=== PATIENT | female | born 1960 | race Caucasian/White ===

== ENCOUNTER 2017-08-21 09:54 | Day surgery (SDC) | END 2017-08-21 14:47 | disposition home or self-care (01) ==

== ENCOUNTER 2018-12-22 00:39 | Inpatient (IN) | payer OTHER ==
[2018-12-22] VITALS (89 sets, daily range): BP systolic 81–161; BP diastolic 55–94; PULSE 53–100; RESP 16–31; Ht 172.7 cm; Wt 98.3 kg
[~2018-12-22] VITALS: Ht 172.7 cm; Wt 98.3 kg
[~2018-12-22 00:39] MED LIST: BENA5TAB33 PO; LANT3I SC; METF100010 PO
[2018-12-22] MEDS ORDERED: VANCOMYCIN 1 GM (PMX) 250 ML IVPB STA (00:57)
[2018-12-22] MEDS ORDERED: SODIUM CHLORIDE 0.9% 1L BAG IV* STA (00:57)
[2018-12-22] MEDS ORDERED: AMIODARONE 900 MG in DEXTROSE 5% 482 ML IV STA (00:57)
[2018-12-22] MEDS ORDERED: CEFEPIME 2GM/50 ML (PMX) 50 ML IVPB STA (00:57)
[2018-12-22] MEDS ORDERED: PROPOFOL 100 ML IV ONE (01:00)
[2018-12-22] MEDS ORDERED: NORepinephrine 8MG/250 ML (PMX 250 ML IV ONE (01:00)
[2018-12-22] MEDS ORDERED: morphine 4 MG/ML VIAL IV STA (01:12)
[2018-12-22] MEDS ORDERED: IODIXANOL LOCM 100 ML BTL ONE (01:25)
[2018-12-22] MEDS ORDERED: LIDOCAINE 1% (MDV) 20 ML INJ ONE (01:25)
[2018-12-22] MEDS ORDERED: HEPARIN 1000 UNITS/ML 10 ML INJ ONE (01:25)
[2018-12-22] MEDS ORDERED: NITROGLYCERIN (IC) 100 MCG/ML INJ ONE (01:26)
[2018-12-22] MEDS ORDERED: VERAPAMIL 5 MG INJ ONE (01:26)
[2018-12-22] MEDS ORDERED: MIDAZOLAM 1 MG/ML 2 ML INJ ONE (01:26)
[2018-12-22] MEDS ORDERED: FENTAnyl 50 MCG/ML VIAL ONE (01:26)
--- NOTE | 2018-12-22 01:28 | ERD ---
ER Documentation Chief Complaint Chief Complaint CARD HPI This is a 58-year-old female brought in by rescue as a [place]. Apparently she slumped over while talking the family. Paramedics worked on for 10 minutes in the field and was able to establish an intraosseous line along with a Combitube for airway. They were regained pulses. Upon arrival, family is with patient as well. We waited we were able to regain pulses again as the patient and lost pulse on route. Central line and an intubation established. STEMI cyber security notified. [facility] activated at 12:56 AM ROS All systems reviewed and are negative except as per history of present illness. Medications Home Meds Reported Medications Benazepril Hcl* (Benazepril Hcl*) Unknown Strength Tablet, PO DAILY, #60 TAB 08/21/17 Insulin Glargine* (Lantus*) 100 Unit/Ml Soln, 60 UNIT SC QHS, #1 VIAL 08/21/17 Insulin Glargine* (Lantus*) 100 Unit/Ml Soln, 40 UNIT SC QAM, #1 VIAL 08/21/17 Metformin Hcl* (Metformin Hcl*) 1,000 Mg Tablet, 1000 MG PO WITH BREAKFAST DINNE, #30 TAB 08/21/17 Allergies Allergies: Coded Allergies: No Known Allergy (Unverified , 08/21/17) PMhx/Soc History of Surgery: No Anesthesia Reaction: No Hx Neurological Disorder: No Hx Respiratory Disorders: No Hx Cardiac Disorders: Yes (HTN, HLD) Hx Psychiatric Problems: Yes (DEPRESSION) Hx Miscellaneous Medical Probl: No Hx Alcohol Use: No Hx Substance Use: No Hx Tobacco Use: No Physical Exam Vitals Vital Signs Date Temp Pulse Resp B/P (MAP) Pulse Ox O2 O2 Flow FiO2 Time Delivery Rate 12/22/18 80 27 100 100 01:05 12/22/18 73 28 141/98 94 01:05 (112) Physical Exam Const: Obtunded Head: Atraumatic Eyes: Normal Conjunctiva ENT: Normal External Ears, Nose and Mouth. Neck: Full range of motion. No meningismus. Resp: Scattered rales bilaterally Cardio: Regular rate and rhythm, no murmurs Abd: Soft, non tender, non distended. Normal bowel sounds Skin: No petechiae or rashes Back: No midline or flank tenderness Ext: No cyanosis, or edema Neur: Obtunded Psych: Obtunded Result Diagram: 12/22/18 0055 12/22/18 0055 Results 24 hrs Laboratory Tests Test 12/22/18 00:55 12/22/18 01:06 White Blood Count 19.2 10^3/ul Red Blood Count 4.63 10^6/ul Hemoglobin 12.9 g/dl Hematocrit 42.1 % Mean Corpuscular Volume 90.9 fl Mean Corpuscular Hemoglobin 27.9 pg Mean Corpuscular Hemoglobin Concent 30.6 g/dl Red Cell Distribution Width 12.4 % Platelet Count 203 10^3/UL Mean Platelet Volume 10.9 fl Immature Granulocytes % 3.100 % Neutrophils % 46.2 % Lymphocytes % 46.3 % Monocytes % 3.3 % Eosinophils % 0.4 % Basophils % 0.7 % Nucleated Red Blood Cells % 0.2 /100WBC Immature Granulocytes # 0.600 10^3/ul Neutrophils # 8.9 10^3/ul Lymphocytes # 8.9 10^3/ul Monocytes # 0.6 10^3/ul Eosinophils # 0.1 10^3/ul Basophils # 0.1 10^3/ul Nucleated Red Blood Cells # 0.0 10^3/ul Prothrombin Time 14.6 Sec Prothrombin Time Ratio 1.1 INR International Normalized Ratio 1.13 Activated Partial Thromboplast Time 42.7 Sec Sodium Level 133 mmol/L Potassium Level 2.9 mmol/L Chloride Level 99 mmol/L Carbon Dioxide Level 19 mmol/L Anion Gap 15 Blood Urea Nitrogen 14 mg/dl Creatinine 0.65 mg/dl Est Glomerular Filtrat Rate mL/min > 60 mL/min Glucose Level 610 mg/dl Calcium Level 11.2 mg/dl Phosphorus Level 7.6 mg/dl Magnesium Level 2.8 mg/dl Total Bilirubin 0.3 mg/dl Direct Bilirubin 0.00 mg/dl Indirect Bilirubin 0.3 mg/dl Aspartate Amino Transf (AST/SGOT) 67 IU/L Alanine Aminotransferase (ALT/SGPT) 81 IU/L Alkaline Phosphatase 58 IU/L Troponin I Pending Total Protein 5.8 g/dl Albumin 3.3 g/dl Globulin 2.50 g/dl Albumin/Globulin Ratio 1.32 Lipase 811 U/L Ethyl Alcohol Level Pending Bedside Glucose 190 mg/dL Current Medications Medications Dose Sig/Senait Start Time Status Last (Trade) Ordered Route PRN Stop Time Admin Dose Reason Admin Sodium 3,000 ml BOLUS OVER 2 12/22/18 DC Chloride HOURS STAT 00:57 (NS) IV* 12/22/18 01:00 Cefepime HCl 50 ml @ ONCE STAT 12/22/18 100 mls/hr IVPB 00:57 12/22/18 01:26 Vancomycin 250 ml @ ONCE STAT 12/22/18 HCl 125 mls/hr IVPB 00:57 12/22/18 02:56 250 ml @ PER PROTOCOL 12/22/18 Norepinephrin 7.5 mls/hr ONCE IV 01:00 e 12/23/18 10:19 Amiodarone 500 ml @ 0 ONCE STAT 12/22/18 DC HCl 900 mls/hr IV 00:57 mg/Dextrose 12/22/18 01:00 Propofol 100 ml @ 3 per protocol 12/22/18 mls/hr ONCE IV 01:00 12/23/18 10:19 Morphine 4 mg ONCE STAT 12/22/18 DC Sulfate IV 01:12 (morphine) 12/22/18 01:13 Potassium 50 ml @ 25 Q2H IVPB 12/22/18 Chloride mls/hr 01:30 12/22/18 05:29 Procedures/MDM EKG: Rate/Rhythm: [Normal Sinus Rhythm] QRS, ST, T-waves: ST segment elevations in 1 and aVL, deep T wave inversions in V2 V3 V4 Impression: Post Rosc STEMI Chest X-ray 1V Interpreted by me: Soft Tissue: No acute abnormali ties Bones: No acute abnormalities Mediastinum/Cardiac Silhouette/Lungs: ET tube and central line in good position Endotracheal Intubation by me: Pre assessment performed. See preceding note for details. Pre-oxygenation performed with 100% oxygen RSI: Performed w/o complication or hypoxic events. Medications as ordered. Blade: [Mac 4] ET Tube: 7.5 cm Depth: 23 cm at the lip Intubation confirmed by colorimetric CO2, equal breath sounds, quiet over the stomach. Chest X-ray 1V Interpreted by me: 2 cm above the max ET tube. Normal soft tissue, No pneumothorax. Central Line Placement by me: Patient consented, sterilely draped, full prep, gown, glove, mask, time out performed. Anesthesia: 1% lidocaine locally Location: Left subclavian Device: Multiple lumen Technique: Seldinger technique. Secured with suture. Results: Venous return from all ports with easy saline flush. No complications. Guide wire retrieved and disposed of. . [Chest X-ray 1V Interpreted by me: Central line in SVC, Normal soft tissue, No evidence of pneumothorax.] Critical Care: Time: 45 minutes, independent of any separately billable procedural time Treatments/Evaluations: Close monitoring and treatment of unstable vital signs, cardiorespiratory, and neurologic status, while maintaining tight balance of fluid, respiratory, and cardiac interventions. Medical decision making: This is a 58-year-old female status post return of spontaneous circulation with a post Rosc STEMI. Cardiology is notified. Patient be taken to [facility]. Hospitalist notified as well. Family in conference room was notified and agree with care plan Departure Diagnosis: Primary Impression: Cardiac arrest Condition: Critical AMPARO LEONARD Dec 22, 2018 01:28
[2018-12-22] MEDS: POTASSIUM CHLORIDE 50 ML IVPB SCH ×2 (01:30→03:30)
[2018-12-22] MEDS ORDERED: PROPOFOL 100 ML ONE (01:50)
[2018-12-22] MEDS ORDERED: hydrALAzine 20 MG INJ IV PRN (02:00)
[2018-12-22] MEDS ORDERED: LORAZEPAM 2 MG INJ IV PRN (02:00)
[2018-12-22] MEDS ORDERED: MEPERIDINE 25 MG INJ IV PRN ×3 (02:00→07:30)
[2018-12-22] MEDS ORDERED: ALBUTEROL/IPRATROPIUM (NEB) 3 ML AMP HHN PRN (02:00)
[2018-12-22] MEDS ORDERED: ACETAMINOPHEN 650 MG SUPP PR PRN (02:00)
[2018-12-22] MEDS ORDERED: morphine 2 MG INJ IV PRN (02:00)
[2018-12-22] MEDS ORDERED: ACETAMINOPHEN 325 MG TAB PO PRN (02:00)
[2018-12-22] MEDS: ACCU-CHEK XX SCH ×28 (02:00→23:00)
[2018-12-22] MEDS ORDERED: DEXTROSE 50% 50 ML SYRINGE IV PRN ×2 (02:00)
[2018-12-22] MEDS ORDERED: HYDROCODONE/APAP (5/325) TAB PO PRN (02:00)
[2018-12-22] MEDS ORDERED: DOCUSATE SODIUM 100 MG CAP PO PRN (02:00)
[2018-12-22] MEDS ORDERED: NITROGLYCERIN (SL) 0.4 MG TAB SL PRN (02:00)
[2018-12-22] MEDS ORDERED: ONDANSETRON 4 MG INJ IV PRN (02:00)
[2018-12-22] MEDS ORDERED: MAGNESIUM HYDROXIDE 30ML CUP PO PRN (02:00)
[2018-12-22] MEDS ORDERED: NACL 0.9% 3 ML SYG IV SCH (02:00)
[2018-12-22] MEDS ORDERED: POTASSIUM CHLORIDE 50 ML ONE (02:24)
[2018-12-22] MEDS ORDERED: TICAGRELOR 90 MG TABLET ONE (02:43)
[2018-12-22] MEDS ORDERED: ASPIRIN 325 MG TAB ONE (02:50)
[2018-12-22] MEDS ORDERED: ASPIRIN 81 MG TAB ONE (02:51)
--- NOTE | 2018-12-22 03:03 | CONS ---
Assessment/Plan Assessment/Plan Hospital Course (Demo Recall) 58 yo with cardiac arrest due to lateral wall stemi, culprit lesion is OM1, which was stented, and mid LAD also stented. Imp: Card arrest STEMI diabetes hypokalemia Recc: ASA, Brilinta, atorvastatin BB and PAKO/ARB as BP tolerates Watch for neurologic recovery Cooling protocol Echo to be done in AM Guarded prognosis given prolonged down time Can stop amiodarone if still running Consultation Date/Type/Reason Admit Date/Time 12/22/18 Date of Consultation: Dec 22, 2018 Type of Consult Cardiology Reason for Consultation cardiac arrest, STEMI Requesting Provider: AMPARO LEONARD Date/Time of Note DATE: 12/22/18 TIME: 01:41 Hx of Present Illness 58 yo with h/o DM presents as ROSC. Per family, pt was in usual state of health earlier, went to dinner and felt unwell, went home after dinner and was nauseated and vomiting, then witnessed to lose consciousness. Family called 911 immediately, but no CPR done, it took BLS 20 minutes to arrive at the home, on arrival she was pulseless and CPR done. She was shocked x 4, at some point regained pulse in transport, but upon arrival to ED had no pulse. EKG in ED and in field with nsr, ST elevations in inferior and anterolateral leads with reciprocal ST depressions. Time in field was 30 min, unclear how much time was without pulse, and an additional 15 min in ED without pulse. At present pt intubated, bloody frothy secretions in ETT. Patient taken to seed analysis laboratory assistant emergently, culprit vessel was OM1 which had 99% lesion and was stented. Patient also had a long LAD mid lesion which was stented. LVEF about 30% with inferoapical akinesis Subjective hx not possible: pt non-verbal, pt critical status Past Medical History Medical History: diabetes Home Meds Reported Medications Benazepril Hcl* (Benazepril Hcl*) Unknown Strength Tablet, PO DAILY, #60 TAB 08/21/17 Insulin Glargine* (Lantus*) 100 Unit/Ml Soln, 60 UNIT SC QHS, #1 VIAL 08/21/17 Insulin Glargine* (Lantus*) 100 Unit/Ml Soln, 40 UNIT SC QAM, #1 VIAL 08/21/17 Metformin Hcl* (Metformin Hcl*) 1,000 Mg Tablet, 1000 MG PO WITH BREAKFAST DINNE, #30 TAB 08/21/17 Medications Current Medications Vancomycin HCl 250 ml @ 125 mls/hr ONCE STAT IVPB ; Start 12/22/18 at 00:57; Stop 12/22/18 at 02:56 Norepinephrine 250 ml @ 7.5 mls/hr PER PROTOCOL ONCE IV ; Start 12/22/18 at 01:00; Stop 12/23/18 at 10:19 Propofol 100 ml @ 3 mls/hr per protocol ONCE IV ; Start 12/22/18 at 01:00; Stop 12/23/18 at 10:19 Potassium Chloride 50 ml @ 25 mls/hr Q2H IVPB ; Start 12/22/18 at 01:30; Stop 12/22/18 at 05:29 Allergies: Coded Allergies: No Known Allergy (Unverified , 08/21/17) Past Surgical History Past Surgical Hx: other (unknown) Family History Significant Family History: no pertinent family hx Social History Smoking Status: Unknown if ever smoked Exam/Review of Systems Vital Signs Vitals Vital Signs Date Temp Pulse Resp B/P (MAP) Pulse Ox O2 O2 Flow FiO2 Time Delivery Rate 12/22/18 80 27 100 100 01:05 12/22/18 141/98 01:05 (112) Exam Constitutional: non-verbal, other (obese) Head: normocephalic, atraumatic Eyes: nl lids ENMT: nl external ears & nose, intubated Neck: No bruits Respiratory: crackles/rales (heard throughout) Cardiovascular: regular rate and rhythm; No murmurs/extra sounds (hard to hear due to lung sounds) Gastrointestinal: soft, non-tender Musculoskeletal: nl extremities to inspection Extremities: normal pulses (normal femoral and DP pulses); No edema Neurological: unresponsive Skin: nl turgor Labs Result Diagram: 12/22/185 12/22/18 0055 Results 24hrs Laboratory Tests Test 12/22/18 00:55 12/22/18 01:05 12/22/18 01:06 White Blood Count 19.2 #H Red Blood Count 4.63 Hemoglobin 12.9 Hematocrit 42.1 Mean Corpuscular Volume 90.9 Mean Corpuscular Hemoglobin 27.9 L Mean Corpuscular Hemoglobin Concent 30.6 L Red Cell Distribution Width 12.4 Platelet Count 203 # Mean Platelet Volume 10.9 H Immature Granulocytes % 3.100 H Neutrophils % 46.2 Lymphocytes % 46.3 Monocytes % 3.3 Eosinophils % 0.4 Basophils % 0.7 Nucleated Red Blood Cells % 0.2 H Immature Granulocytes # 0.600 H Neutrophils # 8.9 H Lymphocytes # 8.9 H Monocytes # 0.6 Eosinophils # 0.1 Basophils # 0.1 Nucleated Red Blood Cells # 0.0 Prothrombin Time 14.6 Prothrombin Time Ratio 1.1 INR International Normalized Ratio 1.13 Activated Partial Thromboplast Time 42.7 H Sodium Level 133 L Potassium Level 2.9 *L Chloride Level 99 Carbon Dioxide Level 19 L Anion Gap 15 H Blood Urea Nitrogen 14 Creatinine 0.65 Est Glomerular Filtrat Rate mL/min > 60 Glucose Level 610 *H Calcium Level 11.2 H Phosphorus Level 7.6 H Magnesium Level 2.8 H Total Bilirubin 0.3 Direct Bilirubin 0.00 Indirect Bilirubin 0.3 Aspartate Amino Transf (AST/SGOT) 67 H Alanine Aminotransferase (ALT/SGPT) 81 H Alkaline Phosphatase 58 Troponin I 0.255 *H Total Protein 5.8 L Albumin 3.3 Globulin 2.50 Albumin/Globulin Ratio 1.32 Lipase 811 H Ethyl Alcohol Level < 10.0 H Urine Color YELLOW Urine Clarity CLEAR Urine pH 5.0 Urine Specific [place] 1.021 Urine Ketones 1+ H Urine Nitrite NEGATIVE Urine Bilirubin NEGATIVE Urine Urobilinogen NEGATIVE Urine Leukocyte Esterase NEGATIVE Urine Hemoglobin NEGATIVE Urine Glucose 1+ H Urine Total Protein NEGATIVE Bedside Glucose 190 Imaging Imaging EKG with NSR, ST elevations in anterolateral and inferior leads Medications Medications Current Medications Vancomycin HCl 250 ml @ 125 mls/hr ONCE STAT IVPB ; Start 12/22/18 at 00:57; Stop 12/22/18 at 02:56 Norepinephrine 250 ml @ 7.5 mls/hr PER PROTOCOL ONCE IV ; Start 12/22/18 at 01:00; Stop 12/23/18 at 10:19 Propofol 100 ml @ 3 mls/hr per protocol ONCE IV ; Start 12/22/18 at 01:00; Stop 12/23/18 at 10:19 Potassium Chloride 50 ml @ 25 mls/hr Q2H IVPB ; Start 12/22/18 at 01:30; Stop 12/22/18 at 05:29 ROBIN JAMES 10, 2019 03:02
--- NOTE | 2018-12-22 03:16 | OPR ---
Date/Time of Note Date/Time of Note DATE: 12/22/18 TIME: 03:07 Operative Report Procedure Date: Dec 22, 2018 Preoperative Diagnosis STEMI and cardiac arrest Postoperative Diagnosis STEMI - culprit vessel is OM1, with severe LAD disease Operation/Procedure Performed Coronary angiography, left heart cath, left ventriculography, moderate sedation, coronary angioplasty to culprit OM1 and angioplasty to mid LAD Surgeon see signature line Stage Settings Painter Sergio FOX Anesthesia Type: moderate sedation Estimated Blood Loss: 50 - 100 ml's Transfusion none Specimen none Grafts/Implants [place] Resolute 3.0x18 mm stent to OM1, and 3.0x26 mm stent to mid LAD Complications none Pt Condition Post Procedure: guarded Disposition: other (ICU) Indications 58 yo witnessed cardiac arrest with evidence of STEMI Procedure Description Informed consent from family obtained. Patient brought to dental lab technician emergently, with ETT in place, being bagged, and connected to ventilator. Versed and fentanyl given as no other sedation had been administered. Using fluoroscopy and modified seldinger technique, the right TENNIS PLAYER was accessed and a 6F sheath placed. Diagnostic images obtained with JL4 and JR4 catheters. Then it was decided to proceed with PCI. Heparin given and ACT checked. A JL4 guide engaged the LM, the OM1 vessel was wired with a Luge wire. Lesion predilated with a 2.5x12 mm balloon, stented with a 3.0x18 mm [place] Resolute stent. Guideliner was used to help advance the stent into the vessel. The guideliner and wire were repositioned into the LAD, the LAD lesion was predilated with the 2.5x12 balloon, then stented with a 3.0x26 mm Juan Resolute stent. Angiography performed post stenting including wire out shots demonstrating good apposition of the stents and no evidence of dissection. Angiography through the sidearm of the sheath demonstrated that the sheath was placed low, below the bifurcation. It was sewn into place with plans for removal later on. Findings: Left main - moderate sized, no significant lesions LAD - 20% ostial, 90% mid lesion, length 20 mm, mild luminal irregularities throughout LCX - OM1 99% lesion with CHEIKH 2 flow beyond the lesion, lesion length 12 mm RCA dominant, but relatively small vessel with mild diffuse disease LVEF - 30% with inferoapical akinesis and global hypokinesis LVEDP - 27 ROBIN JAMES Dec 22, 2018 03:15
--- NOTE | 2018-12-22 03:22 | HP ---
Date/Time of Note Date/Time of Note DATE: 12/22/18 TIME: 03:09 Assessment/Plan VTE Prophylaxis SCD applied (from Nsg): Yes Pharmacological prophylaxis: other Lines/Catheters IV Catheter Type (from Nrsg): Intraosseous Central line still needed: Yes Assessment/Plan Hospital Course Assessment and plan: 58-year-old female past medical of hypertension, high cholesterol, anxiety, diabetes, who was brought in by EMS after suffering cardiac arrest and had ROSC, with ST elevation [place] lactic acidosis, status post PCI of the OM1 (culprit lesion) is as well as stenting of the mid LAD, intubated and unresponsive, on insulin drip and hypothermia protocol. 1. Status post cardiac arrest with ST elevation [place]: Again status post PCI of the obtuse marginal and LAD blockages. Again patient was down for at least 20 m inutes before EMS arrived at home, and took another 15 minutes for ROSC to be obtained. -Monitor, follow-up post procedure recognitions per cardiology team, continue Lipitor, Coreg, Brilinta, aspirin -We will obtain palliative care consult as well as neurology consult, patient now started on hypothermia protocol and continue insulin drip, trend lactic acid -Follow-up TSH, A1c, lipid panel, and add Keppra IV twice daily 2. Diabetes: Based on history, can follow-up A1c, continue insulin drip and monitor sugars 3. Hypertension: Presently stable -Continue current cardiac medications, monitor 4. High cholesterol: Follow-up lipid panel continue statin Appears to have overall poor prognosis given the length of time patient was down before CPR was started, again we will continue hypothermia protocol for the first 24 hours, insulin drip, as mentioned above palliative care and neurology consults as well. Result Diagram: 12/22/18 0055 12/22/18 0055 Results 24hrs Laboratory Tests Test 12/22/18 00:55 12/22/18 01:05 12/22/18 01:06 12/22/18 01:14 White Blood Count 19.2 #H Red Blood Count 4.63 Hemoglobin 12.9 Hematocrit 42.1 Mean Corpuscular 90.9 Volume Mean Corpuscular 27.9 L Hemoglobin Mean Corpuscular 30.6 L Hemoglobin Concent Red Cell 12.4 Distribution Width Platelet Count 203 # Mean Platelet Volume 10.9 H Immature 3.100 H Granulocytes % Neutrophils % 46.2 Lymphocytes % 46.3 Monocytes % 3.3 Eosinophils % 0.4 Basophils % 0.7 Nucleated Red Blood 0.2 H Cells % Immature 0.600 H Granulocytes # Neutrophils # 8.9 H Lymphocytes # 8.9 H Monocytes # 0.6 Eosinophils # 0.1 Basophils # 0.1 Nucleated Red Blood 0.0 Cells # Prothrombin Time 14.6 Prothrombin Time 1.1 Ratio INR International 1.13 Normalized Ratio Activated 42.7 H Partial Thromboplast Time Sodium Level 133 L Potassium Level 2.9 *L Chloride Level 99 Carbon Dioxide Level 19 L Anion Gap 15 H Blood Urea Nitrogen 14 Creatinine 0.65 Est Glomerular > 60 Filtrat Rate mL/min Glucose Level 610 *H Calcium Level 11.2 H Phosphorus Level 7.6 H Magnesium Level 2.8 H Total Bilirubin 0.3 Direct Bilirubin 0.00 Indirect Bilirubin 0.3 Aspartate Amino 67 H Transf (AST/SGOT) Alanine 81 H Aminotransferase (AL T/SGPT) Alkaline Phosphatase 58 Troponin I 0.255 *H Total Protein 5.8 L Albumin 3.3 Globulin 2.50 Albumin/Globulin 1.32 Ratio Lipase 811 H Ethyl Alcohol Level < 10.0 H Urine Color YELLOW Urine Clarity CLEAR Urine pH 5.0 Urine Specific 1.021 [place] Urine Ketones 1+ H Urine Nitrite NEGATIVE Urine Bilirubin NEGATIVE Urine Urobilinogen NEGATIVE Urine Leukocyte NEGATIVE Esterase Urine Hemoglobin NEGATIVE Urine Glucose 1+ H Urine Total Protein NEGATIVE Bedside Glucose 190 Lactic Acid Level 12.5 *H Urine Opiates Screen Negative Urine Barbiturates Negative Urine Amphetamines Negative Screen Urine Negative Benzodiazepines Screen Urine Cocaine Screen Negative Urine Cannabinoids Negative HPI/ROS Admit Date/Time Admit Date/Time 12/22/18 Hx of Present Illness 58-year-old female past medical of hypertension, high cholesterol, anxiety, diabetes, who was brought in by EMS after suffering cardiac arrest and had ROSC. Per documentation and per family, after dinner last night patient went home and was nauseated and vomiting, then witnessed to lose consciousness. Family called 911 immediately, and apparently it took BLS about 20 minutes to arrive at the home, on arrival she was pulseless and CPR done. She was shocked x 4, at some point regained pulse in transport, but upon arrival to ED had no pulse. Per cardiology notes, the time in field was 30 min, unclear how much time was without pulse, and an additional 15 min in ED without pulse. Patient was intubated. Patient was found with sugars in the 600 range initially. EKG in ED and in field showed signs consistent with ST elevation [place]. And troponin was elevated at 0.255. Lactic acid was also found to be in the 12 range. Patient was taken to the heart culture media laboratory assistant short time ago and had stenting performed of the OM1 (culprit lesion) is as well as stenting of the mid LAD. PMH/Family/Social Past Medical History Medications Current Medications Norepinephrine 250 ml @ 7.5 mls/hr PER PROTOCOL ONCE IV ; Start 12/22/18 at 01:00; Stop 12/23/18 at :19 Propofol 100 ml @ 3 mls/hr per protocol ONCE IV ; Start 12/22/18 at 01:00; Stop 12/23/18 at : Potassium Chloride 50 ml @ 25 mls/hr Q2H IVPB ; Start 12/22/18 at 01:30; Stop 12/22/18 at 05:29 IV Flush (NS 3 ml) 3 ml PER PROTOCOL IV ; Start 12/22/18 at 02:00 Ondansetron HCl (Zofran Inj) 4 mg Q6H PRN IV NAUSEA/VOMITING; Start 12/22/18 at 02:00 Acetaminophen (Tylenol Tab) 650 mg Q6H PRN PO .PAIN 1-3 OR TEMP; Start 12/22/18 at 02:00 Acetaminophen/ Hydrocodone Bitart ([place] (5/325)) 1 tab Q6H PRN PO .MOD PAIN 4- 6; Start 12/22/18 at 02:00 Morphine Sulfate (morphine) 2 mg Q4H PRN IV .SEVERE PAIN 7-10; Start 12/22/18 at 02:00 Docusate Sodium (Colace) 100 mg Q12H PRN PO .CONSTIPATION; Start 12/22/18 at 02:00 Magnesium Hydroxide (Milk Of Mag) 30 ml DAILY PRN PO .CONSTIPATION; Start 12/22/18 at 02:00 Famotidine (Pepcid Iv) 20 mg Q12 IV ; Start 12/22/18 at 09:00 Lorazepam (Ativan) 0.5 mg Q6H PRN IV ANXIETY; Start 12/22/18 at 02:00 Albuterol/ Ipratropium (Duoneb) 3 ml Q4H RESP THERAPY PRN HHN SHORTNESS OF BREATH; Start 12/22/18 at 02:00 Hydralazine HCl (Apresoline) 10 mg Q6H PRN IV ELEVATED BLOOD PRESSURE; Start 12/22/18 at 02:00 Nitroglycerin (Nitroglycerin (Sl Tab) 0.4 Mg) 1 tab Q5M PRN SL ANGINA; Start 12/22/18 at 02:00 Acetaminophen (Tylenol Supp) 650 mg Q4H PRN NV TEMP > 37C; Start 12/22/18 at 02:00 Acetaminophen (Tylenol Liquid) 650 mg Q4H PRN PO TEMP > 37C; Start 12/22/18 at 02:00 Acetaminophen (Tylenol Supp) 500 mg Q6H NV ; Start 12/23/18 at 02:00 Acetaminophen (Tylenol Liquid) 500 mg Q6H PO ; Start 12/23/18 at 02:00 Meperidine HCl (Demerol) 12.5 mg Q4H PRN IV POST OPERATIVE SHIVERING; Start 12/22/18 at 02:00 Meperidine HCl (Demerol) 25 mg Q4H PRN IV POST OPERATIVE SHIVERING; Start 12/22/18 at 02:00 Eye Lubricant (Akwa Oint) 1 applic Q6 BOTH EYES ; Start 12/22/18 at 06:00 Eye Lubricant (Artificial Tears Oph) 2 drop Q6 BOTH EYES ; Start 12/22/18 at 06:00 Diagnostic Test (Pha) (Accu-Chek) 1 ea Q1H XX ; Start 12/22/18 at 02:00 Insulin Human Regular 100 unit/ Sodium Chloride 100 ml @ 0.2 mls/hr PER PROTOCOL IV ; Start 12/22/18 at 02:00 Miscellaneous Information (* Miscellaneous Pharmacy Order) Treatment of Hypoglycemia: 1.BG 51... Per protocol XX ; Start 12/22/18 at 02:00 Dextrose (D50w Syringe) 25 ml Q15M PRN IV .DECREASED GLUCOSE; Start 12/22/18 at 02:00 Dextrose (D50w Syringe) 50 ml Q15M PRN IV .DECREASED GLUCOSE; Start 12/22/18 at 02:00 Miscellaneous Information (* Miscellaneous Pharmacy Order) Hold all Metformin ... ONCE ONCE XX ; Start 12/22/18 at 03:30; Stop 12/22/18 at 03:31; Status UNV Aspirin (Halfprin) 81 mg DAILY PO ; Start 12/22/18 at 09:00; Status UNV Ticagrelor (Brilinta) 180 mg ONCE ONCE PO ; Start 12/22/18 at 03:30; Stop 12/22/18 at 03:31; Status UNV Carvedilol (Coreg) 3.125 mg BID PO ; Start 12/22/18 at 09:00 Atorvastatin Calcium (Lipitor) 80 mg DAILY@21 PO ; Start 12/22/18 at 21:00; Status UNV Benazepril HCl (Lotensin) 10 mg DAILY PO ; Start 12/22/18 at 09:00; Status UNV Atorvastatin Calcium (Lipitor) 80 mg ONCE ONCE PO ; Start 12/22/18 at 03:30; Stop 12/22/18 at 03:31; Status UNV Coded Allergies: No Known Allergy (Unverified , 08/21/17) Past Surgical History Past Surgical Hx: other (unknown) Family History Significant Family History: no pertinent family hx Social History Alcohol Use: none Smoking Status: Unknown if ever smoked Drug Use: none Exam/Review of Systems Vital Signs Vitals Vital Signs Date Temp Pulse Resp B/P (MAP) Pulse Ox O2 O2 Flow FiO2 Time Delivery Rate 12/22/18 80 27 100 100 01:05 12/22/18 141/98 01:05 (112) Exam Exam Gen: Lying in bed, intubated Head: Atraumatic. Eyes: Unable to fully assess at this time ENT: Normal External Ears, Nose and Mouth. Neck: Supple Resp: Distant breath sounds bilaterally Cardio: S1, S2 heard Abd: Soft, nondistended, normal bowel sounds, non tender. Ext: No lower extremity edema bilaterally Neuro: Unable to fully assess at this time as patient is intubated MARIBEL MIRAMONTES Dec 22, 2018 03:21
[2018-12-22] MEDS ORDERED: ATORVASTATIN 80 MG TAB PO ONE (03:30)
[2018-12-22] MEDS ORDERED: TICAGRELOR 90 MG TABLET PO ONE (03:30)
[2018-12-22] MEDS: INSULIN HUMAN REGULAR 100 UNIT in SOD CHLORIDE 0.9% 99 ML IV SCH ×3 (03:36→15:30)
[2018-12-22] MEDS ORDERED: VECURONIUM 100 MG in DEXTROSE 5% 100 ML IV SCH (04:00)
[2018-12-22] MEDS: PIPER-TAZO 3.375 GM IV (PMX) 100 ML IVPB SCH ×3 (04:43→18:05)
[2018-12-22] MEDS: ARTIFICIAL TEARS 15 ML OPH BOTH EYES SCH ×3 (05:16→18:05)
[2018-12-22] MEDS: PHENYLephrine 20MG IN 250 ML 250 ML IV SCH ×2 (05:50→08:30)
[2018-12-22] MEDS: OCULAR LUBRICANT 3.5 GM OPH OINT BOTH EYES SCH ×3 (06:00→18:05)
[2018-12-22] MEDS: LEVETIRACETAM 1000 MG (PMX) 100 ML IVPB SCH ×2 (06:16→20:39)
[2018-12-22] MEDS ORDERED: NORepinephrine 8MG/250 ML (PMX 250 ML IV SCH (08:00)
[2018-12-22] MEDS ORDERED: MEPERIDINE 25 MG INJ IV ONE (08:00)
[2018-12-22] MEDS ORDERED: NA BICARBONATE 8.4% 50 ML SYG IV STA ×2 (08:31→12:33)
[2018-12-22] MEDS: BENAZEPRIL 10 MG TAB PO SCH (08:56)
[2018-12-22] MEDS: VASOPRESSIN 60 UNIT in DEXTROSE 5% 57 ML IV SCH ×2 (09:00→21:00)
[2018-12-22] MEDS ORDERED: ASPIRIN (EC) 81 MG TAB PO SCH (09:00)
--- NOTE | 2018-12-22 09:03 | CONS ---
Assessment/Plan Assessment/Plan Assessment/Plan (Daily) Chest x-ray showing pulmonary edema. Ventilator setting; AC of 16, tidal volume 500, PEEP of 5, 100% FiO2. Assessment and recommendations; 1. patient admitted cardiac arrest due to STEMI status post emergent coronary angiography with stenting of LAD. 2. Underlying cardiomyopathy with poor ejection fraction with profound shock and hypotension. Patient on multiple pressor agents. 3. High diabetes with severe hyperglycemia patient presenting with mixed acidosis. Likely some element of DKA as well. 4. Pulmonary edema from cardiac arrest. Difficult to rule out superimposed aspiration pneumonia. Patient however currently on appropriate empiric antimicrobial coverage. 5. Questionable history of seizures. Continue current supportive care. Administer sodium bicarbonate. Obtain follow-up ABG in 2 hours. Obtain follow-up chest x-ray 24 hours. Continue hypothermia protocol for now, hemodynamics permitting. Prognosis appears extremely guarded at this point. 40 minutes of critical care time was spent evaluating patient. Consultation Date/Type/Reason Admit Date/Time 12/22/18 Date of Consultation: Dec 22, 2018 Type of Consult Pulmonary/critical care Patient is a 58-year-old lady who was brought into the hospital after having cardiac arrest at home. Prolonged CPR was done with revival of vital signs. Up on evaluation here patient was diagnosed with STEMI and was taken to cardiac Tape Editor where LAD lesion was dilated and a stent put in. Patient has remained profoundly hypotensive and is critically ill. Past medical history; 1. History of hypertension, hyperlipidemia. 2. Diabetes. Apparently poorly controlled. Medications; reviewed. Patient is on insulin drip, phenylephrine drip, Levophed, and propofol. All doses and other medications were reviewed in detail. Allergies; none. Social history; non-smoker. Family history; patient is and has supportive family. 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 Review of system; unable to be obtained. General exam; middle-aged female, orally intubated, sedated and paralyzed. Date/Time of Note DATE: 12/22/18 TIME: 08:58 Past Medical History Home Meds Reported Medications Benazepril Hcl* (Benazepril Hcl*) Unknown Strength Tablet, PO DAILY, #60 TAB 08/21/17 Insulin Glargine* (Lantus*) 100 Unit/Ml Soln, 60 UNIT SC QHS, #1 VIAL 08/21/17 Insulin Glargine* (Lantus*) 100 Unit/Ml Soln, 40 UNIT SC QAM, #1 VIAL 08/21/17 Metformin Hcl* (Metformin Hcl*) 1,000 Mg Tablet, 1000 MG PO WITH BREAKFAST DINNE, #30 TAB 08/21/17 Medications Current Medications Propofol 100 ml @ 3 mls/hr per protocol ONCE IV Last administered on 12/22/18at 03:41; Admin Dose 9 MLS/HR; Start 12/22/18 at 01:00; Stop 12/23/18 at 10:19 IV Flush (NS 3 ml) 3 ml PER PROTOCOL IV ; Start 12/22/18 at 02:00 Ondansetron HCl (Zofran Inj) 4 mg Q6H PRN IV NAUSEA/VOMITING; Start 12/22/18 at 02:00 Acetaminophen (Tylenol Tab) 650 mg Q6H PRN PO .PAIN 1-3 OR TEMP; Start 12/22/18 at 02:00 Acetaminophen/ Hydrocodone Bitart ([place] (5/325)) 1 tab Q6H PRN PO .MOD PAIN 4- 6; Start 12/22/18 at 02:00 Morphine Sulfate (morphine) 2 mg Q4H PRN IV .SEVERE PAIN 7-10; Start 12/22/18 at 02:00 Docusate Sodium (Colace) 100 mg Q12H PRN PO .CONSTIPATION; Start 12/22/18 at 02:00 Magnesium Hydroxide (Milk Of Mag) 30 ml DAILY PRN PO .CONSTIPATION; Start 12/22/18 at 02:00 Famotidine (Pepcid Iv) 20 mg Q12 IV ; Start 12/22/18 at 09:00 Albuterol/ Ipratropium (Duoneb) 3 ml Q4H RESP THERAPY PRN HHN SHORTNESS OF BREATH; Start 12/22/18 at 02:00 Hydralazine HCl (Apresoline) 10 mg Q6H PRN IV ELEVATED BLOOD PRESSURE; Start 12/22/18 at 02:00 Nitroglycerin (Nitroglycerin (Sl Tab) 0.4 Mg) 1 tab Q5M PRN SL ANGINA; Start 12/22/18 at 02:00 Acetaminophen (Tylenol Supp) 650 mg Q4H PRN [place] TEMP > 37C; Start 12/22/18 at 02:00 Acetaminophen (Tylenol Liquid) 650 mg Q4H PRN PO TEMP > 37C; Start 12/22/18 at 02:00 Acetaminophen (Tylenol Supp) 500 mg Q6H [place] ; Start 12/23/18 at 02:00 Acetaminophen (Tylenol Liquid) 500 mg Q6H PO ; Start 12/23/18 at 02:00 Meperidine HCl (Demerol) 12.5 mg Q4H PRN IV POST OPERATIVE SHIVERING; Start 12/22/18 at 02:00 Meperidine HCl (Demerol) 25 mg Q4H PRN IV POST OPERATIVE SHIVERING; Start 12/22/18 at 02:00 Eye Lubricant (Akwa Oint) 1 applic Q6 BOTH EYES ; Start 12/22/18 at 06:00 Eye Lubricant (Artificial Tears Oph) 2 drop Q6 BOTH EYES Last administered on 12/22/18at 05:16; Admin Dose 2 DROP; Start 12/22/18 at 06:00 Diagnostic Test (Pha) (Accu-Chek) 1 ea Q1H XX Last administered on 12/22/18at 08:16; Admin Dose 1 EA; Start 12/22/18 at 02:00 Insulin Human Regular 100 unit/ Sodium Chloride 100 ml @ 0.2 mls/hr PER PROTOCOL IV Last administered on 12/22/18at 03:36; Admin Dose 6 MLS/HR; Start 12/22/18 at 02:00 Miscellaneous Information (* Miscellaneous Pharmacy Order) Treatment of Hypoglycemia: 1.BG 51... Per protocol XX ; Start 12/22/18 at 02:00 Dextrose (D50w Syringe) 25 ml Q15M PRN IV .DECREASED GLUCOSE; Start 12/22/18 at 02:00 Dextrose (D50w Syringe) 50 ml Q15M PRN IV .DECREASED GLUCOSE; Start 12/22/18 at 02:00 Aspirin (Halfprin) 81 mg DAILY PO ; Start 12/22/18 at 09:00 Carvedilol (Coreg) 3.125 mg BID PO ; Start 12/22/18 at 09:00 Atorvastatin Calcium (Lipitor) 80 mg DAILY@21 PO ; Start 12/22/18 at 21:00 Benazepril HCl (Lotensin) 10 mg DAILY PO ; Start 12/22/18 at 09:00 Piperacillin Sod/ Tazobactam Sod 100 ml @ 200 mls/hr Q6 IVPB Last administered on 12/22/18at 04:43; Admin Dose 200 MLS/HR; Start 12/22/18 at 04:00 Vecuronium [place] 100 mg/ Dextrose 100 ml @ 4.89 mls/hr TITRATE IV Last administered on 12/22/18at 04:00; Admin Dose 4.89 MLS/HR; Start 12/22/18 at 04:00 Levetiracetam 100 ml @ 400 mls/hr Q12 IVPB Last administered on 12/22/18at 06:16; Admin Dose 400 MLS/HR; Start 12/22/18 at 05:30 Lorazepam (Ativan) 1 mg Q1H PRN IV SEIZURES; Start 12/22/18 at 05:00 Vasopressin 60 unit/Dextrose 60 ml @ 1.2 mls/hr Q12H IV ; Start 12/22/18 at 09:00 Sodium Bicarbonate 100 meq/Sodium Chloride 1,100 ml @ 75 mls/hr [id number] IV ; Start 12/22/18 at 09:30 Phenylephrine HCl 80 mg/Dextrose 250 ml @ 18.75 mls/ hr TITRATE IV ; Start 12/22/18 at 09:30 Norepinephrine 32 mg/Dextrose 250 ml @ 0.47 mls/hr TITRATE IV ; Start 12/22/18 at 09:30 Allergies: Coded Allergies: No Known Allergy (Unverified , 08/21/17) Past Surgical History Past Surgical Hx: other (unknown) Social History Alcohol Use: none Smoking Status: Never smoker Drug Use: none Exam/Review of Systems Exam Vitals Vital Signs Date Temp Pulse Resp B/P (MAP) Pulse Ox O2 O2 Flow FiO2 Time Delivery Rate 12/22/18 96 16 98 100 07:58 12/22/18 89/58 (68) 07:15 12/22/18 95.8 07:00 Intake and Output 12/21/18 12/21/18 12/22/18 1515:00 23:00 07:00 IntakeIntake Total 3918.12 ml OutputOutput Total 165 ml BalanceBalance 3753.12 ml Exam H EENT exam; supple neck, positive JVD. No lymphadenopathy. Midline trachea. No thyromegaly. Orally intubated. Pupils are midsize and reactive sluggishly. Patient has fair dentition. Chest exam; diminished breath sounds bilaterally. S1-S2 audible, no murmurs. Regular rhythm. Abdomen exam; soft, no organomegaly. Bowel sounds are absent. Extremity exam; peripheral edema. 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 Results Result Diagram: 12/22/18 0510 12/22/18 0828 Results 24hrs Laboratory Tests Test 12/22/18 00:55 12/22/18 01:05 12/22/18 01:06 12/22/18 01:14 White Blood Count 19.2 #H Red Blood Count 4.63 Hemoglobin 12.9 Hematocrit 42.1 Mean Corpuscular 90.9 Volume Mean Corpuscular 27.9 L Hemoglobin Mean Corpuscular 30.6 L Hemoglobin Concen t Red Cell 12.4 Distribution Width Platelet Count 203 # Mean Platelet 10.9 H Volume Immature 3.100 H Granulocytes % Neutrophils % 46.2 Lymphocytes % 46.3 Monocytes % 3.3 Eosinophils % 0.4 Basophils % 0.7 Nucleated Red 0.2 H Blood Cells % Immature 0.600 H Granulocytes # Neutrophils # 8.9 H Lymphocytes # 8.9 H Monocytes # 0.6 Eosinophils # 0.1 Basophils # 0.1 Nucleated Red 0.0 Blood Cells # Prothrombin Time 14.6 Prothrombin Time 1.1 Ratio INR International 1.13 Normalized Ratio Activated 42.7 H Partial Thrombopl ast Time Sodium Level 133 L Potassium Level 2.9 *L Chloride Level 99 Carbon Dioxide 19 L Level Anion Gap 15 H Blood Urea 14 Nitrogen Creatinine 0.65 Est Glomerular > 60 Filtrat Rate mL/min Glucose Level 610 *H Calcium Level 11.2 H Phosphorus Level 7.6 H Magnesium Level 2.8 H Total Bilirubin 0.3 Direct Bilirubin 0.00 Indirect 0.3 Bilirubin Aspartate Amino 67 H Transf (AST/SGOT) Alanine 81 H Aminotransferase (ALT/SGPT) Alkaline 58 Phosphatase Troponin I 0.255 *H 0.866 *H Total Protein 5.8 L Albumin 3.3 Globulin 2.50 Albumin/Globulin 1.32 Ratio Lipase 811 H Ethyl Alcohol < 10.0 H Level Urine Color YELLOW Urine Clarity CLEAR Urine pH 5.0 Urine Specific 1.021 [place] Urine Ketones 1+ H Urine Nitrite NEGATIVE Urine Bilirubin NEGATIVE Urine NEGATIVE Urobilinogen Urine Leukocyte NEGATIVE Esterase Urine Hemoglobin NEGATIVE Urine Glucose 1+ H Urine Total NEGATIVE Protein Bedside Glucose 190 Lactic Acid Level 12.5 *H Creatine Kinase 179 Creatine Kinase 5.2 Index Creatinine Kinase 9.28 H MB (Mass) Urine Opiates Negative Screen Urine Negative Barbiturates Urine Negative Amphetamines Screen Urine Negative Benzodiazepines Screen Urine Cocaine Negative Screen Urine Negative Cannabinoids Test 12/22/18 01:52 12/22/18 03:33 12/22/18 03:50 12/22/18 04:15 Blood Gas Blood arterial Specimen Source Arterial Blood 12/22/2018 3:30:3 Date Drawn 7 AM Arterial Blood pH 7.053 *L (Temp corrected) Arterial Blood 56.8 H pCO2 (Temp correct) Arterial Blood 86.9 pO2 (Temp corrected) Arterial Blood 15.5 L HCO3 Arterial Blood -15.3 L Base Excess Arterial Blood 92.6 L Oxygen Saturation Pablo Test N/A Arterial Blood A-Line Gas Puncture Site Arterial 0.1 Blood Carboxyhemo globin Arterial Blood 0.3 Methemoglobin Blood Gas A-a O2 569.3 H Differential Oxyhemoglobin 92.2 L Percent Blood Gas 37.0 Temperature Blood Gas 16.0 Respiration Rate Blood Gas Actual 30 Respiration Rate Blood Gas VENT - AC Modality FiO2 100.0 Blood Gas Tidal 500.0 Volume Blood Gas Low 5.0 PEEP Setting Blood Gas 35.0 Inspiratory Pressure Blood Gas REBECCA AKHTAR Critical Value Read Back Blood Gas MR Notified Whom Blood Gas 12/22/2018 3:41:4 Notified Time 0 AM Bedside Glucose 572 *H 506 *H Prothrombin Time 19.3 #H Prothrombin Time 1.5 Ratio INR International 1.62 Normalized Ratio Activated 163.7 *H Partial Thrombopl ast Time Fibrinogen 189.0 L D-Dimer > 39099.00 H Sodium Level 134 L Potassium Level 5.9 H Chloride Level 106 Carbon Dioxide 17 L Level Anion Gap 11 Blood Urea 19 Nitrogen Creatinine 0.84 Est Glomerular > 60 Filtrat Rate mL/min Glucose Level 595 *H Hemoglobin A1c 7.7 H Lactic Acid Level 8.0 *H Calcium Level 9.3 Magnesium Level 2.1 Troponin I 70.200 *H Triglycerides 122 Level Cholesterol Level 216 H LDL Cholesterol, 160 Calculated HDL Cholesterol 32 L Cholesterol/HDL 6.7 Ratio Amylase Level 191 H Lipase 589 H Free Thyroxine 1.12 Test 12/22/18 05:10 12/22/18 06:03 12/22/18 07:01 12/22/18 07:18 White Blood Count 13.8 #H Red Blood Count 5.29 Hemoglobin 14.9 Hematocrit 47.1 H Mean Corpuscular 89.0 Volume Mean Corpuscular 28.2 L Hemoglobin Mean Corpuscular 31.6 L Hemoglobin Concen t Red Cell 12.5 Distribution Width Platelet Count 468 #H Mean Platelet 10.0 Volume Immature 0.700 H Granulocytes % Neutrophils % 80.3 H Lymphocytes % 15.9 Monocytes % 2.1 Eosinophils % 0.1 Basophils % 0.9 Nucleated Red 0.1 H Blood Cells % Immature 0.090 H Granulocytes # Neutrophils # 11.1 H Lymphocytes # 2.2 Monocytes # 0.3 Eosinophils # 0.0 Basophils # 0.1 Nucleated Red 0.0 Blood Cells # Bedside Glucose 486 *H 430 *H Lactic Acid Level 7.1 *H Test 12/22/18 07:52 12/22/18 08:24 12/22/18 08:28 Blood Gas Blood arterial Specimen Source Arterial Blood 12/22/2018 7:30:0 Date Drawn 4 AM Arterial Blood pH 7.003 *L (Temp corrected) Arterial Blood 55.4 H pCO2 (Temp correct) Arterial Blood 68.0 L pO2 (Temp corrected) Arterial Blood 13.8 L HCO3 Arterial Blood -18.4 L Base Excess Arterial Blood 89.9 L Oxygen Saturation Pablo Test N/A Arterial Blood A-Line Gas Puncture Site Arterial 0 Blood Carboxyhemo globin Arterial Blood 0.2 Methemoglobin Blood Gas A-a O2 593.9 H Differential Oxyhemoglobin 89.7 L Percent Blood Gas 35.3 Temperature Blood Gas 16.0 Respiration Rate Blood Gas Actual 16 Respiration Rate Blood Gas VENT - AC Modality FiO2 100.0 Blood Gas Tidal 500.0 Volume Blood Gas Low 5.0 PEEP Setting Blood Gas HALLIE AKHTAR Critical Value Read Back Blood Gas TM Notified Whom Blood Gas 12/22/2018 7:48:5 Notified Time 9 AM Bedside Glucose 393 H Potassium Level 4.0 Medications Medication Current Medications Propofol 100 ml @ 3 mls/hr per protocol ONCE IV Last administered on 12/22/18at 03:41; Admin Dose 9 MLS/HR; Start 12/22/18 at 01:00; Stop 12/23/18 at 10:19 IV Flush (NS 3 ml) 3 ml PER PROTOCOL IV ; Start 12/22/18 at 02:00 Ondansetron HCl (Zofran Inj) 4 mg Q6H PRN IV NAUSEA/VOMITING; Start 12/22/18 at 02:00 Acetaminophen (Tylenol Tab) 650 mg Q6H PRN PO .PAIN 1-3 OR TEMP; Start 12/22/18 at 02:00 Acetaminophen/ Hydrocodone Bitart ([place] (5/325)) 1 tab Q6H PRN PO .MOD PAIN 4- 6; Start 12/22/18 at 02:00 Morphine Sulfate (morphine) 2 mg Q4H PRN IV .SEVERE PAIN 7-10; Start 12/22/18 at 02:00 Docusate Sodium (Colace) 100 mg Q12H PRN PO .CONSTIPATION; Start 12/22/18 at 02:00 Magnesium Hydroxide (Milk Of Mag) 30 ml DAILY PRN PO .CONSTIPATION; Start 12/22/18 at 02:00 Famotidine (Pepcid Iv) 20 mg Q12 IV ; Start 12/22/18 at 09:00 Albuterol/ Ipratropium (Duoneb) 3 ml Q4H RESP THERAPY PRN HHN SHORTNESS OF BREATH; Start 12/22/18 at 02:00 Hydralazine HCl (Apresoline) 10 mg Q6H PRN IV ELEVATED BLOOD PRESSURE; Start 12/22/18 at 02:00 Nitroglycerin (Nitroglycerin (Sl Tab) 0.4 Mg) 1 tab Q5M PRN SL ANGINA; Start 12/22/18 at 02:00 Acetaminophen (Tylenol Supp) 650 mg Q4H PRN [place] TEMP > 37C; Start 12/22/18 at 02:00 Acetaminophen (Tylenol Liquid) 650 mg Q4H PRN PO TEMP > 37C; Start 12/22/18 at 02:00 Acetaminophen (Tylenol Supp) 500 mg Q6H NH ; Start 12/23/18 at 02:00 Acetaminophen (Tylenol Liquid) 500 mg Q6H PO ; Start 12/23/18 at 02:00 Meperidine HCl (Demerol) 12.5 mg Q4H PRN IV POST OPERATIVE SHIVERING; Start 12/22/18 at 02:00 Meperidine HCl (Demerol) 25 mg Q4H PRN IV POST OPERATIVE SHIVERING; Start 12/22/18 at 02:00 Eye Lubricant (Akwa Oint) 1 applic Q6 BOTH EYES ; Start 12/22/18 at 06:00 Eye Lubricant (Artificial Tears Oph) 2 drop Q6 BOTH EYES Last administered on 12/22/18at 05:16; Admin Dose 2 DROP; Start 12/22/18 at 06:00 Diagnostic Test (Pha) (Accu-Chek) 1 ea Q1H XX Last administered on 12/22/18at 08:16; Admin Dose 1 EA; Start 12/22/18 at 02:00 Insulin Human Regular 100 unit/ Sodium Chloride 100 ml @ 0.2 mls/hr PER PROTOCOL IV Last administered on 12/22/18at 03:36; Admin Dose 6 MLS/HR; Start 12/22/18 at 02:00 Miscellaneous Information (* Miscellaneous Pharmacy Order) Treatment of Hypoglycemia: 1.BG 51... Per protocol XX ; Start 12/22/18 at 02:00 Dextrose (D50w Syringe) 25 ml Q15M PRN IV .DECREASED GLUCOSE; Start 12/22/18 at 02:00 Dextrose (D50w Syringe) 50 ml Q15M PRN IV .DECREASED GLUCOSE; Start 12/22/18 at 02:00 Aspirin (Halfprin) 81 mg DAILY PO ; Start 12/22/18 at 09:00 Carvedilol (Coreg) 3.125 mg BID PO ; Start 12/22/18 at 09:00 Atorvastatin Calcium (Lipitor) 80 mg DAILY@21 PO ; Start 12/22/18 at 21:00 Benazepril HCl (Lotensin) 10 mg DAILY PO ; Start 12/22/18 at 09:00 Piperacillin Sod/ Tazobactam Sod 100 ml @ 200 mls/hr Q6 IVPB Last administered on 12/22/18at 04:43; Admin Dose 200 MLS/HR; Start 12/22/18 at 04:00 Vecuronium [place] 100 mg/ Dextrose 100 ml @ 4.89 mls/hr TITRATE IV Last ad ministered on 12/22/18at 04:00; Admin Dose 4.89 MLS/HR; Start 12/22/18 at 04:00 Levetiracetam 100 ml @ 400 mls/hr Q12 IVPB Last administered on 12/22/18at 06:16; Admin Dose 400 MLS/HR; Start 12/22/18 at 05:30 Lorazepam (Ativan) 1 mg Q1H PRN IV SEIZURES; Start 12/22/18 at 05:00 Vasopressin 60 unit/Dextrose 60 ml @ 1.2 mls/hr Q12H IV ; Start 12/22/18 at 09:00 Sodium Bicarbonate 100 meq/Sodium Chloride 1,100 ml @ 75 mls/hr [id number] IV ; Start 12/22/18 at 09:30 Phenylephrine HCl 80 mg/Dextrose 250 ml @ 18.75 mls/ hr TITRATE IV ; Start 12/22/18 at 09:30 Norepinephrine 32 mg/Dextrose 250 ml @ 0.47 mls/hr TITRATE IV ; Start 12/22/18 at 09:30 MACI SILVEIRA 10, 2019 09:03
[2018-12-22] MEDS: FAMOTIDINE 20 MG INJ IV SCH ×2 (09:19→20:39)
[2018-12-22] MEDS ORDERED: SODIUM BICARBONATE (IV ADD) 100 MEQ in SOD CHLORIDE 0.45% 1,000 ML IV SCH (09:30)
[2018-12-22] MEDS ORDERED: PHENYLephrine 80 MG in DEXTROSE 5% 242 ML IV SCH (09:30)
[2018-12-22] MEDS: ASPIRIN 81 MG TAB NGT SCH (09:38)
[2018-12-22] MEDS: SODIUM BICARBONATE (IV ADD) 100 MEQ in SOD CHLORIDE 0.45% 1,000 ML IV SCH ×2 (09:38→23:34)
[2018-12-22] MEDS: TICAGRELOR 90 MG TABLET PO SCH ×2 (09:39→20:34)
--- NOTE | 2018-12-22 10:09 | PN ---
Date/Time of Note Date/Time of Note DATE: 12/22/18 TIME: 10:02 Assessment/Plan VTE Prophylaxis Risk score (from Nsg)>0 risk: 5 SCD applied (from Nsg): Yes Pharmacological prophylaxis: other (per cardio) Lines/Catheters IV Catheter Type (from Nrsg): Intraosseous Central line still needed: Yes Urinary Cath still in place: Yes Reason Cath still needed: other (indicate) (intubated) Assessment/Plan Assessment/Plan Assessment and plan: 58-year-old woman past medical of hypertension, high cholesterol, anxiety, diabetes, who was brought in by EMS after suffering cardiac arrest and had ROSC, with ST elevation [place] lactic acidosis, status post PCI of the OM1 (culprit lesion) is as well as stenting of the mid LAD, intubated and unresponsive, on insulin drip and hypothermia protocol. 1. Status post cardiac arrest with ST elevation [place]: Again status post PCI of the obtuse marginal and LAD blockages. Again patient was down for at least 20 minutes before EMS arrived at home, and took another 15 minutes for ROSC to be obtained. -Monitor, follow-up post procedure recognitions per cardiology team, continue Lipitor, Coreg, Brilinta, aspirin -We will obtain palliative care consult as well as neurology consult, patient now started on hypothermia protocol and continue insulin drip, trend lactic acid -Follow-up TSH, A1c, lipid panel, and add Keppra IV twice daily 2. Diabetes: Based on history, can follow-up A1c, continue insulin drip and monitor sugars 3. Hypertension: Presently stable -Continue current cardiac medications, monitor 4. High cholesterol: Continue statin Appears to have overall poor prognosis given the length of time patient was down before CPR was started, again we will continue hypothermia protocol for the f irst 24 hours, insulin drip, as mentioned above palliative care and neurology consults as well. Result Diagram: 12/22/18 0510 12/22/18 0828 Subjective 24 Hr Interval Summary Free Text/Dictation No acute overnight events. On two pressors. Still on hypothermia protocol from last night. Updated family at bedside. They understand that there is a high likelihood the patient will be brain or a persistent vegetative state. Poor urine output. Still on high FiO2. Exam/Review of Systems Exam Vitals Vital Signs Date Temp Pulse Resp B/P (MAP) Pulse Ox O2 O2 Flow FiO2 Time Delivery Rate 12/22/18 100 08:00 12/22/18 16 98 100 07:58 12/22/18 89/58 (68) 07:15 12/22/18 95.8 07:00 Intake and Output 12/21/18 12/21/18 12/22/18 1515:00 23:00 07:00 IntakeIntake Total 3918.12 ml OutputOutput Total 165 ml BalanceBalance 3753.12 ml Exam Gen: Obese woman lying in bed, intubated and sedated. HEENT: Atraumatic. Moist mucous membranes. Eyes: Normal pupils, nonreactive. Neck: Supple, no lymphadenopathy. Resp: Mechanical breath sounds bilaterally. Cardio: S1, S2 heard. No obvious murmurs. Abd: Soft, nondistended, normal bowel sounds, non tender. Ext: No lower extremity edema bilaterally : [place] in place with minimal urine output. Results Results 24hrs Laboratory Tests Test 12/22/18 00:55 12/22/18 01:05 12/22/18 01:06 12/22/18 01:14 White Blood Count 19.2 #H Red Blood Count 4.63 Hemoglobin 12.9 Hematocrit 42.1 Mean Corpuscular 90.9 Volume Mean Corpuscular 27.9 L Hemoglobin Mean Corpuscular 30.6 L Hemoglobin Concen t Red Cell 12.4 Distribution Width Platelet Count 203 # Mean Platelet 10.9 H Volume Immature 3.100 H Granulocytes % Neutrophils % 46.2 Lymphocytes % 46.3 Monocytes % 3.3 Eosinophils % 0.4 Basophils % 0.7 Nucleated Red 0.2 H Blood Cells % Immature 0.600 H Granulocytes # Neutrophils # 8.9 H Lymphocytes # 8.9 H Monocytes # 0.6 Eosinophils # 0.1 Basophils # 0.1 Nucleated Red 0.0 Blood Cells # Prothrombin Time 14.6 Prothrombin Time 1.1 Ratio INR International 1.13 Normalized Ratio Activated 42.7 H Partial Thrombopl ast Time Sodium Level 133 L Potassium Level 2.9 *L Chloride Level 99 Carbon Dioxide 19 L Level Anion Gap 15 H Blood Urea 14 Nitrogen Creatinine 0.65 Est Glomerular > 60 Filtrat Rate mL/min Glucose Level 610 *H Calcium Level 11.2 H Phosphorus Level 7.6 H Magnesium Level 2.8 H Total Bilirubin 0.3 Direct Bilirubin 0.00 Indirect 0.3 Bilirubin Aspartate Amino 67 H Transf (AST/SGOT) Alanine 81 H Aminotransferase (ALT/SGPT) Alkaline 58 Phosphatase Troponin I 0.255 *H 0.866 *H Total Protein 5.8 L Albumin 3.3 Globulin 2.50 Albumin/Globulin 1.32 Ratio Lipase 811 H Ethyl Alcohol < 10.0 H Level Urine Color YELLOW Urine Clarity CLEAR Urine pH 5.0 Urine Specific 1.021 [place] Urine Ketones 1+ H Urine Nitrite NEGATIVE Urine Bilirubin NEGATIVE Urine NEGATIVE Urobilinogen Urine Leukocyte NEGATIVE Esterase Urine Hemoglobin NEGATIVE Urine Glucose 1+ H Urine Total NEGATIVE Protein Bedside Glucose 190 Lactic Acid Level 12.5 *H Creatine Kinase 179 Creatine Kinase 5.2 Index Creatinine Kinase 9.28 H MB (Mass) Urine Opiates Negative Screen Urine Negative Barbiturates Urine Negative Amphetamines Screen Urine Negative Benzodiazepines Screen Urine Cocaine Negative Screen Urine Negative Cannabinoids Test 12/22/18 01:52 12/22/18 03:33 12/22/18 03:50 12/22/18 04:15 Blood Gas Blood arterial Specimen Source Arterial Blood 12/22/2018 3:30:3 Date Drawn 7 AM Arterial Blood pH 7.053 *L (Temp corrected) Arterial Blood 56.8 H pCO2 (Temp correct) Arterial Blood 86.9 pO2 (Temp corrected) Arterial Blood 15.5 L HCO3 Arterial Blood -15.3 L Base Excess Arterial Blood 92.6 L Oxygen Saturation Pablo Test N/A Arterial Blood A-Line Gas Puncture Site Arterial 0.1 Blood Carboxyhemo globin Arterial Blood 0.3 Methemoglobin Blood Gas A-a O2 569.3 H Differential Oxyhemoglobin 92.2 L Percent Blood Gas 37.0 Temperature Blood Gas 16.0 Respiration Rate Blood Gas Actual 30 Respiration Rate Blood Gas VENT - AC Modality FiO2 100.0 Blood Gas Tidal 500.0 Volume Blood Gas Low 5.0 PEEP Setting Blood Gas 35.0 Inspiratory Pressure Blood Gas REBECCA AKHTAR Critical Value Read Back Blood Gas MR Notified Whom Blood Gas 12/22/2018 3:41:4 Notified Time 0 AM Bedside Glucose 572 *H 506 *H Prothrombin Time 19.3 #H Prothrombin Time 1.5 Ratio INR International 1.62 Normalized Ratio Activated 163.7 *H Partial Thrombopl ast Time Fibrinogen 189.0 L D-Dimer > 67226.00 H Sodium Level 134 L Potassium Level 5.9 H Chloride Level 106 Carbon Dioxide 17 L Level Anion Gap 11 Blood Urea 19 Nitrogen Creatinine 0.84 Est Glomerular > 60 Filtrat Rate mL/min Glucose Level 595 *H Hemoglobin A1c 7.7 H Lactic Acid Level 8.0 *H Calcium Level 9.3 Magnesium Level 2.1 Troponin I 70.200 *H Triglycerides 122 Level Cholesterol Level 216 H LDL Cholesterol, 160 Calculated HDL Cholesterol 32 L Cholesterol/HDL 6.7 Ratio Amylase Level 191 H Lipase 589 H Free Thyroxine 1.12 Test 12/22/18 05:10 12/22/18 06:03 12/22/18 07:01 12/22/18 07:18 White Blood Count 13.8 #H Red Blood Count 5.29 Hemoglobin 14.9 Hematocrit 47.1 H Mean Corpuscular 89.0 Volume Mean Corpuscular 28.2 L Hemoglobin Mean Corpuscular 31.6 L Hemoglobin Concen t Red Cell 12.5 Distribution Width Platelet Count 468 #H Mean Platelet 10.0 Volume Immature 0.700 H Granulocytes % Neutrophils % 80.3 H Lymphocytes % 15.9 Monocytes % 2.1 Eosinophils % 0.1 Basophils % 0.9 Nucleated Red 0.1 H Blood Cells % Immature 0.090 H Granulocytes # Neutrophils # 11.1 H Lymphocytes # 2.2 Monocytes # 0.3 Eosinophils # 0.0 Basophils # 0.1 Nucleated Red 0.0 Blood Cells # Bedside Glucose 486 *H 430 *H Lactic Acid Level 7.1 *H Test 12/22/18 07:52 12/22/18 08:24 12/22/18 08:28 12/22/18 09:07 Blood Gas Blood arterial Specimen Source Arterial Blood 12/22/2018 7:30:0 Date Drawn 4 AM Arterial Blood pH 7.003 *L (Temp corrected) Arterial Blood 55.4 H pCO2 (Temp correct) Arterial Blood 68.0 L pO2 (Temp corrected) Arterial Blood 13.8 L HCO3 Arterial Blood -18.4 L Base Excess Arterial Blood 89.9 L Oxygen Saturation Pablo Test N/A Arterial Blood A-Line Gas Puncture Site Arterial 0 Blood Carboxyhemo globin Arterial Blood 0.2 Methemoglobin Blood Gas A-a O2 593.9 H Differential Oxyhemoglobin 89.7 L Percent Blood Gas 35.3 Temperature Blood Gas 16.0 Respiration Rate Blood Gas Actual 16 Respiration Rate Blood Gas VENT - AC Modality FiO2 100.0 Blood Gas Tidal 500.0 Volume Blood Gas Low 5.0 PEEP Setting Blood Gas HALLIE AKHTAR Critical Value Read Back Blood Gas TM Notified Whom Blood Gas 12/22/2018 7:48:5 Notified Time 9 AM Bedside Glucose 393 H 330 H Potassium Level 4.0 Medications Medication Current Medications Propofol 100 ml @ 3 mls/hr per protocol ONCE IV Last administered on 12/22/18at 03:41; Admin Dose 9 MLS/HR; Start 12/22/18 at 01:00; Stop 12/23/18 at 10:19 IV Flush (NS 3 ml) 3 ml PER PROTOCOL IV ; Start 12/22/18 at 02:00 Ondansetron HCl (Zofran Inj) 4 mg Q6H PRN IV NAUSEA/VOMITING; Start 12/22/18 at 02:00 Acetaminophen (Tylenol Tab) 650 mg Q6H PRN PO .PAIN 1-3 OR TEMP; Start 12/22/18 at 02:00 Acetaminophen/ Hydrocodone Bitart ([place] (5/325)) 1 tab Q6H PRN PO .MOD PAIN 4- 6; Start 12/22/18 at 02:00 Morphine Sulfate (morphine) 2 mg Q4H PRN IV .SEVERE PAIN 7-10; Start 12/22/18 at 02:00 Docusate Sodium (Colace) 100 mg Q12H PRN PO .CONSTIPATION; Start 12/22/18 at 02:00 Magnesium Hydroxide (Milk Of Mag) 30 ml DAILY PRN PO .CONSTIPATION; Start 12/22/18 at 02:00 Famotidine (Pepcid Iv) 20 mg Q12 IV Last administered on 12/22/18at 09:19; Admin Dose 20 MG; Start 12/22/18 at 09:00 Albuterol/ Ipratropium (Duoneb) 3 ml Q4H RESP THERAPY PRN HHN SHORTNESS OF BREATH; Start 12/22/18 at 02:00 Hydralazine HCl (Apresoline) 10 mg Q6H PRN IV ELEVATED BLOOD PRESSURE; Start 12/22/18 at 02:00 Nitroglycerin (Nitroglycerin (Sl Tab) 0.4 Mg) 1 tab Q5M PRN SL ANGINA; Start 12/22/18 at 02:00 Acetaminophen (Tylenol Supp) 650 mg Q4H PRN [place] TEMP > 37C; Start 12/22/18 at 02:00 Acetaminophen (Tylenol Liquid) 650 mg Q4H PRN PO TEMP > 37C; Start 12/22/18 at 02:00 Acetaminophen (Tylenol Supp) 500 mg Q6H [place] ; Start 12/23/18 at 02:00 Acetaminophen (Tylenol Liquid) 500 mg Q6H PO ; Start 12/23/18 at 02:00 Meperidine HCl (Demerol) 12.5 mg Q4H PRN IV POST OPERATIVE SHIVERING; Start 12/22/18 at 02:00 Meperidine HCl (Demerol) 25 mg Q4H PRN IV POST OPERATIVE SHIVERING; Start 12/22/18 at 02:00 Eye Lubricant ([place] Oint) 1 applic Q6 BOTH EYES ; Start 12/22/18 at 06:00 Eye Lubricant (Artificial Tears Oph) 2 drop Q6 BOTH EYES Last administered on 12/22/18at 05:16; Admin Dose 2 DROP; Start 12/22/18 at 06:00 Diagnostic Test (Pha) (Accu-Chek) 1 ea Q1H XX Last administered on 12/22/18at 09:09; Admin Dose 1 EA; Start 12/22/18 at 02:00 Insulin Human Regular 100 unit/ Sodium Chloride 100 ml @ 0.2 mls/hr PER PROTOCOL IV Last administered on 12/22/18at 09:29; Admin Dose 28 MLS/HR; Start 12/22/18 at 02:00 Miscellaneous Information (* Miscellaneous Pharmacy Order) Treatment of Hypoglycemia: 1.BG 51... Per protocol XX ; Start 12/22/18 at 02:00 Dextrose (D50w Syringe) 25 ml Q15M PRN IV .DECREASED GLUCOSE; Start 12/22/18 at 02:00 Dextrose (D50w Syringe) 50 ml Q15M PRN IV .DECREASED GLUCOSE; Start 12/22/18 at 02:00 Carvedilol (Coreg) 3.125 mg BID PO ; Start 12/22/18 at 09:00 Atorvastatin Calcium (Lipitor) 80 mg DAILY@21 PO ; Start 12/22/18 at 21:00 Benazepril HCl (Lotensin) 10 mg DAILY PO ; Start 12/22/18 at 09:00 Piperacillin Sod/ Tazobactam Sod 100 ml @ 200 mls/hr Q6 IVPB Last administered on 12/22/18at 04:43; Admin Dose 200 MLS/HR; Start 12/22/18 at 04:00 Vecuronium [place] 100 mg/ Dextrose 100 ml @ 4.89 mls/hr TITRATE IV Last administered on 12/22/18at 04:00; Admin Dose 4.89 MLS/HR; Start 12/22/18 at 04:00 Levetiracetam 100 ml @ 400 mls/hr Q12 IVPB Last administered on 12/22/18at 06:16; Admin Dose 400 MLS/HR; Start 12/22/18 at 05:30 Lorazepam (Ativan) 1 mg Q1H PRN IV SEIZURES; Start 12/22/18 at 05:00 Vasopressin 60 unit/Dextrose 60 ml @ 1.2 mls/hr Q12H IV ; Start 12/22/18 at 09:00 Phenylephrine HCl 80 mg/Dextrose 250 ml @ 18.75 mls/ hr TITRATE IV ; Start 12/22/18 at 09:30 Norepinephrine 32 mg/Dextrose 250 ml @ 0.47 mls/hr TITRATE IV ; Start 12/22/18 at 09:30 Sodium Bicarbonate 100 meq/Sodium Chloride 1,100 ml @ 75 mls/hr [id number] IV Last administered on 12/22/18at 09:38; Admin Dose 75 MLS/HR; Start 12/22/18 at 09:30 Aspirin (Aspirin) 81 mg DAILY NGT Last administered on 12/22/18 09:38; Admin Dose 81 MG; Start 12/22/18 at 09:30 Ticagrelor (Brilinta) 90 mg BID PO Last administered on 12/22/18at 09:39; Admin Dose 90 MG; Start 12/22/18 at 10:30 SEBASTIAN DIAZ MD Dec 22, 2018 10:09
--- NOTE | 2018-12-22 11:18 | CONSI ---
Assessment/Plan Assessment/Plan Assessment/Plan (Recall) 58 F c/ multiple comorbidities, who is admitted to the [facility] ICU in coma s/p cardiac arrest. Now s/p cardiac catheterization and stent placement.. Currently undergoing targeted temperature therapy, requiring chemical sedating and paralysis.. P: Head CT when medically able EEG once warm Continued medical management and supportive care per primary Will follow clinically Consultation Date/Type/Reason Admit Date/Time 12/22/18 Type of Consult Neurology Reason for Consultation coma s/p cardiac arrest Requesting Provider: AMPARO LEONARD Date/Time of Note DATE: 12/22/18 TIME: 11:14 Hx of Present Illness Patient is unable to contribute a Hx. It is elsewhere noted: 58-year-old female past medical of hypertension, high cholesterol, anxiety, diabetes, who was brought in by EMS after suffering cardiac arrest and had ROSC. Per documentation and per family, after dinner last night patient went home and was nauseated and vomiting, then witnessed to lose consciousness. Family called 911 immediately, and apparently it took BLS about 20 minutes to arrive at the home, on arrival she was pulseless and CPR done. She was shocked x 4, at some point regained pulse in transport, but upon arrival to ED had no pulse. Per cardiology notes, the time in field was 30 min, unclear how much time was without pulse, and an additional 15 min in ED without pulse. Patient was intubated. Patient was found with sugars in the 600 range initially. EKG in ED and in field showed signs consistent with ST elevation AK. And troponin was elevated at 0.255. Lactic acid was also found to be in the 12 range. 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 Objective Exam Vitals Vital Signs Date Temp Pulse Resp B/P (MAP) Pulse Ox O2 O2 Flow FiO2 Time Delivery Rate 12/22/18 77 22 132/75 95 10:15 (94) 12/22/18 91.9 10:00 12/22/18 100 09:50 Intake and Output 12/21/18 12/21/18 12/22/18 1515:00 23:00 07:00 IntakeIntake Total 3918.12 ml OutputOutput Total 165 ml BalanceBalance 3753.12 ml Exam PE: Gen Appearance: No Apparent Distress HEENT: Intubated Cardiovascular: Regular rate Abdomen: Soft Extremities: Dry NE: The patient was obtunded and nonverbal. Cranial nerve examination was limited by mental status. Pupils were equal and nonreactive to light. There was no afferent pupillary defect. Funduscopic examination was limited. Face was grossly symmetric, w/ absent corneal and cough reflexes. Tone was normal. Muscle bulk was normal. I did not see fasciculations. The patient was chemically paralyzed. Coordination and gait testing was limited by mental status. Arm and leg reflexes were absent. Monaco's sign was absent. Plantar responses were mute. Results Result Diagram: 12/22/18 0510 12/22/18 0828 Results 24hrs Laboratory Tests Test 12/22/18 00:55 12/22/18 01:05 12/22/18 01:06 12/22/18 01:14 White Blood Count 19.2 #H Red Blood Count 4.63 Hemoglobin 12.9 Hematocrit 42.1 Mean Corpuscular 90.9 Volume Mean Corpuscular 27.9 L Hemoglobin Mean Corpuscular 30.6 L Hemoglobin Concen t Red Cell 12.4 Distribution Width Platelet Count 203 # Mean Platelet 10.9 H Volume Immature 3.100 H Granulocytes % Neutrophils % 46.2 Lymphocytes % 46.3 Monocytes % 3.3 Eosinophils % 0.4 Basophils % 0.7 Nucleated Red 0.2 H Blood Cells % Immature 0.600 H Granulocytes # Neutrophils # 8.9 H Lymphocytes # 8.9 H Monocytes # 0.6 Eosinophils # 0.1 Basophils # 0.1 Nucleated Red 0.0 Blood Cells # Prothrombin Time 14.6 Prothrombin Time 1.1 Ratio INR International 1.13 Normalized Ratio Activated 42.7 H Partial Thrombopl ast Time Sodium Level 133 L Potassium Level 2.9 *L Chloride Level 99 Carbon Dioxide 19 L Level Anion Gap 15 H Blood Urea 14 Nitrogen Creatinine 0.65 Est Glomerular > 60 Filtrat Rate mL/min Glucose Level 610 *H Calcium Level 11.2 H Phosphorus Level 7.6 H Magnesium Level 2.8 H Total Bilirubin 0.3 Direct Bilirubin 0.00 Indirect 0.3 Bilirubin Aspartate Amino 67 H Transf (AST/SGOT) Alanine 81 H Aminotransferase (ALT/SGPT) Alkaline 58 Phosphatase Troponin I 0.255 *H 0.866 *H Total Protein 5.8 L Albumin 3.3 Globulin 2.50 Albumin/Globulin 1.32 Ratio Lipase 811 H Ethyl Alcohol < 10.0 H Level Urine Color YELLOW Urine Clarity CLEAR Urine pH 5.0 Urine Specific 1.021 Ralph Urine Ketones 1+ H Urine Nitrite NEGATIVE Urine Bilirubin NEGATIVE Urine NEGATIVE Urobilinogen Urine Leukocyte NEGATIVE Esterase Urine Hemoglobin NEGATIVE Urine Glucose 1+ H Urine Total NEGATIVE Protein Bedside Glucose 190 Lactic Acid Level 12.5 *H Creatine Kinase 179 Creatine Kinase 5.2 Index Creatinine Kinase 9.28 H MB (Mass) Urine Opiates Negative Screen Urine Negative Barbiturates Urine Negative Amphetamines Screen Urine Negative Benzodiazepines Screen Urine Cocaine Negative Screen Urine Negative Cannabinoids Test 12/22/18 01:52 12/22/18 03:33 12/22/18 03:50 12/22/18 04:15 Blood Gas Blood arterial Specimen Source Arterial Blood 12/22/2018 3:30:3 Date Drawn 7 AM Arterial Blood pH 7.053 *L (Temp corrected) Arterial Blood 56.8 H pCO2 (Temp correct) Arterial Blood 86.9 pO2 (Temp corrected) Arterial Blood 15.5 L HCO3 Arterial Blood -15.3 L Base Excess Arterial Blood 92.6 L Oxygen Saturation Pablo Test N/A Arterial Blood A-Line Gas Puncture Site Arterial 0.1 Blood Carboxyhemo globin Arterial Blood 0.3 Methemoglobin Blood Gas A-a O2 569.3 H Differential Oxyhemoglobin 92.2 L Percent Blood Gas 37.0 Temperature Blood Gas 16.0 Respiration Rate Blood Gas Actual 30 Respiration Rate Blood Gas VENT - AC Modality FiO2 100.0 Blood Gas Tidal 500.0 Volume Blood Gas Low 5.0 PEEP Setting Blood Gas 35.0 Inspiratory Pressure Blood Gas REBECCA AKHTAR Critical Value Read Back Blood Gas MR Notified Whom Blood Gas 12/22/2018 3:41:4 Notified Time 0 AM Bedside Glucose 572 *H 506 *H Prothrombin Time 19.3 #H Prothrombin Time 1.5 Ratio INR International 1.62 Normalized Ratio Activated 163.7 *H Partial Thrombopl ast Time Fibrinogen 189.0 L D-Dimer > 67772.00 H Sodium Level 134 L Potassium Level 5.9 H Chloride Level 106 Carbon Dioxide 17 L Level Anion Gap 11 Blood Urea 19 Nitrogen Creatinine 0.84 Est Glomerular > 60 Filtrat Rate mL/min Glucose Level 595 *H Hemoglobin A1c 7.7 H Lactic Acid Level 8.0 *H Calcium Level 9.3 Magnesium Level 2.1 Troponin I 70.200 *H Triglycerides 122 Level Cholesterol Level 216 H LDL Cholesterol, 160 Calculated HDL Cholesterol 32 L Cholesterol/HDL 6.7 Ratio Amylase Level 191 H Lipase 589 H Free Thyroxine 1.12 Test 12/22/18 05:10 12/22/18 06:03 12/22/18 07:01 12/22/18 07:18 White Blood Count 13.8 #H Red Blood Count 5.29 Hemoglobin 14.9 Hematocrit 47.1 H Mean Corpuscular 89.0 Volume Mean Corpuscular 28.2 L Hemoglobin Mean Corpuscular 31.6 L Hemoglobin Concen t Red Cell 12.5 Distribution Width Platelet Count 468 #H Mean Platelet 10.0 Volume Immature 0.700 H Granulocytes % Neutrophils % 80.3 H Lymphocytes % 15.9 Monocytes % 2.1 Eosinophils % 0.1 Basophils % 0.9 Nucleated Red 0.1 H Blood Cells % Immature 0.090 H Granulocytes # Neutrophils # 11.1 H Lymphocytes # 2.2 Monocytes # 0.3 Eosinophils # 0.0 Basophils # 0.1 Nucleated Red 0.0 Blood Cells # Bedside Glucose 486 *H 430 *H Lactic Acid Level 7.1 *H Test 12/22/18 07:52 12/22/18 08:24 12/22/18 08:28 12/22/18 09:07 Blood Gas Blood arterial Specimen Source Arterial Blood 12/22/2018 7:30:0 Date Drawn 4 AM Arterial Blood pH 7.003 *L (Temp corrected) Arterial Blood 55.4 H pCO2 (Temp correct) Arterial Blood 68.0 L pO2 (Temp corrected) Arterial Blood 13.8 L HCO3 Arterial Blood -18.4 L Base Excess Arterial Blood 89.9 L Oxygen Saturation Pablo Test N/A Arterial Blood A-Line Gas Puncture Site Arterial 0 Blood Carboxyhemo globin Arterial Blood 0.2 Methemoglobin Blood Gas A-a O2 593.9 H Differential Oxyhemoglobin 89.7 L Percent Blood Gas 35.3 Temperature Blood Gas 16.0 Respiration Rate Blood Gas Actual 16 Respiration Rate Blood Gas VENT - AC Modality FiO2 100.0 Blood Gas Tidal 500.0 Volume Blood Gas Low 5.0 PEEP Setting Blood Gas HALLIE AKHTAR Critical Value Read Back Blood Gas TM Notified Whom Blood Gas 12/22/2018 7:48:5 Notified Time 9 AM Bedside Glucose 393 H 330 H Potassium Level 4.0 Test 12/22/18 10:03 12/22/18 11:10 Bedside Glucose 277 H 216 Past Medical History reviewed Home Meds Reported Medications Benazepril Hcl* (Benazepril Hcl*) Unknown Strength Tablet, PO DAILY, #60 TAB 08/21/17 Insulin Glargine* (Lantus*) 100 Unit/Ml Soln, 60 UNIT SC QHS, #1 VIAL 08/21/17 Insulin Glargine* (Lantus*) 100 Unit/Ml Soln, 40 UNIT SC QAM, #1 VIAL 08/21/17 Metformin Hcl* (Metformin Hcl*) 1,000 Mg Tablet, 1000 MG PO WITH BREAKFAST DINNE, #30 TAB 08/21/17 Medications Current Medications Propofol 100 ml @ 3 mls/hr per protocol ONCE IV Last administered on 12/22/18at 03:41; Admin Dose 9 MLS/HR; Start 12/22/18 at 01:00; Stop 12/23/18 at 10:19 IV Flush (NS 3 ml) 3 ml PER PROTOCOL IV ; Start 12/22/18 at 02:00 Ondansetron HCl (Zofran Inj) 4 mg Q6H PRN IV NAUSEA/VOMITING; Start 12/22/18 at 02:00 Acetaminophen (Tylenol Tab) 650 mg Q6H PRN PO .PAIN 1-3 OR TEMP; Start 12/22/18 at 02:00 Acetaminophen/ Hydrocodone Bitart ([place] (5/325)) 1 tab Q6H PRN PO .MOD PAIN 4- 6; Start 12/22/18 at 02:00 Morphine Sulfate (morphine) 2 mg Q4H PRN IV .SEVERE PAIN 7-10; Start 12/22/18 at 02:00 Docusate Sodium (Colace) 100 mg Q12H PRN PO .CONSTIPATION; Start 12/22/18 at 02:00 Magnesium Hydroxide (Milk Of Mag) 30 ml DAILY PRN PO .CONSTIPATION; Start 12/22/18 at 02:00 Famotidine (Pepcid Iv) 20 mg Q12 IV Last administered on 12/22/18at 09:19; Admin Dose 20 MG; Start 12/22/18 at 09:00 Albuterol/ Ipratropium (Duoneb) 3 ml Q4H RESP THERAPY PRN HHN SHORTNESS OF BREATH; Start 12/22/18 at 02:00 Hydralazine HCl (Apresoline) 10 mg Q6H PRN IV ELEVATED BLOOD PRESSURE; Start 12/22/18 at 02:00 Nitroglycerin (Nitroglycerin (Sl Tab) 0.4 Mg) 1 tab Q5M PRN SL ANGINA; Start 12/22/18 at 02:00 Acetaminophen (Tylenol Supp) 650 mg Q4H PRN [place] TEMP > 37C; Start 12/22/18 at 02:00 Acetaminophen (Tylenol Liquid) 650 mg Q4H PRN PO TEMP > 37C; Start 12/22/18 at 02:00 Acetaminophen (Tylenol Supp) 500 mg Q6H [place] ; Start 12/23/18 at 02:00 Acetaminophen (Tylenol Liquid) 500 mg Q6H PO ; Start 12/23/18 at 02:00 Meperidine HCl (Demerol) 12.5 mg Q4H PRN IV POST OPERATIVE SHIVERING; Start 12/22/18 at 02:00 Meperidine HCl (Demerol) 25 mg Q4H PRN IV POST OPERATIVE SHIVERING; Start 12/22/18 at 02:00 Eye Lubricant (Akwa Oint) 1 applic Q6 BOTH EYES ; Start 12/22/18 at 06:00 Eye Lubricant (Artificial Tears Oph) 2 drop Q6 BOTH EYES Last administered on 12/22/18at 05:16; Admin Dose 2 DROP; Start 12/22/18 at 06:00 Diagnostic Test (Pha) (Accu-Chek) 1 ea Q1H XX Last administered on 12/22/18at 10:04; Admin Dose 1 EA; Start 12/22/18 at 02:00 Insulin Human Regular 100 unit/ Sodium Chloride 100 ml @ 0.2 mls/hr PER PROTOCOL IV Last administered on 12/22/18at 09:29; Admin Dose 28 MLS/HR; Start 12/22/18 at 02:00 Miscellaneous Information (* Miscellaneous Pharmacy Order) Treatment of Hypoglycemia: 1.BG 51... Per protocol XX ; Start 12/22/18 at 02:00 Dextrose (D50w Syringe) 25 ml Q15M PRN IV .DECREASED GLUCOSE; Start 12/22/18 at 02:00 Dextrose (D50w Syringe) 50 ml Q15M PRN IV .DECREASED GLUCOSE; Start 12/22/18 at 02:00 Carvedilol (Coreg) 3.125 mg BID PO ; Start 12/22/18 at 09:00 Atorvastatin Calcium (Lipitor) 80 mg DAILY@21 PO ; Start 12/22/18 at 21:00 Benazepril HCl (Lotensin) 10 mg DAILY PO ; Start 12/22/18 at 09:00 Piperacillin Sod/ Tazobactam Sod 100 ml @ 200 mls/hr Q6 IVPB Last administered on 12/22/18at 04:43; Admin Dose 200 MLS/HR; Start 12/22/18 at 04:00 Vecuronium [place] 100 mg/ Dextrose 100 ml @ 4.89 mls/hr TITRATE IV Last administered on 12/22/18at 04:00; Admin Dose 4.89 MLS/HR; Start 12/22/18 at 04:00 Levetiracetam 100 ml @ 400 mls/hr Q12 IVPB Last administered on 12/22/18at 06:16; Admin Dose 400 MLS/HR; Start 12/22/18 at 05:30 Lorazepam (Ativan) 1 mg Q1H PRN IV SEIZURES; Start 12/22/18 at 05:00 Vasopressin 60 unit/Dextrose 60 ml @ 1.2 mls/hr Q12H IV ; Start 12/22/18 at 09:00 Phenylephrine HCl 80 mg/Dextrose 250 ml @ 18.75 mls/ hr TITRATE IV Last administered on 12/22/18at 10:11; Admin Dose 28.13 MLS/HR; Start 12/22/18 at 09:30 Norepinephrine 32 mg/Dextrose 250 ml @ 0.47 mls/hr TITRATE IV ; Start 12/22/18 at 09:30 Sodium Bicarbonate 100 meq/Sodium Chloride 1,100 ml @ 75 mls/hr [id number] IV Last administered on 12/22/18at 09:38; Admin Dose 75 MLS/HR; Start 12/22/18 at 09:30 Aspirin (Aspirin) 81 mg DAILY NGT Last administered on 12/22/18at 09:38; Admin Dose 81 MG; Start 12/22/18 at 09:30 Ticagrelor (Brilinta) 90 mg BID PO Last administered on 12/22/18at 09:39; Admin Dose 90 MG; Start 12/22/18 at 10:30 Allergies: Coded Allergies: No Known Allergy (Unverified , 08/21/17) Past Surgical History Past Surgical Hx: other (unknown) Social History Alcohol Use: none Smoking Status: Never smoker Drug Use: none KARL REYES Dec 22, 2018 11:18
[2018-12-22] MEDS: NORepinephrine 32 MG in DEXTROSE 5% 218 ML IV SCH (11:37)
[2018-12-22] MEDS ORDERED: MAGNESIUM SULFATE 2 GM/50 ML 50 ML IVPB PRN (13:00)
[2018-12-22] MEDS ORDERED: POTASSIUM CHLORIDE 100 ML ONE (13:41)
--- NOTE | 2018-12-22 13:41 | RADRPT ---
Echocardiogram Report Patient Name: Jorge Luis MASSEYtient ID: [id number] : 1960 (59y )Study Date: 12/22/2018 8:32:42 AM Gender: FAccession #: [id number] Tech: Caitlin Good [facility] Location: 103 Ref.Physician: VESTA HAM Height(Cm): BSA: Weight(Kg): Quality: Technically Difficult StudyOrder Physician: VESTA HAM Account #: Procedures: Echocardiographic Report: Transthoracic echocardiogram with complete 2D, M-Mode, and doppler examination. Indications: Myocardial Infarction. Measurements: 2D/M Mode Doppler Measurement Value Normal Range Measurement Value Normal Range LVIDd 2D 3.5 [ 3.8 - 5.2 ] cm AV Peak César 0.8 [ 100.0 - 170.0 ] cm/sec LVIDs 2D 2.7 [ 2.2 - 3.5 ] cm AV Peak PG 2.0 [ 2.0 - 9.0 ] mmHg LVPWd 2D 1.1 [ 0.6 - 0.9 ] cm LVOT Peak César 0.6 [ 70.0 - 110.0 ] cm/sec IVSd 2D 1.1 [ 0.6 - 0.9 ] cm LVOT Peak PG 1.0 [ 2.0 - 6.0 ] mmHg AoR Diam 2D 2.5 [ 2.3 - 3.1 ] cm EDV 2D 50.2 [ 46.0 - 106.0 ] ml ESV 2D 27.5 [ 14.0 - 42.0 ] ml EF 2D 45.2 [ 54.0 - 74.0 ] percent LA Dimen 2D 2.8 [ 2.7 - 3.8 ] cm Findings: Left Ventricle: Normal left ventricular cavity size. Mild concentric left ventricular hypertrophy. Severe global left ventricular systolic dysfunction. Ejection fraction is visually estimated at 20 %. Tissue Doppler/Mitral Doppler indices are consistent with impaired relaxation (Stage I diastolic dysfunction). Right Ventricle: Normal right ventricular size. Normal right ventricular systolic function. Left Atrium: The left atrium is normal in size. Right Atrium: The right atrium is normal in size. Mitral Valve: Normal appearance of the mitral valve. Aortic Valve: No significant aortic stenosis or insufficiency. Aortic valve not well visualized. Tricuspid Valve: Normal appearance of the tricuspid valve. Unable to obtain RVSP due to minimal presence of tricuspid regurgitation. Pulmonic Valve: Pulmonic valve not well visualized. Pericardium: Normal pericardium with no significant pericardial effusion. Aorta: Normal aortic root. IVC: Inferior vena cava without respiratory collapse, however, patient on ventilator. Conclusions: Technically difficult study due to body habitus and ventilator. Severely reduced left ventricular systolic function with global hypokinesis. Grade 1 diastolic dysfunction. No significant valvular abnormalities identified. Electronically Signed By: Vesta Ham 2018-12-22 13:41:31 PDT
[2018-12-22] MEDS ORDERED: POTASSIUM CHLORIDE 100 ML IVPB PRN ×2 (14:00)
[2018-12-22] MEDS: POTASSIUM CHLORIDE 50 ML IVPB PRN ×2 (14:09→15:05)
[2018-12-22] MEDS: ATORVASTATIN 80 MG TAB PO SCH (20:40)
[2018-12-22] MEDS ORDERED: POTASSIUM CHLORIDE 100 ML IVPB ONE (23:00)
[2018-12-22] MEDS ORDERED: DOPamine 800 MG in DEXTROSE 5% 230 ML IV SCH (23:30)
[2018-12-23] VITALS (108 sets, daily range): BP systolic 75–141; BP diastolic 44–78; PULSE 57–118; RESP 16–24
[2018-12-23] MEDS: ARTIFICIAL TEARS 15 ML OPH BOTH EYES SCH ×5 (00:03→23:49)
[2018-12-23] MEDS: OCULAR LUBRICANT 3.5 GM OPH OINT BOTH EYES SCH ×5 (00:04→23:49)
[2018-12-23] MEDS: VASOPRESSIN 60 UNIT in DEXTROSE 5% 57 ML IV SCH ×2 (00:08→20:23)
[2018-12-23] MEDS: PIPER-TAZO 3.375 GM IV (PMX) 100 ML IVPB SCH ×5 (00:14→23:49)
[2018-12-23] MEDS: ACCU-CHEK XX SCH ×25 (01:00→23:57)
[2018-12-23] MEDS: ACETAMINOPHEN 650MG/20.3ML CUP PO SCH ×4 (02:00→20:36)
[2018-12-23] MEDS: ACETAMINOPHEN 650 MG SUPP PR SCH ×4 (02:00→20:00)
[2018-12-23] MEDS: FAMOTIDINE 20 MG INJ IV SCH ×2 (08:41→20:35)
[2018-12-23] MEDS: BENAZEPRIL 10 MG TAB PO SCH (08:41)
[2018-12-23] MEDS: TICAGRELOR 90 MG TABLET PO SCH ×2 (08:43→20:35)
[2018-12-23] MEDS: LEVETIRACETAM 1000 MG (PMX) 100 ML IVPB SCH ×2 (08:44→20:34)
[2018-12-23] MEDS: ASPIRIN 81 MG TAB NGT SCH (08:44)
--- NOTE | 2018-12-23 09:03 | CONS ---
Assessment/Plan Assessment/Plan Assessment/Plan (Daily) Chest x-ray showing bilateral pulmonary edema with cardiomegaly. Ventilator setting; AC of 22, tidal volume 500, PEEP of 8, 100% FiO2. Patient is currently on vasopressin 0.04 units/min, insulin drip 3 units/h, vecuronium 0.01 mg/kg/h. Dopamine 6 mics per kilogram per minute. Propofol 6 mics per kilogram per minute, Levophed 6 mics per minute. Assessment and recommendations; 1. Patient admitted with cardiac arrest with prolonged and multiple CPR's. Status post coronary angiography with stenting of LAD lesion. 2. Chest x-ray showing pulmonary edema, possibly superimposed pneumonia as we ll. 3. Interval correction of severe metabolic acidosis, patient currently is mildly alkalotic. 4. Diabetes with severe hyperglycemia on admission with some element of DKA. Resolved in the interim. 5. Persistent severe hypotension. 6. Renal function is improving with patient now having increased urine output. Continue current supportive care. Decrease assist control rate to 18. Prognosis appears very guarded at this point. Mental status will be evaluated once patient is off hypothermia protocol. I did have a detailed discussion with the patient's at bedside and answered all his questions. 35 minutes of critical care time was spent evaluating patient. Consultation Date/Type/Reason Admit Date/Time Dec 22, 2018 at 01:25 Initial Consult Date 12/22/18 Type of Consult Pulmonary/critical care Patient is a 58-year-old lady who was brought into the hospital after having cardiac arrest at home. Prolonged CPR was done with revival of vital signs. Upon evaluation here patient was diagnosed with STEMI and was taken to cardiac Rn Admission where LAD lesion was dilated and a stent put in. Patient has remained profoundly hypotensive and is critically ill. Past medical history; 1. History of hypertension, hyperlipidemia. 2. Diabetes. Apparently poorly controlled. Medications; reviewed. Patient is on insulin drip, phenylephrine drip, Levophed, and propofol. All doses and other medications were reviewed in detail. Allergies; none. Social history; non-smoker. Family history; patient is and has supportive family. 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 Review of system; unable to be obtained. General exam; middle-aged female, orally intubated, sedated and paralyzed. Reason for Consultation Patient's condition remains very critical. On multiple pressor agents. Currently on hypothermia protocol. General exam; middle-aged woman, orally intubated, sedated and paralyzed. Requesting Provider: AMPARO LEONARD Date/Time of Note DATE: 12/23/18 TIME: 08:58 Exam/Review of Systems Exam Vitals Vital Signs Date Temp Pulse Resp B/P (MAP) Pulse Ox O2 O2 Flow FiO2 Time Delivery Rate 12/23/18 79 08:00 12/23/18 22 110/64 100 06:45 (79) 12/23/18 93.9 06:00 12/23/18 100 05:10 Intake and Output 12/22/18 12/22/18 12/23/18 1414:59 22:59 06:59 IntakeIntake Total 1599.34 ml 1008.91 ml 1012.26 ml OutputOutput Total 70 ml 15 ml 501 ml BalanceBalance 1529.34 ml 993.91 ml 511.26 ml Exam H EENT exam; supple neck, no JVD. No lymphadenopathy. Midline trachea. No thyromegaly. Pupils are small bilaterally. Orally intubated. Patient has fair dentition. Chest exam; diminished breath sounds bilaterally. S1-S2 audible, no murmurs. Regular rhythm. Abdomen exam; soft, no organomegaly. Bowel sounds are absent. Abdomen is nondistended. Extremity exam; Trace edema. C[employer] GROWER exam; patient is sedated and paralyzed. Results Result Diagram: 12/22/18 1828 12/23/18 0445 Results 24hrs Laboratory Tests Test 12/22/18 09:07 12/22/18 10:03 12/22/18 11:10 12/22/18 11:48 Bedside Glucose 330 H 277 H 216 White Blood 15.0 H Count Red Blood Count 5.40 Hemoglobin 15.3 Hematocrit 47.6 H Mean 88.1 Corpuscular Volume Mean 28.3 L Corpuscular Hemoglobin Mean 32.1 Corpuscular Hemoglobin Conc ent Red Cell 12.5 Distribution Width Platelet Count 375 Mean Platelet 9.8 Volume Immature 0.700 H Granulocytes % Neutrophils % Segmented 33 L Neutrophils % (Manual) Band 44 H Neutrophils % (Manual) Lymphocytes % Lymphocytes % 17 (Manual) Monocytes % Monocytes % 5 (Manual) Eosinophils % Basophils % Metamyelocytes 1 H % (manual) Nucleated Red 1 H Blood Cells % Immature 0.110 H Granulocytes # Neutrophils # Neutrophils # 5.9 (Manual) Band 6.6 H Neutrophils # Lymphocytes 2.5 (Manual) Lymphocytes # Monocytes # Monocytes # 0.7 (Manual) Eosinophils # Basophils # Metamyelocytes 0.1 H # Nucleated Red Blood Cells # Platelet NORMAL Estimate Giant Platelets 1 H Polychromasia 3+ Poikilocytosis 1+ Anisocytosis 2+ Microcytosis 2+ Sodium Level 146 H Potassium Level 2.5 *L Chloride Level 112 H Carbon Dioxide 23 Level Anion Gap 11 Blood Urea 26 H Nitrogen Creatinine 0.97 Est Glomerular 59 L Filtrat Rate mL/min Glucose Level 209 # Lactic Acid 7.5 *H Level Calcium Level 9.3 Magnesium Level 1.8 Creatine Kinase 7128 #H Creatine Kinase 7.8 Index Creatinine 553.00 H Kinase MB (Mass) Troponin I 282.000 *H Test 12/22/18 12:00 12/22/18 12:10 12/22/18 12:53 12/22/18 13:04 Blood Gas Blood arterial Specimen Source Arterial Blood 12/22/2018 12:07 Date Drawn :24 PM Arterial Blood 7.241 *L pH (Temp corrected ) Arterial Blood 42.1 pCO2 (Temp correct) Arterial Blood 58.2 L pO2 (Temp corrected ) Arterial Blood 18.7 L HCO3 Arterial Blood -9.9 L Base Excess Arterial Blood 94.2 L Oxygen Saturati on Pablo Test N/A Arterial Blood A-Line Gas Puncture Site Arterial 0 Blood Carboxyhe moglobin Arterial Blood 0.1 Methemoglobin Blood Gas A-a 623.2 H O2 Differential Oxyhemoglobin 94.1 Percent Blood Gas 32.5 Temperature Blood Gas 22.0 Respiration Rate Blood Gas 22 Actual Respiration Rat e Blood Gas VENT - AC Modality FiO2 100.0 Blood Gas Tidal 500.0 Volume Blood Gas Low 5.0 PEEP Setting Blood Gas TDICKENS RN Critical Value Read Back Blood Gas TM Notified Whom Blood Gas 12/22/2018 12:16 Notified Time :16 PM Bedside Glucose 211 195 Potassium Level 2.6 *L Test 12/22/18 14:01 12/22/18 15:04 12/22/18 16:15 12/22/18 16:56 Bedside Glucose 161 145 113 110 Test 12/22/18 17:59 12/22/18 18:28 12/22/18 19:01 12/22/18 19:52 Bedside Glucose 94 95 White Blood 13.9 H Count Red Blood Count 5.19 Hemoglobin 14.5 Hematocrit 44.2 Mean 85.2 Corpuscular Volume Mean 27.9 L Corpuscular Hemoglobin Mean 32.8 Corpuscular Hemoglobin Conc ent Red Cell 12.5 Distribution Width Platelet Count 330 Mean Platelet 10.1 Volume Immature 0.900 H Granulocytes % Neutrophils % Segmented 52 Neutrophils % (Manual) Band 31 H Neutrophils % (Manual) Lymphocytes % Lymphocytes % 9 L (Manual) Monocytes % Monocytes % 7 (Manual) Eosinophils % Basophils % Metamyelocytes 1 H % (manual) Nucleated Red 0.0 Blood Cells % Immature 0.120 H Granulocytes # Neutrophils # Neutrophils # 7.8 H (Manual) Band 4.3 H Neutrophils # Lymphocytes 1.2 (Manual) Lymphocytes # Monocytes # Monocytes # 0.9 (Manual) Eosinophils # Basophils # Metamyelocytes 0.1 H # Nucleated Red Blood Cells # Platelet NORMAL Estimate Giant Platelets 3 H Poikilocytosis 1+ Prothrombin 16.1 H Time Prothrombin 1.3 Time Ratio INR 1.28 International Normalized Rati o Activated 28.4 Partial Thrombo plast Time Fibrinogen 288.0 # Sodium Level 146 H Potassium Level 3.1 L Chloride Level 112 H Carbon Dioxide 28 Level Anion Gap 6 Blood Urea 32 H Nitrogen Creatinine 0.93 Est Glomerular > 60 Filtrat Rate mL/min Glucose Level 111 # Lactic Acid 5.6 *H Level Calcium Level 9.0 Magnesium Level 2.4 Amylase Level 200 H Lipase 212 Blood Gas Blood Specimen arterial Source Arterial Blood 12/22/2018 6:10 Date Drawn :47 PM Arterial Blood 7.366 pH (Temp corrected ) Arterial Blood 40.2 pCO2 (Temp correct) Arterial Blood 68.8 L pO2 (Temp corrected ) Arterial Blood 23.1 HCO3 Arterial Blood -2.9 Base Excess Arterial Blood 95.8 Oxygen Saturati on Pablo Test N/A Arterial Blood A-Line Gas Puncture Site Arterial 0.3 Blood Carboxyhe moglobin Arterial Blood 0.1 Methemoglobin Blood Gas A-a 609.4 H O2 Differential Oxyhemoglobin 95.4 Percent Blood Gas 34.8 Temperature Blood Gas 22.0 Respiration Rate Blood Gas 22 Actual Respiration Rat e Blood Gas VENT - AC Modality FiO2 100.0 Blood Gas Tidal 500.0 Volume Blood Gas Low 5.0 PEEP Setting Blood Gas Carole Soria RRT Notified Whom Blood Gas 12/22/2018 6:35 Notified Time :23 PM Test 12/22/18 20:11 12/22/18 22:10 12/23/18 00:11 12/23/18 01:52 Bedside Glucose 129 138 144 Blood Gas Blood Specimen arterial Source Arterial Blood 12/23/2018 1:50 Date Drawn :45 AM Arterial Blood 7.457 H pH (Temp corrected ) Arterial Blood 33.2 L pCO2 (Temp correct) Arterial Blood 39.9 *L pO2 (Temp corrected ) Arterial Blood 23.9 HCO3 Arterial Blood -0.8 Base Excess Arterial Blood 88.4 L Oxygen Saturati on Pablo Test N/A Arterial Blood A-Line Gas Puncture Site Arterial 0.4 Blood Carboxyhe moglobin Arterial Blood 0.2 Methemoglobin Blood Gas A-a 649.2 H O2 Differential Oxyhemoglobin 87.9 L Percent Blood Gas 33.0 Temperature Blood Gas 22.0 Respiration Rate Blood Gas 22 Actual Respiration Rat e Blood Gas VENT - AC Modality FiO2 100.0 Blood Gas Tidal 500.0 Volume Blood Gas Low 5.0 PEEP Setting Blood Gas 27.0 Inspiratory Pressure Blood Gas REBECCA R Critical Value N Read Back Blood Gas AA Notified Whom Blood Gas 12/23/2018 2:00 Notified Time :04 AM Test 12/23/18 02:05 12/23/18 03:59 12/23/18 04:00 12/23/18 04:45 Bedside Glucose 143 133 Lactic Acid 4.9 *H Level White Blood Pending Count Red Blood Count Pending Hemoglobin Pending Hematocrit Pending Mean Pending Corpuscular Volume Mean Pending Corpuscular Hemoglobin Mean Pending Corpuscular Hemoglobin Conc ent Red Cell Pending Distribution Width Platelet Count Pending Mean Platelet Pending Volume Prothrombin 15.7 H Time Prothrombin 1.2 Time Ratio INR 1.24 International Normalized Rati o Activated 29.3 Partial Thrombo plast Time Fibrinogen 351.0 # Sodium Level 145 H Potassium Level 3.4 L Chloride Level 110 Carbon Dioxide 27 Level Anion Gap 8 Blood Urea 37 H Nitrogen Creatinine 0.92 Est Glomerular > 60 Filtrat Rate mL/min Glucose Level 144 Hemoglobin A1c 7.6 H Calcium Level 8.8 Phosphorus 3.8 # Level Magnesium Level 2.2 Triglycerides 136 Level Cholesterol 148 # Level LDL 79 # Cholesterol, Calculated HDL Cholesterol 42 # Cholesterol/HDL 3.5 Ratio Amylase Level 115 Lipase 98 Thyroid 1.390 Stimulating Hormone (TSH) Test 12/23/18 06:06 12/23/18 07:52 12/23/18 08:22 Bedside Glucose 115 124 Blood Gas Blood arterial Specimen Source Arterial Blood 12/23/2018 7:29: Date Drawn 48 AM Arterial Blood 7.505 H pH (Temp corrected ) Arterial Blood 30.5 L pCO2 (Temp correct) Arterial Blood 75.1 L pO2 (Temp corrected ) Arterial Blood 24.1 HCO3 Arterial Blood 0.8 Base Excess Arterial Blood 96.9 Oxygen Saturati on Pablo Test N/A Arterial Blood A-Line Gas Puncture Site Arterial 0.3 Blood Carboxyhe moglobin Arterial Blood 0.2 Methemoglobin Blood Gas A-a 614.0 H O2 Differential Oxyhemoglobin 96.4 Percent Blood Gas 34.3 Temperature Blood Gas 22.0 Respiration Rate Blood Gas 22 Actual Respiration Rat e Blood Gas VENT - AC Modality FiO2 100.0 Blood Gas Tidal 500.0 Volume Blood Gas Low 8.0 PEEP Setting Blood Gas TM Notified Whom Blood Gas 12/23/2018 7:49: Notified Time 02 AM Medications Medication Current Medications Propofol 100 ml @ 3 mls/hr per protocol ONCE IV Last administered on 12/22/18at 03:41; Admin Dose 9 MLS/HR; Start 12/22/18 at 01:00; Stop 12/23/18 at 10:19 IV Flush (NS 3 ml) 3 ml PER PROTOCOL IV ; Start 12/22/18 at 02:00 Ondansetron HCl (Zofran Inj) 4 mg Q6H PRN IV NAUSEA/VOMITING; Start 12/22/18 at 02:00 Acetaminophen (Tylenol Tab) 650 mg Q6H PRN PO .PAIN 1-3 OR TEMP; Start 12/22/18 at 02:00 Acetaminophen/ Hydrocodone Bitart ([place] (5/325)) 1 tab Q6H PRN PO .MOD PAIN 4- 6; Start 12/22/18 at 02:00 Morphine Sulfate (morphine) 2 mg Q4H PRN IV .SEVERE PAIN 7-10; Start 12/22/18 at 02:00 Docusate Sodium (Colace) 100 mg Q12H PRN PO .CONSTIPATION; Start 12/22/18 at 02:00 Magnesium Hydroxide (Milk Of Mag) 30 ml DAILY PRN PO .CONSTIPATION; Start 12/22/18 at 02:00 Famotidine (Pepcid Iv) 20 mg Q12 IV Last administered on 12/23/18at 08:41; Admin Dose 20 MG; Start 12/22/18 at 09:00 Albuterol/ Ipratropium (Duoneb) 3 ml Q4H RESP THERAPY PRN HHN SHORTNESS OF BREATH; Start 12/22/18 at 02:00 Hydralazine HCl (Apresoline) 10 mg Q6H PRN IV ELEVATED BLOOD PRESSURE; Start 12/22/18 at 02:00 Nitroglycerin (Nitroglycerin (Sl Tab) 0.4 Mg) 1 tab Q5M PRN SL ANGINA; Start 12/22/18 at 02:00 Acetaminophen (Tylenol Supp) 650 mg Q4H PRN OK TEMP > 37C; Start 12/22/18 at 02:00 Acetaminophen (Tylenol Liquid) 650 mg Q4H PRN PO TEMP > 37C; Start 12/22/18 at 02:00 Acetaminophen (Tylenol Supp) 500 mg Q6H OK ; Start 12/23/18 at 02:00 Acetaminophen (Tylenol Liquid) 500 mg Q6H PO ; Start 12/23/18 at 02:00 Meperidine HCl (Demerol) 12.5 mg Q4H PRN IV POST OPERATIVE SHIVERING; Start 12/22/18 at 02:00 Meperidine HCl (Demerol) 25 mg Q4H PRN IV POST OPERATIVE SHIVERING; Start 12/22/18 at 02:00 Eye Lubricant ([place]wa Oint) 1 applic Q6 BOTH EYES Last administered on 12/23/18at 06:02; Admin Dose 1 APPLIC; Start 12/22/18 at 06:00 Eye Lubricant (Artificial Tears Oph) 2 drop Q6 BOTH EYES Last administered on 12/23/18at 06:02; Admin Dose 2 DROP; Start 12/22/18 at 06:00 Diagnostic Test (Pha) (Accu-Chek) 1 ea Q1H XX Last administered on 12/22/18at 02:00; Admin Dose 1 EA; Start 12/22/18 at 02:00 Insulin Human Regular 100 unit/ Sodium Chloride 100 ml @ 0.2 mls/hr PER PROTOCOL IV Last administered on 12/22/18at 15:30; Admin Dose 5 MLS/HR; Start 12/22/18 at 02:00 Miscellaneous Information (* Miscellaneous Pharmacy Order) Treatment of Hypoglycemia: 1.BG 51... Per protocol XX ; Start 12/22/18 at 02:00 Dextrose (D50w Syringe) 25 ml Q15M PRN IV .DECREASED GLUCOSE; Start 12/22/18 at 02:00 Dextrose (D50w Syringe) 50 ml Q15M PRN IV .DECREASED GLUCOSE; Start 12/22/18 at 02:00 Carvedilol (Coreg) 3.125 mg BID PO ; Start 12/22/18 at 09:00 Atorvastatin Calcium (Lipitor) 80 mg DAILY@21 PO Last administered on 12/22/18at 20:40; Admin Dose 80 MG; Start 12/22/18 at 21:00 Benazepril HCl (Lotensin) 10 mg DAILY PO ; Start 12/22/18 at 09:00 Piperacillin Sod/ Tazobactam Sod 100 ml @ 200 mls/hr Q6 IVPB Last administered on 12/23/18at 06:02; Admin Dose 200 MLS/HR; Start 12/22/18 at 04:00 Vecuronium [place] 100 mg/ Dextrose 100 ml @ 4.89 mls/hr TITRATE IV Last administered on 12/22/18at 04:00; Admin Dose 4.89 MLS/HR; Start 12/22/18 at 04:00 Levetiracetam 100 ml @ 400 mls/hr Q12 IVPB Last administered on 12/23/18at 08:44; Admin Dose 400 MLS/HR; Start 12/22/18 at 05:30 Lorazepam (Ativan) 1 mg Q1H PRN IV SEIZURES; Start 12/22/18 at 05:00 Vasopressin 60 unit/Dextrose 60 ml @ 1.2 mls/hr Q12H IV Last administered on 12/23/18at 00:08; Admin Dose 1.2 MLS/HR; Start 12/22/18 at 09:00 Phenylephrine HCl 80 mg/Dextrose 250 ml @ 18.75 mls/ hr TITRATE IV Last administered on 12/22/18at 10:11; Admin Dose 28.13 MLS/HR; Start 12/22/18 at 09:30 Norepinephrine 32 mg/Dextrose 250 ml @ 0.47 mls/hr TITRATE IV Last administered on 12/22/18 11:37; Admin Dose 14.06 MLS/HR; Start 12/22/18 at 09:30 Sodium Bicarbonate 100 meq/Sodium Chloride 1,100 ml @ 75 mls/hr [id number] IV Last administered on 12/22/18 23:34; Admin Dose 75 MLS/HR; Start 12/22/18 at 09:30 Aspirin (Aspirin) 81 mg DAILY NGT Last administered on 12/23/18 08:44; Admin Dose 81 MG; Start 12/22/18 at 09:30 Ticagrelor (Brilinta) 90 mg BID PO Last administered on 12/23/18 08:43; Admin Dose 90 MG; Start 12/22/18 at 10:30 Dopamine HCl 800 mg/Dextrose 250 ml @ 3.69 mls/hr TITRATE IV Last administered on 12/22/18 23:34; Admin Dose 1.84 MLS/HR; Start 12/22/18 at 23:30 MACI SILVEIRA Dec 23, 2018 09:03
--- NOTE | 2018-12-23 09:10 | PN ---
Date/Time of Note Date/Time of Note DATE: 12/23/18 TIME: 09:06 Assessment/Plan VTE Prophylaxis Risk score (from Ns)>0 risk: 10 SCD applied (from Ns): Yes Pharmacological prophylaxis: NA/contraindicated Pharm contraindication: anticoag not tolerated Lines/Catheters IV C[facility]ter Type (from [facility]): A Line Urinary Cath still in place: Yes Reason Cath still needed: other (indicate) (intubated) Assessment/Plan Assessment/Plan Assessment and plan: 58-year-old woman past medical of hypertension, high cholesterol, anxiety, diabetes, who was brought in by EMS after suffering cardiac arrest and had ROSC, with ST elevation OK lactic acidosis, status post PCI of the OM1 (culprit lesion) is as well as stenting of the mid LAD, intubated and unresponsive, on insulin drip and hypothermia protocol. 1. Status post cardiac arrest with ST elevation OK: Again status post PCI of the obtuse marginal and LAD blockages. Again patient was down for at least 20 minutes before EMS arrived at home, and took another 15 minutes for ROSC to be obtained. -Monitor, follow-up post procedure recognitions per cardiology team, continue Lipitor, Coreg, Brilinta, aspirin -We will obtain palliative care consult as well as neurology consult, patient now started on hypothermia protocol and continue insulin drip, trend lactic acid -Continue prophylactic keppra. - Plan to start rewarming today. - After she reaches normothermia, will proceed with EEG and neuro exam. 2. Diabetes: continue insulin drip and monitor sugars 3. Hypertension: Currently hypotensive on pressors. 4. High cholesterol: Continue statin Appears to have overall poor prognosis given the length of time patient was down before CPR was started, again we will continue hypothermia protocol for the first 24 hours, insulin drip, as mentioned above palliative care and neurology consults as well. Result Diagram: 12/22/18 1828 12/23/18 0445 Subjective 24 Hr Interval Summary Free Text/Dictation At goal temperature. Plan to start rewarming at 10:30 am this morning. On three pressors. Urine output has resumed, put out 400 cc. Exam/Review of Systems Exam Vitals Vital Signs Date Temp Pulse Resp B/P (MAP) Pulse Ox O2 O2 Flow FiO2 Time Delivery Rate 12/23/18 79 08:00 12/23/18 22 110/64 100 06:45 (79) 12/23/18 93.9 06:00 12/23/18 100 05:10 Intake and Output 12/22/18 12/22/18 12/23/18 1515:00 23:00 07:00 IntakeIntake Total 1495.67 ml 955.59 ml 923.26 ml OutputOutput Total 20 ml 50 ml 466 ml BalanceBalance 1475.67 ml 905.59 ml 457.26 ml Exam Gen: Obese woman lying in bed, intubated and sedated. HEENT: Atraumatic. Moist mucous membranes. Eyes: Normal pupils, nonreactive. Neck: Supple, no lymphadenopathy. Resp: Mechanical breath sounds bilaterally. Cardio: S1, S2 heard. No obvious murmurs. Abd: Soft, nondistended, normal bowel sounds, non tender. Ext: No lower extremity edema bilaterally : [place] in place with copious clear yellow urine. Results Results 24hrs Laboratory Tests Test 12/22/18 09:07 12/22/18 10:03 12/22/18 11:10 12/22/18 11:48 Bedside Glucose 330 H 277 H 216 White Blood 15.0 H Count Red Blood Count 5.40 Hemoglobin 15.3 Hematocrit 47.6 H Mean 88.1 Corpuscular Volume Mean 28.3 L Corpuscular Hemoglobin Mean 32.1 Corpuscular Hemoglobin Conc ent Red Cell 12.5 Distribution Width Platelet Count 375 Mean Platelet 9.8 Volume Immature 0.700 H Granulocytes % Neutrophils % Segmented 33 L Neutrophils % (Manual) Band 44 H Neutrophils % (Manual) Lymphocytes % Lymphocytes % 17 (Manual) Monocytes % Monocytes % 5 (Manual) Eosinophils % Basophils % Metamyelocytes 1 H % (manual) Nucleated Red 1 H Blood Cells % Immature 0.110 H Granulocytes # Neutrophils # Neutrophils # 5.9 (Manual) Band 6.6 H Neutrophils # Lymphocytes 2.5 (Manual) Lymphocytes # Monocytes # Monocytes # 0.7 (Manual) Eosinophils # Basophils # Metamyelocytes 0.1 H # Nucleated Red Blood Cells # Platelet NORMAL Estimate Giant Platelets 1 H Polychromasia 3+ Poikilocytosis 1+ Anisocytosis 2+ Microcytosis 2+ Sodium Level 146 H Potassium Level 2.5 *L Chloride Level 112 H Carbon Dioxide 23 Level Anion Gap 11 Blood Urea 26 H Nitrogen Creatinine 0.97 Est Glomerular 59 L Filtrat Rate mL/min Glucose Level 209 # Lactic Acid 7.5 *H Level Calcium Level 9.3 Magnesium Level 1.8 Creatine Kinase 7128 #H Creatine Kinase 7.8 Index Creatinine 553.00 H Kinase MB (Mass) Troponin I 282.000 *H Test 12/22/18 12:00 12/22/18 12:10 12/22/18 12:53 12/22/18 13:04 Blood Gas Blood arterial Specimen Source Arterial Blood 12/22/2018 12:07 Date Drawn :24 PM Arterial Blood 7.241 *L pH (Temp corrected ) Arterial Blood 42.1 pCO2 (Temp correct) Arterial Blood 58.2 L pO2 (Temp corrected ) Arterial Blood 18.7 L HCO3 Arterial Blood -9.9 L Base Excess Arterial Blood 94.2 L Oxygen Saturati on Pablo Test N/A Arterial Blood A-Line Gas Puncture Site Arterial 0 Blood Carboxyhe moglobin Arterial Blood 0.1 Methemoglobin Blood Gas A-a 623.2 H O2 Differential Oxyhemoglobin 94.1 Percent Blood Gas 32.5 Temperature Blood Gas 22.0 Respiration Rate Blood Gas 22 Actual Respiration Rat e Blood Gas VENT - AC Modality FiO2 100.0 Blood Gas Tidal 500.0 Volume Blood Gas Low 5.0 PEEP Setting Blood Gas TDICKENS RN Critical Value Read Back Blood Gas TM Notified Whom Blood Gas 12/22/2018 12:16 Notified Time :16 PM Bedside Glucose 211 195 Potassium Level 2.6 *L Test 12/22/18 14:01 12/22/18 15:04 12/22/18 16:15 12/22/18 16:56 Bedside Glucose 161 145 113 110 Test 12/22/18 17:59 12/22/18 18:28 12/22/18 19:01 12/22/18 19:52 Bedside Glucose 94 95 White Blood 13.9 H Count Red Blood Count 5.19 Hemoglobin 14.5 Hematocrit 44.2 Mean 85.2 Corpuscular Volume Mean 27.9 L Corpuscular Hemoglobin Mean 32.8 Corpuscular Hemoglobin Conc ent Red Cell 12.5 Distribution Width Platelet Count 330 Mean Platelet 10.1 Volume Immature 0.900 H Granulocytes % Neutrophils % Segmented 52 Neutrophils % (Manual) Band 31 H Neutrophils % (Manual) Lymphocytes % Lymphocytes % 9 L (Manual) Monocytes % Monocytes % 7 (Manual) Eosinophils % Basophils % Metamyelocytes 1 H % (manual) Nucleated Red 0.0 Blood Cells % Immature 0.120 H Granulocytes # Neutrophils # Neutrophils # 7.8 H (Manual) Band 4.3 H Neutrophils # Lymphocytes 1.2 (Manual) Lymphocytes # Monocytes # Monocytes # 0.9 (Manual) Eosinophils # Basophils # Metamyelocytes 0.1 H # Nucleated Red Blood Cells # Platelet NORMAL Estimate Giant Platelets 3 H Poikilocytosis 1+ Prothrombin 16.1 H Time Prothrombin 1.3 Time Ratio INR 1.28 International Normalized Rati o Activated 28.4 Partial Thrombo plast Time Fibrinogen 288.0 # Sodium Level 146 H Potassium Level 3.1 L Chloride Level 112 H Carbon Dioxide 28 Level Anion Gap 6 Blood Urea 32 H Nitrogen Creatinine 0.93 Est Glomerular > 60 Filtrat Rate mL/min Glucose Level 111 # Lactic Acid 5.6 *H Level Calcium Level 9.0 Magnesium Level 2.4 Amylase Level 200 H Lipase 212 Blood Gas Blood Specimen arterial Source Arterial Blood 12/22/2018 6:10 Date Drawn :47 PM Arterial Blood 7.366 pH (Temp corrected ) Arterial Blood 40.2 pCO2 (Temp correct) Arterial Blood 68.8 L pO2 (Temp corrected ) Arterial Blood 23.1 HCO3 Arterial Blood -2.9 Base Excess Arterial Blood 95.8 Oxygen Saturati on Pablo Test N/A Arterial Blood A-Line Gas Puncture Site Arterial 0.3 Blood Carboxyhe moglobin Arterial Blood 0.1 Methemoglobin Blood Gas A-a 609.4 H O2 Differential Oxyhemoglobin 95.4 Percent Blood Gas 34.8 Temperature Blood Gas 22.0 Respiration Rate Blood Gas 22 Actual Respiration Rat e Blood Gas VENT - AC Modality FiO2 100.0 Blood Gas Tidal 500.0 Volume Blood Gas Low 5.0 PEEP Setting Blood Gas Carole Soria TRANSFORMATION ANALYST Notified Whom Blood Gas 12/22/2018 6:35 Notified Time :23 PM Test 12/22/18 20:11 12/22/18 22:10 12/23/18 00:11 12/23/18 01:52 Bedside Glucose 129 138 144 Blood Gas Blood Specimen arterial Source Arterial Blood 12/23/2018 1:50 Date Drawn :45 AM Arterial Blood 7.457 H pH (Temp corrected ) Arterial Blood 33.2 L pCO2 (Temp correct) Arterial Blood 39.9 *L pO2 (Temp corrected ) Arterial Blood 23.9 HCO3 Arterial Blood -0.8 Base Excess Arterial Blood 88.4 L Oxygen Saturati on Pablo Test N/A Arterial Blood A-Line Gas Puncture Site Arterial 0.4 Blood Carboxyhe moglobin Arterial Blood 0.2 Methemoglobin Blood Gas A-a 649.2 H O2 Differential Oxyhemoglobin 87.9 L Percent Blood Gas 33.0 Temperature Blood Gas 22.0 Respiration Rate Blood Gas 22 Actual Respiration Rat e Blood Gas VENT - AC Modality FiO2 100.0 Blood Gas Tidal 500.0 Volume Blood Gas Low 5.0 PEEP Setting Blood Gas 27.0 Inspiratory Pressure Blood Gas ElyssaKENJIARMANDO R Critical Value N Read Back Blood Gas AA Notified Whom Blood Gas 12/23/2018 2:00 Notified Time :04 AM Test 12/23/18 02:05 12/23/18 03:59 12/23/18 04:00 12/23/18 04:45 Bedside Glucose 143 133 Lactic Acid 4.9 *H Level White Blood Pending Count Red Blood Count Pending Hemoglobin Pending Hematocrit Pending Mean Pending Corpuscular Volume Mean Pending Corpuscular Hemoglobin Mean Pending Corpuscular Hemoglobin Conc ent Red Cell Pending Distribution Width Platelet Count Pending Mean Platelet Pending Volume Prothrombin 15.7 H Time Prothrombin 1.2 Time Ratio INR 1.24 International Normalized Rati o Activated 29.3 Partial Thrombo plast Time Fibrinogen 351.0 # Sodium Level 145 H Potassium Level 3.4 L Chloride Level 110 Carbon Dioxide 27 Level Anion Gap 8 Blood Urea 37 H Nitrogen Creatinine 0.92 Est Glomerular > 60 Filtrat Rate mL/min Glucose Level 144 Hemoglobin A1c 7.6 H Calcium Level 8.8 Phosphorus 3.8 # Level Magnesium Level 2.2 Triglycerides 136 Level Cholesterol 148 # Level LDL 79 # Cholesterol, Calculated HDL Cholesterol 42 # Cholesterol/HDL 3.5 Ratio Amylase Level 115 Lipase 98 Thyroid 1.390 Stimulating Hormone (TSH) Test 12/23/18 06:06 12/23/18 07:52 12/23/18 08:22 Bedside Glucose 115 124 Blood Gas Blood arterial Specimen Source Arterial Blood 12/23/2018 7:29: Date Drawn 48 AM Arterial Blood 7.505 H pH (Temp corrected ) Arterial Blood 30.5 L pCO2 (Temp correct) Arterial Blood 75.1 L pO2 (Temp corrected ) Arterial Blood 24.1 HCO3 Arterial Blood 0.8 Base Excess Arterial Blood 96.9 Oxygen Saturati on Pablo Test N/A Arterial Blood A-Line Gas Puncture Site Arterial 0.3 Blood Carboxyhe moglobin Arterial Blood 0.2 Methemoglobin Blood Gas A-a 614.0 H O2 Differential Oxyhemoglobin 96.4 Percent Blood Gas 34.3 Temperature Blood Gas 22.0 Respiration Rate Blood Gas 22 Actual Respiration Rat e Blood Gas VENT - AC Modality FiO2 100.0 Blood Gas Tidal 500.0 Volume Blood Gas Low 8.0 PEEP Setting Blood Gas TM Notified Whom Blood Gas 12/23/2018 7:49: Notified Time 02 AM Medications Medication Current Medications Propofol 100 ml @ 3 mls/hr per protocol ONCE IV Last administered on 12/22/18at 03:41; Admin Dose 9 MLS/HR; Start 12/22/18 at 01:00; Stop 12/23/18 at 10:19 IV Flush (NS 3 ml) 3 ml PER PROTOCOL IV ; Start 12/22/18 at 02:00 Ondansetron HCl (Zofran Inj) 4 mg Q6H PRN IV NAUSEA/VOMITING; Start 12/22/18 at 02:00 Acetaminophen (Tylenol Tab) 650 mg Q6H PRN PO .PAIN 1-3 OR TEMP; Start 12/22/18 at 02:00 Acetaminophen/ Hydrocodone Bitart ([place] (5/325)) 1 tab Q6H PRN PO .MOD PAIN 4- 6; Start 12/22/18 at 02:00 Morphine Sulfate (morphine) 2 mg Q4H PRN IV .SEVERE PAIN 7-10; Start 12/22/18 at 02:00 Docusate Sodium (Colace) 100 mg Q12H PRN PO .CONSTIPATION; Start 12/22/18 at 02:00 Magnesium Hydroxide (Milk Of Mag) 30 ml DAILY PRN PO .CONSTIPATION; Start 12/22/18 at 02:00 Famotidine (Pepcid Iv) 20 mg Q12 IV Last administered on 12/23/18at 08:41; Admin Dose 20 MG; Start 12/22/18 at 09:00 Albuterol/ Ipratropium (Duoneb) 3 ml Q4H RESP THERAPY PRN HHN SHORTNESS OF BREATH; Start 12/22/18 at 02:00 Hydralazine HCl (Apresoline) 10 mg Q6H PRN IV ELEVATED BLOOD PRESSURE; Start 12/22/18 at 02:00 Nitroglycerin (Nitroglycerin (Sl Tab) 0.4 Mg) 1 tab Q5M PRN SL ANGINA; Start 12/22/18 at 02:00 Acetaminophen (Tylenol Supp) 650 mg Q4H PRN [place] TEMP > 37C; Start 12/22/18 at 02:00 Acetaminophen (Tylenol Liquid) 650 mg Q4H PRN PO TEMP > 37C; Start 12/22/18 at 02:00 Acetaminophen (Tylenol Supp) 500 mg Q6H [place] ; Start 12/23/18 at 02:00 Acetaminophen (Tylenol Liquid) 500 mg Q6H PO ; Start 12/23/18 at 02:00 Meperidine HCl (Demerol) 12.5 mg Q4H PRN IV POST OPERATIVE SHIVERING; Start 12/22/18 at 02:00 Meperidine HCl (Demerol) 25 mg Q4H PRN IV POST OPERATIVE SHIVERING; Start 12/22/18 at 02:00 Eye Lubricant (Akwa Oint) 1 applic Q6 BOTH EYES Last administered on 12/23/18at 06:02; Admin Dose 1 APPLIC; Start 12/22/18 at 06:00 Eye Lubricant (Artificial Tears Oph) 2 drop Q6 BOTH EYES Last administered on 12/23/18at 06:02; Admin Dose 2 DROP; Start 12/22/18 at 06:00 Diagnostic Test (Pha) (Accu-Chek) 1 ea Q1H XX Last administered on 12/22/18at 02:00; Admin Dose 1 EA; Start 12/22/18 at 02:00 Insulin Human Regular 100 unit/ Sodium Chloride 100 ml @ 0.2 mls/hr PER PROTOCOL IV Last administered on 12/22/18at 15:30; Admin Dose 5 MLS/HR; Start 12/22/18 at 02:00 Miscellaneous Information (* Miscellaneous Pharmacy Order) Treatment of Hypoglycemia: 1.BG 51... Per protocol XX ; Start 12/22/18 at 02:00 Dextrose (D50w Syringe) 25 ml Q15M PRN IV .DECREASED GLUCOSE; Start 12/22/18 at 02:00 Dextrose (D50w Syringe) 50 ml Q15M PRN IV .DECREASED GLUCOSE; Start 12/22/18 at 02:00 Carvedilol (Coreg) 3.125 mg BID PO ; Start 12/22/18 at 09:00 Atorvastatin Calcium (Lipitor) 80 mg DAILY@21 PO Last administered on 12/22/18at 20:40; Admin Dose 80 MG; Start 12/22/18 at 21:00 Benazepril HCl (Lotensin) 10 mg DAILY PO ; Start 12/22/18 at 09:00 Piperacillin Sod/ Tazobactam Sod 100 ml @ 200 mls/hr Q6 IVPB Last administered on 12/23/18at 06:02; Admin Dose 200 MLS/HR; Start 12/22/18 at 04:00 Vecuronium [place] 100 mg/ Dextrose 100 ml @ 4.89 mls/hr TITRATE IV Last administered on 12/22/18at 04:00; Admin Dose 4.89 MLS/HR; Start 12/22/18 at 04:00 Levetiracetam 100 ml @ 400 mls/hr Q12 IVPB Last administered on 12/23/18 08:44; Admin Dose 400 MLS/HR; Start 12/22/18 at 05:30 Lorazepam (Ativan) 1 mg Q1H PRN IV SEIZURES; Start 12/22/18 at 05:00 Vasopressin 60 unit/Dextrose 60 ml @ 1.2 mls/hr Q12H IV Last administered on 12/23/18at 00:08; Admin Dose 1.2 MLS/HR; Start 12/22/18 at 09:00 Phenylephrine HCl 80 mg/Dextrose 250 ml @ 18.75 mls/ hr TITRATE IV Last administered on 12/22/18 10:11; Admin Dose 28.13 MLS/HR; Start 12/22/18 at 09:30 Norepinephrine 32 mg/Dextrose 250 ml @ 0.47 mls/hr TITRATE IV Last admini stered on 12/22/18 11:37; Admin Dose 14.06 MLS/HR; Start 12/22/18 at 09:30 Sodium Bicarbonate 100 meq/Sodium Chloride 1,100 ml @ 75 mls/hr [id number] IV Last administered on 12/22/18at 23:34; Admin Dose 75 MLS/HR; Start 12/22/18 at 09:30 Aspirin (Aspirin) 81 mg DAILY NGT Last administered on 12/23/18 08:44; Admin Dose 81 MG; Start 12/22/18 at 09:30 Ticagrelor (Brilinta) 90 mg BID PO Last administered on 12/23/18at 08:43; Admin Dose 90 MG; Start 12/22/18 at 10:30 Dopamine HCl 800 mg/Dextrose 250 ml @ 3.69 mls/hr TITRATE IV Last administered on 12/22/18at 23:34; Admin Dose 1.84 MLS/HR; Start 12/22/18 at 23:30 SEBASTIAN DIAZ MD Dec 23, 2018 09:10
--- NOTE | 2018-12-23 11:47 | CONS ---
Assessment/Plan Assessment/Plan Assessment/Plan (Recall) 58 F c/ multiple comorbidities, who is admitted to the [facility] ICU in coma s/p cardiac arrest. Now s/p cardiac catheterization and stent placement.. Currently undergoing targeted temperature therapy, requiring chemical sedating and paralysis.. P: Head CT when medically able EEG once warm Continued medical management and supportive care per primary Will follow clinically Consultation Date/Type/Reason Admit Date/Time Dec 22, 2018 at 01:25 Type of Consult Neurology Reason for Consultation coma s/p cardiac arrest Requesting Provider: AMPARO LEONARD Date/Time of Note DATE: 12/23/18 TIME: 11:41 24 HR Interval Summary Free Text/Dictation Continues targeted temperature therapy Exam/Review of Systems Exam Vitals Vital Signs Date Temp Pulse Resp B/P (MAP) Pulse Ox O2 O2 Flow FiO2 Time Delivery Rate 12/23/18 82 18 114/68 100 Mechanical 10:30 (83) Ventilator 12/23/18 93.7 08:00 12/23/18 100 08:00 Intake and Output 12/22/18 12/22/18 12/23/18 1515:00 23:00 07:00 IntakeIntake Total 1495.67 ml 955.59 ml 923.26 ml OutputOutput Total 20 ml 50 ml 466 ml BalanceBalance 1475.67 ml 905.59 ml 457.26 ml Exam PE: Gen Appearance: No Apparent Distress HEENT: Intubated Cardiovascular: Regular rate Abdomen: Soft Extremities: Dry NE: The patient was comatose, chemically paralyzed.. Results Result Diagram: 12/23/18 0445 12/23/18 0445 Results 24hrs Laboratory Tests Test 12/22/18 11:48 12/22/18 12:00 12/22/18 12:10 12/22/18 12:53 White Blood 15.0 H Count Red Blood Count 5.40 Hemoglobin 15.3 Hematocrit 47.6 H Mean 88.1 Corpuscular Volume Mean 28.3 L Corpuscular Hemoglobin Mean 32.1 Corpuscular Hemoglobin Conc ent Red Cell 12.5 Distribution Width Platelet Count 375 Mean Platelet 9.8 Volume Immature 0.700 H Granulocytes % Neutrophils % Segmented 33 L Neutrophils % (Manual) Band 44 H Neutrophils % (Manual) Lymphocytes % Lymphocytes % 17 (Manual) Monocytes % Monocytes % 5 (Manual) Eosinophils % Basophils % Metamyelocytes 1 H % (manual) Nucleated Red 1 H Blood Cells % Immature 0.110 H Granulocytes # Neutrophils # Neutrophils # 5.9 (Manual) Band 6.6 H Neutrophils # Lymphocytes 2.5 (Manual) Lymphocytes # Monocytes # Monocytes # 0.7 (Manual) Eosinophils # Basophils # Metamyelocytes 0.1 H # Nucleated Red Blood Cells # Platelet NORMAL Estimate Giant Platelets 1 H Polychromasia 3+ Poikilocytosis 1+ Anisocytosis 2+ Microcytosis 2+ Sodium Level 146 H Potassium Level 2.5 *L 2.6 *L Chloride Level 112 H Carbon Dioxide 23 Level Anion Gap 11 Blood Urea 26 H Nitrogen Creatinine 0.97 Est Glomerular 59 L Filtrat Rate mL/min Glucose Level 209 # Lactic Acid 7.5 *H Level Calcium Level 9.3 Magnesium Level 1.8 Creatine Kinase 7128 #H Creatine Kinase 7.8 Index Creatinine 553.00 H Kinase MB (Mass) Troponin I 282.000 *H Blood Gas Blood arterial Specimen Source Arterial Blood 12/22/2018 12:07 Date Drawn :24 PM Arterial Blood 7.241 *L pH (Temp corrected ) Arterial Blood 42.1 pCO2 (Temp correct) Arterial Blood 58.2 L pO2 (Temp corrected ) Arterial Blood 18.7 L HCO3 Arterial Blood -9.9 L Base Excess Arterial Blood 94.2 L Oxygen Saturati on Pablo Test N/A Arterial Blood A-Line Gas Puncture Site Arterial 0 Blood Carboxyhe moglobin Arterial Blood 0.1 Methemoglobin Blood Gas A-a 623.2 H O2 Differential Oxyhemoglobin 94.1 Percent Blood Gas 32.5 Temperature Blood Gas 22.0 Respiration Rate Blood Gas 22 Actual Respiration Rat e Blood Gas VENT - AC Modality FiO2 100.0 Blood Gas Tidal 500.0 Volume Blood Gas Low 5.0 PEEP Setting Blood Gas TDICKENS RN Critical Value Read Back Blood Gas TM Notified Whom Blood Gas 12/22/2018 12:16 Notified Time :16 PM Bedside Glucose 211 Test 12/22/18 13:04 12/22/18 14:01 12/22/18 15:04 12/22/18 16:15 Bedside Glucose 195 161 145 113 Test 12/22/18 16:56 12/22/18 17:59 12/22/18 18:28 12/22/18 19:01 Bedside Glucose 110 94 95 White Blood 13.9 H Count Red Blood Count 5.19 Hemoglobin 14.5 Hematocrit 44.2 Mean 85.2 Corpuscular Volume Mean 27.9 L Corpuscular Hemoglobin Mean 32.8 Corpuscular Hemoglobin Conc ent Red Cell 12.5 Distribution Width Platelet Count 330 Mean Platelet 10.1 Volume Immature 0.900 H Granulocytes % Neutrophils % Segmented 52 Neutrophils % (Manual) Band 31 H Neutrophils % (Manual) Lymphocytes % Lymphocytes % 9 L (Manual) Monocytes % Monocytes % 7 (Manual) Eosinophils % Basophils % Metamyelocytes 1 H % (manual) Nucleated Red 0.0 Blood Cells % Immature 0.120 H Granulocytes # Neutrophils # Neutrophils # 7.8 H (Manual) Band 4.3 H Neutrophils # Lymphocytes 1.2 (Manual) Lymphocytes # Monocytes # Monocytes # 0.9 (Manual) Eosinophils # Basophils # Metamyelocytes 0.1 H # Nucleated Red Blood Cells # Platelet NORMAL Estimate Giant Platelets 3 H Poikilocytosis 1+ Prothrombin 16.1 H Time Prothrombin 1.3 Time Ratio INR 1.28 International Normalized Rati o Activated 28.4 Partial Thrombo plast Time Fibrinogen 288.0 # Sodium Level 146 H Potassium Level 3.1 L Chloride Level 112 H Carbon Dioxide 28 Level Anion Gap 6 Blood Urea 32 H Nitrogen Creatinine 0.93 Est Glomerular > 60 Filtrat Rate mL/min Glucose Level 111 # Lactic Acid 5.6 *H Level Calcium Level 9.0 Magnesium Level 2.4 Amylase Level 200 H Lipase 212 Test 12/22/18 19:52 12/22/18 20:11 12/22/18 22:10 12/23/18 00:11 Blood Gas Blood arterial Specimen Source Arterial Blood 12/22/2018 6:10: Date Drawn 47 PM Arterial Blood 7.366 pH (Temp corrected ) Arterial Blood 40.2 pCO2 (Temp correct) Arterial Blood 68.8 L pO2 (Temp corrected ) Arterial Blood 23.1 HCO3 Arterial Blood -2.9 Base Excess Arterial Blood 95.8 Oxygen Saturati on Pablo Test N/A Arterial Blood A-Line Gas Puncture Site Arterial 0.3 Blood Carboxyhe moglobin Arterial Blood 0.1 Methemoglobin Blood Gas A-a 609.4 H O2 Differential Oxyhemoglobin 95.4 Percent Blood Gas 34.8 Temperature Blood Gas 22.0 Respiration Rate Blood Gas 22 Actual Respiration Rat e Blood Gas VENT - AC Modality FiO2 100.0 Blood Gas Tidal 500.0 Volume Blood Gas Low 5.0 PEEP Setting Blood Gas P Estella, [employer] Notified Whom Blood Gas 12/22/2018 6:35: Notified Time 23 PM Bedside Glucose 129 138 144 Test 12/23/18 01:52 12/23/18 02:05 12/23/18 03:59 12/23/18 04:00 Blood Gas Blood arterial Specimen Source Arterial Blood 12/23/2018 1:50: Date Drawn 45 AM Arterial Blood 7.457 H pH (Temp corrected ) Arterial Blood 33.2 L pCO2 (Temp correct) Arterial Blood 39.9 *L pO2 (Temp corrected ) Arterial Blood 23.9 HCO3 Arterial Blood -0.8 Base Excess Arterial Blood 88.4 L Oxygen Saturati on Pablo Test N/A Arterial Blood A-Line Gas Puncture Site Arterial 0.4 Blood Carboxyhe moglobin Arterial Blood 0.2 Methemoglobin Blood Gas A-a 649.2 H O2 Differential Oxyhemoglobin 87.9 L Percent Blood Gas 33.0 Temperature Blood Gas 22.0 Respiration Rate Blood Gas 22 Actual Respiration Rat e Blood Gas VENT - AC Modality FiO2 100.0 Blood Gas Tidal 500.0 Volume Blood Gas Low 5.0 PEEP Setting Blood Gas 27.0 Inspiratory Pressure Blood Gas REBECCA AKHTAR Critical Value Read Back Blood Gas AA Notified Whom Blood Gas 12/23/2018 2:00: Notified Time 04 AM Bedside Glucose 143 133 Lactic Acid 4.9 *H Level Test 12/23/18 04:45 12/23/18 06:06 12/23/18 07:52 12/23/18 08:22 White Blood 16.7 #H Count Red Blood Count 4.81 Hemoglobin 13.5 Hematocrit 39.9 Mean 83.0 Corpuscular Volume Mean 28.1 L Corpuscular Hemoglobin Mean 33.8 Corpuscular Hemoglobin Conc ent Red Cell 12.8 Distribution Width Platelet Count 235 # Mean Platelet 10.8 H Volume Immature 0.600 H Granulocytes % Neutrophils % Segmented 40 Neutrophils % (Manual) Band 36 H Neutrophils % (Manual) Lymphocytes % Lymphocytes % 18 (Manual) Monocytes % Monocytes % 6 (Manual) Eosinophils % Basophils % Nucleated Red 0.0 Blood Cells % Immature 0.100 H Granulocytes # Neutrophils # Neutrophils # 7.7 H (Manual) Band 6.0 H Neutrophils # Lymphocytes 3.0 H (Manual) Lymphocytes # Monocytes # Monocytes # 1.0 H (Manual) Eosinophils # Basophils # Nucleated Red Blood Cells # Platelet NORMAL Estimate Giant Platelets 1 H Polychromasia 1+ Poikilocytosis 3+ Anisocytosis 3+ Microcytosis 2+ Macrocytosis 1+ Prothrombin 15.7 H Time Prothrombin 1.2 Time Ratio INR 1.24 International Normalized Rati o Activated 29.3 Partial Thrombo plast Time Fibrinogen 351.0 # Sodium Level 145 H Potassium Level 3.4 L Chloride Level 110 Carbon Dioxide 27 Level Anion Gap 8 Blood Urea 37 H Nitrogen Creatinine 0.92 Est Glomerular > 60 Filtrat Rate mL/min Glucose Level 144 Hemoglobin A1c 7.6 H Calcium Level 8.8 Phosphorus 3.8 # Level Magnesium Level 2.2 Triglycerides 136 Level Cholesterol 148 # Level LDL 79 # Cholesterol, Calculated HDL Cholesterol 42 # Cholesterol/HDL 3.5 Ratio Amylase Level 115 Lipase 98 Thyroid 1.390 Stimulating Hormone (TSH) Bedside Glucose 115 124 Blood Gas Blood Specimen arterial Source Arterial Blood 12/23/2018 7:29 Date Drawn :48 AM Arterial Blood 7.505 H pH (Temp corrected ) Arterial Blood 30.5 L pCO2 (Temp correct) Arterial Blood 75.1 L pO2 (Temp corrected ) Arterial Blood 24.1 HCO3 Arterial Blood 0.8 Base Excess Arterial Blood 96.9 Oxygen Saturati on Pablo Test N/A Arterial Blood A-Line Gas Puncture Site Arterial 0.3 Blood Carboxyhe moglobin Arterial Blood 0.2 Methemoglobin Blood Gas A-a 614.0 H O2 Differential Oxyhemoglobin 96.4 Percent Blood Gas 34.3 Temperature Blood Gas 22.0 Respiration Rate Blood Gas 22 Actual Respiration Rat e Blood Gas VENT - AC Modality FiO2 100.0 Blood Gas Tidal 500.0 Volume Blood Gas Low 8.0 PEEP Setting Blood Gas TM Notified Whom Blood Gas 12/23/2018 7:49 Notified Time :02 AM Test 12/23/18 09:54 12/23/18 09:59 Urine Color YELLOW Urine Clarity SLIGHTLY CLOUDY A Urine pH 5.0 Urine Specific 1.033 H [place] Urine Ketones TRACE A Urine Nitrite NEGATIVE Urine Bilirubin NEGATIVE Urine NEGATIVE Urobilinogen Urine Leukocyte NEGATIVE Esterase Urine 14 H Microscopic RBC Urine 7 H Microscopic WBC Urine 1+ H Hemoglobin Urine Glucose 1+ H Urine Total NEGATIVE Protein Bedside Glucose 129 Medications Medication Current Medications IV Flush (NS 3 ml) 3 ml PER PROTOCOL IV ; Start 12/22/18 at 02:00 Ondansetron HCl (Zofran Inj) 4 mg Q6H PRN IV NAUSEA/VOMITING; Start 12/22/18 at 02:00 Acetaminophen (Tylenol Tab) 650 mg Q6H PRN PO .PAIN 1-3 OR TEMP; Start 12/22/18 at 02:00 Acetaminophen/ Hydrocodone Bitart ([place] (5/325)) 1 tab Q6H PRN PO .MOD PAIN 4- 6; Start 12/22/18 at 02:00 Morphine Sulfate (morphine) 2 mg Q4H PRN IV .SEVERE PAIN 7-10; Start 12/22/18 at 02:00 Docusate Sodium (Colace) 100 mg Q12H PRN PO .CONSTIPATION; Start 12/22/18 at 02:00 Magnesium Hydroxide (Milk Of Mag) 30 ml DAILY PRN PO .CONSTIPATION; Start 12/22/18 at 02:00 Famotidine (Pepcid Iv) 20 mg Q12 IV Last administered on 12/23/18at 08:41; Admin Dose 20 MG; Start 12/22/18 at 09:00 Albuterol/ Ipratropium (Duoneb) 3 ml Q4H RESP THERAPY PRN HHN SHORTNESS OF BREATH; Start 12/22/18 at 02:00 Hydralazine HCl (Apresoline) 10 mg Q6H PRN IV ELEVATED BLOOD PRESSURE; Start 12/22/18 at 02:00 Nitroglycerin (Nitroglycerin (Sl Tab) 0.4 Mg) 1 tab Q5M PRN SL ANGINA; Start 12/22/18 at 02:00 Acetaminophen (Tylenol Supp) 650 mg Q4H PRN MI TEMP > 37C; Start 12/22/18 at 02:00 Acetaminophen (Tylenol Liquid) 650 mg Q4H PRN PO TEMP > 37C; Start 12/22/18 at 02:00 Acetaminophen (Tylenol Supp) 500 mg Q6H MI ; Start 12/23/18 at 02:00 Acetaminophen (Tylenol Liquid) 500 mg Q6H PO ; Start 12/23/18 at 02:00 Meperidine HCl (Demerol) 12.5 mg Q4H PRN IV POST OPERATIVE SHIVERING; Start 12/22/18 at 02:00 Meperidine HCl (Demerol) 25 mg Q4H PRN IV POST OPERATIVE SHIVERING; Start 12/22/18 at 02:00 Eye Lubricant ([place]wa Oint) 1 applic Q6 BOTH EYES Last administered on 12/23/18at 06:02; Admin Dose 1 APPLIC; Start 12/22/18 at 06:00 Eye Lubricant (Artificial Tears Oph) 2 drop Q6 BOTH EYES Last administered on 12/23/18 06:02; Admin Dose 2 DROP; Start 12/22/18 at 06:00 Diagnostic Test (Pha) (Accu-Chek) 1 ea Q1H XX Last administered on 12/22/18at 02:00; Admin Dose 1 EA; Start 12/22/18 at 02:00 Insulin Human Regular 100 unit/ Sodium Chloride 100 ml @ 0.2 mls/hr PER PROTOCOL IV Last administered on 12/22/18at 15:30; Admin Dose 5 MLS/HR; Start 12/22/18 at 02:00 Miscellaneous Information (* Miscellaneous Pharmacy Order) Treatment of Hypoglycemia: 1.BG 51... Per protocol XX ; Start 12/22/18 at 02:00 Dextrose (D50w Syringe) 25 ml Q15M PRN IV .DECREASED GLUCOSE; Start 12/22/18 at 02:00 Dextrose (D50w Syringe) 50 ml Q15M PRN IV .DECREASED GLUCOSE; Start 12/22/18 at 02:00 Carvedilol (Coreg) 3.125 mg BID PO ; Start 12/22/18 at 09:00 Atorvastatin Calcium (Lipitor) 80 mg DAILY@21 PO Last administered on 12/22/18at 20:40; Admin Dose 80 MG; Start 12/22/18 at 21:00 Benazepril HCl (Lotensin) 10 mg DAILY PO ; Start 12/22/18 at 09:00 Piperacillin Sod/ Tazobactam Sod 100 ml @ 200 mls/hr Q6 IVPB Last administered on 12/23/18at 06:02; Admin Dose 200 MLS/HR; Start 12/22/18 at 04:00 Vecuronium [place] 100 mg/ Dextrose 100 ml @ 4.89 mls/hr TITRATE IV Last ad ministered on 12/22/18at 04:00; Admin Dose 4.89 MLS/HR; Start 12/22/18 at 04:00 Levetiracetam 100 ml @ 400 mls/hr Q12 IVPB Last administered on 12/23/18 08:44; Admin Dose 400 MLS/HR; Start 12/22/18 at 05:30 Lorazepam (Ativan) 1 mg Q1H PRN IV SEIZURES; Start 12/22/18 at 05:00 Vasopressin 60 unit/Dextrose 60 ml @ 1.2 mls/hr Q12H IV Last administered on 12/23/18 00:08; Admin Dose 1.2 MLS/HR; Start 12/22/18 at 09:00 Phenylephrine HCl 80 mg/Dextrose 250 ml @ 18.75 mls/ hr TITRATE IV Last admi nistered on 12/22/18 10:11; Admin Dose 28.13 MLS/HR; Start 12/22/18 at 09:30 Norepinephrine 32 mg/Dextrose 250 ml @ 0.47 mls/hr TITRATE IV Last administered on 12/22/18 11:37; Admin Dose 14.06 MLS/HR; Start 12/22/18 at 09:30 Sodium Bicarbonate 100 meq/Sodium Chloride 1,100 ml @ 75 mls/hr [id number] IV Last administered on 12/22/18 23:34; Admin Dose 75 MLS/HR; Start 12/22/18 at 09:30 Aspirin (Aspirin) 81 mg DAILY NGT Last administered on 12/23/18 08:44; Admin Dose 81 MG; Start 12/22/18 at 09:30 Ticagrelor (Brilinta) 90 mg BID PO Last administered on 12/23/18 08:43; Admin Dose 90 MG; Start 12/22/18 at 10:30 Dopamine HCl 800 mg/Dextrose 250 ml @ 3.69 mls/hr TITRATE IV Last administered on 12/22/18 23:34; Admin Dose 1.84 MLS/HR; Start 12/22/18 at 23:30 KARL REYES 11, 2019 11:47
[2018-12-23] MEDS: NORepinephrine 32 MG in DEXTROSE 5% 218 ML IV SCH (12:59)
[2018-12-23] MEDS ORDERED: PHENYLephrine 20MG IN 250 ML 250 ML ONE (13:09)
[2018-12-23] MEDS ORDERED: POTASSIUM CHLORIDE 20 MEQ POWDER FOR ORAL SOLN GTB ONE (14:00)
[2018-12-23] MEDS: SODIUM BICARBONATE (IV ADD) 100 MEQ in SOD CHLORIDE 0.45% 1,000 ML IV SCH (14:07)
[2018-12-23] MEDS: PROPOFOL 100 ML IV SCH (14:09)
[2018-12-23] MEDS ORDERED: FUROSEMIDE 20 MG INJ IV ONE (16:30)
--- NOTE | 2018-12-23 16:42 | CONS ---
Assessment/Plan Assessment/Plan Hospital Course (Demo Recall) 58 yo with cardiac arrest due to lateral wall stemi, culprit lesion is OM1, which was stented, and mid LAD also stented. Imp: Card arrest - undergoing rewarming STEMI Ischemic cardiomyopathy, with acute systolic heart failure diabetes Acute respiratory failure, on ventilator with high FIO2 requirement Recc: ASA, Brilinta, atorvastatin Will give a dose of furosemide now Hold PAKO/ARB and BB secondary to hypotension Watch for neurologic recovery Cooling protocol with rewarming Guarded prognosis given prolonged down time Consultation Date/Type/Reason Admit Date/Time Dec 22, 2018 at 01:25 Initial Consult Date 12/22/18 Type of Consult Cardiology Requesting Provider: AMPARO LEONARD Date/Time of Note DATE: 12/23/18 TIME: 16:35 24 HR Interval Summary Free Text/Dictation Patient is rewarming, daughter and at bedside. She is on levophed and other pressors have been weaned off. She was twitching so sedation was turned up. Subjective hx not possible: pt non-verbal, pt critical status Exam/Review of Systems Vital Signs Vitals Vital Signs Date Temp Pulse Resp B/P (MAP) Pulse Ox O2 O2 Flow FiO2 Time Delivery Rate 12/23/18 86 18 88/50 (63) 100 Mechanical 16:15 Ventilator 12/23/18 93.7 16:00 12/23/18 100 15:10 Intake and Output 12/22/18 12/22/18 12/23/18 1515:00 23:00 07:00 IntakeIntake Total 1495.67 ml 955.59 ml 1010.23 ml OutputOutput Total 20 ml 50 ml 466 ml BalanceBalance 1475.67 ml 905.59 ml 544.23 ml Exam Constitutional: non-verbal ENMT: intubated Neck: No jvd, No bruits Respiratory: clear to auscultation, normal air movement Cardiovascular: regular rate and rhythm; No murmurs/extra sounds Gastrointestinal: soft, non-tender Musculoskeletal: nl extremities to inspection (Right femoral sheath is in kymberly ce, no hematoma, no bruit) Extremities: No edema Neurological: unresponsive Skin: nl turgor Labs Result Diagram: 12/23/18 1217 12/23/18 1217 Results 24hrs Laboratory Tests Test 12/22/18 16:56 12/22/18 17:59 12/22/18 18:28 12/22/18 19:01 Bedside Glucose 110 94 95 White Blood 13.9 H Count Red Blood Count 5.19 Hemoglobin 14.5 Hematocrit 44.2 Mean Corpuscular 85.2 Volume Mean Corpuscular 27.9 L Hemoglobin Mean Corpuscular 32.8 Hemoglobin Angie nt Red Cell 12.5 Distribution Width Platelet Count 330 Mean Platelet 10.1 Volume Immature 0.900 H Granulocytes % Neutrophils % Segmented 52 Neutrophils % (Manual) Band Neutrophils 31 H % (Manual) Lymphocytes % Lymphocytes % 9 L (Manual) Monocytes % Monocytes % 7 (Manual) Eosinophils % Basophils % Metamyelocytes % 1 H (manual) Nucleated Red 0.0 Blood Cells % Immature 0.120 H Granulocytes # Neutrophils # Neutrophils # 7.8 H (Manual) Band Neutrophils 4.3 H # Lymphocytes 1.2 (Manual) Lymphocytes # Monocytes # Monocytes # 0.9 (Manual) Eosinophils # Basophils # Metamyelocytes # 0.1 H Nucleated Red Blood Cells # Platelet NORMAL Estimate Giant Platelets 3 H Poikilocytosis 1+ Prothrombin Time 16.1 H Prothrombin Time 1.3 Ratio INR 1.28 International Normalized Ratio Activated 28.4 Partial Thrombop last Time Fibrinogen 288.0 # Sodium Level 146 H Potassium Level 3.1 L Chloride Level 112 H Carbon Dioxide 28 Level Anion Gap 6 Blood Urea 32 H Nitrogen Creatinine 0.93 Est Glomerular > 60 Filtrat Rate mL/min Glucose Level 111 # Lactic Acid 5.6 *H Level Calcium Level 9.0 Magnesium Level 2.4 Amylase Level 200 H Lipase 212 Test 12/22/18 19:52 12/22/18 20:11 12/22/18 22:10 12/23/18 00:11 Blood Gas Blood arterial Specimen Source Arterial Blood 12/22/2018 6:10: Date Drawn 47 PM Arterial Blood 7.366 pH (Temp corrected) Arterial Blood 40.2 pCO2 (Temp correct) Arterial Blood 68.8 L pO2 (Temp corrected) Arterial Blood 23.1 HCO3 Arterial Blood -2.9 Base Excess Arterial Blood 95.8 Oxygen Saturatio n Pablo Test N/A Arterial Blood A-Line Gas Puncture Site Arterial 0.3 Blood Carboxyhem oglobin Arterial Blood 0.1 Methemoglobin Blood Gas A-a O2 609.4 H Differential Oxyhemoglobin 95.4 Percent Blood Gas 34.8 Temperature Blood Gas 22.0 Respiration Rate Blood Gas Actual 22 Respiration Rate Blood Gas VENT - AC Modality FiO2 100.0 Blood Gas Tidal 500.0 Volume Blood Gas Low 5.0 PEEP Setting Blood Gas P DOMINIQUE Soria Notified Whom Blood Gas 12/22/2018 6:35: Notified Time 23 PM Bedside Glucose 129 138 144 Test 12/23/18 01:52 12/23/18 02:05 12/23/18 03:59 12/23/18 04:00 Blood Gas Blood arterial Specimen Source Arterial Blood 12/23/2018 1:50: Date Drawn 45 AM Arterial Blood 7.457 H pH (Temp corrected) Arterial Blood 33.2 L pCO2 (Temp correct) Arterial Blood 39.9 *L pO2 (Temp corrected) Arterial Blood 23.9 HCO3 Arterial Blood -0.8 Base Excess Arterial Blood 88.4 L Oxygen Saturatio n Pablo Test N/A Arterial Blood A-Line Gas Puncture Site Arterial 0.4 Blood Carboxyhem oglobin Arterial Blood 0.2 Methemoglobin Blood Gas A-a O2 649.2 H Differential Oxyhemoglobin 87.9 L Percent Blood Gas 33.0 Temperature Blood Gas 22.0 Respiration Rate Blood Gas Actual 22 Respiration Rate Blood Gas VENT - AC Modality FiO2 100.0 Blood Gas Tidal 500.0 Volume Blood Gas Low 5.0 PEEP Setting Blood Gas 27.0 Inspiratory Pressure Blood Gas REBECCA AKHTAR Critical Value Read Back Blood Gas AA Notified Whom Blood Gas 12/23/2018 2:00: Notified Time 04 AM Bedside Glucose 143 133 Lactic Acid 4.9 *H Level Test 12/23/18 04:45 12/23/18 06:06 12/23/18 07:52 12/23/18 08:22 White Blood 16.7 #H Count Red Blood Count 4.81 Hemoglobin 13.5 Hematocrit 39.9 Mean Corpuscular 83.0 Volume Mean Corpuscular 28.1 L Hemoglobin Mean Corpuscular 33.8 Hemoglobin Angie nt Red Cell 12.8 Distribution Width Platelet Count 235 # Mean Platelet 10.8 H Volume Immature 0.600 H Granulocytes % Neutrophils % Segmented 40 Neutrophils % (Manual) Band Neutrophils 36 H % (Manual) Lymphocytes % Lymphocytes % 18 (Manual) Monocytes % Monocytes % 6 (Manual) Eosinophils % Basophils % Nucleated Red 0.0 Blood Cells % Immature 0.100 H Granulocytes # Neutrophils # Neutrophils # 7.7 H (Manual) Band Neutrophils 6.0 H # Lymphocytes 3.0 H (Manual) Lymphocytes # Monocytes # Monocytes # 1.0 H (Manual) Eosinophils # Basophils # Nucleated Red Blood Cells # Platelet NORMAL Estimate Giant Platelets 1 H Polychromasia 1+ Poikilocytosis 3+ Anisocytosis 3+ Microcytosis 2+ Macrocytosis 1+ Prothrombin Time 15.7 H Prothrombin Time 1.2 Ratio INR 1.24 International Normalized Ratio Activated 29.3 Partial Thrombop last Time Fibrinogen 351.0 # Sodium Level 145 H Potassium Level 3.4 L Chloride Level 110 Carbon Dioxide 27 Level Anion Gap 8 Blood Urea 37 H Nitrogen Creatinine 0.92 Est Glomerular > 60 Filtrat Rate mL/min Glucose Level 144 Hemoglobin A1c 7.6 H Calcium Level 8.8 Phosphorus Level 3.8 # Magnesium Level 2.2 Triglycerides 136 Level Cholesterol 148 # Level LDL Cholesterol, 79 # Calculated HDL Cholesterol 42 # Cholesterol/HDL 3.5 Ratio Amylase Level 115 Lipase 98 Thyroid 1.390 Stimulating Hormone (TSH) Bedside Glucose 115 124 Blood Gas Blood arterial Specimen Source Arterial Blood 12/23/2018 7:29: Date Drawn 48 AM Arterial Blood 7.505 H pH (Temp corrected) Arterial Blood 30.5 L pCO2 (Temp correct) Arterial Blood 75.1 L pO2 (Temp corrected) Arterial Blood 24.1 HCO3 Arterial Blood 0.8 Base Excess Arterial Blood 96.9 Oxygen Saturatio n Pablo Test N/A Arterial Blood A-Line Gas Puncture Site Arterial 0.3 Blood Carboxyhem oglobin Arterial Blood 0.2 Methemoglobin Blood Gas A-a O2 614.0 H Differential Oxyhemoglobin 96.4 Percent Blood Gas 34.3 Temperature Blood Gas 22.0 Respiration Rate Blood Gas Actual 22 Respiration Rate Blood Gas VENT - AC Modality FiO2 100.0 Blood Gas Tidal 500.0 Volume Blood Gas Low 8.0 PEEP Setting Blood Gas TM Notified Whom Blood Gas 12/23/2018 7:49: Notified Time 02 AM Test 12/23/18 09:54 12/23/18 09:59 12/23/18 12:16 12/23/18 12:17 Urine Color YELLOW Urine Clarity SLIGHTLY CLOUDY A Urine pH 5.0 Urine Specific 1.033 H Wilson Urine Ketones TRACE A Urine Nitrite NEGATIVE Urine Bilirubin NEGATIVE Urine NEGATIVE Urobilinogen Urine Leukocyte NEGATIVE Esterase Urine 14 H Microscopic RBC Urine 7 H Microscopic WBC Urine Hemoglobin 1+ H Urine Glucose 1+ H Urine Total NEGATIVE Protein Bedside Glucose 129 141 White Blood 11.6 #H Count Red Blood Count 4.52 Hemoglobin 12.6 Hematocrit 36.8 L Mean Corpuscular 81.4 L Volume Mean Corpuscular 27.9 L Hemoglobin Mean Corpuscular 34.2 Hemoglobin Angie nt Red Cell 12.6 Distribution Width Platelet Count 149 # Mean Platelet 10.2 Volume Immature 0.500 H Granulocytes % Neutrophils % 79.5 H Lymphocytes % 14.3 L Monocytes % 5.3 Eosinophils % 0.0 Basophils % 0.4 Nucleated Red 0.0 Blood Cells % Immature 0.060 H Granulocytes # Neutrophils # 9.2 H Lymphocytes # 1.7 Monocytes # 0.6 Eosinophils # 0.0 Basophils # 0.1 Nucleated Red 0.0 Blood Cells # Sodium Level 144 Potassium Level 3.1 L Chloride Level 109 Carbon Dioxide 28 Level Anion Gap 7 Blood Urea 36 H Nitrogen Creatinine 0.78 Est Glomerular > 60 Filtrat Rate mL/min Glucose Level 155 Lactic Acid 3.6 *H Level Calcium Level 8.6 Phosphorus Level 4.3 Magnesium Level 2.1 Troponin I 76.900 *H Test 12/23/18 14:29 12/23/18 16:19 Bedside Glucose 151 151 Imaging Imaging CXR reviewed, consistent with pulmonary edema Medications Medications Current Medications IV Flush (NS 3 ml) 3 ml PER PROTOCOL IV ; Start 12/22/18 at 02:00 Ondansetron HCl (Zofran Inj) 4 mg Q6H PRN IV NAUSEA/VOMITING; Start 12/22/18 at 02:00 Acetaminophen (Tylenol Tab) 650 mg Q6H PRN PO .PAIN 1-3 OR TEMP; Start 12/22/18 at 02:00 Acetaminophen/ Hydrocodone Bitart (Jansen (5/325)) 1 tab Q6H PRN PO .MOD PAIN 4- 6; Start 12/22/18 at 02:00 Morphine Sulfate (morphine) 2 mg Q4H PRN IV .SEVERE PAIN 7-10; Start 12/22/18 at 02:00 Docusate Sodium (Colace) 100 mg Q12H PRN PO .CONSTIPATION; Start 12/22/18 at 02:00 Magnesium Hydroxide (Milk Of Mag) 30 ml DAILY PRN PO .CONSTIPATION; Start 12/22/18 at 02:00 Famotidine (Pepcid Iv) 20 mg Q12 IV Last administered on 12/23/18at 08:41; Admin Dose 20 MG; Start 12/22/18 at 09:00 Albuterol/ Ipratropium (Duoneb) 3 ml Q4H RESP THERAPY PRN HHN SHORTNESS OF BREATH; Start 12/22/18 at 02:00 Hydralazine HCl (Apresoline) 10 mg Q6H PRN IV ELEVATED BLOOD PRESSURE; Start 12/22/18 at 02:00 Nitroglycerin (Nitroglycerin (Sl Tab) 0.4 Mg) 1 tab Q5M PRN SL ANGINA; Start 12/22/18 at 02:00 Acetaminophen (Tylenol Supp) 650 mg Q4H PRN NC TEMP > 37C; Start 12/22/18 at 02:00 Acetaminophen (Tylenol Liquid) 650 mg Q4H PRN PO TEMP > 37C; Start 12/22/18 at 02:00 Acetaminophen (Tylenol Supp) 500 mg Q6H NC ; Start 12/23/18 at 02:00 Acetaminophen (Tylenol Liquid) 500 mg Q6H PO Last administered on 12/23/18at 14:15; Admin Dose 500 MG; Start 12/23/18 at 02:00 Meperidine HCl (Demerol) 12.5 mg Q4H PRN IV POST OPERATIVE SHIVERING; Start 12/22/18 at 02:00 Meperidine HCl (Demerol) 25 mg Q4H PRN IV POST OPERATIVE SHIVERING; Start 12/22/18 at 02:00 Eye Lubricant (Akwa Oint) 1 applic Q6 BOTH EYES Last administered on 12/23/18at 12:49; Admin Dose 1 APPLIC; Start 12/22/18 at 06:00 Eye Lubricant (Artificial Tears Oph) 2 drop Q6 BOTH EYES Last administered on 12/23/18 12:49; Admin Dose 2 DROP; Start 12/22/18 at 06:00 Diagnostic Test (Pha) (Accu-Chek) 1 ea Q1H XX Last administered on 12/23/18at 12:18; Admin Dose 1 EA; Start 12/22/18 at 02:00 Insulin Human Regular 100 unit/ Sodium Chloride 100 ml @ 0.2 mls/hr PER PROTOCOL IV Last administered on 12/22/18at 15:30; Admin Dose 5 MLS/HR; Start 12/22/18 at 02:00 Miscellaneous Information (* Miscellaneous Pharmacy Order) Treatment of Hypoglycemia: 1.BG 51... Per protocol XX ; Start 12/22/18 at 02:00 Dextrose (D50w Syringe) 25 ml Q15M PRN IV .DECREASED GLUCOSE; Start 12/22/18 at 02:00 Dextrose (D50w Syringe) 50 ml Q15M PRN IV .DECREASED GLUCOSE; Start 12/22/18 at 02:00 Carvedilol (Coreg) 3.125 mg BID PO ; Start 12/22/18 at 09:00 Atorvastatin Calcium (Lipitor) 80 mg DAILY@21 PO Last administered on 12/22/18at 20:40; Admin Dose 80 MG; Start 12/22/18 at 21:00 Benazepril HCl (Lotensin) 10 mg DAILY PO ; Start 12/22/18 at 09:00 Piperacillin Sod/ Tazobactam Sod 100 ml @ 200 mls/hr Q6 IVPB Last administered on 12/23/18at 12:46; Admin Dose 200 MLS/HR; Start 12/22/18 at 04:00 Levetiracetam 100 ml @ 400 mls/hr Q12 IVPB Last administered on 12/23/18at 08:44; Admin Dose 400 MLS/HR; Start 12/22/18 at 05:30 Lorazepam (Ativan) 1 mg Q1H PRN IV SEIZURES; Start 12/22/18 at 05:00 Vasopressin 60 unit/Dextrose 60 ml @ 1.2 mls/hr Q12H IV Last administered on 12/23/18at 00:08; Admin Dose 1.2 MLS/HR; Start 12/22/18 at 09:00 Phenylephrine HCl 80 mg/Dextrose 250 ml @ 18.75 mls/ hr TITRATE IV Last administered on 12/22/18at 10:11; Admin Dose 28.13 MLS/HR; Start 12/22/18 at 09:30 Norepinephrine 32 mg/Dextrose 250 ml @ 0.47 mls/hr TITRATE IV Last administered on 12/23/18at 12:59; Admin Dose 0.94 MLS/HR; Start 12/22/18 at 09:30 Sodium Bicarbonate 100 meq/Sodium Chloride 1,100 ml @ 75 mls/hr [id number] IV Last administered on 12/23/18 14:07; Admin Dose 75 MLS/HR; Start 12/22/18 at 09:30 Aspirin (Aspirin) 81 mg DAILY NGT Last administered on 12/23/18 08:44; Admin Dose 81 MG; Start 12/22/18 at 09:30 Ticagrelor (Brilinta) 90 mg BID PO Last administered on 12/23/18 08:43; Admin Dose 90 MG; Start 12/22/18 at 10:30 Dopamine HCl 800 mg/Dextrose 250 ml @ 3.69 mls/hr TITRATE IV Last administered on 12/22/18 23:34; Admin Dose 1.84 MLS/HR; Start 12/22/18 at 23:30 Propofol 100 ml @ 2.949 mls/ hr Q12H IV Last administered on 12/23/18 14:09; Admin Dose 2.949 MLS/HR; Start 12/23/18 at 14:30 RBOIN JAMES Dec 23, 2018 16:42
--- NOTE | 2018-12-23 16:51 | RADRPT ---
Vent Rate: 78 bpm RR Interval: 768 msec [place] Interval: 134 msec QRS Duration: 93 msec QT Interval: 477 msec QTC Interval: 544 msec P-R-T [place]: 75 - 11 - 69 degrees Sinus rhythm...normal P axis, V-rate 50- 99 Atrial premature complex...SV complex w/ short R-R interval Low voltage, precordial leads...precordial leads <1.0mV Prolonged QT interval...QTc >510mS Electronically Signed By: Julian Rausch
--- NOTE | 2018-12-23 16:53 | RADRPT ---
Vent Rate: 74 bpm RR Interval: 808 msec [place] Interval: 142 msec QRS Duration: 98 msec QT Interval: 522 msec QTC Interval: 581 msec P-R-T [place]: 50 - 19 - 61 degrees Sinus rhythm...normal P axis, V-rate 50- 99 Atrial premature complex...SV complex w/ short R-R interval Low voltage, precordial leads...precordial leads <1.0mV Nonspecific ST depression, anterior leads...ST <-0.10mV, V2-V4 Prolonged QT interval...QTc >510mS Electronically Signed By: Julian Rausch
--- NOTE | 2018-12-23 16:53 | RADRPT ---
Vent Rate: 91 bpm RR Interval: 660 msec [place] Interval: 135 msec QRS Duration: 81 msec QT Interval: 422 msec QTC Interval: 519 msec P-R-T [place]: 44 - 16 - 52 degrees Sinus rhythm...normal P axis, V-rate 50- 99 Low voltage, extremity and precordial leads...extremity<0.5mV, precordial<1.0mV Prolonged QT interval...QTc >510mS Electronically Signed By: Julian Rausch
--- NOTE | 2018-12-23 16:55 | RADRPT ---
Vent Rate: 84 bpm RR Interval: 720 msec [place] Interval: 137 msec QRS Duration: 94 msec QT Interval: 376 msec QTC Interval: 443 msec P-R-T [place]: 50 - 10 - 32 degrees Sinus rhythm...normal P axis, V-rate 50- 99 Multiple premature complexes, vent & supraven...V and SV complexes w/ short R-R Low voltage, precordial leads...precordial leads <1.0mV Borderline ST elevation, lateral leads...ST >0.06mV, I aVL V5 V6 Electronically Signed By: Julian Rausch
[2018-12-23] MEDS: ATORVASTATIN 80 MG TAB PO SCH (20:34)
[2018-12-23] MEDS: FENTAnyl (DRIP) 1000 mcg/100mL 100 ML IV SCH (20:35)
[2018-12-24] VITALS (108 sets, daily range): BP systolic 91–189; BP diastolic 46–108; PULSE 83–124; RESP 15–36
[2018-12-24] MEDS: PROPOFOL 100 ML IV SCH ×2 (00:13→06:01)
[2018-12-24] MEDS: INSULIN HUMAN REGULAR 100 UNIT in SOD CHLORIDE 0.9% 99 ML IV SCH (00:42)
[2018-12-24] MEDS: ACCU-CHEK XX SCH ×22 (00:56→22:58)
[2018-12-24] MEDS: ACETAMINOPHEN 650 MG SUPP PR SCH ×2 (01:49→07:50)
[2018-12-24] MEDS: ACETAMINOPHEN 650MG/20.3ML CUP PO SCH ×2 (01:58→07:50)
[2018-12-24] MEDS ORDERED: SOD CHLORIDE 0.9% 500 ML IV ONE (02:00)
[2018-12-24] MEDS: ALBUMIN HUMAN 25% 100 ML IV SCH ×2 (02:28→03:36)
[2018-12-24] MEDS: NORepinephrine 32 MG in DEXTROSE 5% 218 ML IV SCH (03:53)
[2018-12-24] MEDS ORDERED: FUROSEMIDE 20 MG INJ IV ONE ×2 (05:00→18:00)
[2018-12-24] MEDS: SODIUM BICARBONATE (IV ADD) 100 MEQ in SOD CHLORIDE 0.45% 1,000 ML IV SCH (05:13)
[2018-12-24] MEDS: OCULAR LUBRICANT 3.5 GM OPH OINT BOTH EYES SCH ×4 (05:13→23:41)
[2018-12-24] MEDS: ARTIFICIAL TEARS 15 ML OPH BOTH EYES SCH ×4 (05:13→23:41)
[2018-12-24] MEDS: PIPER-TAZO 3.375 GM IV (PMX) 100 ML IVPB SCH ×4 (05:22→23:40)
[2018-12-24] MEDS: BENAZEPRIL 10 MG TAB NGT SCH (08:59)
[2018-12-24] MEDS: VASOPRESSIN 60 UNIT in DEXTROSE 5% 57 ML IV SCH ×2 (09:00→20:21)
[2018-12-24] MEDS: FAMOTIDINE 20 MG INJ IV SCH ×2 (09:05→20:32)
[2018-12-24] MEDS: LEVETIRACETAM 1000 MG (PMX) 100 ML IVPB SCH ×2 (09:05→20:32)
[2018-12-24] MEDS: ASPIRIN 81 MG TAB NGT SCH (09:05)
[2018-12-24] MEDS: TICAGRELOR 90 MG TABLET PO SCH ×2 (09:06→20:33)
--- NOTE | 2018-12-24 09:11 | CONS ---
Assessment/Plan Assessment/Plan Assessment/Plan (Daily) Chest x-ray showing diffuse pulmonary edema. Cardiomegaly is present as well. Ventilator setting; AC of 18, tidal volume 500, PEEP of 8, 90% FiO2. Patient is currently on insulin drip 4 units/h, Levophed 30 mics per minute, phenylephrine 90 mics per minute, propofol 35 mics per kilogram per minute, fentanyl 75 mics per hour. Assessment and recommendations; 1. Patient admitted with cardiac arrest due to acute [place] status post acute coronary intervention with stenting of LAD. Patient has had multiple CPR performed with likely anoxic encephalopathy. 2. Profound hypotension due to cardiomyopathy. On multiple pressor agents. 3. Slight increase in serum creatinine, patient however maintaining adequate urine output. 4. Persistent pulmonary edema. Difficult to rule out some element of aspi ration pneumonia. Patient currently on appropriate empirical antimicrobial regimen. 5. Diabetes with hyperglycemia on presentation possibly some element of DKA as well. With interval correction of metabolic acidosis. 6. Mild anemia. Continue current supportive care. Ventilator settings have been adjusted. Tidal volume decreased to 450 mL. Obtain follow-up chest x-ray 24 hours. If the patient remains stable, she will be given a sedation vacation 24 hours to assess mental status. I did have a very detailed discussion with the patient's as well as patient's daughter at bedside and answered all their questions. 35 minutes of critical care time was spent evaluating patient. Consultation Date/Type/Reason Admit Date/Time Dec 22, 2018 at 01:25 Initial Consult Date 12/22/18 Type of Consult Pulmonary/critical care Patient is a 58-year-old lady who was brought into the hospital after having cardiac arrest at home. Prolonged CPR was done with revival of vital signs. Upon evaluation here patient was diagnosed with STEMI and was taken to [facility] where LAD lesion was dilated and a stent put in. Patient has remained profoundly hypotensive and is critically ill. Past medical history; 1. History of hypertension, hyperlipidemia. 2. Diabetes. Apparently poorly controlled. Medications; reviewed. Patient is on insulin drip, phenylephrine drip, Levophed, and propofol. All doses and other medications were reviewed in detail. Allergies; none. Social history; non-smoker. Family history; patient is and has supportive family. 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 Review of system; unable to be obtained. General exam; middle-aged female, orally intubated, sedated and paralyzed. Requesting Provider: AMPARO LEONARD Date/Time of Note DATE: 12/24/18 TIME: 09:07 24 HR Interval Summary Free Text/Dictation Patient's condition is extremely critical. On multiple pressor agents. Patient has been taken off hypothermia protocol. Remains hypotensive. General exam; middle-aged lady, orally intubated, sedated, currently in no distress. Exam/Review of Systems Exam Vitals Vital Signs Date Temp Pulse Resp B/P (MAP) Pulse Ox O2 O2 Flow FiO2 Time Delivery Rate 12/24/18 90 18 95/48 (64) 100 Mechanical 07:00 Ventilator 12/24/18 90 05:10 12/24/18 98.5 04:00 Intake and Output 12/23/18 12/23/18 12/24/18 1515:00 23:00 07:00 IntakeIntake Total 1050.859 ml 949.583 ml 1209.379 ml OutputOutput Total 565 ml 377 ml 307 ml BalanceBalance 485.859 ml 572.583 ml 902.379 ml Exam H EENT exam; supple neck, positive JVD. No lymphadenopathy. Midline trachea. No thyromegaly. Pupils are pinpoint. Patient has fair dentition. Orally intubated. Chest exam; diminished breath sounds bilaterally. S1-S2 audible, no murmurs. Regular rhythm. Abdomen exam; soft, nondistended. No organomegaly. Bowel sounds are audible. Extremity exam; no peripheral edema. CONTACT CLERK exam; patient is sedated. Results Result Diagram: 12/24/18 0427 12/24/18 0430 Results 24hrs Laboratory Tests Test 12/23/18 09:54 12/23/18 09:59 12/23/18 12:16 12/23/18 12:17 Urine Color YELLOW Urine Clarity SLIGHTLY CLOUDY A Urine pH 5.0 Urine Specific 1.033 H [place] Urine Ketones TRACE A Urine Nitrite NEGATIVE Urine Bilirubin NEGATIVE Urine NEGATIVE Urobilinogen Urine Leukocyte NEGATIVE Esterase Urine 14 H Microscopic RBC Urine 7 H Microscopic WBC Urine Hemoglobin 1+ H Urine Glucose 1+ H Urine Total NEGATIVE Protein Bedside Glucose 129 141 White Blood 11.6 #H Count Red Blood Count 4.52 Hemoglobin 12.6 Hematocrit 36.8 L Mean Corpuscular 81.4 L Volume Mean Corpuscular 27.9 L Hemoglobin Mean Corpuscular 34.2 Hemoglobin Angie nt Red Cell 12.6 Distribution Width Platelet Count 149 # Mean Platelet 10.2 Volume Immature 0.500 H Granulocytes % Neutrophils % 79.5 H Lymphocytes % 14.3 L Monocytes % 5.3 Eosinophils % 0.0 Basophils % 0.4 Nucleated Red 0.0 Blood Cells % Immature 0.060 H Granulocytes # Neutrophils # 9.2 H Lymphocytes # 1.7 Monocytes # 0.6 Eosinophils # 0.0 Basophils # 0.1 Nucleated Red 0.0 Blood Cells # Sodium Level 144 Potassium Level 3.1 L Chloride Level 109 Carbon Dioxide 28 Level Anion Gap 7 Blood Urea 36 H Nitrogen Creatinine 0.78 Est Glomerular > 60 Filtrat Rate mL/min Glucose Level 155 Lactic Acid 3.6 *H Level Calcium Level 8.6 Phosphorus Level 4.3 Magnesium Level 2.1 Troponin I 76.900 *H Test 12/23/18 14:29 12/23/18 16:19 12/23/18 17:52 12/23/18 18:00 Bedside Glucose 151 151 123 Blood Gas Blood arterial Specimen Source Arterial Blood 12/23/2018 6:18: Date Drawn 02 PM Arterial Blood 7.483 H pH (Temp corrected) Arterial Blood 33.7 L pCO2 (Temp correct) Arterial Blood 157.8 H pO2 (Temp corrected) Arterial Blood 24.7 HCO3 Arterial Blood 1.7 Base Excess Arterial Blood 98.4 H Oxygen Saturatio n Pablo Test N/A Arterial Blood A-Line Gas Puncture Site Arterial 0.3 Blood Carboxyhem oglobin Arterial Blood 0.3 Methemoglobin Blood Gas A-a O2 521.5 H Differential Oxyhemoglobin 97.8 Percent Blood Gas 37.0 Temperature Blood Gas 18.0 Respiration Rate Blood Gas VENT - AC Modality FiO2 100.0 Blood Gas Tidal 500.0 Volume Blood Gas Low 8.0 PEEP Setting Blood Gas [place] Notified Whom Blood Gas 12/23/2018 6:37: Notified Time 03 PM Test 12/23/18 18:21 12/23/18 20:01 12/23/18 22:05 12/23/18 23:57 White Blood 15.0 #H Count Red Blood Count 4.33 Hemoglobin 12.0 Hematocrit 34.9 L Mean Corpuscular 80.6 L Volume Mean Corpuscular 27.7 L Hemoglobin Mean Corpuscular 34.4 Hemoglobin Angie nt Red Cell 13.1 Distribution Width Platelet Count 209 # Mean Platelet 11.0 H Volume Immature 0.500 H Granulocytes % Neutrophils % Segmented 50 Neutrophils % (Manual) Band Neutrophils 33 H % (Manual) Lymphocytes % Lymphocytes % 9 L (Manual) Reactive 1 H Lymphocytes % (Manual) Monocytes % Monocytes % 7 (Manual) Eosinophils % Basophils % Nucleated Red 0.0 Blood Cells % Immature 0.070 H Granulocytes # Neutrophils # Neutrophils # 8.2 H (Manual) Band Neutrophils 4.9 H # Lymphocytes 1.3 (Manual) Lymphocytes # Reactive 0.1 H Lymphocytes # Monocytes # Monocytes # 1.0 H (Manual) Eosinophils # Basophils # Nucleated Red Blood Cells # Platelet NORMAL Estimate Giant Platelets 2 H Poikilocytosis 3+ Anisocytosis 1+ Microcytosis 1+ Prothrombin Time 16.8 H Prothrombin Time 1.3 Ratio INR 1.35 International Normalized Ratio Activated 26.3 Partial Thrombop last Time Fibrinogen 506.0 #H Sodium Level 145 H Potassium Level 3.7 Chloride Level 110 Carbon Dioxide 28 Level Anion Gap 7 Blood Urea 37 H Nitrogen Creatinine 0.98 Est Glomerular 59 L Filtrat Rate mL/min Glucose Level 155 Lactic Acid 4.3 *H Level Calcium Level 8.1 L Phosphorus Level 5.6 H Magnesium Level 2.1 Amylase Level 93 Lipase 37 Bedside Glucose 132 146 174 Test 12/24/18 00:00 12/24/18 00:01 12/24/18 02:09 12/24/18 03:54 White Blood 19.4 #H Count Red Blood Count 3.99 L Hemoglobin 11.3 L Hematocrit 32.7 L Mean Corpuscular 82.0 Volume Mean Corpuscular 28.3 L Hemoglobin Mean Corpuscular 34.6 Hemoglobin Angie nt Red Cell 13.2 Distribution Width Platelet Count 236 Mean Platelet 11.2 H Volume Immature 1.400 H Granulocytes % Neutrophils % Segmented 61 Neutrophils % (Manual) Band Neutrophils 22 H % (Manual) Lymphocytes % Lymphocytes % 16 (Manual) Monocytes % Monocytes % 1 (Manual) Eosinophils % Basophils % Nucleated Red 0.1 H Blood Cells % Immature 0.280 H Granulocytes # Neutrophils # Neutrophils # 12.6 H (Manual) Band Neutrophils 4.2 H # Lymphocytes 3.1 H (Manual) Lymphocytes # Monocytes # Monocytes # 0.1 L (Manual) Eosinophils # Basophils # Nucleated Red Blood Cells # Platelet NORMAL Estimate Giant Platelets 2 H Poikilocytosis 1+ Anisocytosis 1+ Microcytosis 1+ Ovalocytes 1+ Blood Gas Blood arterial Specimen Source Arterial Blood 12/24/2018 12:00 Date Drawn :58 AM Arterial Blood 7.501 H pH (Temp corrected) Arterial Blood 34.0 L pCO2 (Temp correct) Arterial Blood 62.9 L pO2 (Temp corrected) Arterial Blood 26.1 H HCO3 Arterial Blood 3.0 Base Excess Arterial Blood 93.0 L Oxygen Saturatio n Pablo Test N/A Arterial Blood A-Line Gas Puncture Site Arterial 0.3 Blood Carboxyhem oglobin Arterial Blood 0.2 Methemoglobin Blood Gas A-a O2 400.9 H Differential Oxyhemoglobin 92.5 L Percent Blood Gas 36.3 Temperature Blood Gas 18.0 Respiration Rate Blood Gas Actual 24 Respiration Rate Blood Gas VENT - AC Modality FiO2 70.0 Blood Gas Tidal 500.0 Volume Blood Gas Low 8.0 PEEP Setting Blood Gas D [facility] Notified Whom Blood Gas 12/24/2018 12:09 Notified Time :34 AM Sodium Level 144 Potassium Level 3.7 Chloride Level 107 Carbon Dioxide 29 Level Anion Gap 8 Blood Urea 39 H Nitrogen Creatinine 1.06 H Est Glomerular 54 L Filtrat Rate mL/min Glucose Level 177 Calcium Level 8.1 L Phosphorus Level 6.1 H Magnesium Level 2.0 Lactic Acid 4.7 *H Level Bedside Glucose 123 150 Test 12/24/18 04:27 12/24/18 04:30 12/24/18 06:00 12/24/18 08:00 White Blood 16.2 H Count Red Blood Count 3.34 L Hemoglobin 9.5 L Hematocrit 27.8 L Mean Corpuscular 83.2 Volume Mean Corpuscular 28.4 L Hemoglobin Mean Corpuscular 34.2 Hemoglobin Angie nt Red Cell 13.1 Distribution Width Platelet Count 204 Mean Platelet 11.4 H Volume Immature 1.100 H Granulocytes % Neutrophils % Lymphocytes % Monocytes % Eosinophils % Basophils % Nucleated Red 0.0 Blood Cells % Immature 0.180 H Granulocytes # Neutrophils # Lymphocytes # Monocytes # Eosinophils # Basophils # Nucleated Red Blood Cells # Lactic Acid 4.4 *H Level Sodium Level 151 H Potassium Level 3.6 Chloride Level 106 Carbon Dioxide 34 H Level Anion Gap 11 Blood Urea 40 H Nitrogen Creatinine 1.17 H Est Glomerular 48 L Filtrat Rate mL/min Glucose Level 151 Calcium Level 8.0 L Phosphorus Level 6.1 H Magnesium Level 2.0 Bedside Glucose 131 156 Medications Medication Current Medications IV Flush (NS 3 ml) 3 ml PER PROTOCOL IV ; Start 12/22/18 at 02:00 Ondansetron HCl (Zofran Inj) 4 mg Q6H PRN IV NAUSEA/VOMITING; Start 12/22/18 at 02:00 Acetaminophen (Tylenol Tab) 650 mg Q6H PRN PO .PAIN 1-3 OR TEMP; Start 12/22/18 at 02:00 Acetaminophen/ Hydrocodone Bitart ([place] (5/325)) 1 tab Q6H PRN PO .MOD PAIN 4- 6; Start 12/22/18 at 02:00 Morphine Sulfate (morphine) 2 mg Q4H PRN IV .SEVERE PAIN 7-10; Start 12/22/18 at 02:00 Docusate Sodium (Colace) 100 mg Q12H PRN PO .CONSTIPATION; Start 12/22/18 at 0 2:00 Magnesium Hydroxide (Milk Of Mag) 30 ml DAILY PRN PO .CONSTIPATION; Start 12/22/18 at 02:00 Famotidine (Pepcid Iv) 20 mg Q12 IV Last administered on 12/23/18at 20:35; Admin Dose 20 MG; Start 12/22/18 at 09:00 Albuterol/ Ipratropium (Duoneb) 3 ml Q4H RESP THERAPY PRN HHN SHORTNESS OF BREATH; Start 12/22/18 at 02:00 Hydralazine HCl (Apresoline) 10 mg Q6H PRN IV ELEVATED BLOOD PRESSURE; Start 12/22/18 at 02:00 Nitroglycerin (Nitroglycerin (Sl Tab) 0.4 Mg) 1 tab Q5M PRN SL ANGINA; Start 12/22/18 at 02:00 Acetaminophen (Tylenol Supp) 650 mg Q4H PRN [place] TEMP > 37C; Start 12/22/18 at 02:00 Acetaminophen (Tylenol Liquid) 650 mg Q4H PRN PO TEMP > 37C; Start 12/22/18 at 02:00 Meperidine HCl (Demerol) 12.5 mg Q4H PRN IV POST OPERATIVE SHIVERING; Start 12/22/18 at 02:00 Meperidine HCl (Demerol) 25 mg Q4H PRN IV POST OPERATIVE SHIVERING; Start 12/22/18 at 02:00 Eye Lubricant ([place] Oint) 1 applic Q6 BOTH EYES Last administered on 12/24/18 05:13; Admin Dose 1 APPLIC; Start 12/22/18 at 06:00 Eye Lubricant (Artificial Tears Oph) 2 drop Q6 BOTH EYES Last administered on 12/24/18 05:13; Admin Dose 2 DROP; Start 12/22/18 at 06:00 Diagnostic Test (Pha) (Accu-Chek) 1 ea Q1H XX Last administered on 12/24/18 08:06; Admin Dose 1 EA; Start 12/22/18 at 02:00 Insulin Human Regular 100 unit/ Sodium Chloride 100 ml @ 0.2 mls/hr PER PROTOCOL IV Last administered on 12/24/18at 00:42; Admin Dose 4 MLS/HR; Start 12/22/18 at 02:00 Miscellaneous Information (* Miscellaneous Pharmacy Order) Treatment of Hypoglycemia: 1.BG 51... Per protocol XX ; Start 12/22/18 at 02:00 Dextrose (D50w Syringe) 25 ml Q15M PRN IV .DECREASED GLUCOSE; Start 12/22/18 at 02:00 Dextrose (D50w Syringe) 50 ml Q15M PRN IV .DECREASED GLUCOSE; Start 12/22/18 at 02:00 Piperacillin Sod/ Tazobactam Sod 100 ml @ 200 mls/hr Q6 IVPB Last administered on 12/24/18at 05:22; Admin Dose 200 MLS/HR; Start 12/22/18 at 04:00 Levetiracetam 100 ml @ 400 mls/hr Q12 IVPB Last administered on 12/23/18at 20:34; Admin Dose 400 MLS/HR; Start 12/22/18 at 05:30 Lorazepam (Ativan) 1 mg Q1H PRN IV SEIZURES; Start 12/22/18 at 05:00 Vasopressin 60 unit/Dextrose 60 ml @ 1.2 mls/hr Q12H IV Last administered on 12/23/18at 00:08; Admin Dose 1.2 MLS/HR; Start 12/22/18 at 09:00 Phenylephrine HCl 80 mg/Dextrose 250 ml @ 18.75 mls/ hr TITRATE IV Last administered on 12/22/18 10:11; Admin Dose 28.13 MLS/HR; Start 12/22/18 at 09:30 Norepinephrine 32 mg/Dextrose 250 ml @ 0.47 mls/hr TITRATE IV Last administered on 12/24/18 03:53; Admin Dose 8.44 MLS/HR; Start 12/22/18 at 09:30 Sodium Bicarbonate 100 meq/Sodium Chloride 1,100 ml @ 75 mls/hr [id number] IV Last administered on 12/24/18 05:13; Admin Dose 75 MLS/HR; Start 12/22/18 at 09:30 Aspirin (Aspirin) 81 mg DAILY NGT Last administered on 12/23/18 08:44; Admin Dose 81 MG; Start 12/22/18 at 09:30 Ticagrelor (Brilinta) 90 mg BID PO Last administered on 12/23/18 20:35; Admin Dose 90 MG; Start 12/22/18 at 10:30 Dopamine HCl 800 mg/Dextrose 250 ml @ 3.69 mls/hr TITRATE IV Last administered on 12/22/18 23:34; Admin Dose 1.84 MLS/HR; Start 12/22/18 at 23:30 Propofol 100 ml @ 2.949 mls/ hr Q12H IV Last administered on 12/24/18 06:01; Admin Dose 23.592 MLS/HR; Start 12/23/18 at 14:30 Fentanyl 100 ml @ 2.5 mls/hr TITRATE IV Last administered on 12/23/18at 20:35; Admin Dose 2.5 MLS/HR; Start 12/23/18 at 20:30 Atorvastatin Calcium (Lipitor) 80 mg DAILY@21 NGT ; Start 12/24/18 at 21:00 Benazepril HCl (Lotensin) 10 mg DAILY NGT ; Start 12/24/18 at 09:00 Carvedilol (Coreg) 3.125 mg BID NGT ; Start 12/24/18 at 09:00 MACI SILVEIRA 12, 2019 09:11
--- NOTE | 2018-12-24 09:24 | CONS ---
Assessment/Plan Assessment/Plan Hospital Course (Demo Recall) 58 yo with cardiac arrest due to lateral wall stemi, culprit lesion is OM1, which was stented, and mid LAD also stented. Today patient is requiring two pressors for support, and not responding appropriately with sedation vacation. Imp: Card arrest - rewarmed STEMI, culprit OM1 stented, non-culprit severe LAD lesion also stented Ischemic cardiomyopathy Shock, likely with septic component, possible aspiration pneumonia diabetes Acute respiratory failure, on ventilator Hypernatremia Recc: ASA, Brilinta, atorvastatin Pressor support Hold PAKO/ARB and BB secondary to hypotension Watch for neurologic recovery Appreciate pulmonary and neurology input Guarded prognosis given prolonged down time Consultation Date/Type/Reason Admit Date/Time Dec 22, 2018 at 01:25 Initial Consult Date 12/22/18 Type of Consult Cardiology Requesting Provider: AMPARO LEONARD Date/Time of Note DATE: 12/24/18 TIME: 09:20 24 HR Interval Summary Free Text/Dictation Overnight events reviewed, patient is now on two pressors. With sedation vacation she had twitching and bit down on the NGT. Yesterday with turning she became bradycardic. Multiple family members at bedside. Rhythm remains NSR. Subjective hx not possible: pt non-verbal, pt critical status Exam/Review of Systems Vital Signs Vitals Vital Signs Date Temp Pulse Resp B/P (MAP) Pulse Ox O2 O2 Flow FiO2 Time Delivery Rate 12/24/18 95 08:00 12/24/18 18 95/48 (64) 100 Mechanical 07:00 Ventilator 12/24/18 90 05:10 12/24/18 98.5 04:00 Intake and Output 12/23/18 12/23/18 12/24/18 1515:00 23:00 07:00 IntakeIntake Total 1050.859 ml 949.583 ml 1209.379 ml OutputOutput Total 565 ml 377 ml 307 ml BalanceBalance 485.859 ml 572.583 ml 902.379 ml Exam Constitutional: non-verbal Head: normocephalic, atraumatic Eyes: nl lids ENMT: nl external ears & nose, intubated Neck: No bruits Respiratory: clear to auscultation, normal air movement Cardiovascular: regular rate and rhythm, other (right groin femoral sheath in place, no hematoma, no bruit); No murmurs/extra sounds Gastrointestinal: soft, non-tender Musculoskeletal: nl extremities to inspection Extremities: No edema Neurological: unresponsive Skin: nl turgor Labs Result Diagram: 12/24/18 0427 12/24/18 0430 Results 24hrs Laboratory Tests Test 12/23/18 09:54 12/23/18 09:59 12/23/18 12:16 12/23/18 12:17 Urine Color YELLOW Urine Clarity SLIGHTLY CLOUDY A Urine pH 5.0 Urine Specific 1.033 H [place] Urine Ketones TRACE A Urine Nitrite NEGATIVE Urine Bilirubin NEGATIVE Urine NEGATIVE Urobilinogen Urine Leukocyte NEGATIVE Esterase Urine 14 H Microscopic RBC Urine 7 H Microscopic WBC Urine Hemoglobin 1+ H Urine Glucose 1+ H Urine Total NEGATIVE Protein Bedside Glucose 129 141 White Blood 11.6 #H Count Red Blood Count 4.52 Hemoglobin 12.6 Hematocrit 36.8 L Mean Corpuscular 81.4 L Volume Mean Corpuscular 27.9 L Hemoglobin Mean Corpuscular 34.2 Hemoglobin Angie nt Red Cell 12.6 Distribution Width Platelet Count 149 # Mean Platelet 10.2 Volume Immature 0.500 H Granulocytes % Neutrophils % 79.5 H Lymphocytes % 14.3 L Monocytes % 5.3 Eosinophils % 0.0 Basophils % 0.4 Nucleated Red 0.0 Blood Cells % Immature 0.060 H Granulocytes # Neutrophils # 9.2 H Lymphocytes # 1.7 Monocytes # 0.6 Eosinophils # 0.0 Basophils # 0.1 Nucleated Red 0.0 Blood Cells # Sodium Level 144 Potassium Level 3.1 L Chloride Level 109 Carbon Dioxide 28 Level Anion Gap 7 Blood Urea 36 H Nitrogen Creatinine 0.78 Est Glomerular > 60 Filtrat Rate mL/min Glucose Level 155 Lactic Acid 3.6 *H Level Calcium Level 8.6 Phosphorus Level 4.3 Magnesium Level 2.1 Troponin I 76.900 *H Test 12/23/18 14:29 12/23/18 16:19 12/23/18 17:52 12/23/18 18:00 Bedside Glucose 151 151 123 Blood Gas Blood arterial Specimen Source Arterial Blood 12/23/2018 6:18: Date Drawn 02 PM Arterial Blood 7.483 H pH (Temp corrected) Arterial Blood 33.7 L pCO2 (Temp correct) Arterial Blood 157.8 H pO2 (Temp corrected) Arterial Blood 24.7 HCO3 Arterial Blood 1.7 Base Excess Arterial Blood 98.4 H Oxygen Saturatio n Pablo Test N/A Arterial Blood A-Line Gas Puncture Site Arterial 0.3 Blood Carboxyhem oglobin Arterial Blood 0.3 Methemoglobin Blood Gas A-a O2 521.5 H Differential Oxyhemoglobin 97.8 Percent Blood Gas 37.0 Temperature Blood Gas 18.0 Respiration Rate Blood Gas VENT - AC Modality FiO2 100.0 Blood Gas Tidal 500.0 Volume Blood Gas Low 8.0 PEEP Setting Blood Gas [place] Notified Whom Blood Gas 12/23/2018 6:37: Notified Time 03 PM Test 12/23/18 18:21 12/23/18 20:01 12/23/18 22:05 12/23/18 23:57 White Blood 15.0 #H Count Red Blood Count 4.33 Hemoglobin 12.0 Hematocrit 34.9 L Mean Corpuscular 80.6 L Volume Mean Corpuscular 27.7 L Hemoglobin Mean Corpuscular 34.4 Hemoglobin Angie nt Red Cell 13.1 Distribution Width Platelet Count 209 # Mean Platelet 11.0 H Volume Immature 0.500 H Granulocytes % Neutrophils % Segmented 50 Neutrophils % (Manual) Band Neutrophils 33 H % (Manual) Lymphocytes % Lymphocytes % 9 L (Manual) Reactive 1 H Lymphocytes % (Manual) Monocytes % Monocytes % 7 (Manual) Eosinophils % Basophils % Nucleated Red 0.0 Blood Cells % Immature 0.070 H Granulocytes # Neutrophils # Neutrophils # 8.2 H (Manual) Band Neutrophils 4.9 H # Lymphocytes 1.3 (Manual) Lymphocytes # Reactive 0.1 H Lymphocytes # Monocytes # Monocytes # 1.0 H (Manual) Eosinophils # Basophils # Nucleated Red Blood Cells # Platelet NORMAL Estimate Giant Platelets 2 H Poikilocytosis 3+ Anisocytosis 1+ Microcytosis 1+ Prothrombin Time 16.8 H Prothrombin Time 1.3 Ratio INR 1.35 International Normalized Ratio Activated 26.3 Partial Thrombop last Time Fibrinogen 506.0 #H Sodium Level 145 H Potassium Level 3.7 Chloride Level 110 Carbon Dioxide 28 Level Anion Gap 7 Blood Urea 37 H Nitrogen Creatinine 0.98 Est Glomerular 59 L Filtrat Rate mL/min Glucose Level 155 Lactic Acid 4.3 *H Level Calcium Level 8.1 L Phosphorus Level 5.6 H Magnesium Level 2.1 Amylase Level 93 Lipase 37 Bedside Glucose 132 146 174 Test 12/24/18 00:00 12/24/18 00:01 12/24/18 02:09 12/24/18 03:54 White Blood 19.4 #H Count Red Blood Count 3.99 L Hemoglobin 11.3 L Hematocrit 32.7 L Mean Corpuscular 82.0 Volume Mean Corpuscular 28.3 L Hemoglobin Mean Corpuscular 34.6 Hemoglobin Angie nt Red Cell 13.2 Distribution Width Platelet Count 236 Mean Platelet 11.2 H Volume Immature 1.400 H Granulocytes % Neutrophils % Segmented 61 Neutrophils % (Manual) Band Neutrophils 22 H % (Manual) Lymphocytes % Lymphocytes % 16 (Manual) Monocytes % Monocytes % 1 (Manual) Eosinophils % Basophils % Nucleated Red 0.1 H Blood Cells % Immature 0.280 H Granulocytes # Neutrophils # Neutrophils # 12.6 H (Manual) Band Neutrophils 4.2 H # Lymphocytes 3.1 H (Manual) Lymphocytes # Monocytes # Monocytes # 0.1 L (Manual) Eosinophils # Basophils # Nucleated Red Blood Cells # Platelet NORMAL Estimate Giant Platelets 2 H Poikilocytosis 1+ Anisocytosis 1+ Microcytosis 1+ Ovalocytes 1+ Blood Gas Blood arterial Specimen Source Arterial Blood 12/24/2018 12:00 Date Drawn :58 AM Arterial Blood 7.501 H pH (Temp corrected) Arterial Blood 34.0 L pCO2 (Temp correct) Arterial Blood 62.9 L pO2 (Temp corrected) Arterial Blood 26.1 H HCO3 Arterial Blood 3.0 Base Excess Arterial Blood 93.0 L Oxygen Saturatio n Pablo Test N/A Arterial Blood A-Line Gas Puncture Site Arterial 0.3 Blood Carboxyhem oglobin Arterial Blood 0.2 Methemoglobin Blood Gas A-a O2 400.9 H Differential Oxyhemoglobin 92.5 L Percent Blood Gas 36.3 Temperature Blood Gas 18.0 Respiration Rate Blood Gas Actual 24 Respiration Rate Blood Gas VENT - AC Modality FiO2 70.0 Blood Gas Tidal 500.0 Volume Blood Gas Low 8.0 PEEP Setting Blood Gas D [employer]IA[employer] Notified Whom Blood Gas 12/24/2018 12:09 Notified Time :34 AM Sodium Level 144 Potassium Level 3.7 Chloride Level 107 Carbon Dioxide 29 Level Anion Gap 8 Blood Urea 39 H Nitrogen Creatinine 1.06 H Est Glomerular 54 L Filtrat Rate mL/min Glucose Level 177 Calcium Level 8.1 L Phosphorus Level 6.1 H Magnesium Level 2.0 Lactic Acid 4.7 *H Level Bedside Glucose 123 150 Test 12/24/18 04:27 12/24/18 04:30 12/24/18 06:00 12/24/18 08:00 White Blood 16.2 H Count Red Blood Count 3.34 L Hemoglobin 9.5 L Hematocrit 27.8 L Mean Corpuscular 83.2 Volume Mean Corpuscular 28.4 L Hemoglobin Mean Corpuscular 34.2 Hemoglobin Angie nt Red Cell 13.1 Distribution Width Platelet Count 204 Mean Platelet 11.4 H Volume Immature 1.100 H Granulocytes % Neutrophils % Lymphocytes % Monocytes % Eosinophils % Basophils % Nucleated Red 0.0 Blood Cells % Immature 0.180 H Granulocytes # Neutrophils # Lymphocytes # Monocytes # Eosinophils # Basophils # Nucleated Red Blood Cells # Lactic Acid 4.4 *H Level Sodium Level 151 H Potassium Level 3.6 Chloride Level 106 Carbon Dioxide 34 H Level Anion Gap 11 Blood Urea 40 H Nitrogen Creatinine 1.17 H Est Glomerular 48 L Filtrat Rate mL/min Glucose Level 151 Calcium Level 8.0 L Phosphorus Level 6.1 H Magnesium Level 2.0 Bedside Glucose 131 156 Medications Medications Current Medications IV Flush (NS 3 ml) 3 ml PER PROTOCOL IV ; Start 12/22/18 at 02:00 Ondansetron HCl (Zofran Inj) 4 mg Q6H PRN IV NAUSEA/VOMITING; Start 12/22/18 at 02:00 Acetaminophen (Tylenol Tab) 650 mg Q6H PRN PO .PAIN 1-3 OR TEMP; Start 12/22/18 at 02:00 Acetaminophen/ Hydrocodone Bitart ([place] (5/325)) 1 tab Q6H PRN PO .MOD PAIN 4- 6; Start 12/22/18 at 02:00 Morphine Sulfate (morphine) 2 mg Q4H PRN IV .SEVERE PAIN 7-10; Start 12/22/18 at 02:00 Docusate Sodium (Colace) 100 mg Q12H PRN PO .CONSTIPATION; Start 12/22/18 at 02:00 Magnesium Hydroxide (Milk Of Mag) 30 ml DAILY PRN PO .CONSTIPATION; Start 12/22/18 at 02:00 Famotidine (Pepcid Iv) 20 mg Q12 IV Last administered on 12/24/18at 09:05; Admin Dose 20 MG; Start 12/22/18 at 09:00 Albuterol/ Ipratropium (Duoneb) 3 ml Q4H RESP THERAPY PRN HHN SHORTNESS OF BREATH; Start 12/22/18 at 02:00 Hydralazine HCl (Apresoline) 10 mg Q6H PRN IV ELEVATED BLOOD PRESSURE; Start 12/22/18 at 02:00 Nitroglycerin (Nitroglycerin (Sl Tab) 0.4 Mg) 1 tab Q5M PRN SL ANGINA; Start 12/22/18 at 02:00 Acetaminophen (Tylenol Supp) 650 mg Q4H PRN [place] TEMP > 37C; Start 12/22/18 at 02:00 Acetaminophen (Tylenol Liquid) 650 mg Q4H PRN PO TEMP > 37C; Start 12/22/18 at 02:00 Meperidine HCl (Demerol) 12.5 mg Q4H PRN IV POST OPERATIVE SHIVERING; Start 12/22/18 at 02:00 Meperidine HCl (Demerol) 25 mg Q4H PRN IV POST OPERATIVE SHIVERING; Start 12/22/18 at 02:00 Eye Lubricant (Akwa Oint) 1 applic Q6 BOTH EYES Last administered on 12/24/18at 05:13; Admin Dose 1 APPLIC; Start 12/22/18 at 06:00 Eye Lubricant (Artificial Tears Oph) 2 drop Q6 BOTH EYES Last administered on 12/24/18at 05:13; Admin Dose 2 DROP; Start 12/22/18 at 06:00 Diagnostic Test (Pha) (Accu-Chek) 1 ea Q1H XX Last administered on 12/24/18at 08:06; Admin Dose 1 EA; Start 12/22/18 at 02:00 Insulin Human Regular 100 unit/ Sodium Chloride 100 ml @ 0.2 mls/hr PER PROTOCOL IV Last administered on 12/24/18at 00:42; Admin Dose 4 MLS/HR; Start 12/22/18 at 02:00 Miscellaneous Information (* Miscellaneous Pharmacy Order) Treatment of Hypoglycemia: 1.BG 51... Per protocol XX ; Start 12/22/18 at 02:00 Dextrose (D50w Syringe) 25 ml Q15M PRN IV .DECREASED GLUCOSE; Start 12/22/18 at 02:00 Dextrose (D50w Syringe) 50 ml Q15M PRN IV .DECREASED GLUCOSE; Start 12/22/18 at 02:00 Piperacillin Sod/ Tazobactam Sod 100 ml @ 200 mls/hr Q6 IVPB Last administered on 12/24/18 05:22; Admin Dose 200 MLS/HR; Start 12/22/18 at 04:00 Levetiracetam 100 ml @ 400 mls/hr Q12 IVPB Last administered on 12/24/18 09:05; Admin Dose 400 MLS/HR; Start 12/22/18 at 05:30 Lorazepam (Ativan) 1 mg Q1H PRN IV SEIZURES; Start 12/22/18 at 05:00 Vasopressin 60 unit/Dextrose 60 ml @ 1.2 mls/hr Q12H IV Last administered on 12/23/18 00:08; Admin Dose 1.2 MLS/HR; Start 12/22/18 at 09:00 Phenylephrine HCl 80 mg/Dextrose 250 ml @ 18.75 mls/ hr TITRATE IV Last administered on 12/22/18 10:11; Admin Dose 28.13 MLS/HR; Start 12/22/18 at 09:30 Norepinephrine 32 mg/Dextrose 250 ml @ 0.47 mls/hr TITRATE IV Last adm inistered on 12/24/18 03:53; Admin Dose 8.44 MLS/HR; Start 12/22/18 at 09:30 Sodium Bicarbonate 100 meq/Sodium Chloride 1,100 ml @ 75 mls/hr [id number] IV Last administered on 12/24/18 05:13; Admin Dose 75 MLS/HR; Start 12/22/18 at 09:30 Aspirin (Aspirin) 81 mg DAILY NGT Last administered on 12/24/18 09:05; Admin Dose 81 MG; Start 12/22/18 at 09:30 Ticagrelor (Brilinta) 90 mg BID PO Last administered on 12/24/18 09:06; Admin Dose 90 MG; Start 12/22/18 at 10:30 Dopamine HCl 800 mg/Dextrose 250 ml @ 3.69 mls/hr TITRATE IV Last administered on 12/22/18 23:34; Admin Dose 1.84 MLS/HR; Start 12/22/18 at 23:30 Propofol 100 ml @ 2.949 mls/ hr Q12H IV Last administered on 12/24/18 06:01; Admin Dose 23.592 MLS/HR; Start 12/23/18 at 14:30 Fentanyl 100 ml @ 2.5 mls/hr TITRATE IV Last administered on 12/23/18at 20:35; Admin Dose 2.5 MLS/HR; Start 12/23/18 at 20:30 Atorvastatin Calcium (Lipitor) 80 mg DAILY@21 NGT ; Start 12/24/18 at 21:00 Benazepril HCl (Lotensin) 10 mg DAILY NGT ; Start 12/24/18 at 09:00 Carvedilol (Coreg) 3.125 mg BID NGT ; Start 12/24/18 at 09:00 ROBIN JAMES Dec 24, 2018 09:24
--- NOTE | 2018-12-24 10:52 | CONS ---
Assessment/Plan Assessment/Plan Assessment/Plan (Recall) 58 F c/ multiple comorbidities, who is admitted to the [facility] ICU in coma s/p cardiac arrest. s/p cardiac catheterization and stent placement.. s/p targeted temperature therapy The neurologic picture remains obscured by chemical sedation... P: Hold sedation where possible EEG today Head CT when medically able Other medical management and supportive care per primary Will follow clinically Consultation Date/Type/Reason Admit Date/Time Dec 22, 2018 at 01:25 Type of Consult Neurology Reason for Consultation coma s/p cardiac arrest Requesting Provider: AMPARO LEONARD Date/Time of Note DATE: 12/24/18 TIME: 10:50 24 HR Interval Summary Free Text/Dictation Warm as of 3:30am Exam/Review of Systems Exam Vitals Vital Signs Date Temp Pulse Resp B/P (MAP) Pulse Ox O2 O2 Flow FiO2 Time Delivery Rate 12/24/18 112 23 150/70 98 10:15 (96) 12/24/18 Mechanical 10:00 Ventilator 12/24/18 98.6 08:00 12/24/18 90 05:10 Intake and Output 12/23/18 12/23/18 12/24/18 1515:00 23:00 07:00 IntakeIntake Total 1050.859 ml 949.583 ml 1337.039 ml OutputOutput Total 565 ml 377 ml 311 ml BalanceBalance 485.859 ml 572.583 ml 1026.039 ml Exam PE: Gen Appearance: No Apparent Distress HEENT: Intubated Cardiovascular: Regular rate Abdomen: Soft Extremities: Dry NE: The patient was comatose. Cranial nerve examination was limited by mental status. Pupils were equal and reactive to light. There was no afferent pupillary defect. Funduscopic examination was limited. Face was grossly symmetric, w/ present corneal and cough reflexes. Tone was normal. Muscle bulk was normal. I did not see fasciculations. The cindy ent was without significant motor response. Coordination and gait testing was limited by mental status. Arm and leg reflexes were within normal limits and symmetric. Monaco's sign was absent. Plantar responses were mute. Results Result Diagram: 12/24/18 0427 12/24/18 0430 Results 24hrs Laboratory Tests Test 12/23/18 12:16 12/23/18 12:17 12/23/18 14:29 12/23/18 16:19 Bedside Glucose 141 151 151 White Blood 11.6 #H Count Red Blood Count 4.52 Hemoglobin 12.6 Hematocrit 36.8 L Mean Corpuscular 81.4 L Volume Mean Corpuscular 27.9 L Hemoglobin Mean Corpuscular 34.2 Hemoglobin Angie nt Red Cell 12.6 Distribution Width Platelet Count 149 # Mean Platelet 10.2 Volume Immature 0.500 H Granulocytes % Neutrophils % 79.5 H Lymphocytes % 14.3 L Monocytes % 5.3 Eosinophils % 0.0 Basophils % 0.4 Nucleated Red 0.0 Blood Cells % Immature 0.060 H Granulocytes # Neutrophils # 9.2 H Lymphocytes # 1.7 Monocytes # 0.6 Eosinophils # 0.0 Basophils # 0.1 Nucleated Red 0.0 Blood Cells # Sodium Level 144 Potassium Level 3.1 L Chloride Level 109 Carbon Dioxide 28 Level Anion Gap 7 Blood Urea 36 H Nitrogen Creatinine 0.78 Est Glomerular > 60 Filtrat Rate mL/min Glucose Level 155 Lactic Acid 3.6 *H Level Calcium Level 8.6 Phosphorus Level 4.3 Magnesium Level 2.1 Troponin I 76.900 *H Test 12/23/18 17:52 12/23/18 18:00 12/23/18 18:21 12/23/18 20:01 Bedside Glucose 123 132 Blood Gas Blood arterial Specimen Source Arterial Blood 12/23/2018 6:18: Date Drawn 02 PM Arterial Blood 7.483 H pH (Temp corrected) Arterial Blood 33.7 L pCO2 (Temp correct) Arterial Blood 157.8 H pO2 (Temp corrected) Arterial Blood 24.7 HCO3 Arterial Blood 1.7 Base Excess Arterial Blood 98.4 H Oxygen Saturatio n Pablo Test N/A Arterial Blood A-Line Gas Puncture Site Arterial 0.3 Blood Carboxyhem oglobin Arterial Blood 0.3 Methemoglobin Blood Gas A-a O2 521.5 H Differential Oxyhemoglobin 97.8 Percent Blood Gas 37.0 Temperature Blood Gas 18.0 Respiration Rate Blood Gas VENT - AC Modality FiO2 100.0 Blood Gas Tidal 500.0 Volume Blood Gas Low 8.0 PEEP Setting Blood Gas [place] Notified Whom Blood Gas 12/23/2018 6:37: Notified Time 03 PM White Blood 15.0 #H Count Red Blood Count 4.33 Hemoglobin 12.0 Hematocrit 34.9 L Mean Corpuscular 80.6 L Volume Mean Corpuscular 27.7 L Hemoglobin Mean Corpuscular 34.4 Hemoglobin Angie nt Red Cell 13.1 Distribution Width Platelet Count 209 # Mean Platelet 11.0 H Volume Immature 0.500 H Granulocytes % Neutrophils % Segmented 50 Neutrophils % (Manual) Band Neutrophils 33 H % (Manual) Lymphocytes % Lymphocytes % 9 L (Manual) Reactive 1 H Lymphocytes % (Manual) Monocytes % Monocytes % 7 (Manual) Eosinophils % Basophils % Nucleated Red 0.0 Blood Cells % Immature 0.070 H Granulocytes # Neutrophils # Neutrophils # 8.2 H (Manual) Band Neutrophils 4.9 H # Lymphocytes 1.3 (Manual) Lymphocytes # Reactive 0.1 H Lymphocytes # Monocytes # Monocytes # 1.0 H (Manual) Eosinophils # Basophils # Nucleated Red Blood Cells # Platelet NORMAL Estimate Giant Platelets 2 H Poikilocytosis 3+ Anisocytosis 1+ Microcytosis 1+ Prothrombin Time 16.8 H Prothrombin Time 1.3 Ratio INR 1.35 International Normalized Ratio Activated 26.3 Partial Thrombop last Time Fibrinogen 506.0 #H Sodium Level 145 H Potassium Level 3.7 Chloride Level 110 Carbon Dioxide 28 Level Anion Gap 7 Blood Urea 37 H Nitrogen Creatinine 0.98 Est Glomerular 59 L Filtrat Rate mL/min Glucose Level 155 Lactic Acid 4.3 *H Level Calcium Level 8.1 L Phosphorus Level 5.6 H Magnesium Level 2.1 Amylase Level 93 Lipase 37 Test 12/23/18 22:05 12/23/18 23:57 12/24/18 00:00 12/24/18 00:01 Bedside Glucose 146 174 White Blood 19.4 #H Count Red Blood Count 3.99 L Hemoglobin 11.3 L Hematocrit 32.7 L Mean Corpuscular 82.0 Volume Mean Corpuscular 28.3 L Hemoglobin Mean Corpuscular 34.6 Hemoglobin Angie nt Red Cell 13.2 Distribution Width Platelet Count 236 Mean Platelet 11.2 H Volume Immature 1.400 H Granulocytes % Neutrophils % Segmented 61 Neutrophils % (Manual) Band Neutrophils 22 H % (Manual) Lymphocytes % Lymphocytes % 16 (Manual) Monocytes % Monocytes % 1 (Manual) Eosinophils % Basophils % Nucleated Red 0.1 H Blood Cells % Immature 0.280 H Granulocytes # Neutrophils # Neutrophils # 12.6 H (Manual) Band Neutrophils 4.2 H # Lymphocytes 3.1 H (Manual) Lymphocytes # Monocytes # Monocytes # 0.1 L (Manual) Eosinophils # Basophils # Nucleated Red Blood Cells # Platelet NORMAL Estimate Giant Platelets 2 H Poikilocytosis 1+ Anisocytosis 1+ Microcytosis 1+ Ovalocytes 1+ Blood Gas Blood arterial Specimen Source Arterial Blood 12/24/2018 12:00 Date Drawn :58 AM Arterial Blood 7.501 H pH (Temp corrected) Arterial Blood 34.0 L pCO2 (Temp correct) Arterial Blood 62.9 L pO2 (Temp corrected) Arterial Blood 26.1 H HCO3 Arterial Blood 3.0 Base Excess Arterial Blood 93.0 L Oxygen Saturatio n Pablo Test N/A Arterial Blood A-Line Gas Puncture Site Arterial 0.3 Blood Carboxyhem oglobin Arterial Blood 0.2 Methemoglobin Blood Gas A-a O2 400.9 H Differential Oxyhemoglobin 92.5 L Percent Blood Gas 36.3 Temperature Blood Gas 18.0 Respiration Rate Blood Gas Actual 24 Respiration Rate Blood Gas VENT - AC Modality FiO2 70.0 Blood Gas Tidal 500.0 Volume Blood Gas Low 8.0 PEEP Setting Blood Gas D [facility] Notified Whom Blood Gas 12/24/2018 12:09 Notified Time :34 AM Sodium Level 144 Potassium Level 3.7 Chloride Level 107 Carbon Dioxide 29 Level Anion Gap 8 Blood Urea 39 H Nitrogen Creatinine 1.06 H Est Glomerular 54 L Filtrat Rate mL/min Glucose Level 177 Calcium Level 8.1 L Phosphorus Level 6.1 H Magnesium Level 2.0 Lactic Acid 4.7 *H Level Test 12/24/18 02:09 12/24/18 03:54 12/24/18 04:27 12/24/18 04:30 Bedside Glucose 123 150 White Blood 16.2 H Count Red Blood Count 3.34 L Hemoglobin 9.5 L Hematocrit 27.8 L Mean Corpuscular 83.2 Volume Mean Corpuscular 28.4 L Hemoglobin Mean Corpuscular 34.2 Hemoglobin Angie nt Red Cell 13.1 Distribution Width Platelet Count 204 Mean Platelet 11.4 H Volume Immature 1.100 H Granulocytes % Neutrophils % Segmented 42 Neutrophils % (Manual) Band Neutrophils 42 H % (Manual) Lymphocytes % Lymphocytes % 11 L (Manual) Monocytes % Monocytes % 5 (Manual) Eosinophils % Basophils % Nucleated Red 0.0 Blood Cells % Immature 0.180 H Granulocytes # Neutrophils # Neutrophils # 7.9 H (Manual) Band Neutrophils 6.8 H # Lymphocytes 1.7 (Manual) Lymphocytes # Monocytes # Monocytes # 0.8 (Manual) Eosinophils # Basophils # Nucleated Red Blood Cells # Platelet NORMAL Estimate Giant Platelets 1 H Polychromasia 3+ Anisocytosis 2+ Microcytosis 2+ Ovalocytes 1+ Lactic Acid 4.4 *H Level Sodium Level 151 H Potassium Level 3.6 Chloride Level 106 Carbon Dioxide 34 H Level Anion Gap 11 Blood Urea 40 H Nitrogen Creatinine 1.17 H Est Glomerular 48 L Filtrat Rate mL/min Glucose Level 151 Calcium Level 8.0 L Phosphorus Level 6.1 H Magnesium Level 2.0 Test 12/24/18 06:00 12/24/18 08:00 12/24/18 10:04 Bedside Glucose 131 156 140 Medications Medication Current Medications IV Flush (NS 3 ml) 3 ml PER PROTOCOL IV ; Start 12/22/18 at 02:00 Ondansetron HCl (Zofran Inj) 4 mg Q6H PRN IV NAUSEA/VOMITING; Start 12/22/18 at 02:00 Acetaminophen (Tylenol Tab) 650 mg Q6H PRN PO .PAIN 1-3 OR TEMP; Start 12/22/18 at 02:00 Acetaminophen/ Hydrocodone Bitart ([place] (5/325)) 1 tab Q6H PRN PO .MOD PAIN 4- 6; Start 12/22/18 at 02:00 Morphine Sulfate (morphine) 2 mg Q4H PRN IV .SEVERE PAIN 7-10; Start 12/22/18 at 02:00 Docusate Sodium (Colace) 100 mg Q12H PRN PO .CONSTIPATION; Start 12/22/18 at 02:00 Magnesium Hydroxide (Milk Of Mag) 30 ml DAILY PRN PO .CONSTIPATION; Start 12/22/18 at 02:00 Famotidine (Pepcid Iv) 20 mg Q12 IV Last administered on 12/24/18at 09:05; Admin Dose 20 MG; Start 12/22/18 at 09:00 Albuterol/ Ipratropium (Duoneb) 3 ml Q4H RESP THERAPY PRN HHN SHORTNESS OF BREATH; Start 12/22/18 at 02:00 Hydralazine HCl (Apresoline) 10 mg Q6H PRN IV ELEVATED BLOOD PRESSURE; Start 12/22/18 at 02:00 Nitroglycerin (Nitroglycerin (Sl Tab) 0.4 Mg) 1 tab Q5M PRN SL ANGINA; Start 12/22/18 at 02:00 Acetaminophen (Tylenol Supp) 650 mg Q4H PRN NV TEMP > 37C; Start 12/22/18 at 02:00 Acetaminophen (Tylenol Liquid) 650 mg Q4H PRN PO TEMP > 37C; Start 12/22/18 at 02:00 Meperidine HCl (Demerol) 12.5 mg Q4H PRN IV POST OPERATIVE SHIVERING; Start 12/22/18 at 02:00 Meperidine HCl (Demerol) 25 mg Q4H PRN IV POST OPERATIVE SHIVERING; Start 12/22/18 at 02:00 Eye Lubricant (Akwa Oint) 1 applic Q6 BOTH EYES Last administered on 12/24/18at 05:13; Admin Dose 1 APPLIC; Start 12/22/18 at 06:00 Eye Lubricant (Artificial Tears Oph) 2 drop Q6 BOTH EYES Last administered on 12/24/18at 05:13; Admin Dose 2 DROP; Start 12/22/18 at 06:00 Diagnostic Test (Pha) (Accu-Chek) 1 ea Q1H XX Last administered on 12/24/18at 10:05; Admin Dose 1 EA; Start 12/22/18 at 02:00 Insulin Human Regular 100 unit/ Sodium Chloride 100 ml @ 0.2 mls/hr PER PROTOCOL IV Last administered on 12/24/18at 00:42; Admin Dose 4 MLS/HR; Start 12/22/18 at 02:00 Miscellaneous Information (* Miscellaneous Pharmacy Order) Treatment of Hypoglycemia: 1.BG 51... Per protocol XX ; Start 12/22/18 at 02:00 Dextrose (D50w Syringe) 25 ml Q15M PRN IV .DECREASED GLUCOSE; Start 12/22/18 at 02:00 Dextrose (D50w Syringe) 50 ml Q15M PRN IV .DECREASED GLUCOSE; Start 12/22/18 at 02:00 Piperacillin Sod/ Tazobactam Sod 100 ml @ 200 mls/hr Q6 IVPB Last administered on 12/24/18at 05:22; Admin Dose 200 MLS/HR; Start 12/22/18 at 04:00 Levetiracetam 100 ml @ 400 mls/hr Q12 IVPB Last administered on 12/24/18at 09:05; Admin Dose 400 MLS/HR; Start 12/22/18 at 05:30 Lorazepam (Ativan) 1 mg Q1H PRN IV SEIZURES; Start 12/22/18 at 05:00 Vasopressin 60 unit/Dextrose 60 ml @ 1.2 mls/hr Q12H IV Last administered on 12/23/18 00:08; Admin Dose 1.2 MLS/HR; Start 12/22/18 at 09:00 Phenylephrine HCl 80 mg/Dextrose 250 ml @ 18.75 mls/ hr TITRATE IV Last admin istered on 12/22/18 10:11; Admin Dose 28.13 MLS/HR; Start 12/22/18 at 09:30 Norepinephrine 32 mg/Dextrose 250 ml @ 0.47 mls/hr TITRATE IV Last administered on 12/24/18 03:53; Admin Dose 8.44 MLS/HR; Start 12/22/18 at 09:30 Aspirin (Aspirin) 81 mg DAILY NGT Last administered on 12/24/18 09:05; Admin Dose 81 MG; Start 12/22/18 at 09:30 Ticagrelor (Brilinta) 90 mg BID PO Last administered on 12/24/18 09:06; Admin Dose 90 MG; Start 12/22/18 at 10:30 Dopamine HCl 800 mg/Dextrose 250 ml @ 3.69 mls/hr TITRATE IV Last administered on 12/22/18 23:34; Admin Dose 1.84 MLS/HR; Start 12/22/18 at 23:30 Propofol 100 ml @ 2.949 mls/ hr Q12H IV Last administered on 12/24/18 06:01; Admin Dose 23.592 MLS/HR; Start 12/23/18 at 14:30 Fentanyl 100 ml @ 2.5 mls/hr TITRATE IV Last administered on 12/23/18 20:35; Admin Dose 2.5 MLS/HR; Start 12/23/18 at 20:30 Atorvastatin Calcium (Lipitor) 80 mg DAILY@21 NGT ; Start 12/24/18 at 21:00 Benazepril HCl (Lotensin) 10 mg DAILY NGT ; Start 12/24/18 at 09:00 Carvedilol (Coreg) 3.125 mg BID NGT ; Start 12/24/18 at 09:00 KARL REYES Dec 24, 2018 10:52
--- NOTE | 2018-12-24 11:20 | PN ---
Date/Time of Note Date/Time of Note DATE: 12/24/18 TIME: 11:12 Assessment/Plan VTE Prophylaxis Risk score (from Nsg)>0 risk: 11 SCD applied (from Nsg): Yes Pharmacological prophylaxis: heparin Lines/Catheters IV Catheter Type (from Nrsg): A Line Urinary Cath still in place: Yes Reason Cath still needed: other (indicate) (intubated) Assessment/Plan Assessment/Plan Assessment and plan: 58-year-old woman past medical of hypertension, high cholesterol, anxiety, diabetes, who was brought in by EMS after suffering cardiac arrest and had ROSC, with ST elevation IA lactic acidosis, status post PCI of the OM1 (culprit lesion) is as well as stenting of the mid LAD, intubated and unresponsive, on insulin drip and hypothermia protocol. 1. Status post cardiac arrest with ST elevation IA: Again status post PCI of the obtuse marginal and LAD blockages. Again patient was down for at least 20 minutes before EMS arrived at home, and took another 15 minutes for ROSC to be obtained. -Continue Lipitor, Coreg, Brilinta, aspirin - s/p hypothermia protocol, now rewarmed. On my exam today she is not brain . Proceed with EEG. - Neurology consulted, Dr. Dorsey following - Continue prophylactic keppra. - Severe pulmonary edema with hypoxemic respiratory failure. Cautious spot diuresis. 2. Diabetes: continue insulin drip and monitor sugars 3. Hypertension: Currently hypotensive on pressors. 4. High cholesterol: Continue statin Appears to have overall poor prognosis given the length of time patient was down before CPR was started, again we will continue hypothermia protocol for the first 24 hours, insulin drip, as mentioned above palliative care and neurology consults as well. Result Diagram: 12/24/18 0427 12/24/18 0430 Subjective 24 Hr Interval Summary Free Text/Dictation Patient reached normothermia this morning. Sedation off. On three pressors overnight; now down to just norepinephrine. Still hypoxemic; on 90% FiO2. She is breathing over the vent. I updated family at bedside. Exam/Review of Systems Exam Vitals Vital Signs Date Temp Pulse Resp B/P (MAP) Pulse Ox O2 O2 Flow FiO2 Time Delivery Rate 12/24/18 112 23 150/70 98 10:15 (96) 12/24/18 Mechanical 10:00 Ventilator 12/24/18 98.6 08:00 6/12/19 90 05:10 Intake and Output 12/23/18 12/23/18 12/24/18 1515:00 23:00 07:00 IntakeIntake Total 1050.859 ml 949.583 ml 1337.039 ml OutputOutput Total 565 ml 377 ml 311 ml BalanceBalance 485.859 ml 572.583 ml 1026.039 ml Exam Gen: Obese woman lying in bed, intubated HEENT: Atraumatic. Moist mucous membranes. ET tube in place. Eyes: Normal pupils, nonreactive. Neck: Supple, no lymphadenopathy. Resp: Mechanical breath sounds bilaterally. Cardio: S1, S2 heard. No obvious murmurs. Abd: Soft, nondistended, normal bowel sounds, non tender. Ext: No lower extremity edema bilaterally : Crab[place] in place with copious clear yellow urine. NEURO: Breathing over vent. Positive cough reflex. Eyes do not open to pain. Not moving extremities. Results Results 24hrs Laboratory Tests Test 12/23/18 12:16 12/23/18 12:17 12/23/18 14:29 12/23/18 16:19 Bedside Glucose 141 151 151 White Blood 11.6 #H Count Red Blood Count 4.52 Hemoglobin 12.6 Hematocrit 36.8 L Mean Corpuscular 81.4 L Volume Mean Corpuscular 27.9 L Hemoglobin Mean Corpuscular 34.2 Hemoglobin Angie nt Red Cell 12.6 Distribution Width Platelet Count 149 # Mean Platelet 10.2 Volume Immature 0.500 H Granulocytes % Neutrophils % 79.5 H Lymphocytes % 14.3 L Monocytes % 5.3 Eosinophils % 0.0 Basophils % 0.4 Nucleated Red 0.0 Blood Cells % Immature 0.060 H Granulocytes # Neutrophils # 9.2 H Lymphocytes # 1.7 Monocytes # 0.6 Eosinophils # 0.0 Basophils # 0.1 Nucleated Red 0.0 Blood Cells # Sodium Level 144 Potassium Level 3.1 L Chloride Level 109 Carbon Dioxide 28 Level Anion Gap 7 Blood Urea 36 H Nitrogen Creatinine 0.78 Est Glomerular > 60 Filtrat Rate mL/min Glucose Level 155 Lactic Acid 3.6 *H Level Calcium Level 8.6 Phosphorus Level 4.3 Magnesium Level 2.1 Troponin I 76.900 *H Test 12/23/18 17:52 6/11/19 18:00 12/23/18 18:21 12/23/18 20:01 Bedside Glucose 123 132 Blood Gas Blood arterial Specimen Source Arterial Blood 12/23/2018 6:18: Date Drawn 02 PM Arterial Blood 7.483 H pH (Temp corrected) Arterial Blood 33.7 L pCO2 (Temp correct) Arterial Blood 157.8 H pO2 (Temp corrected) Arterial Blood 24.7 HCO3 Arterial Blood 1.7 Base Excess Arterial Blood 98.4 H Oxygen Saturatio n Pablo Test N/A Arterial Blood A-Line Gas Puncture Site Arterial 0.3 Blood Carboxyhem oglobin Arterial Blood 0.3 Methemoglobin Blood Gas A-a O2 521.5 H Differential Oxyhemoglobin 97.8 Percent Blood Gas 37.0 Temperature Blood Gas 18.0 Respiration Rate Blood Gas VENT - AC Modality FiO2 100.0 Blood Gas Tidal 500.0 Volume Blood Gas Low 8.0 PEEP Setting Blood Gas [place] Notified Whom Blood Gas 12/23/2018 6:37: Notified Time 03 PM White Blood 15.0 #H Count Red Blood Count 4.33 Hemoglobin 12.0 Hematocrit 34.9 L Mean Corpuscular 80.6 L Volume Mean Corpuscular 27.7 L Hemoglobin Mean Corpuscular 34.4 Hemoglobin Angie nt Red Cell 13.1 Distribution Width Platelet Count 209 # Mean Platelet 11.0 H Volume Immature 0.500 H Granulocytes % Neutrophils % Segmented 50 Neutrophils % (Manual) Band Neutrophils 33 H % (Manual) Lymphocytes % Lymphocytes % 9 L (Manual) Reactive 1 H Lymphocytes % (Manual) Monocytes % Monocytes % 7 (Manual) Eosinophils % Basophils % Nucleated Red 0.0 Blood Cells % Immature 0.070 H Granulocytes # Neutrophils # Neutrophils # 8.2 H (Manual) Band Neutrophils 4.9 H # Lymphocytes 1.3 (Manual) Lymphocytes # Reactive 0.1 H Lymphocytes # Monocytes # Monocytes # 1.0 H (Manual) Eosinophils # Basophils # Nucleated Red Blood Cells # Platelet NORMAL Estimate Giant Platelets 2 H Poikilocytosis 3+ Anisocytosis 1+ Microcytosis 1+ Prothrombin Time 16.8 H Prothrombin Time 1.3 Ratio INR 1.35 International Normalized Ratio Activated 26.3 Partial Thrombop last Time Fibrinogen 506.0 #H Sodium Level 145 H Potassium Level 3.7 Chloride Level 110 Carbon Dioxide 28 Level Anion Gap 7 Blood Urea 37 H Nitrogen Creatinine 0.98 Est Glomerular 59 L Filtrat Rate mL/min Glucose Level 155 Lactic Acid 4.3 *H Level Calcium Level 8.1 L Phosphorus Level 5.6 H Magnesium Level 2.1 Amylase Level 93 Lipase 37 Test 12/23/18 22:05 12/23/18 23:57 12/24/18 00:00 12/24/18 00:01 Bedside Glucose 146 174 White Blood 19.4 #H Count Red Blood Count 3.99 L Hemoglobin 11.3 L Hematocrit 32.7 L Mean Corpuscular 82.0 Volume Mean Corpuscular 28.3 L Hemoglobin Mean Corpuscular 34.6 Hemoglobin Angie nt Red Cell 13.2 Distribution Width Platelet Count 236 Mean Platelet 11.2 H Volume Immature 1.400 H Granulocytes % Neutrophils % Segmented 61 Neutrophils % (Manual) Band Neutrophils 22 H % (Manual) Lymphocytes % Lymphocytes % 16 (Manual) Monocytes % Monocytes % 1 (Manual) Eosinophils % Basophils % Nucleated Red 0.1 H Blood Cells % Immature 0.280 H Granulocytes # Neutrophils # Neutrophils # 12.6 H (Manual) Band Neutrophils 4.2 H # Lymphocytes 3.1 H (Manual) Lymphocytes # Monocytes # Monocytes # 0.1 L (Manual) Eosinophils # Basophils # Nucleated Red Blood Cells # Platelet NORMAL Estimate Giant Platelets 2 H Poikilocytosis 1+ Anisocytosis 1+ Microcytosis 1+ Ovalocytes 1+ Blood Gas Blood arterial Specimen Source Arterial Blood 12/24/2018 12:00 Date Drawn :58 AM Arterial Blood 7.501 H pH (Temp corrected) Arterial Blood 34.0 L pCO2 (Temp correct) Arterial Blood 62.9 L pO2 (Temp corrected) Arterial Blood 26.1 H HCO3 Arterial Blood 3.0 Base Excess Arterial Blood 93.0 L Oxygen Saturatio n Pablo Test N/A Arterial Blood A-Line Gas Puncture Site Arterial 0.3 Blood Carboxyhem oglobin Arterial Blood 0.2 Methemoglobin Blood Gas A-a O2 400.9 H Differential Oxyhemoglobin 92.5 L Percent Blood Gas 36.3 Temperature Blood Gas 18.0 Respiration Rate Blood Gas Actual 24 Respiration Rate Blood Gas VENT - AC Modality FiO2 70.0 Blood Gas Tidal 500.0 Volume Blood Gas Low 8.0 PEEP Setting Blood Gas D [employer] Notified Whom Blood Gas 12/24/2018 12:09 Notified Time :34 AM Sodium Level 144 Potassium Level 3.7 Chloride Level 107 Carbon Dioxide 29 Level Anion Gap 8 Blood Urea 39 H Nitrogen Creatinine 1.06 H Est Glomerular 54 L Filtrat Rate mL/min Glucose Level 177 Calcium Level 8.1 L Phosphorus Level 6.1 H Magnesium Level 2.0 Lactic Acid 4.7 *H Level Test 12/24/18 02:09 12/24/18 03:54 12/24/18 04:27 12/24/18 04:30 Bedside Glucose 123 150 White Blood 16.2 H Count Red Blood Count 3.34 L Hemoglobin 9.5 L Hematocrit 27.8 L Mean Corpuscular 83.2 Volume Mean Corpuscular 28.4 L Hemoglobin Mean Corpuscular 34.2 Hemoglobin Angie nt Red Cell 13.1 Distribution Width Platelet Count 204 Mean Platelet 11.4 H Volume Immature 1.100 H Granulocytes % Neutrophils % Segmented 42 Neutrophils % (Manual) Band Neutrophils 42 H % (Manual) Lymphocytes % Lymphocytes % 11 L (Manual) Monocytes % Monocytes % 5 (Manual) Eosinophils % Basophils % Nucleated Red 0.0 Blood Cells % Immature 0.180 H Granulocytes # Neutrophils # Neutrophils # 7.9 H (Manual) Band Neutrophils 6.8 H # Lymphocytes 1.7 (Manual) Lymphocytes # Monocytes # Monocytes # 0.8 (Manual) Eosinophils # Basophils # Nucleated Red Blood Cells # Platelet NORMAL Estimate Giant Platelets 1 H Polychromasia 3+ Anisocytosis 2+ Microcytosis 2+ Ovalocytes 1+ Lactic Acid 4.4 *H Level Sodium Level 151 H Potassium Level 3.6 Chloride Level 106 Carbon Dioxide 34 H Level Anion Gap 11 Blood Urea 40 H Nitrogen Creatinine 1.17 H Est Glomerular 48 L Filtrat Rate mL/min Glucose Level 151 Calcium Level 8.0 L Phosphorus Level 6.1 H Magnesium Level 2.0 Test 12/24/18 06:00 12/24/18 08:00 12/24/18 10:04 Bedside Glucose 131 156 140 Medications Medication Current Medications IV Flush (NS 3 ml) 3 ml PER PROTOCOL IV ; Start 12/22/18 at 02:00 Ondansetron HCl (Zofran Inj) 4 mg Q6H PRN IV NAUSEA/VOMITING; Start 12/22/18 at 02:00 Acetaminophen (Tylenol Tab) 650 mg Q6H PRN PO .PAIN 1-3 OR TEMP; Start 12/22/18 at 02:00 Acetaminophen/ Hydrocodone Bitart ([place] (5/325)) 1 tab Q6H PRN PO .MOD PAIN 4- 6; Start 12/22/18 at 02:00 Morphine Sulfate (morphine) 2 mg Q4H PRN IV .SEVERE PAIN 7-10; Start 12/22/18 at 02:00 Docusate Sodium (Colace) 100 mg Q12H PRN PO .CONSTIPATION; Start 12/22/18 at 02:00 Magnesium Hydroxide (Milk Of Mag) 30 ml DAILY PRN PO .CONSTIPATION; Start 12/22/18 at 02:00 Famotidine (Pepcid Iv) 20 mg Q12 IV Last administered on 12/24/18at 09:05; Admin Dose 20 MG; Start 12/22/18 at 09:00 Albuterol/ Ipratropium (Duoneb) 3 ml Q4H RESP THERAPY PRN HHN SHORTNESS OF BREATH; Start 12/22/18 at 02:00 Hydralazine HCl (Apresoline) 10 mg Q6H PRN IV ELEVATED BLOOD PRESSURE; Start 12/22/18 at 02:00 Nitroglycerin (Nitroglycerin (Sl Tab) 0.4 Mg) 1 tab Q5M PRN SL ANGINA; Start 12/22/18 at 02:00 Acetaminophen (Tylenol Supp) 650 mg Q4H PRN SC TEMP > 37C; Start 12/22/18 at 02:00 Acetaminophen (Tylenol Liquid) 650 mg Q4H PRN PO TEMP > 37C; Start 12/22/18 at 02:00 Meperidine HCl (Demerol) 12.5 mg Q4H PRN IV POST OPERATIVE SHIVERING; Start 12/22/18 at 02:00 Meperidine HCl (Demerol) 25 mg Q4H PRN IV POST OPERATIVE SHIVERING; Start 05/02 at 02:00 Eye Lubricant (Akwa Oint) 1 applic Q6 BOTH EYES Last administered on 12/24/18at 05:13; Admin Dose 1 APPLIC; Start 12/22/18 at 06:00 Eye Lubricant (Artificial Tears Oph) 2 drop Q6 BOTH EYES Last administered on 12/24/18at 05:13; Admin Dose 2 DROP; Start 12/22/18 at 06:00 Diagnostic Test (Pha) (Accu-Chek) 1 ea Q1H XX Last administered on 12/24/18at 10:05; Admin Dose 1 EA; Start 12/22/18 at 02:00 Insulin Human Regular 100 unit/ Sodium Chloride 100 ml @ 0.2 mls/hr PER PROTOCOL IV Last administered on 12/24/18at 00:42; Admin Dose 4 MLS/HR; Start 12/22/18 at 02:00 Miscellaneous Information (* Miscellaneous Pharmacy Order) Treatment of Hypoglycemia: 1.BG 51... Per protocol XX ; Start 12/22/18 at 02:00 Dextrose (D50w Syringe) 25 ml Q15M PRN IV .DECREASED GLUCOSE; Start 12/22/18 at 02:00 Dextrose (D50w Syringe) 50 ml Q15M PRN IV .DECREASED GLUCOSE; Start 12/22/18 at 02:00 Piperacillin Sod/ Tazobactam Sod 100 ml @ 200 mls/hr Q6 IVPB Last administered on 12/24/18at 05:22; Admin Dose 200 MLS/HR; Start 12/22/18 at 04:00 Levetiracetam 100 ml @ 400 mls/hr Q12 IVPB Last administered on 12/24/18 09:05; Admin Dose 400 MLS/HR; Start 12/22/18 at 05:30 Lorazepam (Ativan) 1 mg Q1H PRN IV SEIZURES; Start 12/22/18 at 05:00 Vasopressin 60 unit/Dextrose 60 ml @ 1.2 mls/hr Q12H IV Last administered on 12/23/18at 00:08; Admin Dose 1.2 MLS/HR; Start 12/22/18 at 09:00 Phenylephrine HCl 80 mg/Dextrose 250 ml @ 18.75 mls/ hr TITRATE IV Last administered on 12/22/18at 10:11; Admin Dose 28.13 MLS/HR; Start 12/22/18 at 09:30 Norepinephrine 32 mg/Dextrose 250 ml @ 0.47 mls/hr TITRATE IV Last administered on 12/24/18 03:53; Admin Dose 8.44 MLS/HR; Start 12/22/18 at 09:30 Aspirin (Aspirin) 81 mg DAILY NGT Last administered on 12/24/18 09:05; Admin Dose 81 MG; Start 12/22/18 at 09:30 Ticagrelor (Brilinta) 90 mg BID PO Last administered on 6/12/19at 09:06; Admin Dose 90 MG; Start 12/22/18 at 10:30 Dopamine HCl 800 mg/Dextrose 250 ml @ 3.69 mls/hr TITRATE IV Last administered on 12/22/18at 23:34; Admin Dose 1.84 MLS/HR; Start 12/22/18 at 23:30 Propofol 100 ml @ 2.949 mls/ hr Q12H IV Last administered on 12/24/18at 06:01; Admin Dose 23.592 MLS/HR; Start 12/23/18 at 14:30 Fentanyl 100 ml @ 2.5 mls/hr TITRATE IV Last administered on 12/23/18at 20:35; Admin Dose 2.5 MLS/HR; Start 12/23/18 at 20:30 Atorvastatin Calcium (Lipitor) 80 mg DAILY@21 NGT ; Start 12/24/18 at 21:00 Benazepril HCl (Lotensin) 10 mg DAILY NGT ; Start 12/24/18 at 09:00 Carvedilol (Coreg) 3.125 mg BID NGT ; Start 12/24/18 at 09:00 SEBASTIAN DIZA MD Dec 24, 2018 11:20
--- NOTE | 2018-12-24 13:06 | RADRPT ---
Vent Rate: 100 bpm RR Interval: 600 msec SC Interval: 131 msec QRS Duration: 83 msec QT Interval: 426 msec QTC Interval: 550 msec P-R-T [place]: 64 - 6 - 9 degrees Sinus tachycardia...rate> 99 Multiple ventricular premature complexes...V complexes w/ short R-R intervls Low voltage, extremity and precordial leads...extremity<0.5mV, precordial<1.0mV Prolonged QT interval...QTc >510mS Electronically Signed By: Julian Rausch
[2018-12-24] MEDS: HEPARIN 5,000 UNIT/1 ML VIAL SC SCH ×2 (14:22→21:44)
[2018-12-24] MEDS: ATORVASTATIN 80 MG TAB NGT SCH (20:32)
[2018-12-25] VITALS (89 sets, daily range): BP systolic 97–138; BP diastolic 52–72; PULSE 64–117; RESP 18–37
[2018-12-25] MEDS: ACCU-CHEK XX SCH ×4 (00:03→03:09)
[2018-12-25] MEDS: PROPOFOL 100 ML IV SCH ×2 (02:02→10:18)
[2018-12-25] MEDS ORDERED: GLUCOSE GEL 15 GRAM TUBE BUCCAL PRN (04:00)
[2018-12-25] MEDS ORDERED: GLUCAGON 1 MG INJ IM PRN (04:00)
[2018-12-25] MEDS ORDERED: DEXTROSE 50% 50 ML SYRINGE IV PRN ×2 (04:00)
[2018-12-25] MEDS ORDERED: GLUCOSE GEL 15 GRAM TUBE PO PRN ×2 (04:00)
[2018-12-25] MEDS: INSULIN ASPART [NOVOLOG] 3 ML PEN SC SCH ×5 (04:44→21:00)
[2018-12-25] MEDS: DEXTROSE 5%-0.45% NACL 1,000 ML IV SCH (04:51)
[2018-12-25] MEDS: ARTIFICIAL TEARS 15 ML OPH BOTH EYES SCH ×3 (05:05→17:41)
[2018-12-25] MEDS: OCULAR LUBRICANT 3.5 GM OPH OINT BOTH EYES SCH ×3 (05:05→17:41)
[2018-12-25] MEDS: PIPER-TAZO 3.375 GM IV (PMX) 100 ML IVPB SCH ×3 (05:05→17:41)
[2018-12-25] MEDS: HEPARIN 5,000 UNIT/1 ML VIAL SC SCH ×3 (05:09→21:04)
[2018-12-25] MEDS: FENTAnyl (DRIP) 1000 mcg/100mL 100 ML IV SCH (05:51)
--- NOTE | 2018-12-25 06:15 | EEG ---
EEG NOTE Report Details DATE OF TEST: 12/24/18 HISTORY: The patient is a 58-year-old F who presents in coma s/p cardiac arrest. This EEG is requested to rule out nonconvulsive status epilepticus. SEDATION: ? CONDITIONS OF RECORDING: This EEG was recorded digitally on the [employer] machine, using the International 10-20 System of electrodes plus anterior temporals and [place]. STATES SAMPLED: Comatose. FINDINGS: The background is symmetric..though somewhat discontinuous...predominated by delta activity and EMG artifact. The normal [id number] frequency-amplitude gradient was absent. Photic stimulation does not elicit any definite driving responses or epileptiform discharges. Hyperventilation was not performed. No epileptiform discharges were seen. IMPRESSION: Abnormal electroencephalogram due to: severe diffuse slowing. COMMENT: The slowing of the background indicates severe, diffuse cortical dysfunction of nonspecific etiology. KARL REYES Dec 25, 2018 06:15
[2018-12-25] MEDS ORDERED: DEXTROSE 5% 1,000 ML IV SCH (09:00)
[2018-12-25] MEDS: VASOPRESSIN 60 UNIT in DEXTROSE 5% 57 ML IV SCH ×2 (09:00→21:00)
[2018-12-25] MEDS: BENAZEPRIL 10 MG TAB NGT SCH ×2 (09:00→10:32)
--- NOTE | 2018-12-25 09:20 | CONS ---
Assessment/Plan Assessment/Plan Assessment/Plan (Daily) Chest x-ray from today showing cardiomegaly with persistent severe pulmonary edema. Patient is on fentanyl 50 mics per hour. Ventilator setting; AC of 18, tidal volume 500, PEEP of 8, 100% FiO2. Assessment and recommendations; 1. Patient admitted with cardiac arrest having had multiple CPR was performed status post acute coronary intervention with stenting of LAD lesion. 2. Severe cardiomyopathy with persistent pulmonary edema. Patient however has improved hemodynamically. And is off pressor support. 3. Possibly some element of aspiration pneumonia, patient on appropriate empiric antimicrobial coverage. 4. Hyper natremia. 5. Anemia and thrombocytopenia. 6. History of diabetes with patient having severe hyperglycemia on admission with some element of concomitant DKA as well. Resolved in the interim. 7. Mild respiratory acidosis. Continue current supportive care. Add free water 50 mL every 8 hours via NG tube for correction of hypernatremia. Increase respiratory rate to 22/min. I did have a detailed discussion with the patient's family at bedside answered all their questions. Prognosis appears very poor. 35 minutes of critical care time was spent evaluating the patient. Consultation Date/Type/Reason Admit Date/Time Dec 22, 2018 at 01:25 Initial Consult Date 12/22/18 Type of Consult Pulmonary/critical care Patient is a 58-year-old lady who was brought into the hospital after having cardiac arrest at home. Prolonged CPR was done with revival of vital signs. Upon evaluation here patient was diagnosed with STEMI and was taken to cardiac [facility] where LAD lesion was dilated and a stent put in. Patient has remained profoundly hypotensive and is critically ill. Past medical history; 1. History of hypertension, hyperlipidemia. 2. Diabetes. Apparently poorly controlled. Medications; reviewed. Patient is on insulin drip, phenylephrine drip, Levophed, and propofol. All doses and other medications were reviewed in detail. Allergies; none. Social history; non-smoker. Family history; patient is and has supportive family. 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 Review of system; unable to be obtained. General exam; middle-aged female, orally intubated, sedated and paralyzed. Requesting Provider: AMPARO LEONARD Date/Time of Note DATE: 12/25/18 TIME: 09:14 24 HR Interval Summary Free Text/Dictation Patient's condition is critical. Remains profoundly unresponsive. Patient rekha lind has improved hemodynamically and is off pressor support. General exam; middle-aged female, orally intubated, unresponsive, currently in no distress. Exam/Review of Systems Exam Vitals Vital Signs Date Temp Pulse Resp B/P (MAP) Pulse Ox O2 O2 Flow FiO2 Time Delivery Rate 12/25/18 103 08:00 12/25/18 32 134/68 81 06:45 (90) 12/25/18 Mechanical 06:30 Ventilator 12/25/18 100 04:59 12/25/18 99.2 04:00 Intake and Output 12/24/18 12/24/18 12/25/18 1515:00 23:00 07:00 IntakeIntake Total 812.584 ml 237.78 ml 360.8 ml OutputOutput Total 702 ml 1161 ml 425 ml BalanceBalance 110.584 ml -923.22 ml -64.2 ml Exam H EENT exam; supple neck, positive JVD. No lymphadenopathy. Midline trachea. No thyromegaly. Orally intubated. Patient has bilateral subconjunctival edema. Pupils are small bilaterally. No neck masses. Patient has fair dentition. Chest exam; diminished breath sounds bilaterally. S1-S2 audible, no murmurs. Regular rhythm. Abdomen exam; soft, protuberant. No organomegaly. Bowel sounds are audible. Extremity exam; trace edema. 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 Results Result Diagram: 12/25/18 0440 12/25/18439 Results 24hrs Laboratory Tests Test 12/24/18 10:04 12/24/18 12:00 12/24/18 14:18 12/24/18 16:03 Bedside Glucose 140 142 107 88 Test 12/24/18 18:11 12/24/18 19:17 12/24/18 20:01 12/24/18 21:26 Bedside Glucose 98 103 107 104 Test 12/24/18 22:00 12/24/18 22:57 12/24/18 23:59 12/25/18 01:03 Bedside Glucose 100 87 98 86 Test 12/25/18 02:02 12/25/18 02:33 12/25/18 03:09 12/25/18 04:40 Bedside Glucose 88 90 Blood Gas Blood arterial Specimen Source Arterial Blood 12/25/2018 2:50:1 Date Drawn 2 AM Arterial Blood pH 7.372 (Temp corrected) Arterial Blood 54.4 H pCO2 (Temp correct) Arterial Blood 86.3 pO2 (Temp corrected) Arterial Blood 30.9 H HCO3 Arterial Blood 4.7 H Base Excess Arterial Blood 95.4 Oxygen Saturation Pablo Test ACCEPTAB Arterial Blood Right Radial Gas Puncture Site Arterial 0.3 Blood Carboxyhemo globin Arterial Blood 0.2 Methemoglobin Blood Gas A-a O2 499.6 H Differential Oxyhemoglobin 94.9 Percent Blood Gas 37.0 Temperature Blood Gas 18.0 Respiration Rate Blood Gas Actual 35 Respiration Rate Blood Gas VENT - AC Modality FiO2 90.0 Blood Gas Tidal 450.0 Volume Blood Gas Low 8.0 PEEP Setting Blood Gas [place] Notified Whom Blood Gas 12/25/2018 3:02:2 Notified Time 7 AM White Blood Count 12.9 #H Red Blood Count 3.19 L Hemoglobin 9.0 L Hematocrit 27.7 L Mean Corpuscular 86.8 Volume Mean Corpuscular 28.2 L Hemoglobin Mean Corpuscular 32.5 Hemoglobin Concen t Red Cell 13.5 Distribution Width Platelet Count 149 # Mean Platelet 11.0 H Volume Immature 2.300 H Granulocytes % Neutrophils % Segmented 59 Neutrophils % (Manual) Band Neutrophils 26 H % (Manual) Lymphocytes % Lymphocytes % 12 L (Manual) Monocytes % Monocytes % 3 (Manual) Eosinophils % Basophils % Nucleated Red 0.0 Blood Cells % Immature 0.300 H Granulocytes # Neutrophils # Neutrophils # 8.0 H (Manual) Band Neutrophils 3.3 H # Lymphocytes 1.5 (Manual) Lymphocytes # Monocytes # Monocytes # 0.3 (Manual) Eosinophils # Basophils # Nucleated Red Blood Cells # Platelet Estimate NORMAL Giant Platelets 1 H Polychromasia 1+ Anisocytosis 1+ Microcytosis 1+ Sodium Level 152 H Potassium Level 3.5 Chloride Level 108 Carbon Dioxide 37 H Level Anion Gap 7 Blood Urea 35 H Nitrogen Creatinine 0.95 Est Glomerular > 60 Filtrat Rate mL/min Glucose Level 82 # Calcium Level 8.0 L Test 12/25/18 04:43 Bedside Glucose 75 Medications Medication Current Medications IV Flush (NS 3 ml) 3 ml PER PROTOCOL IV ; Start 12/22/18 at 02:00 Ondansetron HCl (Zofran Inj) 4 mg Q6H PRN IV NAUSEA/VOMITING; Start 12/22/18 at 02:00 Acetaminophen (Tylenol Tab) 650 mg Q6H PRN PO .PAIN 1-3 OR TEMP; Start 12/22/18 at 02:00 Acetaminophen/ Hydrocodone Bitart ([place] (5/325)) 1 tab Q6H PRN PO .MOD PAIN 4- 6; Start 12/22/18 at 02:00 Morphine Sulfate (morphine) 2 mg Q4H PRN IV .SEVERE PAIN 7-10; Start 12/22/18 at 02:00 Docusate Sodium (Colace) 100 mg Q12H PRN PO .CONSTIPATION; Start 12/22/18 at 02:00 Magnesium Hydroxide (Milk Of Mag) 30 ml DAILY PRN PO .CONSTIPATION; Start 12/22/18 at 02:00 Famotidine (Pepcid Iv) 20 mg Q12 IV Last administered on 12/24/18at 20:32; Admin Dose 20 MG; Start 12/22/18 at 09:00 Albuterol/ Ipratropium (Duoneb) 3 ml Q4H RESP THERAPY PRN HHN SHORTNESS OF BREATH; Start 12/22/18 at 02:00 Hydralazine HCl (Apresoline) 10 mg Q6H PRN IV ELEVATED BLOOD PRESSURE; Start 12/22/18 at 02:00 Nitroglycerin (Nitroglycerin (Sl Tab) 0.4 Mg) 1 tab Q5M PRN SL ANGINA; Start 12/22/18 at 02:00 Acetaminophen (Tylenol Supp) 650 mg Q4H PRN [place] TEMP > 37C; Start 12/22/18 at 02:00 Acetaminophen (Tylenol Liquid) 650 mg Q4H PRN PO TEMP > 37C; Start 12/22/18 at 02:00 Meperidine HCl (Demerol) 12.5 mg Q4H PRN IV POST OPERATIVE SHIVERING; Start 12/22/18 at 02:00 Meperidine HCl (Demerol) 25 mg Q4H PRN IV POST OPERATIVE SHIVERING; Start 12/22/18 at 02:00 Eye Lubricant (Akwa Oint) 1 applic Q6 BOTH EYES Last administered on 12/25/18at 05:05; Admin Dose 1 APPLIC; Start 12/22/18 at 06:00 Eye Lubricant (Artificial Tears Oph) 2 drop Q6 BOTH EYES Last administered on 12/25/18at 05:05; Admin Dose 2 DROP; Start 12/22/18 at 06:00 Piperacillin Sod/ Tazobactam Sod 100 ml @ 200 mls/hr Q6 IVPB Last administered on 12/25/18 05:05; Admin Dose 200 MLS/HR; Start 12/22/18 at 04:00 Levetiracetam 100 ml @ 400 mls/hr Q12 IVPB Last administered on 12/24/18 20:32; Admin Dose 400 MLS/HR; Start 12/22/18 at 05:30 Lorazepam (Ativan) 1 mg Q1H PRN IV SEIZURES; Start 12/22/18 at 05:00 Vasopressin 60 unit/Dextrose 60 ml @ 1.2 mls/hr Q12H IV Last administered on 12/23/18 00:08; Admin Dose 1.2 MLS/HR; Start 12/22/18 at 09:00 Phenylephrine HCl 80 mg/Dextrose 250 ml @ 18.75 mls/ hr TITRATE IV Last administered on 12/22/18 10:11; Admin Dose 28.13 MLS/HR; Start 12/22/18 at 09:30 Norepinephrine 32 mg/Dextrose 250 ml @ 0.47 mls/hr TITRATE IV Last administered on 12/24/18 03:53; Admin Dose 8.44 MLS/HR; Start 12/22/18 at 09:30 Aspirin (Aspirin) 81 mg DAILY NGT Last administered on 12/24/18 09:05; Admin Dose 81 MG; Start 12/22/18 at 09:30 Ticagrelor (Brilinta) 90 mg BID PO Last administered on 12/24/18 20:33; Admin Dose 90 MG; Start 12/22/18 at 10:30 Dopamine HCl 800 mg/Dextrose 250 ml @ 3.69 mls/hr TITRATE IV Last administered on 12/22/18 23:34; Admin Dose 1.84 MLS/HR; Start 12/22/18 at 23:30 Propofol 100 ml @ 2.949 mls/ hr Q12H IV Last administered on 12/24/18 06:01; Admin Dose 23.592 MLS/HR; Start 12/23/18 at 14:30 Fentanyl 100 ml @ 2.5 mls/hr TITRATE IV Last administered on 6/13/19at 05:51; Admin Dose 5 MLS/HR; Start 12/23/18 at 20:30 Atorvastatin Calcium (Lipitor) 80 mg DAILY@21 NGT Last administered on 12/24/18 20:32; Admin Dose 80 MG; Start 12/24/18 at 21:00 Benazepril HCl (Lotensin) 10 mg DAILY NGT ; Start 12/24/18 at 09:00 Carvedilol (Coreg) 3.125 mg BID NGT Last administered on 12/24/18at 20:32; Admin Dose 3.125 MG; Start 12/24/18 at 09:00 Heparin Sodium (Porcine) (Heparin (5000 Units/1ml)) 5,000 unit Q8 SC Last administered on 12/25/18 05:09; Admin Dose 5,000 UNIT; Start 12/24/18 at 14:00 Insulin Aspart (Novolog Insulin Pen) NOVOLOG *MILD* ALGORI... Q4 SC ; Start 12/25/18 at 05:00 Miscellaneous Information 1 ea NOTE XX ; Start 12/25/18 at 04:00 Glucose (Glutose) 15 gm Q15M PRN PO DECREASED GLUCOSE; Start 12/25/18 at 04:00 Glucose (Glutose) 22.5 gm Q15M PRN PO DECREASED GLUCOSE; Start 12/25/18 at 04:00 Dextrose (D50w Syringe) 25 ml Q15M PRN IV DECREASED GLUCOSE; Start 12/25/18 at 04:00 Dextrose (D50w Syringe) 50 ml Q15M PRN IV DECREASED GLUCOSE; Start 12/25/18 at 04:00 Glucagon (Glucagen) 1 mg Q15M PRN IM DECREASED GLUCOSE; Start 12/25/18 at 04:00 Glucose (Glutose) 15 gm Q15M PRN BUCCAL DECREASED GLUCOSE; Start 12/25/18 at 04:00 Dextrose/Sodium Chloride 1,000 ml @ 50 mls/hr Q20H IV Last administered on 12/25/18 04:51; Admin Dose 50 MLS/HR; Start 12/25/18 at 05:00 Dextrose 1,000 ml @ 100 mls/hr Q10H IV ; Start 12/25/18 at 09:00 MACI SILVEIRA 13, 2019 09:20
[2018-12-25] MEDS: FAMOTIDINE 20 MG INJ IV SCH ×2 (09:55→21:03)
[2018-12-25] MEDS: ASPIRIN 81 MG TAB NGT SCH (09:55)
[2018-12-25] MEDS: LEVETIRACETAM 1000 MG (PMX) 100 ML IVPB SCH ×2 (09:55→21:06)
[2018-12-25] MEDS: TICAGRELOR 90 MG TABLET PO SCH ×2 (10:00→21:05)
--- NOTE | 2018-12-25 10:33 | PN ---
Date/Time of Note Date/Time of Note DATE: 12/25/18 TIME: 10:22 Assessment/Plan VTE Prophylaxis Risk score (from Ns)>0 risk: 11 SCD applied (from Ns): Yes Pharmacological prophylaxis: heparin Lines/Catheters IV Catheter Type (from Nrs): A Line Urinary Cath still in place: Yes Reason Cath still needed: other (indicate) (intubated) Assessment/Plan Assessment/Plan 58-year-old woman past medical of hypertension, high cholesterol, anxiety, diabetes, who was brought in by EMS after suffering cardiac arrest and had ROSC, with ST elevation PA lactic acidosis, status post PCI of the OM1 (culprit lesion) is as well as stenting of the mid LAD, intubated and unresponsive, on insulin drip and hypothermia protocol. 1. Status post cardiac arrest with ST elevation PA: Again status post PCI of the obtuse marginal and LAD blockages. Again patient was down for at least 20 minutes before EMS arrived at home, and took another 15 minutes for ROSC to be obtained. -Continue Lipitor, Coreg, Brilinta, aspirin - s/p hypothermia protocol, now rewarmed. - Not brain . No seizures on EEG. Severe diffuse slowing. - Neurology consulted, Dr. Dorsey following - Continue prophylactic keppra. 2. Pulmonary edema with hypoxemic respiratory failure - Maxed out on FiO2, rising PEEP to maintain oxygenation - CXR shows diffuse pulmonary infiltrates - Continue empiric zosyn - This is likely due to cardiogenic shock from L sided heart failure. - Had been getting spot diuresis, but for now will hold off due to rising sodium. 3. Diabetes: continue insulin drip and monitor sugars 4. Hypertension: Currently hypotensive on pressors. 5. High cholesterol: Continue statin Appears to have overall poor prognosis given the length of time patient was down before CPR was started, again we will continue hypothermia protocol for the first 24 hours, insulin drip, as mentioned above palliative care and neurology consults as well. Result Diagram: 12/25/1843912/25/18439 Subjective 24 Hr Interval Summary Free Text/Dictation No acute overnight events. Patient off pressors. Still hypoxemic with lung infiltrates. On 100% FiO2, PEEP 9. Updated family at bedside this morning. Exam/Review of Systems Exam Vitals Vital Signs Date Temp Pulse Resp B/P (MAP) Pulse Ox O2 O2 Flow FiO2 Time Delivery Rate 12/25/18 103 08:00 12/25/18 32 134/68 81 06:45 (90) 12/25/18 Mechanical 06:30 Ventilator 12/25/18 100 04:59 12/25/18 99.2 04:00 Intake and Output 12/24/18 12/24/18 12/25/18 1515:00 23:00 07:00 IntakeIntake Total 812.584 ml 237.78 ml 360.8 ml OutputOutput Total 702 ml 1161 ml 425 ml BalanceBalance 110.584 ml -923.22 ml -64.2 ml Exam Gen: Obese woman lying in bed, intubated HEENT: Atraumatic. Moist mucous membranes. ET tube in place. Eyes: Normal pupils, nonreactive. Neck: Supple, no lymphadenopathy. Resp: Mechanical breath sounds bilaterally. Cardio: S1, S2 heard. No obvious murmurs. Abd: Soft, nondistended, normal bowel sounds, non tender. Ext: No lower extremity edema bilaterally : [place] in place with copious clear yellow urine. NEURO: Breathing over vent. Positive cough reflex. Eyes do not open to pain. Not moving extremities. Results Results 24hrs Laboratory Tests Test 12/24/18 12:00 12/24/18 14:18 12/24/18 16:03 12/24/18 18:11 Bedside Glucose 142 107 88 98 Test 12/24/18 19:17 12/24/18 20:01 12/24/18 21:26 12/24/18 22:00 Bedside Glucose 103 107 104 100 Test 12/24/18 22:57 12/24/18 23:59 12/25/18 01:03 12/25/18 02:02 Bedside Glucose 87 98 86 88 Test 12/25/18 02:33 12/25/18 03:09 12/25/18 04:40 12/25/18 04:43 Blood Gas Blood arterial Specimen Source Arterial Blood 12/25/2018 2:50:1 Date Drawn 2 AM Arterial Blood pH 7.372 (Temp corrected) Arterial Blood 54.4 H pCO2 (Temp correct) Arterial Blood 86.3 pO2 (Temp corrected) Arterial Blood 30.9 H HCO3 Arterial Blood 4.7 H Base Excess Arterial Blood 95.4 Oxygen Saturation Pablo Test ACCEPTAB Arterial Blood Right Radial Gas Puncture Site Arterial 0.3 Blood Carboxyhemo globin Arterial Blood 0.2 Methemoglobin Blood Gas A-a O2 499.6 H Differential Oxyhemoglobin 94.9 Percent Blood Gas 37.0 Temperature Blood Gas 18.0 Respiration Rate Blood Gas Actual 35 Respiration Rate Blood Gas VENT - AC Modality FiO2 90.0 Blood Gas Tidal 450.0 Volume Blood Gas Low 8.0 PEEP Setting Blood Gas [place] Notified Whom Blood Gas 12/25/2018 3:02:2 Notified Time 7 AM Bedside Glucose 90 75 White Blood Count 12.9 #H Red Blood Count 3.19 L Hemoglobin 9.0 L Hematocrit 27.7 L Mean Corpuscular 86.8 Volume Mean Corpuscular 28.2 L Hemoglobin Mean Corpuscular 32.5 Hemoglobin Concen t Red Cell 13.5 Distribution Width Platelet Count 149 # Mean Platelet 11.0 H Volume Immature 2.300 H Granulocytes % Neutrophils % Segmented 59 Neutrophils % (Manual) Band Neutrophils 26 H % (Manual) Lymphocytes % Lymphocytes % 12 L (Manual) Monocytes % Monocytes % 3 (Manual) Eosinophils % Basophils % Nucleated Red 0.0 Blood Cells % Immature 0.300 H Granulocytes # Neutrophils # Neutrophils # 8.0 H (Manual) Band Neutrophils 3.3 H # Lymphocytes 1.5 (Manual) Lymphocytes # Monocytes # Monocytes # 0.3 (Manual) Eosinophils # Basophils # Nucleated Red Blood Cells # Platelet Estimate NORMAL Giant Platelets 1 H Polychromasia 1+ Anisocytosis 1+ Microcytosis 1+ Sodium Level 152 H Potassium Level 3.5 Chloride Level 108 Carbon Dioxide 37 H Level Anion Gap 7 Blood Urea 35 H Nitrogen Creatinine 0.95 Est Glomerular > 60 Filtrat Rate mL/min Glucose Level 82 # Calcium Level 8.0 L Test 12/25/18 10:00 Bedside Glucose 81 Medications Medication Current Medications IV Flush (NS 3 ml) 3 ml PER PROTOCOL IV ; Start 12/22/18 at 02:00 Ondansetron HCl (Zofran Inj) 4 mg Q6H PRN IV NAUSEA/VOMITING; Start 12/22/18 at 02:00 Acetaminophen (Tylenol Tab) 650 mg Q6H PRN PO .PAIN 1-3 OR TEMP; Start 12/22/18 at 02:00 Acetaminophen/ Hydrocodone Bitart ([place] (5/325)) 1 tab Q6H PRN PO .MOD PAIN 4- 6; Start 12/22/18 at 02:00 Morphine Sulfate (morphine) 2 mg Q4H PRN IV .SEVERE PAIN 7-10; Start 12/22/18 at 02:00 Docusate Sodium (Colace) 100 mg Q12H PRN PO .CONSTIPATION; Start 12/22/18 at 02:00 Magnesium Hydroxide (Milk Of Mag) 30 ml DAILY PRN PO .CONSTIPATION; Start 12/22/18 at 02:00 Famotidine (Pepcid Iv) 20 mg Q12 IV Last administered on 12/25/18at 09:55; Admin Dose 20 MG; Start 12/22/18 at 09:00 Albuterol/ Ipratropium (Duoneb) 3 ml Q4H RESP THERAPY PRN HHN SHORTNESS OF BREATH; Start 12/22/18 at 02:00 Hydralazine HCl (Apresoline) 10 mg Q6H PRN IV ELEVATED BLOOD PRESSURE; Start 12/22/18 at 02:00 Nitroglycerin (Nitroglycerin (Sl Tab) 0.4 Mg) 1 tab Q5M PRN SL ANGINA; Start 12/22/18 at 02:00 Acetaminophen (Tylenol Supp) 650 mg Q4H PRN [place] TEMP > 37C; Start 12/22/18 at 02:00 Acetaminophen (Tylenol Liquid) 650 mg Q4H PRN PO TEMP > 37C; Start 12/22/18 at 02:00 Meperidine HCl (Demerol) 12.5 mg Q4H PRN IV POST OPERATIVE SHIVERING; Start 12/22/18 at 02:00 Meperidine HCl (Demerol) 25 mg Q4H PRN IV POST OPERATIVE SHIVERING; Start 12/22/18 at 02:00 Eye Lubricant (Akwa Oint) 1 applic Q6 BOTH EYES Last administered on 12/25/18at 05:05; Admin Dose 1 APPLIC; Start 12/22/18 at 06:00 Eye Lubricant (Artificial Tears Oph) 2 drop Q6 BOTH EYES Last administered on 12/25/18at 05:05; Admin Dose 2 DROP; Start 12/22/18 at 06:00 Piperacillin Sod/ Tazobactam Sod 100 ml @ 200 mls/hr Q6 IVPB Last administered on 12/25/18at 05:05; Admin Dose 200 MLS/HR; Start 12/22/18 at 04:00 Levetiracetam 100 ml @ 400 mls/hr Q12 IVPB Last administered on 12/25/18 09:55; Admin Dose 400 MLS/HR; Start 12/22/18 at 05:30 Lorazepam (Ativan) 1 mg Q1H PRN IV SEIZURES; Start 12/22/18 at 05:00 Vasopressin 60 unit/Dextrose 60 ml @ 1.2 mls/hr Q12H IV Last administered on 12/23/18 00:08; Admin Dose 1.2 MLS/HR; Start 12/22/18 at 09:00 Phenylephrine HCl 80 mg/Dextrose 250 ml @ 18.75 mls/ hr TITRATE IV Last administered on 12/22/18 10:11; Admin Dose 28.13 MLS/HR; Start 12/22/18 at 09:30 Norepinephrine 32 mg/Dextrose 250 ml @ 0.47 mls/hr TITRATE IV Last administered on 12/24/18 03:53; Admin Dose 8.44 MLS/HR; Start 12/22/18 at 09:30 Aspirin (Aspirin) 81 mg DAILY NGT Last administered on 12/25/18 09:55; Admin Dose 81 MG; Start 12/22/18 at 09:30 Ticagrelor (Brilinta) 90 mg BID PO Last administered on 12/25/18 10:00; Admin Dose 90 MG; Start 12/22/18 at 10:30 Dopamine HCl 800 mg/Dextrose 250 ml @ 3.69 mls/hr TITRATE IV Last administered on 12/22/18 23:34; Admin Dose 1.84 MLS/HR; Start 12/22/18 at 23:30 Propofol 100 ml @ 2.949 mls/ hr Q12H IV Last administered on 12/24/18 06:01; Admin Dose 23.592 MLS/HR; Start 12/23/18 at 14:30 Fentanyl 100 ml @ 2.5 mls/hr TITRATE IV Last administered on 12/25/18 05:51; Admin Dose 5 MLS/HR; Start 12/23/18 at 20:30 Atorvastatin Calcium (Lipitor) 80 mg DAILY@21 NGT Last administered on 12/24/18 20:32; Admin Dose 80 MG; Start 12/24/18 at 21:00 Benazepril HCl (Lotensin) 10 mg DAILY NGT ; Start 12/24/18 at 09:00 Carvedilol (Coreg) 3.125 mg BID NGT Last administered on 12/24/18at 20:32; Admin Dose 3.125 MG; Start 12/24/18 at 09:00 Heparin Sodium (Porcine) (Heparin (5000 Units/1ml)) 5,000 unit Q8 SC Last administered on 12/25/18at 05:09; Admin Dose 5,000 UNIT; Start 12/24/18 at 14:00 Insulin Aspart (Novolog Insulin Pen) NOVOLOG *MILD* ALGORI... Q4 SC ; Start 12/25/18 at 05:00 Miscellaneous Information 1 ea NOTE XX ; Start 12/25/18 at 04:00 Glucose (Glutose) 15 gm Q15M PRN PO DECREASED GLUCOSE; Start 12/25/18 at 04:00 Glucose (Glutose) 22.5 gm Q15M PRN PO DECREASED GLUCOSE; Start 12/25/18 at 04:00 Dextrose (D50w Syringe) 25 ml Q15M PRN IV DECREASED GLUCOSE; Start 12/25/18 at 04:00 Dextrose (D50w Syringe) 50 ml Q15M PRN IV DECREASED GLUCOSE; Start 12/25/18 at 04:00 Glucagon (Glucagen) 1 mg Q15M PRN IM DECREASED GLUCOSE; Start 12/25/18 at 04:00 Glucose (Glutose) 15 gm Q15M PRN BUCCAL DECREASED GLUCOSE; Start 12/25/18 at 04:00 Dextrose/Sodium Chloride 1,000 ml @ 50 mls/hr Q20H IV Last administered on 12/25/18at 04:51; Admin Dose 50 MLS/HR; Start 12/25/18 at 05:00 Dextrose 1,000 ml @ 100 mls/hr Q10H IV ; Start 12/25/18 at 09:00; Status Hold SEBASTIAN DIAZ MD Dec 25, 2018 10:32
--- NOTE | 2018-12-25 10:47 | CONS ---
Assessment/Plan Assessment/Plan Assessment/Plan (Recall) 58 F c/ multiple comorbidities, who is admitted to the [facility] ICU in coma s/p cardiac arrest. s/p cardiac catheterization and stent placement.. s/p targeted temperature therapy On neurologic examination she has some preservation of brainstem and cortical activity EEG is without evidence of epileptiform activity. Her prognosis for meaningful neurologic recovery is guarded. P: Hold sedation where possible Head CT when medically able Other medical management and supportive care per primary Will follow clinically Consultation Date/Type/Reason Admit Date/Time Dec 22, 2018 at 01:25 Type of Consult Neurology Reason for Consultation coma s/p cardiac arrest Requesting Provider: AMPARO LEONARD Date/Time of Note DATE: 12/25/18 TIME: 10:43 24 HR Interval Summary Free Text/Dictation Off pressors Oxygen requirement increased. Exam/Review of Systems Exam Vitals Vital Signs Date Temp Pulse Resp B/P (MAP) Pulse Ox O2 O2 Flow FiO2 Time Delivery Rate 12/25/18 103 08:00 12/25/18 32 134/68 81 06:45 (90) 12/25/18 Mechanical 06:30 Ventilator 12/25/18 100 04:59 12/25/18 99.2 04:00 Intake and Output 12/24/18 12/24/18 12/25/18 1515:00 23:00 07:00 IntakeIntake Total 812.584 ml 237.78 ml 360.8 ml OutputOutput Total 702 ml 1161 ml 425 ml BalanceBalance 110.584 ml -923.22 ml -64.2 ml Exam PE: Gen Appearance: No Apparent Distress HEENT: Intubated Cardiovascular: Tachycardic Abdomen: Soft Extremities: Dry NE: The patient was comatose. Cranial nerve examination was limited by mental status. Pupils were equal and reactive to light. There was no afferent pupillary defect. Funduscopic exam ination was limited. Face was grossly symmetric, w/ present corneal and cough reflexes. Tone was normal. Muscle bulk was normal. I did not see fasciculations. The patient withdrew to noxious stimulation x 4. Coordination and gait testing was limited by mental status. Arm and leg reflexes were within normal limits and symmetric. [place]'s sign was absent. Plantar responses were flexor. Results Result Diagram: 12/25/18 0440 12/25/18 0440 Results 24hrs Laboratory Tests Test 12/24/18 12:00 12/24/18 14:18 12/24/18 16:03 12/24/18 18:11 Bedside Glucose 142 107 88 98 Test 12/24/18 19:17 12/24/18 20:01 12/24/18 21:26 12/24/18 22:00 Bedside Glucose 103 107 104 100 Test 12/24/18 22:57 12/24/18 23:59 12/25/18 01:03 12/25/18 02:02 Bedside Glucose 87 98 86 88 Test 12/25/18 02:33 12/25/18 03:09 12/25/18 04:40 12/25/18 04:43 Blood Gas Blood arterial Specimen Source Arterial Blood 12/25/2018 2:50:1 Date Drawn 2 AM Arterial Blood pH 7.372 (Temp corrected) Arterial Blood 54.4 H pCO2 (Temp correct) Arterial Blood 86.3 pO2 (Temp corrected) Arterial Blood 30.9 H HCO3 Arterial Blood 4.7 H Base Excess Arterial Blood 95.4 Oxygen Saturation Pablo Test ACCEPTAB Arterial Blood Right Radial Gas Puncture Site Arterial 0.3 Blood Carboxyhemo globin Arterial Blood 0.2 Methemoglobin Blood Gas A-a O2 499.6 H Differential Oxyhemoglobin 94.9 Percent Blood Gas 37.0 Temperature Blood Gas 18.0 Respiration Rate Blood Gas Actual 35 Respiration Rate Blood Gas VENT - AC Modality FiO2 90.0 Blood Gas Tidal 450.0 Volume Blood Gas Low 8.0 PEEP Setting Blood Gas [place] Notified Whom Blood Gas 12/25/2018 3:02:2 Notified Time 7 AM Bedside Glucose 90 75 White Blood Count 12.9 #H Red Blood Count 3.19 L Hemoglobin 9.0 L Hematocrit 27.7 L Mean Corpuscular 86.8 Volume Mean Corpuscular 28.2 L Hemoglobin Mean Corpuscular 32.5 Hemoglobin Concen t Red Cell 13.5 Distribution Width Platelet Count 149 # Mean Platelet 11.0 H Volume Immature 2.300 H Granulocytes % Neutrophils % Segmented 59 Neutrophils % (Manual) Band Neutrophils 26 H % (Manual) Lymphocytes % Lymphocytes % 12 L (Manual) Monocytes % Monocytes % 3 (Manual) Eosinophils % Basophils % Nucleated Red 0.0 Blood Cells % Immature 0.300 H Granulocytes # Neutrophils # Neutrophils # 8.0 H (Manual) Band Neutrophils 3.3 H # Lymphocytes 1.5 (Manual) Lymphocytes # Monocytes # Monocytes # 0.3 (Manual) Eosinophils # Basophils # Nucleated Red Blood Cells # Platelet Estimate NORMAL Giant Platelets 1 H Polychromasia 1+ Anisocytosis 1+ Microcytosis 1+ Sodium Level 152 H Potassium Level 3.5 Chloride Level 108 Carbon Dioxide 37 H Level Anion Gap 7 Blood Urea 35 H Nitrogen Creatinine 0.95 Est Glomerular > 60 Filtrat Rate mL/min Glucose Level 82 # Calcium Level 8.0 L Test 12/25/18 10:00 Bedside Glucose 81 Medications Medication Current Medications IV Flush (NS 3 ml) 3 ml PER PROTOCOL IV ; Start 12/22/18 at 02:00 Ondansetron HCl (Zofran Inj) 4 mg Q6H PRN IV NAUSEA/VOMITING; Start 12/22/18 at 02:00 Acetaminophen (Tylenol Tab) 650 mg Q6H PRN PO .PAIN 1-3 OR TEMP; Start 12/22/18 at 02:00 Acetaminophen/ Hydrocodone Bitart ([place] (5/325)) 1 tab Q6H PRN PO .MOD PAIN 4- 6; Start 12/22/18 at 02:00 Morphine Sulfate (morphine) 2 mg Q4H PRN IV .SEVERE PAIN 7-10; Start 12/22/18 at 02:00 Docusate Sodium (Colace) 100 mg Q12H PRN PO .CONSTIPATION; Start 12/22/18 at 02:00 Magnesium Hydroxide (Milk Of Mag) 30 ml DAILY PRN PO .CONSTIPATION; Start 12/22/18 at 02:00 Famotidine (Pepcid Iv) 20 mg Q12 IV Last administered on 12/25/18at 09:55; Admin Dose 20 MG; Start 12/22/18 at 09:00 Albuterol/ Ipratropium (Duoneb) 3 ml Q4H RESP THERAPY PRN HHN SHORTNESS OF BREATH; Start 12/22/18 at 02:00 Hydralazine HCl (Apresoline) 10 mg Q6H PRN IV ELEVATED BLOOD PRESSURE; Start 12/22/18 at 02:00 Nitroglycerin (Nitroglycerin (Sl Tab) 0.4 Mg) 1 tab Q5M PRN SL ANGINA; Start 12/22/18 at 02:00 Acetaminophen (Tylenol Supp) 650 mg Q4H PRN [place] TEMP > 37C; Start 12/22/18 at 02:00 Acetaminophen (Tylenol Liquid) 650 mg Q4H PRN PO TEMP > 37C; Start 12/22/18 at 02:00 Meperidine HCl (Demerol) 12.5 mg Q4H PRN IV POST OPERATIVE SHIVERING; Start 12/22/18 at 02:00 Meperidine HCl (Demerol) 25 mg Q4H PRN IV POST OPERATIVE SHIVERING; Start 12/22/18 at 02:00 Eye Lubricant (Akwa Oint) 1 applic Q6 BOTH EYES Last administered on 12/25/18 05:05; Admin Dose 1 APPLIC; Start 12/22/18 at 06:00 Eye Lubricant (Artificial Tears Oph) 2 drop Q6 BOTH EYES Last administered on 12/25/18 05:05; Admin Dose 2 DROP; Start 12/22/18 at 06:00 Piperacillin Sod/ Tazobactam Sod 100 ml @ 200 mls/hr Q6 IVPB Last administered on 12/25/18 05:05; Admin Dose 200 MLS/HR; Start 12/22/18 at 04:00 Levetiracetam 100 ml @ 400 mls/hr Q12 IVPB Last administered on 12/25/18 09:55; Admin Dose 400 MLS/HR; Start 12/22/18 at 05:30 Lorazepam (Ativan) 1 mg Q1H PRN IV SEIZURES; Start 12/22/18 at 05:00 Vasopressin 60 unit/Dextrose 60 ml @ 1.2 mls/hr Q12H IV Last administered on 12/23/18at 00:08; Admin Dose 1.2 MLS/HR; Start 12/22/18 at 09:00 Phenylephrine HCl 80 mg/Dextrose 250 ml @ 18.75 mls/ hr TITRATE IV Last administered on 12/22/18at 10:11; Admin Dose 28.13 MLS/HR; Start 12/22/18 at 09:30 Norepinephrine 32 mg/Dextrose 250 ml @ 0.47 mls/hr TITRATE IV Last administered on 12/24/18 03:53; Admin Dose 8.44 MLS/HR; Start 12/22/18 at 09:30 Aspirin (Aspirin) 81 mg DAILY NGT Last administered on 6/13/19at 09:55; Admin Dose 81 MG; Start 12/22/18 at 09:30 Ticagrelor (Brilinta) 90 mg BID PO Last administered on 12/25/18at 10:00; Admin Dose 90 MG; Start 12/22/18 at 10:30 Dopamine HCl 800 mg/Dextrose 250 ml @ 3.69 mls/hr TITRATE IV Last administered on 12/22/18at 23:34; Admin Dose 1.84 MLS/HR; Start 12/22/18 at 23:30 Propofol 100 ml @ 2.949 mls/ hr Q12H IV Last administered on 12/25/18at 10:18; Admin Dose 2.949 MLS/HR; Start 12/23/18 at 14:30 Fentanyl 100 ml @ 2.5 mls/hr TITRATE IV Last administered on 12/25/18at 05:51; Admin Dose 5 MLS/HR; Start 12/23/18 at 20:30 Atorvastatin Calcium (Lipitor) 80 mg DAILY@21 NGT Last administered on 12/24/18at 20:32; Admin Dose 80 MG; Start 12/24/18 at 21:00 Benazepril HCl (Lotensin) 10 mg DAILY NGT Last administered on 12/25/18at 10:32; Admin Dose 10 MG; Start 12/24/18 at 09:00 Carvedilol (Coreg) 3.125 mg BID NGT Last administered on 12/25/18at 10:33; Admin Dose 3.125 MG; Start 12/24/18 at 09:00 Heparin Sodium (Porcine) (Heparin (5000 Units/1ml)) 5,000 unit Q8 SC Last admi nistered on 12/25/18at 05:09; Admin Dose 5,000 UNIT; Start 12/24/18 at 14:00 Insulin Aspart (Novolog Insulin Pen) NOVOLOG *MILD* ALGORI... Q4 SC ; Start 12/25/18 at 05:00 Miscellaneous Information 1 ea NOTE XX ; Start 12/25/18 at 04:00 Glucose (Glutose) 15 gm Q15M PRN PO DECREASED GLUCOSE; Start 12/25/18 at 04:00 Glucose (Glutose) 22.5 gm Q15M PRN PO DECREASED GLUCOSE; Start 12/25/18 at 04:00 Dextrose (D50w Syringe) 25 ml Q15M PRN IV DECREASED GLUCOSE; Start 12/25/18 at 04:00 Dextrose (D50w Syringe) 50 ml Q15M PRN IV DECREASED GLUCOSE; Start 12/25/18 at 04:00 Glucagon (Glucagen) 1 mg Q15M PRN IM DECREASED GLUCOSE; Start 12/25/18 at 04:00 Glucose (Glutose) 15 gm Q15M PRN BUCCAL DECREASED GLUCOSE; Start 12/25/18 at 04:00 Dextrose/Sodium Chloride 1,000 ml @ 50 mls/hr Q20H IV Last administered on 12/25/18at 04:51; Admin Dose 50 MLS/HR; Start 12/25/18 at 05:00 Dextrose 1,000 ml @ 100 mls/hr Q10H IV ; Start 12/25/18 at 09:00; Status KARL Ibarra Dec 25, 2018 10:47
--- NOTE | 2018-12-25 12:40 | CONS ---
Assessment/Plan Assessment/Plan Hospital Course (Demo Recall) 58 yo with cardiac arrest due to lateral wall stemi, culprit lesion is OM1, which was stented, and mid LAD also stented. Off pressors, tolerating bb and tim. Imp: Card arrest - rewarmed STEMI, culprit OM1 stented, non-culprit severe LAD lesion also stented Ischemic cardiomyopathy Shock, likely with septic component, possible aspiration pneumonia, improved diabetes Acute respiratory failure, on ventilator, with high fio2 requirements Hypernatremia, receiving free water Recc: ASA, Brilinta, atorvastatin Continue carvedilol and benazepril Watch for neurologic recovery Appreciate pulmonary and neurology input Guarded prognosis given prolonged down time Consultation Date/Type/Reason Admit Date/Time Dec 22, 2018 at 01:25 Initial Consult Date 12/22/18 Type of Consult Cardiology Requesting Provider: AMPAOR LEONARD Date/Time of Note DATE: 12/25/18 TIME: 12:36 24 HR Interval Summary Free Text/Dictation Remains intubated, is off pressors. Subjective hx not possible: pt non-verbal, pt critical status Exam/Review of Systems Vital Signs Vitals Vital Signs Date Temp Pulse Resp B/P (MAP) Pulse Ox O2 O2 Flow FiO2 Time Delivery Rate 12/25/18 95 12:00 12/25/18 100 11:45 12/25/18 36 126/67 100 Mechanical 11:00 (86) Ventilator 12/25/18 99.1 08:00 Intake and Output 12/24/18 12/24/18 12/25/18 1515:00 23:00 07:00 IntakeIntake Total 812.584 ml 237.78 ml 360.8 ml OutputOutput Total 702 ml 1161 ml 490 ml BalanceBalance 110.584 ml -923.22 ml -129.2 ml Exam Constitutional: non-verbal Eyes: nl lids ENMT: intubated Neck: No bruits Respiratory: other (coarse breath sounds) Cardiovascular: regular rate and rhythm, other (right groin sheath intact, no bruit, no hematoma) Gastrointestinal: soft, non-tender Musculoskeletal: nl extremities to inspection Extremities: normal pulses (normal dp pulses) Neurological: unresponsive Skin: nl turgor Labs Result Diagram: 12/25/1843912/25/18439 Results 24hrs Laboratory Tests Test 12/24/18 14:18 12/24/18 16:03 12/24/18 18:11 12/24/18 19:17 Bedside Glucose 107 88 98 103 Test 12/24/18 20:01 12/24/18 21:26 12/24/18 22:00 12/24/18 22:57 Bedside Glucose 107 104 100 87 Test 12/24/18 23:59 12/25/18 01:03 12/25/18 02:02 12/25/18 02:33 Bedside Glucose 98 86 88 Blood Gas Blood arterial Specimen Source Arterial Blood 12/25/2018 2:50:1 Date Drawn 2 AM Arterial Blood pH 7.372 (Temp corrected) Arterial Blood 54.4 H pCO2 (Temp correct) Arterial Blood 86.3 pO2 (Temp corrected) Arterial Blood 30.9 H HCO3 Arterial Blood 4.7 H Base Excess Arterial Blood 95.4 Oxygen Saturation Pablo Test ACCEPTAB Arterial Blood Right Radial Gas Puncture Site Arterial 0.3 Blood Carboxyhemo globin Arterial Blood 0.2 Methemoglobin Blood Gas A-a O2 499.6 H Differential Oxyhemoglobin 94.9 Percent Blood Gas 37.0 Temperature Blood Gas 18.0 Respiration Rate Blood Gas Actual 35 Respiration Rate Blood Gas VENT - AC Modality FiO2 90.0 Blood Gas Tidal 450.0 Volume Blood Gas Low 8.0 PEEP Setting Blood Gas [place] Notified Whom Blood Gas 12/25/2018 3:02:2 Notified Time 7 AM Test 12/25/18 03:09 12/25/18 04:40 12/25/18 04:43 12/25/18 10:00 Bedside Glucose 90 75 81 White Blood Count 12.9 #H Red Blood Count 3.19 L Hemoglobin 9.0 L Hematocrit 27.7 L Mean Corpuscular 86.8 Volume Mean Corpuscular 28.2 L Hemoglobin Mean Corpuscular 32.5 Hemoglobin Concen t Red Cell 13.5 Distribution Width Platelet Count 149 # Mean Platelet 11.0 H Volume Immature 2.300 H Granulocytes % Neutrophils % Segmented 59 Neutrophils % (Manual) Band Neutrophils 26 H % (Manual) Lymphocytes % Lymphocytes % 12 L (Manual) Monocytes % Monocytes % 3 (Manual) Eosinophils % Basophils % Nucleated Red 0.0 Blood Cells % Immature 0.300 H Granulocytes # Neutrophils # Neutrophils # 8.0 H (Manual) Band Neutrophils 3.3 H # Lymphocytes 1.5 (Manual) Lymphocytes # Monocytes # Monocytes # 0.3 (Manual) Eosinophils # Basophils # Nucleated Red Blood Cells # Platelet Estimate NORMAL Giant Platelets 1 H Polychromasia 1+ Anisocytosis 1+ Microcytosis 1+ Sodium Level 152 H Potassium Level 3.5 Chloride Level 108 Carbon Dioxide 37 H Level Anion Gap 7 Blood Urea 35 H Nitrogen Creatinine 0.95 Est Glomerular > 60 Filtrat Rate mL/min Glucose Level 82 # Calcium Level 8.0 L Medications Medications Current Medications IV Flush (NS 3 ml) 3 ml PER PROTOCOL IV ; Start 12/22/18 at 02:00 Ondansetron HCl (Zofran Inj) 4 mg Q6H PRN IV NAUSEA/VOMITING; Start 12/22/18 at 02:00 Acetaminophen (Tylenol Tab) 650 mg Q6H PRN PO .PAIN 1-3 OR TEMP; Start 12/22/18 at 02:00 Acetaminophen/ Hydrocodone Bitart ([place] (5/325)) 1 tab Q6H PRN PO .MOD PAIN 4- 6; Start 12/22/18 at 02:00 Morphine Sulfate (morphine) 2 mg Q4H PRN IV .SEVERE PAIN 7-10; Start 12/22/18 at 02:00 Docusate Sodium (Colace) 100 mg Q12H PRN PO .CONSTIPATION; Start 12/22/18 at 02:00 Magnesium Hydroxide (Milk Of Mag) 30 ml DAILY PRN PO .CONSTIPATION; Start 12/22/18 at 02:00 Famotidine (Pepcid Iv) 20 mg Q12 IV Last administered on 12/25/18at 09:55; Admin Dose 20 MG; Start 12/22/18 at 09:00 Albuterol/ Ipratropium (Duoneb) 3 ml Q4H RESP THERAPY PRN HHN SHORTNESS OF BREATH; Start 12/22/18 at 02:00 Hydralazine HCl (Apresoline) 10 mg Q6H PRN IV ELEVATED BLOOD PRESSURE; Start 12/22/18 at 02:00 Nitroglycerin (Nitroglycerin (Sl Tab) 0.4 Mg) 1 tab Q5M PRN SL ANGINA; Start 12/22/18 at 02:00 Acetaminophen (Tylenol Supp) 650 mg Q4H PRN [place] TEMP > 37C; Start 12/22/18 at 02:00 Acetaminophen (Tylenol Liquid) 650 mg Q4H PRN PO TEMP > 37C; Start 12/22/18 at 02:00 Meperidine HCl (Demerol) 12.5 mg Q4H PRN IV POST OPERATIVE SHIVERING; Start 12/22/18 at 02:00 Meperidine HCl (Demerol) 25 mg Q4H PRN IV POST OPERATIVE SHIVERING; Start 12/22/18 at 02:00 Eye Lubricant (Akwa Oint) 1 applic Q6 BOTH EYES Last administered on 12/25/18 12:34; Admin Dose 1 APPLIC; Start 12/22/18 at 06:00 Eye Lubricant (Artificial Tears Oph) 2 drop Q6 BOTH EYES Last administered on 12/25/18 12:34; Admin Dose 2 DROP; Start 12/22/18 at 06:00 Piperacillin Sod/ Tazobactam Sod 100 ml @ 200 mls/hr Q6 IVPB Last administered on 12/25/18 12:34; Admin Dose 200 MLS/HR; Start 12/22/18 at 04:00 Levetiracetam 100 ml @ 400 mls/hr Q12 IVPB Last administered on 12/25/18 09:5 5; Admin Dose 400 MLS/HR; Start 12/22/18 at 05:30 Lorazepam (Ativan) 1 mg Q1H PRN IV SEIZURES; Start 12/22/18 at 05:00 Vasopressin 60 unit/Dextrose 60 ml @ 1.2 mls/hr Q12H IV Last administered on at 00:08; Admin Dose 1.2 MLS/HR; Start 12/22/18 at 09:00 Phenylephrine HCl 80 mg/Dextrose 250 ml @ 18.75 mls/ hr TITRATE IV Last administered on 12/22/18at 10:11; Admin Dose 28.13 MLS/HR; Start 12/22/18 at 09:30 Norepinephrine 32 mg/Dextrose 250 ml @ 0.47 mls/hr TITRATE IV Last administered on 12/24/18at 03:53; Admin Dose 8.44 MLS/HR; Start 12/22/18 at 09:30 Aspirin (Aspirin) 81 mg DAILY NGT Last administered on 12/25/18at 09:55; Admin Dose 81 MG; Start 12/22/18 at 09:30 Ticagrelor (Brilinta) 90 mg BID PO Last administered on 12/25/18at 10:00; Admin Dose 90 MG; Start 12/22/18 at 10:30 Dopamine HCl 800 mg/Dextrose 250 ml @ 3.69 mls/hr TITRATE IV Last administered on 12/22/18at 23:34; Admin Dose 1.84 MLS/HR; Start 12/22/18 at 23:30 Propofol 100 ml @ 2.949 mls/ hr Q12H IV Last administered on 12/25/18at 10:18; Admin Dose 2.949 MLS/HR; Start 12/23/18 at 14:30 Fentanyl 100 ml @ 2.5 mls/hr TITRATE IV Last administered on 12/25/18 05:51; Admin Dose 5 MLS/HR; Start 12/23/18 at 20:30 Atorvastatin Calcium (Lipitor) 80 mg DAILY@21 NGT Last administered on 12/24/18at 20:32; Admin Dose 80 MG; Start 12/24/18 at 21:00 Benazepril HCl (Lotensin) 10 mg DAILY NGT Last administered on 12/25/18at 10:32; Admin Dose 10 MG; Start 12/24/18 at 09:00 Carvedilol (Coreg) 3.125 mg BID NGT Last administered on 12/25/18at 10:33; Admin Dose 3.125 MG; Start 12/24/18 at 09:00 Heparin Sodium (Porcine) (Heparin (5000 Units/1ml)) 5,000 unit Q8 SC Last administered on 12/25/18 05:09; Admin Dose 5,000 UNIT; Start 12/24/18 at 14:00 Insulin Aspart (Novolog Insulin Pen) NOVOLOG *MILD* ALGORI... Q4 SC ; Start 12/25/18 at 05:00 Miscellaneous Information 1 ea NOTE XX ; Start 12/25/18 at 04:00 Glucose (Glutose) 15 gm Q15M PRN PO DECREASED GLUCOSE; Start 12/25/18 at 04:00 Glucose (Glutose) 22.5 gm Q15M PRN PO DECREASED GLUCOSE; Start 12/25/18 at 04:00 Dextrose (D50w Syringe) 25 ml Q15M PRN IV DECREASED GLUCOSE; Start 12/25/18 at 04:00 Dextrose (D50w Syringe) 50 ml Q15M PRN IV DECREASED GLUCOSE; Start 12/25/18 at 04:00 Glucagon (Glucagen) 1 mg Q15M PRN IM DECREASED GLUCOSE; Start 12/25/18 at 04:00 Glucose (Glutose) 15 gm Q15M PRN BUCCAL DECREASED GLUCOSE; Start 12/25/18 at 04:00 Dextrose/Sodium Chloride 1,000 ml @ 50 mls/hr Q20H IV Last administered on 12/25/18at 04:51; Admin Dose 50 MLS/HR; Start 12/25/18 at 05:00 Dextrose 1,000 ml @ 100 mls/hr Q10H IV ; Start 12/25/18 at 09:00; Status Hold ROBIN JAMES Dec 25, 2018 12:40
[2018-12-25] MEDS: POTASSIUM CHLORIDE 50 ML IVPB SCH ×2 (21:06→22:43)
[2018-12-25] MEDS: ATORVASTATIN 80 MG TAB NGT SCH (21:06)
[2018-12-26] VITALS (86 sets, daily range): BP systolic 70–159; BP diastolic 41–124; PULSE 77–102; RESP 15–34
[2018-12-26] MEDS: ARTIFICIAL TEARS 15 ML OPH BOTH EYES SCH ×5 (00:02→23:41)
[2018-12-26] MEDS: INSULIN ASPART [NOVOLOG] 3 ML PEN SC SCH ×7 (00:02→23:43)
[2018-12-26] MEDS: OCULAR LUBRICANT 3.5 GM OPH OINT BOTH EYES SCH ×5 (00:02→23:41)
[2018-12-26] MEDS: DEXTROSE 5%-0.45% NACL 1,000 ML IV SCH ×2 (00:02→20:59)
[2018-12-26] MEDS: PIPER-TAZO 3.375 GM IV (PMX) 100 ML IVPB SCH ×5 (00:02→23:41)
[2018-12-26] MEDS: PROPOFOL 100 ML IV SCH ×2 (00:09→12:44)
[2018-12-26] MEDS: POTASSIUM CHLORIDE 50 ML IVPB SCH ×9 (01:43→23:40)
[2018-12-26] MEDS ORDERED: ACCU-CHEK XX SCH (02:00)
[2018-12-26] MEDS: HEPARIN 5,000 UNIT/1 ML VIAL SC SCH ×3 (06:05→20:57)
[2018-12-26] MEDS: NORepinephrine 32 MG in DEXTROSE 5% 218 ML IV SCH (06:31)
[2018-12-26] MEDS: VASOPRESSIN 60 UNIT in DEXTROSE 5% 57 ML IV SCH ×2 (07:54→20:59)
[2018-12-26] MEDS: LEVETIRACETAM 1000 MG (PMX) 100 ML IVPB SCH ×2 (08:04→20:55)
[2018-12-26] MEDS: FAMOTIDINE 20 MG INJ IV SCH (08:04)
[2018-12-26] MEDS: TICAGRELOR 90 MG TABLET PO SCH ×2 (08:06→20:57)
[2018-12-26] MEDS: ASPIRIN 81 MG TAB NGT SCH (08:08)
[2018-12-26] MEDS: BENAZEPRIL 10 MG TAB NGT SCH (08:09)
--- NOTE | 2018-12-26 09:11 | CONS ---
Assessment/Plan Assessment/Plan Assessment/Plan (Daily) Chest x-ray showing diffuse pulmonary edema with cardiomegaly. Ventilator setting; AC of 22, tidal volume 500, PEEP of 8, 65% FiO2. Patient is currently on propofol at 10 mics per kilogram per minute, Levophed 5 mics per minute. Assessment and recommendations; 1. Patient admitted with cardiac arrest with multiple episodes of CPR performed in the hospital. 2. Likely severe anoxic encephalopathy. 3. Status post hypothermia protocol with persistently poor mental status. 4. Inguinal breathing. 5. Severe cardiomyopathy with persistent severe pulmonary edema and hypoxemia. 6. Anemia and thrombocytopenia. 7. History of hypertension. 8. Possibly some element of aspiration pneumonia. 9. Mild hypernatremia. Continue current supportive care. Hold Coreg and Lotensin. Potassium to be replaced. Obtain follow-up chest x-ray 24 hours. Prognosis appears extremely poor. I did have a detailed discussion with the patient's daughter and at bedside and answered all their questions. 35 minutes of critical care time was spent evaluating the patient. Consultation Date/Type/Reason Admit Date/Time Dec 22, 2018 at 01:25 Initial Consult Date 12/22/18 Type of Consult Pulmonary/critical care Patient is a 58-year-old lady who was brought into the hospital after having cardiac arrest at home. Prolonged CPR was done with revival of vital signs. Upon evaluation here patient was diagnosed with STEMI and was taken to cardiac Insurance Appraiser where LAD lesion was dilated and a stent put in. Patient has remained profoundly hypotensive and is critically ill. Past medical history; 1. History of hypertension, hyperlipidemia. 2. Diabetes. Apparently poorly controlled. Medications; reviewed. Patient is on insulin drip, phenylephrine drip, Levophed, and propofol. All doses and other medications were reviewed in detail. Allergies; none. Social history; non-smoker. Family history; patient is and has supportive family. 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 Review of system; unable to be obtained. General exam; middle-aged female, orally intubated, sedated and paralyzed. Requesting Provider: AMPARO LEONARD Date/Time of Note DATE: 12/26/18 TIME: 09:07 24 HR Interval Summary Free Text/Dictation Patient's condition is critical. Remains profoundly unresponsive even off sedation. Patient maintained on propofol because of tachypnea. General exam; middle-aged female, orally intubated, sedated, tachypneic. Exam/Review of Systems Exam Vitals Vital Signs Date Temp Pulse Resp B/P (MAP) Pulse Ox O2 O2 Flow FiO2 Time Delivery Rate 12/26/18 96 08:00 12/26/18 34 106/53 100 07:04 (70) 12/26/18 Mechanical 06:30 Ventilator 12/26/18 75 05:31 12/26/18 97.5 04:00 Intake and Output 12/25/18 12/25/18 12/26/18 1515:00 23:00 07:00 IntakeIntake Total 890.2378 ml 563.913 ml 421.286 ml OutputOutput Total 560 ml 695 ml 290 ml BalanceBalance 330.2378 ml -131.087 ml 131.286 ml Exam H EENT exam; supple neck, positive JVD. No lymphadenopathy. Midline trachea. No thyromegaly. Orally intubated. Pupils are small bilaterally. Patient has fair dentition. Nasogastric tube in place. Chest exam; diminished breath sounds bilaterally. S1-S2 audible, no murmurs. Regular rhythm. Abdomen exam; soft, no organomegaly. Bowel sounds audible. Extremity exam; no peripheral edema. 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 Results Result Diagram: 12/26/18 0438 12/26/18 0431 Results 24hrs Laboratory Tests Test 12/25/18 10:00 12/25/18 12:01 12/25/18 12:41 12/25/18 17:40 Bedside Glucose 81 80 74 Sodium Level 150 H Potassium Level 3.1 L Chloride Level 109 Carbon Dioxide Level 35 H Anion Gap 6 Blood Urea Nitrogen 33 H Creatinine 0.83 Est Glomerular > 60 Filtrat Rate mL/min Glucose Level 83 Calcium Level 8.0 L Test 12/25/18 19:54 12/25/18 21:32 12/26/18 00:00 12/26/18 04:11 Sodium Level 150 H Potassium Level 2.8 *L Chloride Level 110 Carbon Dioxide Level 32 H Anion Gap 8 Blood Urea Nitrogen 35 H Creatinine 0.81 Est Glomerular > 60 Filtrat Rate mL/min Glucose Level 80 Calcium Level 8.5 Bedside Glucose 77 76 99 Test 12/26/18 04:31 12/26/18 04:38 12/26/18 08:20 Sodium Level 151 H Potassium Level 2.9 *L Chloride Level 112 H Carbon Dioxide Level 31 Anion Gap 8 Blood Urea Nitrogen 34 H Creatinine 0.77 Est Glomerular > 60 Filtrat Rate mL/min Glucose Level 105 Calcium Level 8.6 Magnesium Level 2.8 H White Blood Count 14.5 H Red Blood Count 3.17 L Hemoglobin 8.9 L Hematocrit 27.7 L Mean Corpuscular 87.4 Volume Mean Corpuscular 28.1 L Hemoglobin Mean Corpuscular 32.1 Hemoglobin Concent Red Cell 13.6 Distribution Width Platelet Count 165 Mean Platelet Volume 11.5 H Immature 0.500 H Granulocytes % Neutrophils % Segmented 63 Neutrophils % (Manual) Band Neutrophils % 15 H (Manual) Lymphocytes % Lymphocytes % 19 (Manual) Monocytes % Monocytes % (Manual) 3 Eosinophils % Basophils % Nucleated Red Blood 0.0 Cells % Immature 0.070 H Granulocytes # Neutrophils # Neutrophils # 9.4 H (Manual) Band Neutrophils # 2.1 H Lymphocytes (Manual) 2.7 Lymphocytes # Monocytes # Monocytes # (Manual) 0.4 Eosinophils # Basophils # Nucleated Red Blood Cells # Platelet Estimate NORMAL Hypochromasia 1+ Anisocytosis 1+ Microcytosis 1+ Spherocytes 1+ Bedside Glucose 119 Medications Medication Current Medications IV Flush (NS 3 ml) 3 ml PER PROTOCOL IV ; Start 12/22/18 at 02:00 Ondansetron HCl (Zofran Inj) 4 mg Q6H PRN IV NAUSEA/VOMITING; Start 12/22/18 at 02:00 Acetaminophen (Tylenol Tab) 650 mg Q6H PRN PO .PAIN 1-3 OR TEMP; Start 12/22/18 at 02:00 Acetaminophen/ Hydrocodone Bitart ([place] (5/325)) 1 tab Q6H PRN PO .MOD PAIN 4- 6; Start 12/22/18 at 02:00 Morphine Sulfate (morphine) 2 mg Q4H PRN IV .SEVERE PAIN 7-10; Start 12/22/18 at 02:00 Docusate Sodium (Colace) 100 mg Q12H PRN PO .CONSTIPATION; Start 12/22/18 at 02:00 Magnesium Hydroxide (Milk Of Mag) 30 ml DAILY PRN PO .CONSTIPATION; Start 12/22/18 at 02:00 Famotidine (Pepcid Iv) 20 mg Q12 IV Last administered on 12/26/18at 08:04; Admin Dose 20 MG; Start 12/22/18 at 09:00 Albuterol/ Ipratropium (Duoneb) 3 ml Q4H RESP THERAPY PRN HHN SHORTNESS OF BREATH; Start 12/22/18 at 02:00 Hydralazine HCl (Apresoline) 10 mg Q6H PRN IV ELEVATED BLOOD PRESSURE; Start 12/22/18 at 02:00 Nitroglycerin (Nitroglycerin (Sl Tab) 0.4 Mg) 1 tab Q5M PRN SL ANGINA; Start 12/22/18 at 02:00 Acetaminophen (Tylenol Supp) 650 mg Q4H PRN VT TEMP > 37C; Start 12/22/18 at 02:00 Acetaminophen (Tylenol Liquid) 650 mg Q4H PRN PO TEMP > 37C; Start 12/22/18 at 02:00 Meperidine HCl (Demerol) 12.5 mg Q4H PRN IV POST OPERATIVE SHIVERING; Start 12/22/18 at 02:00 Meperidine HCl (Demerol) 25 mg Q4H PRN IV POST OPERATIVE SHIVERING; Start 12/22/18 at 02:00 Eye Lubricant (Akwa Oint) 1 applic Q6 BOTH EYES Last administered on 12/26/18at 06:04; Admin Dose 1 APPLIC; Start 12/22/18 at 06:00 Eye Lubricant (Artificial Tears Oph) 2 drop Q6 BOTH EYES Last administered on 12/26/18 06:04; Admin Dose 2 DROP; Start 12/22/18 at 06:00 Piperacillin Sod/ Tazobactam Sod 100 ml @ 200 mls/hr Q6 IVPB Last administered on 12/26/18at 06:03; Admin Dose 200 MLS/HR; Start 12/22/18 at 04:00 Levetiracetam 100 ml @ 400 mls/hr Q12 IVPB Last administered on 12/26/18 08:04; Admin Dose 400 MLS/HR; Start 12/22/18 at 05:30 Lorazepam (Ativan) 1 mg Q1H PRN IV SEIZURES; Start 12/22/18 at 05:00 Vasopressin 60 unit/Dextrose 60 ml @ 1.2 mls/hr Q12H IV Last administered on 12/23/18at 00:08; Admin Dose 1.2 MLS/HR; Start 12/22/18 at 09:00 Phenylephrine HCl 80 mg/Dextrose 250 ml @ 18.75 mls/ hr TITRATE IV Last administered on 12/22/18 10:11; Admin Dose 28.13 MLS/HR; Start 12/22/18 at 09:30 Norepinephrine 32 mg/Dextrose 250 ml @ 0.47 mls/hr TITRATE IV Last administered on 12/26/18 06:31; Admin Dose 0.94 MLS/HR; Start 12/22/18 at 09:30 Aspirin (Aspirin) 81 mg DAILY NGT Last administered on 12/26/18 08:08; Admin Dose 81 MG; Start 12/22/18 at 09:30 Ticagrelor (Brilinta) 90 mg BID PO Last administered on 12/26/18 08:06; Admin Dose 90 MG; Start 12/22/18 at 10:30 Dopamine HCl 800 mg/Dextrose 250 ml @ 3.69 mls/hr TITRATE IV Last administered on 12/22/18 23:34; Admin Dose 1.84 MLS/HR; Start 12/22/18 at 23:30 Propofol 100 ml @ 2.949 mls/ hr Q12H IV Last administered on 12/26/18 00:09; Admin Dose 5.898 MLS/HR; Start 12/23/18 at 14:30 Fentanyl 100 ml @ 2.5 mls/hr TITRATE IV Last administered on 12/25/18 05:51; Admin Dose 5 MLS/HR; Start 12/23/18 at 20:30 Atorvastatin Calcium (Lipitor) 80 mg DAILY@21 NGT Last administered on 12/25/18 21:06; Admin Dose 80 MG; Start 12/24/18 at 21:00 Benazepril HCl (Lotensin) 10 mg DAILY NGT Last administered on 12/25/18 10:32; Admin Dose 10 MG; Start 12/24/18 at 09:00 Carvedilol (Coreg) 3.125 mg BID NGT Last administered on 12/25/18 21:06; Admin Dose 3.125 MG; Start 12/24/18 at 09:00 Heparin Sodium (Porcine) (Heparin (5000 Units/1ml)) 5,000 unit Q8 SC Last administered on 6/14/19at 06:05; Admin Dose 5,000 UNIT; Start 12/24/18 at 14:00 Insulin Aspart (Novolog Insulin Pen) NOVOLOG *MILD* ALGORI... Q4 SC ; Start 12/25/18 at 05:00 Miscellaneous Information 1 ea NOTE XX ; Start 12/25/18 at 04:00 Glucose (Glutose) 15 gm Q15M PRN PO DECREASED GLUCOSE; Start 12/25/18 at 04:00 Glucose (Glutose) 22.5 gm Q15M PRN PO DECREASED GLUCOSE; Start 12/25/18 at 04:00 Dextrose (D50w Syringe) 25 ml Q15M PRN IV DECREASED GLUCOSE; Start 12/25/18 at 04:00 Dextrose (D50w Syringe) 50 ml Q15M PRN IV DECREASED GLUCOSE; Start 12/25/18 at 04:00 Glucagon (Glucagen) 1 mg Q15M PRN IM DECREASED GLUCOSE; Start 12/25/18 at 04:00 Glucose (Glutose) 15 gm Q15M PRN BUCCAL DECREASED GLUCOSE; Start 12/25/18 at 04:00 Dextrose/Sodium Chloride 1,000 ml @ 50 mls/hr Q20H IV Last administered on at 04:51; Admin Dose 50 MLS/HR; Start 12/25/18 at 05:00 Dextrose 1,000 ml @ 100 mls/hr Q10H IV ; Start 12/25/18 at 09:00; Status Hold Potassium Chloride 50 ml @ 25 mls/hr Q2H IVPB Last administered on 12/26/18at 07:54; Admin Dose 25 MLS/HR; Start 12/26/18 at 06:00; Stop 12/26/18 at 11:59 MACI SILVEIRA 14, 2019 09:11
--- NOTE | 2018-12-26 09:28 | CONS ---
Assessment/Plan Assessment/Plan Hospital Course (Demo Recall) 58 yo with cardiac arrest due to lateral wall stemi, culprit lesion is OM1, which was stented, and mid LAD also stented. Still with FIO2 requirement of 65% and requiring pressors. Imp: Card arrest - rewarmed STEMI, culprit OM1 stented, non-culprit severe LAD lesion also stented Ischemic cardiomyopathy Shock, likely with septic component, possible aspiration pneumonia diabetes Acute respiratory failure, on ventilator, with high fio2 requirements Hypernatremia, receiving free water Hypokalemia, replaced Recc: ASA, Brilinta, atorvastatin No PAKO or BB due to shock and hypotension No signs of meaningful neurologic recovery thus far Appreciate pulmonary and neurology input Poor prognosis given prolonged down time Discussed with daughter and who are at bedside Consultation Date/Type/Reason Admit Date/Time Dec 22, 2018 at 01:25 Initial Consult Date 12/22/18 Type of Consult Cardiology Requesting Provider: AMPARO LEONARD Date/Time of Note DATE: 12/26/18 TIME: 09:25 24 HR Interval Summary Free Text/Dictation Overnight has had no purposeful movements when off sedation. Is now requiring levophed for blood pressure support. Subjective hx not possible: pt non-verbal, pt critical status Exam/Review of Systems Vital Signs Vitals Vital Signs Date Temp Pulse Resp B/P (MAP) Pulse Ox O2 O2 Flow FiO2 Time Delivery Rate 12/26/18 96 08:00 12/26/18 34 106/53 100 07:04 (70) 12/26/18 Mechanical 06:30 Ventilator 12/26/18 75 05:31 12/26/18 97.5 04:00 Intake and Output 12/25/18 12/25/18 12/26/18 1515:00 23:00 07:00 IntakeIntake Total 890.2378 ml 563.913 ml 421.286 ml OutputOutput Total 560 ml 695 ml 290 ml BalanceBalance 330.2378 ml -131.087 ml 131.286 ml Exam Constitutional: non-verbal Eyes: nl lids ENMT: intubated Neck: No bruits Respiratory: clear to auscultation, normal air movement Cardiovascular: regular rate and rhythm; No murmurs/extra sounds Gastrointestinal: soft, non-tender Extremities: No edema Neurological: unresponsive Skin: nl turgor Labs Result Diagram: 12/26/18 0438 12/26/18 0431 Results 24hrs Laboratory Tests Test 12/25/18 10:00 12/25/18 12:01 12/25/18 12:41 12/25/18 17:40 Bedside Glucose 81 80 74 Sodium Level 150 H Potassium Level 3.1 L Chloride Level 109 Carbon Dioxide Level 35 H Anion Gap 6 Blood Urea Nitrogen 33 H Creatinine 0.83 Est Glomerular > 60 Filtrat Rate mL/min Glucose Level 83 Calcium Level 8.0 L Test 12/25/18 19:54 12/25/18 21:32 12/26/18 00:00 12/26/18 04:11 Sodium Level 150 H Potassium Level 2.8 *L Chloride Level 110 Carbon Dioxide Level 32 H Anion Gap 8 Blood Urea Nitrogen 35 H Creatinine 0.81 Est Glomerular > 60 Filtrat Rate mL/min Glucose Level 80 Calcium Level 8.5 Bedside Glucose 77 76 99 Test 12/26/18 04:31 12/26/18 04:38 12/26/18 08:20 Sodium Level 151 H Potassium Level 2.9 *L Chloride Level 112 H Carbon Dioxide Level 31 Anion Gap 8 Blood Urea Nitrogen 34 H Creatinine 0.77 Est Glomerular > 60 Filtrat Rate mL/min Glucose Level 105 Calcium Level 8.6 Magnesium Level 2.8 H White Blood Count 14.5 H Red Blood Count 3.17 L Hemoglobin 8.9 L Hematocrit 27.7 L Mean Corpuscular 87.4 Volume Mean Corpuscular 28.1 L Hemoglobin Mean Corpuscular 32.1 Hemoglobin Concent Red Cell 13.6 Distribution Width Platelet Count 165 Mean Platelet Volume 11.5 H Immature 0.500 H Granulocytes % Neutrophils % Segmented 63 Neutrophils % (Manual) Band Neutrophils % 15 H (Manual) Lymphocytes % Lymphocytes % 19 (Manual) Monocytes % Monocytes % (Manual) 3 Eosinophils % Basophils % Nucleated Red Blood 0.0 Cells % Immature 0.070 H Granulocytes # Neutrophils # Neutrophils # 9.4 H (Manual) Band Neutrophils # 2.1 H Lymphocytes (Manual) 2.7 Lymphocytes # Monocytes # Monocytes # (Manual) 0.4 Eosinophils # Basophils # Nucleated Red Blood Cells # Platelet Estimate NORMAL Hypochromasia 1+ Anisocytosis 1+ Microcytosis 1+ Spherocytes 1+ Bedside Glucose 119 Medications Medications Current Medications IV Flush (NS 3 ml) 3 ml PER PROTOCOL IV ; Start 12/22/18 at 02:00 Ondansetron HCl (Zofran Inj) 4 mg Q6H PRN IV NAUSEA/VOMITING; Start 12/22/18 at 02:00 Acetaminophen (Tylenol Tab) 650 mg Q6H PRN PO .PAIN 1-3 OR TEMP; Start 12/22/18 at 02:00 Acetaminophen/ Hydrocodone Bitart ([place] (5/325)) 1 tab Q6H PRN PO .MOD PAIN 4- 6; Start 12/22/18 at 02:00 Morphine Sulfate (morphine) 2 mg Q4H PRN IV .SEVERE PAIN 7-10; Start 12/22/18 at 02:00 Docusate Sodium (Colace) 100 mg Q12H PRN PO .CONSTIPATION; Start 12/22/18 at 02:00 Magnesium Hydroxide (Milk Of Mag) 30 ml DAILY PRN PO .CONSTIPATION; Start 12/22/18 at 02:00 Famotidine (Pepcid Iv) 20 mg Q12 IV Last administered on 12/26/18at 08:04; Admin Dose 20 MG; Start 12/22/18 at 09:00 Albuterol/ Ipratropium (Duoneb) 3 ml Q4H RESP THERAPY PRN HHN SHORTNESS OF BREATH; Start 12/22/18 at 02:00 Hydralazine HCl (Apresoline) 10 mg Q6H PRN IV ELEVATED BLOOD PRESSURE; Start 12/22/18 at 02:00 Nitroglycerin (Nitroglycerin (Sl Tab) 0.4 Mg) 1 tab Q5M PRN SL ANGINA; Start 12/22/18 at 02:00 Acetaminophen (Tylenol Supp) 650 mg Q4H PRN [place] TEMP > 37C; Start 12/22/18 at 02:00 Acetaminophen (Tylenol Liquid) 650 mg Q4H PRN PO TEMP > 37C; Start 12/22/18 at 02:00 Meperidine HCl (Demerol) 12.5 mg Q4H PRN IV POST OPERATIVE SHIVERING; Start 05/02 at 02:00 Meperidine HCl (Demerol) 25 mg Q4H PRN IV POST OPERATIVE SHIVERING; Start 12/22/18 at 02:00 Eye Lubricant (Akwa Oint) 1 applic Q6 BOTH EYES Last administered on 12/26/18 06:04; Admin Dose 1 APPLIC; Start 12/22/18 at 06:00 Eye Lubricant (Artificial Tears Oph) 2 drop Q6 BOTH EYES Last administered on 12/26/18 06:04; Admin Dose 2 DROP; Start 12/22/18 at 06:00 Piperacillin Sod/ Tazobactam Sod 100 ml @ 200 mls/hr Q6 IVPB Last administered on 12/26/18 06:03; Admin Dose 200 MLS/HR; Start 12/22/18 at 04:00 Levetiracetam 100 ml @ 400 mls/hr Q12 IVPB Last administered on 12/26/18 08:04; Admin Dose 400 MLS/HR; Start 12/22/18 at 05:30 Lorazepam (Ativan) 1 mg Q1H PRN IV SEIZURES; Start 12/22/18 at 05:00 Vasopressin 60 unit/Dextrose 60 ml @ 1.2 mls/hr Q12H IV Last administered on 12/23/18 00:08; Admin Dose 1.2 MLS/HR; Start 12/22/18 at 09:00 Phenylephrine HCl 80 mg/Dextrose 250 ml @ 18.75 mls/ hr TITRATE IV Last administered on 12/22/18 10:11; Admin Dose 28.13 MLS/HR; Start 12/22/18 at 09:30 Norepinephrine 32 mg/Dextrose 250 ml @ 0.47 mls/hr TITRATE IV Last admin istered on 12/26/18 06:31; Admin Dose 0.94 MLS/HR; Start 12/22/18 at 09:30 Aspirin (Aspirin) 81 mg DAILY NGT Last administered on 12/26/18 08:08; Admin Dose 81 MG; Start 12/22/18 at 09:30 Ticagrelor (Brilinta) 90 mg BID PO Last administered on 12/26/18 08:06; Admin Dose 90 MG; Start 12/22/18 at 10:30 Dopamine HCl 800 mg/Dextrose 250 ml @ 3.69 mls/hr TITRATE IV Last administered on 12/22/18 23:34; Admin Dose 1.84 MLS/HR; Start 12/22/18 at 23:30 Propofol 100 ml @ 2.949 mls/ hr Q12H IV Last administered on 6/14/19at 00:09; Admin Dose 5.898 MLS/HR; Start 12/23/18 at 14:30 Fentanyl 100 ml @ 2.5 mls/hr TITRATE IV Last administered on 12/25/18at 05:51; Admin Dose 5 MLS/HR; Start 12/23/18 at 20:30 Atorvastatin Calcium (Lipitor) 80 mg DAILY@21 NGT Last administered on 12/25/18at 21:06; Admin Dose 80 MG; Start 12/24/18 at 21:00 Heparin Sodium (Porcine) (Heparin (5000 Units/1ml)) 5,000 unit Q8 SC Last administered on 12/26/18at 06:05; Admin Dose 5,000 UNIT; Start 12/24/18 at 14:00 Insulin Aspart (Novolog Insulin Pen) NOVOLOG *MILD* ALGORI... Q4 SC ; Start 12/25/18 at 05:00 Miscellaneous Information 1 ea NOTE XX ; Start 12/25/18 at 04:00 Glucose (Glutose) 15 gm Q15M PRN PO DECREASED GLUCOSE; Start 12/25/18 at 04:00 Glucose (Glutose) 22.5 gm Q15M PRN PO DECREASED GLUCOSE; Start 12/25/18 at 04:00 Dextrose (D50w Syringe) 25 ml Q15M PRN IV DECREASED GLUCOSE; Start 12/25/18 at 04:00 Dextrose (D50w Syringe) 50 ml Q15M PRN IV DECREASED GLUCOSE; Start 12/25/18 at 04:00 Glucagon (Glucagen) 1 mg Q15M PRN IM DECREASED GLUCOSE; Start 12/25/18 at 04:00 Glucose (Glutose) 15 gm Q15M PRN BUCCAL DECREASED GLUCOSE; Start 12/25/18 at 04:00 Dextrose/Sodium Chloride 1,000 ml @ 50 mls/hr Q20H IV Last administered on 12/25/18at 04:51; Admin Dose 50 MLS/HR; Start 12/25/18 at 05:00 Dextrose 1,000 ml @ 100 mls/hr Q10H IV ; Start 12/25/18 at 09:00; Status Hold Potassium Chloride 50 ml @ 25 mls/hr Q2H IVPB Last administered on 12/26/18at 07:54; Admin Dose 25 MLS/HR; Start 12/26/18 at 06:00; Stop 12/26/18 at 11:59 ROBIN JAMES Dec 26, 2018 09:28
[2018-12-26] MEDS ORDERED: POTASSIUM CHLORIDE 20 MEQ POWDER FOR ORAL SOLN NGT ONE (14:00)
--- NOTE | 2018-12-26 14:42 | PN ---
Date/Time of Note Date/Time of Note DATE: 12/26/18 TIME: 14:40 Assessment/Plan VTE Prophylaxis Risk score (from Nsg)>0 risk: 11 SCD applied (from Ns): Yes Pharmacological prophylaxis: heparin Lines/Catheters IV Catheter Type (from Nrsg): A Line Urinary Cath still in place: Yes Reason Cath still needed: other (indicate) (intubated) Assessment/Plan Assessment/Plan 58-year-old woman past medical of hypertension, high cholesterol, anxiety, diabetes, who was brought in by EMS after suffering cardiac arrest and had ROSC, with ST elevation AL lactic acidosis, status post PCI of the OM1 (culprit lesion) is as well as stenting of the mid LAD, intubated and unresponsive, on insulin drip and hypothermia protocol. 1. Status post cardiac arrest with ST elevation AL: Again status post PCI of the obtuse marginal and LAD blockages. Again patient was down for at least 20 minutes before EMS arrived at home, and took another 15 minutes for ROSC to be obtained. -Continue Lipitor, Coreg, Brilinta, aspirin - s/p hypothermia protocol, now rewarmed. - Not brain . No seizures on EEG. Severe diffuse slowing. - Neurology consulted, Dr. Dorsey following - Continue prophylactic keppra. 2. Pulmonary edema with hypoxemic respiratory failure - Maxed out on FiO2, rising PEEP to maintain oxygenation - CXR shows diffuse pulmonary infiltrates - Continue empiric zosyn - This is likely due to cardiogenic shock from L sided heart failure. - Had been getting spot diuresis, but for now will hold off due to rising sodium and hypotension. 3. Diabetes: continue insulin drip and monitor sugars 4. Hypertension: Currently hypotensive on pressors. 5. High cholesterol: Continue statin Appears to have overall poor prognosis given the length of time patient was down before CPR was started, again we will continue hypothermia protocol for the first 24 hours, insulin drip, as mentioned above palliative care and neurology consults as well. 39 minutes critical care time spent on this patient. Result Diagram: 12/26/18 1478 12/26/18 1150 Subjective 24 Hr Interval Summary Free Text/Dictation No acute overnight events. Propofol started yesterday afternoon. Oxygenation slightly improved. Back on pressors. Exam/Review of Systems Exam Vitals Vital Signs Date Temp Pulse Resp B/P (MAP) Pulse Ox O2 O2 Flow FiO2 Time Delivery Rate 6/14/19 77 12:00 12/26/18 26 98/48 (65) 100 10:30 12/26/18 99.0 08:00 12/26/18 65 08:00 12/26/18 Mechanical 06:30 Ventilator Intake and Output 12/25/18 12/25/18 12/26/18 1515:00 23:00 07:00 IntakeIntake Total 890.2378 ml 563.913 ml 471.286 ml OutputOutput Total 560 ml 695 ml 290 ml BalanceBalance 330.2378 ml -131.087 ml 181.286 ml Exam Gen: Obese woman lying in bed, intubated HEENT: Atraumatic. Moist mucous membranes. ET tube in place. Eyes: Normal pupils, nonreactive. Neck: Supple, no lymphadenopathy. Resp: Mechanical breath sounds bilaterally. Cardio: S1, S2 heard. No obvious murmurs. Abd: Soft, nondistended, normal bowel sounds, non tender. Ext: No lower extremity edema bilaterally : Crab[place] in place with copious clear yellow urine. NEURO: Sedated. Results Results 24hrs Laboratory Tests Test 12/25/18 17:40 12/25/18 19:54 12/25/18 21:32 12/26/18 00:00 Bedside Glucose 74 77 76 Sodium Level 150 H Potassium Level 2.8 *L Chloride Level 110 Carbon Dioxide Level 32 H Anion Gap 8 Blood Urea Nitrogen 35 H Creatinine 0.81 Est Glomerular > 60 Filtrat Rate mL/min Glucose Level 80 Calcium Level 8.5 Test 12/26/18 04:11 12/26/18 04:31 12/26/18 04:38 12/26/18 08:20 Bedside Glucose 99 119 Sodium Level 151 H Potassium Level 2.9 *L Chloride Level 112 H Carbon Dioxide Level 31 Anion Gap 8 Blood Urea Nitrogen 34 H Creatinine 0.77 Est Glomerular > 60 Filtrat Rate mL/min Glucose Level 105 Calcium Level 8.6 Magnesium Level 2.8 H White Blood Count 14.5 H Red Blood Count 3.17 L Hemoglobin 8.9 L Hematocrit 27.7 L Mean Corpuscular 87.4 Volume Mean Corpuscular 28.1 L Hemoglobin Mean Corpuscular 32.1 Hemoglobin Concent Red Cell 13.6 Distribution Width Platelet Count 165 Mean Platelet Volume 11.5 H Immature 0.500 H Granulocytes % Neutrophils % Segmented 63 Neutrophils % (Manual) Band Neutrophils % 15 H (Manual) Lymphocytes % Lymphocytes % 19 (Manual) Monocytes % Monocytes % (Manual) 3 Eosinophils % Basophils % Nucleated Red Blood 0.0 Cells % Immature 0.070 H Granulocytes # Neutrophils # Neutrophils # 9.4 H (Manual) Band Neutrophils # 2.1 H Lymphocytes (Manual) 2.7 Lymphocytes # Monocytes # Monocytes # (Manual) 0.4 Eosinophils # Basophils # Nucleated Red Blood Cells # Platelet Estimate NORMAL Hypochromasia 1+ Anisocytosis 1+ Microcytosis 1+ Spherocytes 1+ Test 12/26/18 11:50 12/26/18 12:29 Sodium Level 152 H Potassium Level 2.8 *L Chloride Level 113 H Carbon Dioxide Level 27 Anion Gap 12 Blood Urea Nitrogen 35 H Creatinine 0.79 Est Glomerular > 60 Filtrat Rate mL/min Glucose Level 162 Calcium Level 8.5 Bedside Glucose 159 Medications Medication Current Medications IV Flush (NS 3 ml) 3 ml PER PROTOCOL IV ; Start 12/22/18 at 02:00 Ondansetron HCl (Zofran Inj) 4 mg Q6H PRN IV NAUSEA/VOMITING; Start 12/22/18 at 02:00 Acetaminophen (Tylenol Tab) 650 mg Q6H PRN PO .PAIN 1-3 OR TEMP; Start 12/22/18 at 02:00 Acetaminophen/ Hydrocodone Bitart ([place] (5/325)) 1 tab Q6H PRN PO .MOD PAIN 4- 6; Start 12/22/18 at 02:00 Morphine Sulfate (morphine) 2 mg Q4H PRN IV .SEVERE PAIN 7-10; Start 12/22/18 at 02:00 Docusate Sodium (Colace) 100 mg Q12H PRN PO .CONSTIPATION; Start 12/22/18 at 02:00 Magnesium Hydroxide (Milk Of Mag) 30 ml DAILY PRN PO .CONSTIPATION; Start 12/22/18 at 02:00 Albuterol/ Ipratropium (Duoneb) 3 ml Q4H RESP THERAPY PRN HHN SHORTNESS OF BREATH; Start 12/22/18 at 02:00 Hydralazine HCl (Apresoline) 10 mg Q6H PRN IV ELEVATED BLOOD PRESSURE; Start 12/22/18 at 02:00 Nitroglycerin (Nitroglycerin (Sl Tab) 0.4 Mg) 1 tab Q5M PRN SL ANGINA; Start 12/22/18 at 02:00 Acetaminophen (Tylenol Supp) 650 mg Q4H PRN [place] TEMP > 37C; Start 12/22/18 at 02:00 Acetaminophen (Tylenol Liquid) 650 mg Q4H PRN PO TEMP > 37C; Start 12/22/18 at 02:00 Meperidine HCl (Demerol) 12.5 mg Q4H PRN IV POST OPERATIVE SHIVERING; Start 12/22/18 at 02:00 Meperidine HCl (Demerol) 25 mg Q4H PRN IV POST OPERATIVE SHIVERING; Start 12/22/18 at 02:00 Eye Lubricant (Akwa Oint) 1 applic Q6 BOTH EYES Last administered on 12/26/18 12:38; Admin Dose 1 APPLIC; Start 12/22/18 at 06:00 Eye Lubricant (Artificial Tears Oph) 2 drop Q6 BOTH EYES Last administered on 12/26/18 12:38; Admin Dose 2 DROP; Start 12/22/18 at 06:00 Piperacillin Sod/ Tazobactam Sod 100 ml @ 200 mls/hr Q6 IVPB Last administered on 12/26/18 12:32; Admin Dose 200 MLS/HR; Start 12/22/18 at 04:00 Levetiracetam 100 ml @ 400 mls/hr Q12 IVPB Last administered on 12/26/18 08:04; Admin Dose 400 MLS/HR; Start 12/22/18 at 05:30 Lorazepam (Ativan) 1 mg Q1H PRN IV SEIZURES; Start 12/22/18 at 05:00 Vasopressin 60 unit/Dextrose 60 ml @ 1.2 mls/hr Q12H IV Last administered on 12/23/18 00:08; Admin Dose 1.2 MLS/HR; Start 12/22/18 at 09:00 Phenylephrine HCl 80 mg/Dextrose 250 ml @ 18.75 mls/ hr TITRATE IV Last administered on 12/22/18 10:11; Admin Dose 28.13 MLS/HR; Start 12/22/18 at 09:30 Norepinephrine 32 mg/Dextrose 250 ml @ 0.47 mls/hr TITRATE IV Last administered on 12/26/18 06:31; Admin Dose 0.94 MLS/HR; Start 12/22/18 at 09:30 Aspirin (Aspirin) 81 mg DAILY NGT Last administered on 12/26/18 08:08; Admin Dose 81 MG; Start 12/22/18 at 09:30 Ticagrelor (Brilinta) 90 mg BID PO Last administered on 12/26/18 08:06; Admin Dose 90 MG; Start 12/22/18 at 10:30 Dopamine HCl 800 mg/Dextrose 250 ml @ 3.69 mls/hr TITRATE IV Last administered on 12/22/18 23:34; Admin Dose 1.84 MLS/HR; Start 12/22/18 at 23:30 Propofol 100 ml @ 2.949 mls/ hr Q12H IV Last administered on 12/26/18 12:44; Admin Dose 10.027 MLS/HR; Start 12/23/18 at 14:30 Fentanyl 100 ml @ 2.5 mls/hr TITRATE IV Last administered on 12/25/18 05:51; Admin Dose 5 MLS/HR; Start 12/23/18 at 20:30 Atorvastatin Calcium (Lipitor) 80 mg DAILY@21 NGT Last administered on 12/25/18 21:06; Admin Dose 80 MG; Start 12/24/18 at 21:00 Heparin Sodium (Porcine) (Heparin (5000 Units/1ml)) 5,000 unit Q8 SC Last administered on 12/26/18 12:39; Admin Dose 5,000 UNIT; Start 12/24/18 at 14:00 Insulin Aspart (Novolog Insulin Pen) NOVOLOG *MILD* ALGORI... Q4 SC Last administered on 12/26/18 12:39; Admin Dose 1 UNIT; Start 12/25/18 at 05:00 Miscellaneous Information 1 ea NOTE XX ; Start 12/25/18 at 04:00 Glucose (Glutose) 15 gm Q15M PRN PO DECREASED GLUCOSE; Start 12/25/18 at 04:00 Glucose (Glutose) 22.5 gm Q15M PRN PO DECREASED GLUCOSE; Start 12/25/18 at 04:00 Dextrose (D50w Syringe) 25 ml Q15M PRN IV DECREASED GLUCOSE; Start 12/25/18 at 04:00 Dextrose (D50w Syringe) 50 ml Q15M PRN IV DECREASED GLUCOSE; Start 12/25/18 at 04:00 Glucagon (Glucagen) 1 mg Q15M PRN IM DECREASED GLUCOSE; Start 12/25/18 at 04:00 Glucose (Glutose) 15 gm Q15M PRN BUCCAL DECREASED GLUCOSE; Start 12/25/18 at 04:00 Dextrose/Sodium Chloride 1,000 ml @ 50 mls/hr Q20H IV Last administered on 12/25/18at 04:51; Admin Dose 50 MLS/HR; Start 12/25/18 at 05:00 Dextrose 1,000 ml @ 100 mls/hr Q10H IV ; Start 12/25/18 at 09:00; Status Hold Famotidine (Pepcid) 20 mg Q12 PO ; Start 12/26/18 at 21:00 Potassium Chloride 50 ml @ 50 mls/hr Q1H IVPB Last administered on 12/26/18at 14:13; Admin Dose 50 MLS/HR; Start 12/26/18 at 14:00; Stop 12/26/18 at 16:59 SEBASTIAN DIAZ MD Dec 26, 2018 14:42
--- NOTE | 2018-12-26 15:47 | CONS ---
Assessment/Plan Assessment/Plan Assessment/Plan (Recall) 58 F c/ multiple comorbidities, who is admitted to the [facility] ICU in coma s/p cardiac arrest. s/p cardiac catheterization and stent placement.. s/p targeted temperature therapy On neurologic examination she has some preservation of brainstem and cortical activity On 12/26, noted to have bilateral limb shaking c/f seizure. Prior EEG was without epileptiform activity. Head CT is notable for diffuse loss of bond-white differentiation, which portends a grave prognosis for meaningful neurologic recovery.. P: Repeat EEG Start Dilantin; titrate prn to goal 10-20 Wean sedation as tolerated Other medical management and supportive care per primary Consultation Date/Type/Reason Admit Date/Time Dec 22, 2018 at 01:25 Type of Consult Neurology Reason for Consultation coma s/p cardiac arrest Requesting Provider: AMPARO LEONARD Date/Time of Note DATE: 12/26/18 TIME: 15:46 24 HR Interval Summary Free Text/Dictation Continues acute care Exam/Review of Systems Exam Vitals Vital Signs Date Temp Pulse Resp B/P (MAP) Pulse Ox O2 O2 Flow FiO2 Time Delivery Rate 12/26/18 93 24 100 65 15:00 12/26/18 109/60 Mechanical 14:45 (76) Ventilator 12/26/18 99.0 12:00 Intake and Output 12/25/18 12/25/18 12/26/18 1515:00 23:00 07:00 IntakeIntake Total 890.2378 ml 563.913 ml 471.286 ml OutputOutput Total 560 ml 695 ml 290 ml BalanceBalance 330.2378 ml -131.087 ml 181.286 ml Results Result Diagram: 12/26/18 0438 12/26/18 1150 Results 24hrs Laboratory Tests Test 12/25/18 17:40 12/25/18 19:54 12/25/18 21:32 12/26/18 00:00 Bedside Glucose 74 77 76 Sodium Level 150 H Potassium Level 2.8 *L Chloride Level 110 Carbon Dioxide Level 32 H Anion Gap 8 Blood Urea Nitrogen 35 H Creatinine 0.81 Est Glomerular > 60 Filtrat Rate mL/min Glucose Level 80 Calcium Level 8.5 Test 12/26/18 04:11 12/26/18 04:31 12/26/18 04:38 12/26/18 08:20 Bedside Glucose 99 119 Sodium Level 151 H Potassium Level 2.9 *L Chloride Level 112 H Carbon Dioxide Level 31 Anion Gap 8 Blood Urea Nitrogen 34 H Creatinine 0.77 Est Glomerular > 60 Filtrat Rate mL/min Glucose Level 105 Calcium Level 8.6 Magnesium Level 2.8 H White Blood Count 14.5 H Red Blood Count 3.17 L Hemoglobin 8.9 L Hematocrit 27.7 L Mean Corpuscular 87.4 Volume Mean Corpuscular 28.1 L Hemoglobin Mean Corpuscular 32.1 Hemoglobin Concent Red Cell 13.6 Distribution Width Platelet Count 165 Mean Platelet Volume 11.5 H Immature 0.500 H Granulocytes % Neutrophils % Segmented 63 Neutrophils % (Manual) Band Neutrophils % 15 H (Manual) Lymphocytes % Lymphocytes % 19 (Manual) Monocytes % Monocytes % (Manual) 3 Eosinophils % Basophils % Nucleated Red Blood 0.0 Cells % Immature 0.070 H Granulocytes # Neutrophils # Neutrophils # 9.4 H (Manual) Band Neutrophils # 2.1 H Lymphocytes (Manual) 2.7 Lymphocytes # Monocytes # Monocytes # (Manual) 0.4 Eosinophils # Basophils # Nucleated Red Blood Cells # Platelet Estimate NORMAL Hypochromasia 1+ Anisocytosis 1+ Microcytosis 1+ Spherocytes 1+ Test 12/26/18 11:50 12/26/18 12:29 Sodium Level 152 H Potassium Level 2.8 *L Chloride Level 113 H Carbon Dioxide Level 27 Anion Gap 12 Blood Urea Nitrogen 35 H Creatinine 0.79 Est Glomerular > 60 Filtrat Rate mL/min Glucose Level 162 Calcium Level 8.5 Bedside Glucose 159 Medications Medication Current Medications IV Flush (NS 3 ml) 3 ml PER PROTOCOL IV ; Start 12/22/18 at 02:00 Ondansetron HCl (Zofran Inj) 4 mg Q6H PRN IV NAUSEA/VOMITING; Start 12/22/18 at 02:00 Acetaminophen (Tylenol Tab) 650 mg Q6H PRN PO .PAIN 1-3 OR TEMP; Start 12/22/18 at 02:00 Acetaminophen/ Hydrocodone Bitart ([place] (5/325)) 1 tab Q6H PRN PO .MOD PAIN 4- 6; Start 12/22/18 at 02:00 Morphine Sulfate (morphine) 2 mg Q4H PRN IV .SEVERE PAIN 7-10; Start 12/22/18 at 02:00 Docusate Sodium (Colace) 100 mg Q12H PRN PO .CONSTIPATION; Start 12/22/18 at 02:00 Magnesium Hydroxide (Milk Of Mag) 30 ml DAILY PRN PO .CONSTIPATION; Start 12/22/18 at 02:00 Albuterol/ Ipratropium (Duoneb) 3 ml Q4H RESP THERAPY PRN HHN SHORTNESS OF BREATH; Start 12/22/18 at 02:00 Hydralazine HCl (Apresoline) 10 mg Q6H PRN IV ELEVATED BLOOD PRESSURE; Start 12/22/18 at 02:00 Nitroglycerin (Nitroglycerin (Sl Tab) 0.4 Mg) 1 tab Q5M PRN SL ANGINA; Start 12/22/18 at 02:00 Acetaminophen (Tylenol Supp) 650 mg Q4H PRN [place] TEMP > 37C; Start 12/22/18 at 02:00 Acetaminophen (Tylenol Liquid) 650 mg Q4H PRN PO TEMP > 37C; Start 12/22/18 at 02:00 Meperidine HCl (Demerol) 12.5 mg Q4H PRN IV POST OPERATIVE SHIVERING; Start 12/22/18 at 02:00 Meperidine HCl (Demerol) 25 mg Q4H PRN IV POST OPERATIVE SHIVERING; Start 12/22/18 at 02:00 Eye Lubricant (Akwa Oint) 1 applic Q6 BOTH EYES Last administered on 12/26/18at 12:38; Admin Dose 1 APPLIC; Start 12/22/18 at 06:00 Eye Lubricant (Artificial Tears Oph) 2 drop Q6 BOTH EYES Last administered on 12/26/18 12:38; Admin Dose 2 DROP; Start 12/22/18 at 06:00 Piperacillin Sod/ Tazobactam Sod 100 ml @ 200 mls/hr Q6 IVPB Last administered on 12/26/18 12:32; Admin Dose 200 MLS/HR; Start 12/22/18 at 04:00 Levetiracetam 100 ml @ 400 mls/hr Q12 IVPB Last administered on 12/26/18 08:04; Admin Dose 400 MLS/HR; Start 12/22/18 at 05:30 Lorazepam (Ativan) 1 mg Q1H PRN IV SEIZURES; Start 12/22/18 at 05:00 Vasopressin 60 unit/Dextrose 60 ml @ 1.2 mls/hr Q12H IV Last administered on 12/23/18 00:08; Admin Dose 1.2 MLS/HR; Start 12/22/18 at 09:00 Phenylephrine HCl 80 mg/Dextrose 250 ml @ 18.75 mls/ hr TITRATE IV Last administered on 12/22/18 10:11; Admin Dose 28.13 MLS/HR; Start 12/22/18 at 09:30 Norepinephrine 32 mg/Dextrose 250 ml @ 0.47 mls/hr TITRATE IV Last administered on 12/26/18 06:31; Admin Dose 0.94 MLS/HR; Start 12/22/18 at 09:30 Aspirin (Aspirin) 81 mg DAILY NGT Last administered on 12/26/18 08:08; Admin Dose 81 MG; Start 12/22/18 at 09:30 Ticagrelor (Brilinta) 90 mg BID PO Last administered on 12/26/18 08:06; Admin Dose 90 MG; Start 12/22/18 at 10:30 Dopamine HCl 800 mg/Dextrose 250 ml @ 3.69 mls/hr TITRATE IV Last administered on 12/22/18 23:34; Admin Dose 1.84 MLS/HR; Start 12/22/18 at 23:30 Propofol 100 ml @ 2.949 mls/ hr Q12H IV Last administered on 12/26/18 12:44; Admin Dose 10.027 MLS/HR; Start 12/23/18 at 14:30 Fentanyl 100 ml @ 2.5 mls/hr TITRATE IV Last administered on 12/25/18 05:51; Admin Dose 5 MLS/HR; Start 12/23/18 at 20:30 Atorvastatin Calcium (Lipitor) 80 mg DAILY@21 NGT Last administered on 12/25/18 21:06; Admin Dose 80 MG; Start 12/24/18 at 21:00 Heparin Sodium (Porcine) (Heparin (5000 Units/1ml)) 5,000 unit Q8 SC Last administered on 12/26/18 12:39; Admin Dose 5,000 UNIT; Start 12/24/18 at 14:00 Insulin Aspart (Novolog Insulin Pen) NOVOLOG *MILD* ALGORI... Q4 SC Last administered on 6/14/19at 12:39; Admin Dose 1 UNIT; Start 12/25/18 at 05:00 Miscellaneous Information 1 ea NOTE XX ; Start 12/25/18 at 04:00 Glucose (Glutose) 15 gm Q15M PRN PO DECREASED GLUCOSE; Start 12/25/18 at 04:00 Glucose (Glutose) 22.5 gm Q15M PRN PO DECREASED GLUCOSE; Start 12/25/18 at 04:00 Dextrose (D50w Syringe) 25 ml Q15M PRN IV DECREASED GLUCOSE; Start 12/25/18 at 04:00 Dextrose (D50w Syringe) 50 ml Q15M PRN IV DECREASED GLUCOSE; Start 12/25/18 at 04:00 Glucagon (Glucagen) 1 mg Q15M PRN IM DECREASED GLUCOSE; Start 12/25/18 at 04:00 Glucose (Glutose) 15 gm Q15M PRN BUCCAL DECREASED GLUCOSE; Start 12/25/18 at 04:00 Dextrose/Sodium Chloride 1,000 ml @ 50 mls/hr Q20H IV Last administered on 12/25/18at 04:51; Admin Dose 50 MLS/HR; Start 12/25/18 at 05:00 Dextrose 1,000 ml @ 100 mls/hr Q10H IV ; Start 12/25/18 at 09:00; Status Hold Famotidine (Pepcid) 20 mg Q12 PO ; Start 12/26/18 at 21:00 Potassium Chloride 50 ml @ 50 mls/hr Q1H IVPB Last administered on 12/26/18at 15:26; Admin Dose 50 MLS/HR; Start 12/26/18 at 14:00; Stop 12/26/18 at 16:59 KARL REYES 14, 2019 15:46
[2018-12-26] MEDS: LORAZEPAM 2 MG INJ IV PRN ×2 (17:19→22:14)
[2018-12-26] MEDS: ACETAMINOPHEN 650MG/20.3ML CUP PO PRN ×2 (17:24→23:53)
[2018-12-26] MEDS: FAMOTIDINE 20 MG TAB PO SCH (20:55)
[2018-12-26] MEDS: ATORVASTATIN 80 MG TAB NGT SCH (20:55)
[2018-12-27] VITALS (71 sets, daily range): BP systolic 90–149; BP diastolic 46–90; PULSE 91–120; RESP 11–33
[2018-12-27] MEDS: PROPOFOL 100 ML IV SCH ×2 (00:27→14:30)
[2018-12-27] MEDS: LORAZEPAM 2 MG INJ IV PRN ×2 (01:30→09:02)
[2018-12-27] MEDS: POTASSIUM CHLORIDE 50 ML IVPB SCH (01:45)
[2018-12-27] MEDS: INSULIN ASPART [NOVOLOG] 3 ML PEN SC SCH ×5 (04:24→17:29)
[2018-12-27] MEDS: ARTIFICIAL TEARS 15 ML OPH BOTH EYES SCH ×4 (05:28→23:37)
[2018-12-27] MEDS: HEPARIN 5,000 UNIT/1 ML VIAL SC SCH (05:28)
[2018-12-27] MEDS: PIPER-TAZO 3.375 GM IV (PMX) 100 ML IVPB SCH ×4 (05:29→23:37)
[2018-12-27] MEDS: OCULAR LUBRICANT 3.5 GM OPH OINT BOTH EYES SCH ×4 (05:29→23:37)
[2018-12-27] MEDS: ACETAMINOPHEN 650MG/20.3ML CUP PO PRN ×2 (06:23→12:06)
[2018-12-27] MEDS: VASOPRESSIN 60 UNIT in DEXTROSE 5% 57 ML IV SCH (08:27)
[2018-12-27] MEDS ORDERED: PHENYTOIN 1,500 MG in SOD CHLORIDE 0.9% 150 ML IV STA (09:01)
--- NOTE | 2018-12-27 09:05 | CONS ---
Assessment/Plan Assessment/Plan Assessment/Plan (Recall) 58 F c/ multiple comorbidities, who is admitted to the [facility] ICU in coma s/p cardiac arrest. s/p cardiac catheterization and stent placement.. s/p targeted temperature therapy On neurologic examination she has some preservation of brainstem and cortical activity On 12/26, noted to have bilateral limb shaking c/f seizure. Prior EEG was without epileptiform activity. Head CT is notable for diffuse loss of bond-white differentiation, which portends a grave prognosis for meaningful neurologic recovery.. P: Repeat EEG Start Dilantin; titrate prn to goal 10-20 Wean sedation as tolerated Other medical management and supportive care per primary Consultation Date/Type/Reason Admit Date/Time Dec 22, 2018 at 01:25 Type of Consult Neurology Reason for Consultation coma s/p cardiac arrest Requesting Provider: AMPARO LEONARD Date/Time of Note DATE: 12/27/18 TIME: 09:05 24 HR Interval Summary Free Text/Dictation Continues acute care Exam/Review of Systems Exam Vitals Vital Signs Date Temp Pulse Resp B/P (MAP) Pulse Ox O2 O2 Flow FiO2 Time Delivery Rate 12/27/18 101.4 07:10 12/27/18 103 26 106/53 99 06:00 (70) 12/27/18 55 05:31 12/27/18 Mechan[employer] 05:00 l Ventilato r Intake and Output 12/26/18 12/26/18 12/27/18 1515:00 23:00 07:00 IntakeIntake Total 291.074 ml 802.579 ml 686.052 ml OutputOutput Total 370 ml 785 ml 650 ml BalanceBalance -78.926 ml 17.579 ml 36.052 ml Exam PE: Gen Appearance: No Apparent Distress HEENT: Intubated Cardiovascular: Regular rate Abdomen: Soft Extremities: Dry NE: The patient was comatose. Cranial nerve examination was limited by mental status. Pupils were equal and reactive to light. There was no afferent pupillary defect. Funduscopic examination was limited. Face was grossly symmetric, w/ present corneal and cough reflexes. Tone was normal. Muscle bulk was normal. I did see b/l arm fasciculations. The patient withdrew to noxious stimulation x 4. Coordination and gait testing was limited by mental status. Arm and leg reflexes were within normal limits and symmetric. [place]'s sign was absent. Plantar responses were flexor. Results Result Diagram: 12/27/18 0413 12/27/18 0413 Results 24hrs Laboratory Tests Test 12/26/18 11:50 12/26/18 12:29 12/26/18 17:14 12/26/18 19:52 Sodium Level 152 H 152 H Potassium Level 2.8 *L 3.2 L Chloride Level 113 H 115 H Carbon Dioxide Level 27 29 Anion Gap 12 8 Blood Urea Nitrogen 35 H 35 H Creatinine 0.79 0.92 Est Glomerular > 60 > 60 Filtrat Rate mL/min Glucose Level 162 252 H Calcium Level 8.5 8.3 L Bedside Glucose 159 229 H Test 12/26/18 20:54 12/26/18 23:40 12/27/18 04:13 12/27/18 04:18 Bedside Glucose 263 H 262 H 256 H White Blood Count 9.1 # Red Blood Count 2.85 L Hemoglobin 8.0 L Hematocrit 24.6 L Mean Corpuscular 86.3 Volume Mean Corpuscular 28.1 L Hemoglobin Mean Corpuscular 32.5 Hemoglobin Concent Red Cell 13.8 Distribution Width Platelet Count 201 # Mean Platelet Volume 11.4 H Immature 0.500 H Granulocytes % Neutrophils % 74.4 Lymphocytes % 17.0 Monocytes % 7.9 Eosinophils % 0.1 Basophils % 0.1 Nucleated Red Blood 0.4 H Cells % Immature 0.050 H Granulocytes # Neutrophils # 6.8 Lymphocytes # 1.6 Monocytes # 0.7 Eosinophils # 0.0 Basophils # 0.0 Nucleated Red Blood 0.0 Cells # Sodium Level 154 H Potassium Level 3.5 Chloride Level 119 H Carbon Dioxide Level 32 H Anion Gap 3 L Blood Urea Nitrogen 32 H Creatinine 0.87 Est Glomerular > 60 Filtrat Rate mL/min Glucose Level 295 H Calcium Level 8.4 Medications Medication Current Medications IV Flush (NS 3 ml) 3 ml PER PROTOCOL IV ; Start 12/22/18 at 02:00 Ondansetron HCl (Zofran Inj) 4 mg Q6H PRN IV NAUSEA/VOMITING; Start 12/22/18 at 02:00 Acetaminophen (Tylenol Tab) 650 mg Q6H PRN PO .PAIN 1-3 OR TEMP; Start 12/22/18 at 02:00 Acetaminophen/ Hydrocodone Bitart ([place] (5/325)) 1 tab Q6H PRN PO .MOD PAIN 4- 6; Start 12/22/18 at 02:00 Morphine Sulfate (morphine) 2 mg Q4H PRN IV .SEVERE PAIN 7-10; Start 12/22/18 at 02:00 Docusate Sodium (Colace) 100 mg Q12H PRN PO .CONSTIPATION; Start 12/22/18 at 02:00 Magnesium Hydroxide (Milk Of Mag) 30 ml DAILY PRN PO .CONSTIPATION; Start 12/22/18 at 02:00 Albuterol/ Ipratropium (Duoneb) 3 ml Q4H RESP THERAPY PRN HHN SHORTNESS OF BREATH; Start 12/22/18 at 02:00 Hydralazine HCl (Apresoline) 10 mg Q6H PRN IV ELEVATED BLOOD PRESSURE; Start 12/22/18 at 02:00 Nitroglycerin (Nitroglycerin (Sl Tab) 0.4 Mg) 1 tab Q5M PRN SL ANGINA; Start 12/22/18 at 02:00 Acetaminophen (Tylenol Supp) 650 mg Q4H PRN [place] TEMP > 37C; Start 12/22/18 at 02:00 Acetaminophen (Tylenol Liquid) 650 mg Q4H PRN PO TEMP > 37C Last administered on 12/27/18at 06:23; Admin Dose 650 MG; Start 12/22/18 at 02:00 Meperidine HCl (Demerol) 12.5 mg Q4H PRN IV POST OPERATIVE SHIVERING; Start 12/22/18 at 02:00 Meperidine HCl (Demerol) 25 mg Q4H PRN IV POST OPERATIVE SHIVERING; Start 05/02 at 02:00 Eye Lubricant (Akwa Oint) 1 applic Q6 BOTH EYES Last administered on 12/27/18at 05:29; Admin Dose 1 APPLIC; Start 12/22/18 at 06:00 Eye Lubricant (Artificial Tears Oph) 2 drop Q6 BOTH EYES Last administered on 12/27/18at 05:28; Admin Dose 2 DROP; Start 12/22/18 at 06:00 Piperacillin Sod/ Tazobactam Sod 100 ml @ 200 mls/hr Q6 IVPB Last administered on 12/27/18at 05:29; Admin Dose 200 MLS/HR; Start 12/22/18 at 04:00 Levetiracetam 100 ml @ 400 mls/hr Q12 IVPB Last administered on 12/26/18 20:55; Admin Dose 400 MLS/HR; Start 12/22/18 at 05:30 Lorazepam (Ativan) 1 mg Q1H PRN IV SEIZURES Last administered on 12/27/18 09:02; Admin Dose 1 MG; Start 12/22/18 at 05:00 Vasopressin 60 unit/Dextrose 60 ml @ 1.2 mls/hr Q12H IV Last administered on 12/23/18 00:08; Admin Dose 1.2 MLS/HR; Start 12/22/18 at 09:00 Phenylephrine HCl 80 mg/Dextrose 250 ml @ 18.75 mls/ hr TITRATE IV Last administered on 12/22/18 10:11; Admin Dose 28.13 MLS/HR; Start 12/22/18 at 09:30 Norepinephrine 32 mg/Dextrose 250 ml @ 0.47 mls/hr TITRATE IV Last administered on 12/26/18 06:31; Admin Dose 0.94 MLS/HR; Start 12/22/18 at 09:30 Aspirin (Aspirin) 81 mg DAILY NGT Last administered on 12/26/18 08:08; Admin Dose 81 MG; Start 12/22/18 at 09:30 Ticagrelor (Brilinta) 90 mg BID PO Last administered on 12/26/18 20:57; Admin Dose 90 MG; Start 12/22/18 at 10:30 Dopamine HCl 800 mg/Dextrose 250 ml @ 3.69 mls/hr TITRATE IV Last administered on 12/22/18 23:34; Admin Dose 1.84 MLS/HR; Start 12/22/18 at 23:30 Propofol 100 ml @ 2.949 mls/ hr Q12H IV Last administered on 12/27/18 00:27; Admin Dose 8.847 MLS/HR; Start 12/23/18 at 14:30 Fentanyl 100 ml @ 2.5 mls/hr TITRATE IV Last administered on 12/25/18 05:51; Admin Dose 5 MLS/HR; Start 12/23/18 at 20:30 Atorvastatin Calcium (Lipitor) 80 mg DAILY@21 NGT Last administered on 6/14/19at 20:55; Admin Dose 80 MG; Start 12/24/18 at 21:00 Heparin Sodium (Porcine) (Heparin (5000 Units/1ml)) 5,000 unit Q8 SC Last administered on 12/27/18at 05:28; Admin Dose 5,000 UNIT; Start 12/24/18 at 14:00 Insulin Aspart (Novolog Insulin Pen) NOVOLOG *MILD* ALGORI... Q4 SC Last administered on 12/27/18at 04:24; Admin Dose 3 UNIT; Start 12/25/18 at 05:00 Miscellaneous Information 1 ea NOTE XX ; Start 12/25/18 at 04:00 Glucose (Glutose) 15 gm Q15M PRN PO DECREASED GLUCOSE; Start 12/25/18 at 04:00 Glucose (Glutose) 22.5 gm Q15M PRN PO DECREASED GLUCOSE; Start 12/25/18 at 04:00 Dextrose (D50w Syringe) 25 ml Q15M PRN IV DECREASED GLUCOSE; Start 12/25/18 at 04:00 Dextrose (D50w Syringe) 50 ml Q15M PRN IV DECREASED GLUCOSE; Start 12/25/18 at 04:00 Glucagon (Glucagen) 1 mg Q15M PRN IM DECREASED GLUCOSE; Start 12/25/18 at 04:00 Glucose (Glutose) 15 gm Q15M PRN BUCCAL DECREASED GLUCOSE; Start 12/25/18 at 04:00 Dextrose/Sodium Chloride 1,000 ml @ 50 mls/hr Q20H IV Last administered on 12/25/18at 04:51; Admin Dose 50 MLS/HR; Start 12/25/18 at 05:00 Dextrose 1,000 ml @ 100 mls/hr Q10H IV ; Start 12/25/18 at 09:00; Status Hold Famotidine (Pepcid) 20 mg Q12 PO Last administered on 12/26/18at 20:55; Admin Dose 20 MG; Start 12/26/18 at 21:00 Phenytoin 1500 mg/ Sodium Chloride 180 ml @ 180 mls/hr ONCE STAT IV ; Start 12/27/18 at 09:01; Stop 12/27/18 at 10:00; Status UNV Phenytoin (Dilantin) 100 mg Q8 IV ; Start 12/27/18 at 14:00; Status UNV KARL REYES 15, 2019 09:05
[2018-12-27] MEDS: TICAGRELOR 90 MG TABLET PO SCH ×2 (09:08→21:13)
[2018-12-27] MEDS: ASPIRIN 81 MG TAB NGT SCH (09:08)
[2018-12-27] MEDS: FAMOTIDINE 20 MG TAB PO SCH ×2 (09:08→21:13)
[2018-12-27] MEDS: LEVETIRACETAM 1000 MG (PMX) 100 ML IVPB SCH ×2 (09:09→21:13)
--- NOTE | 2018-12-27 09:31 | CONS ---
Assessment/Plan Assessment/Plan Assessment/Plan (Daily) Card arrest - rewarmed STEMI, culprit OM1 stented, non-culprit severe LAD lesion also stented Ischemic cardiomyopathy Shock, likely with septic component, possible aspiration pneumonia diabetes Acute respiratory failure, on ventilator, with high fio2 requirements Hypernatremia, receiving free water Hypokalemia, replaced Recc: ASA, Brilinta, atorvastatin No PAKO or BB due to shock and hypotension No signs of meaningful neurologic recovery thus far Appreciate pulmonary and neurology input Poor prognosis given prolonged down time off pessors Decreased HCT but will continue brilinta for now due to rcent PCI Consultation Date/Type/Reason Admit Date/Time Dec 22, 2018 at 01:25 Initial Consult Date 12/22/18 Type of Consult Cardiology Requesting Provider: AMPARO LEONARD Date/Time of Note DATE: 12/27/18 TIME: 09:30 24 HR Interval Summary Free Text/Dictation the patient with no change Exam/Review of Systems Vital Signs Vitals Vital Signs Date Temp Pulse Resp B/P (MAP) Pulse Ox O2 O2 Flow FiO2 Time Delivery Rate 12/27/18 101.4 07:10 12/27/18 103 26 106/53 99 06:00 (70) 12/27/18 55 05:31 12/27/18 [employer] 05:00 l Ventilato r Intake and Output 12/26/18 12/26/18 12/27/18 1515:00 23:00 07:00 IntakeIntake Total 291.074 ml 802.579 ml 686.052 ml OutputOutput Total 370 ml 785 ml 650 ml BalanceBalance -78.926 ml 17.579 ml 36.052 ml Labs Result Diagram: 12/27/18 0413 12/27/18 0413 Results 24hrs Laboratory Tests Test 12/26/18 11:50 12/26/18 12:29 12/26/18 17:14 12/26/18 19:52 Sodium Level 152 H 152 H Potassium Level 2.8 *L 3.2 L Chloride Level 113 H 115 H Carbon Dioxide Level 27 29 Anion Gap 12 8 Blood Urea Nitrogen 35 H 35 H Creatinine 0.79 0.92 Est Glomerular > 60 > 60 Filtrat Rate mL/min Glucose Level 162 252 H Calcium Level 8.5 8.3 L Bedside Glucose 159 229 H Test 12/26/18 20:54 12/26/18 23:40 12/27/18 04:13 12/27/18 04:18 Bedside Glucose 263 H 262 H 256 H White Blood Count 9.1 # Red Blood Count 2.85 L Hemoglobin 8.0 L Hematocrit 24.6 L Mean Corpuscular 86.3 Volume Mean Corpuscular 28.1 L Hemoglobin Mean Corpuscular 32.5 Hemoglobin Concent Red Cell 13.8 Distribution Width Platelet Count 201 # Mean Platelet Volume 11.4 H Immature 0.500 H Granulocytes % Neutrophils % 74.4 Lymphocytes % 17.0 Monocytes % 7.9 Eosinophils % 0.1 Basophils % 0.1 Nucleated Red Blood 0.4 H Cells % Immature 0.050 H Granulocytes # Neutrophils # 6.8 Lymphocytes # 1.6 Monocytes # 0.7 Eosinophils # 0.0 Basophils # 0.0 Nucleated Red Blood 0.0 Cells # Sodium Level 154 H Potassium Level 3.5 Chloride Level 119 H Carbon Dioxide Level 32 H Anion Gap 3 L Blood Urea Nitrogen 32 H Creatinine 0.87 Est Glomerular > 60 Filtrat Rate mL/min Glucose Level 295 H Calcium Level 8.4 Test 12/27/18 08:58 Bedside Glucose 290 H Medications Medications Current Medications IV Flush (NS 3 ml) 3 ml PER PROTOCOL IV ; Start 12/22/18 at 02:00 Ondansetron HCl (Zofran Inj) 4 mg Q6H PRN IV NAUSEA/VOMITING; Start 12/22/18 at 02:00 Acetaminophen (Tylenol Tab) 650 mg Q6H PRN PO .PAIN 1-3 OR TEMP; Start 12/22/18 at 02:00 Acetaminophen/ Hydrocodone Bitart ([place] (5/325)) 1 tab Q6H PRN PO .MOD PAIN 4- 6; Start 12/22/18 at 02:00 Morphine Sulfate (morphine) 2 mg Q4H PRN IV .SEVERE PAIN 7-10; Start 12/22/18 at 02:00 Docusate Sodium (Colace) 100 mg Q12H PRN PO .CONSTIPATION; Start 12/22/18 at 02:00 Magnesium Hydroxide (Milk Of Mag) 30 ml DAILY PRN PO .CONSTIPATION; Start 12/22/18 at 02:00 Albuterol/ Ipratropium (Duoneb) 3 ml Q4H RESP THERAPY PRN HHN SHORTNESS OF BREATH; Start 12/22/18 at 02:00 Hydralazine HCl (Apresoline) 10 mg Q6H PRN IV ELEVATED BLOOD PRESSURE; Start 12/22/18 at 02:00 Nitroglycerin (Nitroglycerin (Sl Tab) 0.4 Mg) 1 tab Q5M PRN SL ANGINA; Start 12/22/18 at 02:00 Acetaminophen (Tylenol Supp) 650 mg Q4H PRN [place] TEMP > 37C; Start 12/22/18 at 02:00 Acetaminophen (Tylenol Liquid) 650 mg Q4H PRN PO TEMP > 37C Last administered on 12/27/18 06:23; Admin Dose 650 MG; Start 12/22/18 at 02:00 Meperidine HCl (Demerol) 12.5 mg Q4H PRN IV POST OPERATIVE SHIVERING; Start 12/22/18 at 02:00 Meperidine HCl (Demerol) 25 mg Q4H PRN IV POST OPERATIVE SHIVERING; Start 12/22/18 at 02:00 Eye Lubricant (Akwa Oint) 1 applic Q6 BOTH EYES Last administered on 12/27/18at 05:29; Admin Dose 1 APPLIC; Start 12/22/18 at 06:00 Eye Lubricant (Artificial Tears Oph) 2 drop Q6 BOTH EYES Last administered on 12/27/18at 05:28; Admin Dose 2 DROP; Start 12/22/18 at 06:00 Piperacillin Sod/ Tazobactam Sod 100 ml @ 200 mls/hr Q6 IVPB Last administered on 12/27/18 05:29; Admin Dose 200 MLS/HR; Start 12/22/18 at 04:00 Levetiracetam 100 ml @ 400 mls/hr Q12 IVPB Last administered on 12/27/18 09: 09; Admin Dose 400 MLS/HR; Start 12/22/18 at 05:30 Lorazepam (Ativan) 1 mg Q1H PRN IV SEIZURES Last administered on 12/27/18at 09:02; Admin Dose 1 MG; Start 12/22/18 at 05:00 Vasopressin 60 unit/Dextrose 60 ml @ 1.2 mls/hr Q12H IV Last administered on 12/23/18at 00:08; Admin Dose 1.2 MLS/HR; Start 12/22/18 at 09:00 Phenylephrine HCl 80 mg/Dextrose 250 ml @ 18.75 mls/ hr TITRATE IV Last administered on 12/22/18 10:11; Admin Dose 28.13 MLS/HR; Start 12/22/18 at 09:30 Norepinephrine 32 mg/Dextrose 250 ml @ 0.47 mls/hr TITRATE IV Last administered on 12/26/18 06:31; Admin Dose 0.94 MLS/HR; Start 12/22/18 at 09:30 Aspirin (Aspirin) 81 mg DAILY NGT Last administered on 12/27/18 09:08; Admin Dose 81 MG; Start 12/22/18 at 09:30 Ticagrelor (Brilinta) 90 mg BID PO Last administered on 12/27/18 09:08; Admin Dose 90 MG; Start 12/22/18 at 10:30 Dopamine HCl 800 mg/Dextrose 250 ml @ 3.69 mls/hr TITRATE IV Last administered on 12/22/18 23:34; Admin Dose 1.84 MLS/HR; Start 12/22/18 at 23:30 Propofol 100 ml @ 2.949 mls/ hr Q12H IV Last administered on 12/27/18 00:27; Admin Dose 8.847 MLS/HR; Start 12/23/18 at 14:30 Fentanyl 100 ml @ 2.5 mls/hr TITRATE IV Last administered on 12/25/18 05:51; Admin Dose 5 MLS/HR; Start 12/23/18 at 20:30 Atorvastatin Calcium (Lipitor) 80 mg DAILY@21 NGT Last administered on 12/26/18at 20:55; Admin Dose 80 MG; Start 12/24/18 at 21:00 Heparin Sodium (Porcine) (Heparin (5000 Units/1ml)) 5,000 unit Q8 SC Last administered on 12/27/18 05:28; Admin Dose 5,000 UNIT; Start 12/24/18 at 14:00 Insulin Aspart (Novolog Insulin Pen) NOVOLOG *MILD* ALGORI... Q4 SC Last administered on 12/27/18 09:06; Admin Dose 4 UNIT; Start 12/25/18 at 05:00 Miscellaneous Information 1 ea NOTE XX ; Start 12/25/18 at 04:00 Glucose (Glutose) 15 gm Q15M PRN PO DECREASED GLUCOSE; Start 12/25/18 at 04:00 Glucose (Glutose) 22.5 gm Q15M PRN PO DECREASED GLUCOSE; Start 12/25/18 at 04:00 Dextrose (D50w Syringe) 25 ml Q15M PRN IV DECREASED GLUCOSE; Start 12/25/18 at 04:00 Dextrose (D50w Syringe) 50 ml Q15M PRN IV DECREASED GLUCOSE; Start 12/25/18 at 04:00 Glucagon (Glucagen) 1 mg Q15M PRN IM DECREASED GLUCOSE; Start 12/25/18 at 04:00 Glucose (Glutose) 15 gm Q15M PRN BUCCAL DECREASED GLUCOSE; Start 12/25/18 at 04:00 Dextrose/Sodium Chloride 1,000 ml @ 50 mls/hr Q20H IV Last administered on 12/25/18at 04:51; Admin Dose 50 MLS/HR; Start 12/25/18 at 05:00 Dextrose 1,000 ml @ 100 mls/hr Q10H IV ; Start 12/25/18 at 09:00; Status Hold Famotidine (Pepcid) 20 mg Q12 PO Last administered on 12/27/18at 09:08; Admin Dose 20 MG; Start 12/26/18 at 21:00 Phenytoin 1500 mg/ Sodium Chloride 180 ml @ 180 mls/hr ONCE STAT IV ; Start 12/27/18 at 09:01; Stop 12/27/18 at 10:00 Phenytoin (Dilantin) 100 mg Q8 IV ; Start 12/27/18 at 14:00 JOANNA WELLER MD Dec 27, 2018 09:31
[2018-12-27] MEDS ORDERED: POTASSIUM CHLORIDE 20 MEQ POWDER FOR ORAL SOLN PO ONE (10:00)
--- NOTE | 2018-12-27 10:17 | PN ---
Date/Time of Note Date/Time of Note DATE: 12/27/18 TIME: 10:05 Assessment/Plan VTE Prophylaxis Risk score (from Nsg)>0 risk: 10 SCD applied (from Ns): Yes Pharmacological prophylaxis: NA/contraindicated Pharm contraindication: bleeding Lines/Catheters IV Catheter Type (from Nrsg): A Line Urinary Cath still in place: Yes Reason Cath still needed: other (indicate) (intubated) Assessment/Plan Assessment/Plan 58-year-old obese woman past medical of hypertension, high cholesterol, anxiety, diabetes, who was brought in by EMS after suffering cardiac arrest and had ROSC, with ST elevation NE lactic acidosis, status post PCI of the OM1 (culprit lesion) is as well as stenting of the mid LAD, intubated and unresponsive, on insulin drip and hypothermia protocol. #Neuro - More than 30 minutes down time before ROSC achieved, poor overall neuro prognosis - s/p hypothermia protocol - EEG 12/25 with mild diffuse slowing. - CT head 12/26 diffuse cerebral edema - On 12/27 AM patient developed tremors in hands concerning for seizure activity. Already on propofol and keppra, started dilantin. - Will repeat EEG - Dr Dorsey following #Cardiac - Cardiac arrest, prolonged downtime, s/p hypothermia - Low BP via arterial line, off pressors this AM. - s/p PCI - Continue ASA, brilinta - Also statin - Dr. Ham following #Pulmonary - Diffuse pulmonary infiltrates on CXR likely from cardiogenic shock with L sided heart failure - Earlier this week on 100% FiO2 and high PEEP, now titrated down to 55% FiO2; improving oxygenation - Was on spot diuresis; stopped due to hypernatremia and hypotension - Empiric antibiotics as below. - Dr. Vasquez following #Renal - Hypernatremia to mid 150s, slowly rising - Will allow permissive hypernatremia due to cerebral edema - Free water flushes via NG tube. Increased to 200 q4h today. - Otherwise renal function good, good urine output. #GI - started tube feeds - Bloody NGt output this morning on dual antiplatelet and heparin. - Will hold heparin - H2 zoraida #Endocrine - Blood sugars rising since tube feeds started - continue q4h sliding scale insulin, also added qhs glargine. #ID - Continue empiric zosyn - Cultures negative #DVT - red-tinged NGt output, holding heparin, SCDs only. 39 minutes critical care time spent on this patient. Result Diagram: 12/27/18 0413 12/27/18 0413 Subjective 24 Hr Interval Summary Free Text/Dictation Oxygen requirements decreased. Patient having new fine tremors of both hands concerning for seizure activity (while on keppra and high dose propofol) Family at bedside, updated. Exam/Review of Systems Exam Vitals Vital Signs Date Temp Pulse Resp B/P (MAP) Pulse Ox O2 O2 Flow FiO2 Time Delivery Rate 12/27/18 101.4 07:10 12/27/18 103 26 106/53 99 06:00 (70) 12/27/18 55 05:31 12/27/18 Mechanica 05:00 l Ventilato r Intake and Output 12/26/18 12/26/18 12/27/18 1515:00 23:00 07:00 IntakeIntake Total 291.074 ml 802.579 ml 686.052 ml OutputOutput Total 370 ml 785 ml 650 ml BalanceBalance -78.926 ml 17.579 ml 36.052 ml Exam Gen: Obese woman lying in bed, intubated HEENT: Atraumatic. Moist mucous membranes. ET tube in place. Eyes: Normal pupils, nonreactive. Some conjunctival edema. No upward gaze or other seizure-like activity. Neck: Supple, no lymphadenopathy. Resp: Mechanical breath sounds bilaterally. Cardio: S1, S2 heard. No obvious murmurs. Abd: Soft, nondistended, normal bowel sounds, non tender. Ext: No lower extremity edema bilaterally : Cr[place] in place with copious clear yellow urine. NEURO: Fine high frequency tremors of both upper arms not associated with gaze deviation or other seizure-like activity. This is while on propofol 15, keppra. Results Results 24hrs Laboratory Tests Test 12/26/18 11:50 12/26/18 12:29 12/26/18 17:14 12/26/18 19:52 Sodium Level 152 H 152 H Potassium Level 2.8 *L 3.2 L Chloride Level 113 H 115 H Carbon Dioxide Level 27 29 Anion Gap 12 8 Blood Urea Nitrogen 35 H 35 H Creatinine 0.79 0.92 Est Glomerular > 60 > 60 Filtrat Rate mL/min Glucose Level 162 252 H Calcium Level 8.5 8.3 L Bedside Glucose 159 229 H Test 12/26/18 20:54 12/26/18 23:40 12/27/18 04:13 12/27/18 04:18 Bedside Glucose 263 H 262 H 256 H White Blood Count 9.1 # Red Blood Count 2.85 L Hemoglobin 8.0 L Hematocrit 24.6 L Mean Corpuscular 86.3 Volume Mean Corpuscular 28.1 L Hemoglobin Mean Corpuscular 32.5 Hemoglobin Concent Red Cell 13.8 Distribution Width Platelet Count 201 # Mean Platelet Volume 11.4 H Immature 0.500 H Granulocytes % Neutrophils % 74.4 Lymphocytes % 17.0 Monocytes % 7.9 Eosinophils % 0.1 Basophils % 0.1 Nucleated Red Blood 0.4 H Cells % Immature 0.050 H Granulocytes # Neutrophils # 6.8 Lymphocytes # 1.6 Monocytes # 0.7 Eosinophils # 0.0 Basophils # 0.0 Nucleated Red Blood 0.0 Cells # Sodium Level 154 H Potassium Level 3.5 Chloride Level 119 H Carbon Dioxide Level 32 H Anion Gap 3 L Blood Urea Nitrogen 32 H Creatinine 0.87 Est Glomerular > 60 Filtrat Rate mL/min Glucose Level 295 H Calcium Level 8.4 Test 12/27/18 08:58 Bedside Glucose 290 H Medications Medication Current Medications IV Flush (NS 3 ml) 3 ml PER PROTOCOL IV ; Start 12/22/18 at 02:00 Ondansetron HCl (Zofran Inj) 4 mg Q6H PRN IV NAUSEA/VOMITING; Start 12/22/18 at 02:00 Acetaminophen (Tylenol Tab) 650 mg Q6H PRN PO .PAIN 1-3 OR TEMP; Start 12/22/18 at 02:00 Acetaminophen/ Hydrocodone Bitart ([place] (5/325)) 1 tab Q6H PRN PO .MOD PAIN 4- 6; Start 12/22/18 at 02:00 Morphine Sulfate (morphine) 2 mg Q4H PRN IV .SEVERE PAIN 7-10; Start 12/22/18 at 02:00 Docusate Sodium (Colace) 100 mg Q12H PRN PO .CONSTIPATION; Start 12/22/18 at 02:00 Magnesium Hydroxide (Milk Of Mag) 30 ml DAILY PRN PO .CONSTIPATION; Start 12/22/18 at 02:00 Albuterol/ Ipratropium (Duoneb) 3 ml Q4H RESP THERAPY PRN HHN SHORTNESS OF BREATH; Start 12/22/18 at 02:00 Hydralazine HCl (Apresoline) 10 mg Q6H PRN IV ELEVATED BLOOD PRESSURE; Start 12/22/18 at 02:00 Nitroglycerin (Nitroglycerin (Sl Tab) 0.4 Mg) 1 tab Q5M PRN SL ANGINA; Start 12/22/18 at 02:00 Acetaminophen (Tylenol Supp) 650 mg Q4H PRN [place] TEMP > 37C; Start 12/22/18 at 02:00 Acetaminophen (Tylenol Liquid) 650 mg Q4H PRN PO TEMP > 37C Last administered on 12/27/18at 06:23; Admin Dose 650 MG; Start 12/22/18 at 02:00 Meperidine HCl (Demerol) 12.5 mg Q4H PRN IV POST OPERATIVE SHIVERING; Start 12/22/18 at 02:00 Meperidine HCl (Demerol) 25 mg Q4H PRN IV POST OPERATIVE SHIVERING; Start 12/22/18 at 02:00 Eye Lubricant (Akwa Oint) 1 applic Q6 BOTH EYES Last administered on 12/27/18at 05:29; Admin Dose 1 APPLIC; Start 12/22/18 at 06:00 Eye Lubricant (Artificial Tears Oph) 2 drop Q6 BOTH EYES Last administered on 12/27/18at 05:28; Admin Dose 2 DROP; Start 12/22/18 at 06:00 Piperacillin Sod/ Tazobactam Sod 100 ml @ 200 mls/hr Q6 IVPB Last administered on 12/27/18 05:29; Admin Dose 200 MLS/HR; Start 12/22/18 at 04:00 Levetiracetam 100 ml @ 400 mls/hr Q12 IVPB Last administered on 12/27/18 09:09; Admin Dose 400 MLS/HR; Start 12/22/18 at 05:30 Lorazepam (Ativan) 1 mg Q1H PRN IV SEIZURES Last administered on 12/27/18at 09:02; Admin Dose 1 MG; Start 12/22/18 at 05:00 Vasopressin 60 unit/Dextrose 60 ml @ 1.2 mls/hr Q12H IV Last administered on 12/23/18at 00:08; Admin Dose 1.2 MLS/HR; Start 12/22/18 at 09:00 Phenylephrine HCl 80 mg/Dextrose 250 ml @ 18.75 mls/ hr TITRATE IV Last administered on 12/22/18 10:11; Admin Dose 28.13 MLS/HR; Start 12/22/18 at 09:30 Norepinephrine 32 mg/Dextrose 250 ml @ 0.47 mls/hr TITRATE IV Last administered on 12/26/18 06:31; Admin Dose 0.94 MLS/HR; Start 12/22/18 at 09:30 Aspirin (Aspirin) 81 mg DAILY NGT Last administered on 12/27/18 09:08; Admin Dose 81 MG; Start 12/22/18 at 09:30 Ticagrelor (Brilinta) 90 mg BID PO Last administered on 12/27/18 09:08; Admin Dose 90 MG; Start 12/22/18 at 10:30 Dopamine HCl 800 mg/Dextrose 250 ml @ 3.69 mls/hr TITRATE IV Last administered on 12/22/18 23:34; Admin Dose 1.84 MLS/HR; Start 12/22/18 at 23:30 Propofol 100 ml @ 2.949 mls/ hr Q12H IV Last administered on 12/27/18 00:27; Admin Dose 8.847 MLS/HR; Start 12/23/18 at 14:30 Fentanyl 100 ml @ 2.5 mls/hr TITRATE IV Last administered on 12/25/18 05:51; Admin Dose 5 MLS/HR; Start 12/23/18 at 20:30 Atorvastatin Calcium (Lipitor) 80 mg DAILY@21 NGT Last administered on 12/26/18at 20:55; Admin Dose 80 MG; Start 12/24/18 at 21:00 Insulin Aspart (Novolog Insulin Pen) NOVOLOG *MILD* ALGORI... Q4 SC Last administered on 12/27/18 09:06; Admin Dose 4 UNIT; Start 12/25/18 at 05:00 Miscellaneous Information 1 ea NOTE XX ; Start 12/25/18 at 04:00 Glucose (Glutose) 15 gm Q15M PRN PO DECREASED GLUCOSE; Start 12/25/18 at 04:00 Glucose (Glutose) 22.5 gm Q15M PRN PO DECREASED GLUCOSE; Start 12/25/18 at 04:00 Dextrose (D50w Syringe) 25 ml Q15M PRN IV DECREASED GLUCOSE; Start 12/25/18 at 04:00 Dextrose (D50w Syringe) 50 ml Q15M PRN IV DECREASED GLUCOSE; Start 12/25/18 at 04:00 Glucagon (Glucagen) 1 mg Q15M PRN IM DECREASED GLUCOSE; Start 12/25/18 at 04:00 Glucose (Glutose) 15 gm Q15M PRN BUCCAL DECREASED GLUCOSE; Start 12/25/18 at 04:00 Dextrose 1,000 ml @ 100 mls/hr Q10H IV ; Start 12/25/18 at 09:00; Status Hold Famotidine (Pepcid) 20 mg Q12 PO Last administered on 12/27/18at 09:08; Admin Dose 20 MG; Start 12/26/18 at 21:00 Phenytoin (Dilantin) 100 mg Q8 IV ; Start 12/27/18 at 14:00 Insulin Glargine (Lantus) 10 units DAILY@2000 SC ; Start 12/27/18 at 20:00 SEBASTIAN DIAZ MD Dec 27, 2018 10:16
--- NOTE | 2018-12-27 13:24 | CONS ---
Consult Date/Type/Reason Admit Date/Time Dec 22, 2018 at 01:25 Initial Consult Date 12/22/18 Type of Consultation: Pulm/CCM Requesting Provider: AMPARO LEONARD Date/Time of Note DATE: 12/27/18 TIME: 13:20 Subjective Unresponsive on the ventilator. Objective Vitals Vital Signs Date Temp Pulse Resp B/P (MAP) Pulse Ox O2 O2 Flow FiO2 Time Delivery Rate 12/27/18 98.8 13:08 12/27/18 107 22 97 45 11:20 12/27/18 108/62 Mechanical 11:00 (77) Ventilator Intake and Output 12/26/18 12/26/18 12/27/18 1515:00 23:00 07:00 IntakeIntake Total 291.074 ml 802.579 ml 694.952 ml OutputOutput Total 370 ml 785 ml 650 ml BalanceBalance -78.926 ml 17.579 ml 44.952 ml Exam HEENT: Neck supple; no JVD; no LAD; + ET tube CVS: RRR, S1 and S2 CHEST: Coarse BS b/l ABD: Soft, NT, + BS EXT: No c/c; + edema NEURO: Unresponsive Results/Medications Result Diagram: 12/27/18 0413 12/27/18 0413 Results 24 hrs Laboratory Tests Test 12/26/18 17:14 12/26/18 19:52 12/26/18 20:54 12/26/18 23:40 Bedside Glucose 229 H 263 H 262 H Sodium Level 152 H Potassium Level 3.2 L Chloride Level 115 H Carbon Dioxide Level 29 Anion Gap 8 Blood Urea Nitrogen 35 H Creatinine 0.92 Est Glomerular > 60 Filtrat Rate mL/min Glucose Level 252 H Calcium Level 8.3 L Test 12/27/18 04:13 12/27/18 04:18 12/27/18 08:58 12/27/18 12:24 White Blood Count 9.1 # Red Blood Count 2.85 L Hemoglobin 8.0 L Hematocrit 24.6 L Mean Corpuscular 86.3 Volume Mean Corpuscular 28.1 L Hemoglobin Mean Corpuscular 32.5 Hemoglobin Concent Red Cell 13.8 Distribution Width Platelet Count 201 # Mean Platelet Volume 11.4 H Immature 0.500 H Granulocytes % Neutrophils % 74.4 Lymphocytes % 17.0 Monocytes % 7.9 Eosinophils % 0.1 Basophils % 0.1 Nucleated Red Blood 0.4 H Cells % Immature 0.050 H Granulocytes # Neutrophils # 6.8 Lymphocytes # 1.6 Monocytes # 0.7 Eosinophils # 0.0 Basophils # 0.0 Nucleated Red Blood 0.0 Cells # Sodium Level 154 H Potassium Level 3.5 Chloride Level 119 H Carbon Dioxide Level 32 H Anion Gap 3 L Blood Urea Nitrogen 32 H Creatinine 0.87 Est Glomerular > 60 Filtrat Rate mL/min Glucose Level 295 H Calcium Level 8.4 Bedside Glucose 256 H 290 H Phenytoin (Dilantin) 17.6 Level Test 12/27/18 12:52 Bedside Glucose 316 H Home Meds Reported Medications Benazepril Hcl* (Benazepril Hcl*) Unknown Strength Tablet, PO DAILY, #60 TAB 08/21/17 Insulin Glargine* (Lantus*) 100 Unit/Ml Soln, 60 UNIT SC QHS, #1 VIAL 08/21/17 Insulin Glargine* (Lantus*) 100 Unit/Ml Soln, 40 UNIT SC QAM, #1 VIAL 08/21/17 Metformin Hcl* (Metformin Hcl*) 1,000 Mg Tablet, 1000 MG PO WITH BREAKFAST DINNE, #30 TAB 08/21/17 Medications Current Medications IV Flush (NS 3 ml) 3 ml PER PROTOCOL IV ; Start 12/22/18 at 02:00 Ondansetron HCl (Zofran Inj) 4 mg Q6H PRN IV NAUSEA/VOMITING; Start 12/22/18 at 02:00 Acetaminophen (Tylenol Tab) 650 mg Q6H PRN PO .PAIN 1-3 OR TEMP; Start 12/22/18 at 02:00 Acetaminophen/ Hydrocodone Bitart ([place] (5/325)) 1 tab Q6H PRN PO .MOD PAIN 4- 6; Start 12/22/18 at 02:00 Morphine Sulfate (morphine) 2 mg Q4H PRN IV .SEVERE PAIN 7-10; Start 12/22/18 at 02:00 Docusate Sodium (Colace) 100 mg Q12H PRN PO .CONSTIPATION; Start 12/22/18 at 02:00 Magnesium Hydroxide (Milk Of Mag) 30 ml DAILY PRN PO .CONSTIPATION; Start 12/22/18 at 02:00 Albuterol/ Ipratropium (Duoneb) 3 ml Q4H RESP THERAPY PRN HHN SHORTNESS OF BREATH; Start 12/22/18 at 02:00 Hydralazine HCl (Apresoline) 10 mg Q6H PRN IV ELEVATED BLOOD PRESSURE; Start 12/22/18 at 02:00 Nitroglycerin (Nitroglycerin (Sl Tab) 0.4 Mg) 1 tab Q5M PRN SL ANGINA; Start 12/22/18 at 02:00 Acetaminophen (Tylenol Supp) 650 mg Q4H PRN [place] TEMP > 37C; Start 12/22/18 at 02:00 Acetaminophen (Tylenol Liquid) 650 mg Q4H PRN PO TEMP > 37C Last administered on 12/27/18 12:06; Admin Dose 650 MG; Start 12/22/18 at 02:00 Meperidine HCl (Demerol) 12.5 mg Q4H PRN IV POST OPERATIVE SHIVERING; Start 12/22/18 at 02:00 Meperidine HCl (Demerol) 25 mg Q4H PRN IV POST OPERATIVE SHIVERING; Start 12/22/18 at 02:00 Eye Lubricant (Akwa Oint) 1 applic Q6 BOTH EYES Last administered on 12/27/18 11:22; Admin Dose 1 APPLIC; Start 12/22/18 at 06:00 Eye Lubricant (Artificial Tears Oph) 2 drop Q6 BOTH EYES Last administered on 12/27/18 11:22; Admin Dose 2 DROP; Start 12/22/18 at 06:00 Piperacillin Sod/ Tazobactam Sod 100 ml @ 200 mls/hr Q6 IVPB Last administered on 12/27/18 12:05; Admin Dose 200 MLS/HR; Start 12/22/18 at 04:00 Levetiracetam 100 ml @ 400 mls/hr Q12 IVPB Last administered on 12/27/18 09:09; Admin Dose 400 MLS/HR; Start 12/22/18 at 05:30 Lorazepam (Ativan) 1 mg Q1H PRN IV SEIZURES Last administered on 12/27/18 09:02; Admin Dose 1 MG; Start 12/22/18 at 05:00 Vasopressin 60 unit/Dextrose 60 ml @ 1.2 mls/hr Q12H IV Last administered on 6/11/19at 00:08; Admin Dose 1.2 MLS/HR; Start 12/22/18 at 09:00 Phenylephrine HCl 80 mg/Dextrose 250 ml @ 18.75 mls/ hr TITRATE IV Last administered on 12/22/18 10:11; Admin Dose 28.13 MLS/HR; Start 12/22/18 at 09:30 Norepinephrine 32 mg/Dextrose 250 ml @ 0.47 mls/hr TITRATE IV Last administered on 12/26/18 06:31; Admin Dose 0.94 MLS/HR; Start 12/22/18 at 09:30 Aspirin (Aspirin) 81 mg DAILY NGT Last administered on 12/27/18 09:08; Admin Dose 81 MG; Start 12/22/18 at 09:30 Ticagrelor (Brilinta) 90 mg BID PO Last administered on 12/27/18 09:08; Admin Dose 90 MG; Start 12/22/18 at 10:30 Dopamine HCl 800 mg/Dextrose 250 ml @ 3.69 mls/hr TITRATE IV Last administered on 12/22/18 23:34; Admin Dose 1.84 MLS/HR; Start 12/22/18 at 23:30 Propofol 100 ml @ 2.949 mls/ hr Q12H IV Last administered on 12/27/18 00:27; Admin Dose 8.847 MLS/HR; Start 12/23/18 at 14:30 Fentanyl 100 ml @ 2.5 mls/hr TITRATE IV Last administered on 12/25/18at 05:51; Admin Dose 5 MLS/HR; Start 12/23/18 at 20:30 Atorvastatin Calcium (Lipitor) 80 mg DAILY@21 NGT Last administered on 12/26/18at 20:55; Admin Dose 80 MG; Start 12/24/18 at 21:00 Miscellaneous Information 1 ea NOTE XX ; Start 12/25/18 at 04:00 Glucose (Glutose) 15 gm Q15M PRN PO DECREASED GLUCOSE; Start 12/25/18 at 04:00 Glucose (Glutose) 22.5 gm Q15M PRN PO DECREASED GLUCOSE; Start 12/25/18 at 04:00 Dextrose (D50w Syringe) 25 ml Q15M PRN IV DECREASED GLUCOSE; Start 12/25/18 at 04:00 Dextrose (D50w Syringe) 50 ml Q15M PRN IV DECREASED GLUCOSE; Start 12/25/18 at 04:00 Glucagon (Glucagen) 1 mg Q15M PRN IM DECREASED GLUCOSE; Start 12/25/18 at 04:00 Glucose (Glutose) 15 gm Q15M PRN BUCCAL DECREASED GLUCOSE; Start 12/25/18 at 04:00 Dextrose 1,000 ml @ 100 mls/hr Q10H IV ; Start 12/25/18 at 09:00; Status Hold Famotidine (Pepcid) 20 mg Q12 PO Last administered on 12/27/18at 09:08; Admin Dose 20 MG; Start 12/26/18 at 21:00 Phenytoin (Dilantin) 100 mg Q8 IV ; Start 12/27/18 at 14:00 Insulin Glargine (Lantus) 10 units DAILY@2000 SC ; Start 12/27/18 at 20:00 Insulin Aspart (Novolog Insulin Pen) NOVOLOG *MODERATE* ALGORI... Q4 SC ; Start 12/27/18 at 17:00 Assessment/Plan Assessment/Plan (Daily) IMP: 1. s/p Cardiac arrest 2. STEMI--s/p PCI 3. Severe Anoxic Encephalopathy 4. Shock 5. VDRF 6. Ischemic CMY 7. Hypernatremia RECS: 1. Ventilatory support 2. Await repeat EEG 3. I spoke extensively with family regarding neurologic prognosis. 4. Increase free H20 5. Follow H/H 35 min cc time DENISHA ELMORE MD Dec 27, 2018 13:24
[2018-12-27] MEDS: PHENYTOIN 100 MG INJ IV SCH ×2 (14:12→21:12)
[2018-12-27] MEDS: INSULIN HUMAN REGULAR 100 UNIT in SOD CHLORIDE 0.9% 99 ML IV SCH (18:43)
[2018-12-27] MEDS: ACCU-CHEK XX SCH ×6 (18:44→23:38)
[2018-12-27] MEDS ORDERED: INSULIN GLARGINE [LANTus] (100 UNITS/ML) SYG SC SCH (20:00)
[2018-12-27] MEDS: ATORVASTATIN 80 MG TAB NGT SCH (21:12)
[2018-12-28] VITALS (35 sets, daily range): BP systolic 109–157; BP diastolic 57–77; PULSE 97–112; RESP 18–39
[2018-12-28] MEDS ORDERED: SOD CHLORIDE 0.9% 1,000 ML IV ONE
[2018-12-28] MEDS: ACCU-CHEK XX SCH ×22 (01:00→21:39)
[2018-12-28] MEDS: PROPOFOL 100 ML IV SCH ×2 (02:30→14:20)
[2018-12-28] MEDS: ACETAMINOPHEN 650MG/20.3ML CUP PO PRN ×3 (03:40→17:54)
[2018-12-28] MEDS: PHENYTOIN 100 MG INJ IV SCH ×3 (05:25→21:39)
[2018-12-28] MEDS: ARTIFICIAL TEARS 15 ML OPH BOTH EYES SCH ×4 (05:25→23:41)
[2018-12-28] MEDS: OCULAR LUBRICANT 3.5 GM OPH OINT BOTH EYES SCH ×4 (05:26→23:41)
[2018-12-28] MEDS: PIPER-TAZO 3.375 GM IV (PMX) 100 ML IVPB SCH ×4 (05:26→23:41)
[2018-12-28] MEDS: ASPIRIN 81 MG TAB NGT SCH (08:07)
[2018-12-28] MEDS: FAMOTIDINE 20 MG TAB PO SCH ×2 (08:07→20:11)
[2018-12-28] MEDS: LEVETIRACETAM 1000 MG (PMX) 100 ML IVPB SCH ×2 (08:07→20:11)
[2018-12-28] MEDS: TICAGRELOR 90 MG TABLET PO SCH ×2 (08:26→20:12)
--- NOTE | 2018-12-28 09:04 | PN ---
Date/Time of Note Date/Time of Note DATE: 12/28/18 TIME: 08:56 Assessment/Plan VTE Prophylaxis Risk score (from Ns)>0 risk: 10 SCD applied (from Ns): Yes Pharmacological prophylaxis: NA/contraindicated Pharm contraindication: bleeding Lines/Catheters IV Catheter Type (from Nrsg): Central Line Central line still needed: Yes Urinary Cath still in place: Yes Reason Cath still needed: other (indicate) (intubated) Assessment/Plan Assessment/Plan 58-year-old obese woman past medical of hypertension, high cholesterol, anxiety, diabetes, who was brought in by EMS after suffering cardiac arrest and had ROSC, with ST elevation TX lactic acidosis, status post PCI of the OM1 (culprit lesion) is as well as stenting of the mid LAD, intubated and unresponsive, on insulin drip. #Neuro - More than 30 minutes down time before ROSC achieved, poor overall neuro prognosis - s/p hypothermia protocol - EEG 12/25 with mild diffuse slowing. - CT head 12/26 diffuse cerebral edema - On 12/27 AM patient developed tremors in hands concerning for seizure activity. Already on propofol and keppra, started dilantin. - Repeated EEG 12/27, pending neurologist read. - Dr Dorsey following #Cardiac - Cardiac arrest, prolonged downtime, s/p hypothermia - Low BP via arterial line, off pressors since about 12/26. - s/p PCI of the LAD - Continue ASA, brilinta - Also statin - Dr. Ham following #Pulmonary - Diffuse pulmonary infiltrates on CXR likely from cardiogenic shock with L sided heart failure - Earlier this week on 100% FiO2 and high PEEP, now titrated down to 35% FiO2; improving oxygenation - Was on spot diuresis; stopped due to hypernatremia and hypotension - Empiric antibiotics as below. - Dr. Vasquez following #Renal - Hypernatremia to mid 150s, slowly rising - Will allow permissive hypernatremia due to cerebral edema - Free water flushes via NG tube. Increased to 250 q3h today. - Otherwise renal function good, good urine output. #GI - started tube feeds - Bloody NGt output on dual antiplatelet and heparin, now holding heparin. - H2 zoraida #Endocrine - Insulin gtt. #ID - Continue empiric zosyn - Cultures negative - Daily fevers may be due to brain injury. #DVT - red-tinged NGt output, holding heparin, SCDs only. 39 minutes critical care time spent on this patient. Result Diagram: 12/28/18 0500 12/28/18 0500 Subjective 24 Hr Interval Summary Free Text/Dictation No acute overnight events. Patient off sedation this morning. Updated family on status. Exam/Review of Systems Exam Vitals Vital Signs Date Temp Pulse Resp B/P (MAP) Pulse Ox O2 O2 Flow FiO2 Time Delivery Rate 12/28/18 35 08:00 12/28/18 101.4 07:50 12/28/18 104 22 109/58 96 Mechanica 06:00 (75) l Ventilato r Intake and Output 12/27/18 12/27/18 12/28/18 1515:00 23:00 07:00 IntakeIntake Total 982.3 ml 680 ml 1699 ml OutputOutput Total 525 ml 300 ml 965 ml BalanceBalance 457.3 ml 380 ml 734 ml Exam Gen: Obese woman lying in bed, intubated HEENT: Atraumatic. Moist mucous membranes. ET tube in place. Eyes: Miotic pupils, nonreactive. Some conjunctival edema. No upward gaze or other seizure-like activity. Neck: Supple, no lymphadenopathy. Resp: Mechanical breath sounds bilaterally. Cardio: S1, S2 heard. No obvious murmurs. Abd: Soft, nondistended, normal bowel sounds, non tender. Ext: No lower extremity edema bilaterally : Cr[place] in place with copious clear yellow urine. NEURO: Off sedation patient has occasional spontaneous eyelid twitching. Otherwise nonresponsive to sternal rub. Results Results 24hrs Laboratory Tests Test 12/27/18 08:58 12/27/18 12:24 12/27/18 12:52 12/27/18 17:17 Bedside Glucose 290 H 316 H 319 H Phenytoin 17.6 (Dilantin) Level Test 12/27/18 18:39 12/27/18 19:53 12/27/18 21:11 12/27/18 22:30 Bedside Glucose 285 H 256 H 227 H 188 Test 12/27/18 23:39 12/28/18 01:09 12/28/18 02:35 12/28/18 03:38 Bedside Glucose 106 102 91 122 Test 12/28/18 05:00 12/28/18 05:33 12/28/18 07:58 White Blood Count 6.6 # Red Blood Count 2.84 L Hemoglobin 7.8 L Hematocrit 25.2 L Mean Corpuscular 88.7 Volume Mean Corpuscular 27.5 L Hemoglobin Mean Corpuscular 31.0 L Hemoglobin Concen t Red Cell 14.0 Distribution Width Platelet Count 174 Mean Platelet 11.4 H Volume Immature 0.800 H Granulocytes % Neutrophils % 67.7 Lymphocytes % 21.7 Monocytes % 9.4 Eosinophils % 0.2 Basophils % 0.2 Nucleated Red 0.3 H Blood Cells % Immature 0.050 H Granulocytes # Neutrophils # 4.5 Lymphocytes # 1.4 Monocytes # 0.6 Eosinophils # 0.0 Basophils # 0.0 Nucleated Red 0.0 Blood Cells # Blood Gas Blood arterial Specimen Source Arterial Blood 12/28/2018 5:05:1 Date Drawn 6 AM Arterial Blood pH 7.443 (Temp corrected) Arterial Blood 38.2 pCO2 (Temp correct) Arterial Blood 73.3 L pO2 (Temp corrected) Arterial Blood 25.5 HCO3 Arterial Blood 1.4 Base Excess Arterial Blood 94.4 L Oxygen Saturation Pablo Test N/A Arterial Blood A-Line Gas Puncture Site Arterial 0.5 Blood Carboxyhemo globin Arterial Blood 0 Methemoglobin Blood Gas A-a O2 131.8 H Differential Oxyhemoglobin 93.9 Percent Blood Gas 37.0 Temperature Blood Gas 22.0 Respiration Rate Blood Gas Actual 23 Respiration Rate Blood Gas VENT - AC Modality FiO2 35.0 Blood Gas Tidal 500.0 Volume Blood Gas Low 8.0 PEEP Setting Blood Gas Notified Whom Blood Gas 12/28/2018 5:31:2 Notified Time 1 AM Sodium Level 157 H Potassium Level 3.7 Chloride Level 124 H Carbon Dioxide 31 Level Anion Gap 2 L Blood Urea 26 H Nitrogen Creatinine 0.84 Est Glomerular > 60 Filtrat Rate mL/min Glucose Level 136 # Calcium Level 8.2 L Bedside Glucose 119 115 Medications Medication Current Medications IV Flush (NS 3 ml) 3 ml PER PROTOCOL IV ; Start 12/22/18 at 02:00 Ondansetron HCl (Zofran Inj) 4 mg Q6H PRN IV NAUSEA/VOMITING; Start 12/22/18 at 02:00 Acetaminophen (Tylenol Tab) 650 mg Q6H PRN PO .PAIN 1-3 OR TEMP; Start 12/22/18 at 02:00 Acetaminophen/ Hydrocodone Bitart ([place] (5/325)) 1 tab Q6H PRN PO .MOD PAIN 4- 6; Start 12/22/18 at 02:00 Morphine Sulfate (morphine) 2 mg Q4H PRN IV .SEVERE PAIN 7-10; Start 12/22/18 at 02:00 Docusate Sodium (Colace) 100 mg Q12H PRN PO .CONSTIPATION; Start 12/22/18 at 02:00 Magnesium Hydroxide (Milk Of Mag) 30 ml DAILY PRN PO .CONSTIPATION; Start 12/22 at 02:00 Albuterol/ Ipratropium (Duoneb) 3 ml Q4H RESP THERAPY PRN HHN SHORTNESS OF BREATH; Start 12/22/18 at 02:00 Hydralazine HCl (Apresoline) 10 mg Q6H PRN IV ELEVATED BLOOD PRESSURE; Start 12/22/18 at 02:00 Nitroglycerin (Nitroglycerin (Sl Tab) 0.4 Mg) 1 tab Q5M PRN SL ANGINA; Start 12/22/18 at 02:00 Acetaminophen (Tylenol Supp) 650 mg Q4H PRN SC TEMP > 37C; Start 12/22/18 at 02:00 Acetaminophen (Tylenol Liquid) 650 mg Q4H PRN PO TEMP > 37C Last administered on 12/28/18at 08:27; Admin Dose 650 MG; Start 12/22/18 at 02:00 Meperidine HCl (Demerol) 12.5 mg Q4H PRN IV POST OPERATIVE SHIVERING; Start 12/22/18 at 02:00 Meperidine HCl (Demerol) 25 mg Q4H PRN IV POST OPERATIVE SHIVERING; Start 12/22/18 at 02:00 Eye Lubricant (Akwa Oint) 1 applic Q6 BOTH EYES Last administered on 12/28/18at 05:26; Admin Dose 1 APPLIC; Start 12/22/18 at 06:00 Eye Lubricant (Artificial Tears Oph) 2 drop Q6 BOTH EYES Last administered on 12/28/18at 05:25; Admin Dose 2 DROP; Start 12/22/18 at 06:00 Piperacillin Sod/ Tazobactam Sod 100 ml @ 200 mls/hr Q6 IVPB Last administered on 12/28/18at 05:26; Admin Dose 200 MLS/HR; Start 12/22/18 at 04:00 Levetiracetam 100 ml @ 400 mls/hr Q12 IVPB Last administered on 12/28/18at 08:07; Admin Dose 400 MLS/HR; Start 12/22/18 at 05:30 Lorazepam (Ativan) 1 mg Q1H PRN IV SEIZURES Last administered on 12/27/18at 09:02; Admin Dose 1 MG; Start 12/22/18 at 05:00 Norepinephrine 32 mg/Dextrose 250 ml @ 0.47 mls/hr TITRATE IV Last administered on 12/26/18at 06:31; Admin Dose 0.94 MLS/HR; Start 12/22/18 at 09:30 Aspirin (Aspirin) 81 mg DAILY NGT Last administered on 12/28/18at 08:07; Admin Dose 81 MG; Start 12/22/18 at 09:30 Ticagrelor (Brilinta) 90 mg BID PO Last administered on 12/28/18 08:26; Admin Dose 90 MG; Start 12/22/18 at 10:30 Propofol 100 ml @ 2.949 mls/ hr Q12H IV Last administered on 12/27/18at 00:27; Admin Dose 8.847 MLS/HR; Start 12/23/18 at 14:30 Fentanyl 100 ml @ 2.5 mls/hr TITRATE IV Last administered on 12/25/18at 05:51; Admin Dose 5 MLS/HR; Start 12/23/18 at 20:30 Atorvastatin Calcium (Lipitor) 80 mg DAILY@21 NGT Last administered on 12/27/18at 21:12; Admin Dose 80 MG; Start 12/24/18 at 21:00 Miscellaneous Information 1 ea NOTE XX ; Start 12/25/18 at 04:00 Glucose (Glutose) 15 gm Q15M PRN PO DECREASED GLUCOSE; Start 12/25/18 at 04:00 Glucose (Glutose) 22.5 gm Q15M PRN PO DECREASED GLUCOSE; Start 12/25/18 at 04:00 Dextrose (D50w Syringe) 25 ml Q15M PRN IV DECREASED GLUCOSE; Start 12/25/18 at 04:00 Dextrose (D50w Syringe) 50 ml Q15M PRN IV DECREASED GLUCOSE; Start 12/25/18 at 04:00 Glucagon (Glucagen) 1 mg Q15M PRN IM DECREASED GLUCOSE; Start 12/25/18 at 04:00 Glucose (Glutose) 15 gm Q15M PRN BUCCAL DECREASED GLUCOSE; Start 12/25/18 at 04:00 Famotidine (Pepcid) 20 mg Q12 PO Last administered on 12/28/18 08:07; Admin Dose 20 MG; Start 12/26/18 at 21:00 Phenytoin (Dilantin) 100 mg Q8 IV Last administered on 12/28/18at 05:25; Admin Dose 100 MG; Start 12/27/18 at 14:00 Diagnostic Test (Pha) (Accu-Chek) 1 ea Q1H XX Last administered on 12/28/18 08:06; Admin Dose 1 EA; Start 12/27/18 at 19:00 Insulin Human Regular 100 unit/ Sodium Chloride 100 ml @ 0 mls/hr PER PROTOCOL IV Last administered on 12/27/18at 18:43; Admin Dose 3 MLS/HR; Start 12/27/18 at 19:00 SEBASTIAN DIAZ MD Dec 28, 2018 09:04
--- NOTE | 2018-12-28 11:44 | CONS ---
Consultation Date/Type/Reason Admit Date/Time Dec 22, 2018 at 01:25 Initial Consult Date 12/22/18 Type of Consult Cardiology Requesting Provider: AMPARO LEONARD Date/Time of Note DATE: 12/28/18 TIME: 11:43 24 HR Interval Summary Free Text/Dictation Card arrest - rewarmed STEMI, culprit OM1 stented, non-culprit severe LAD lesion also stented Ischemic cardiomyopathy Shock, likely with septic component, possible aspiration pneumonia diabetes Acute respiratory failure, on ventilator, with high fio2 requirements Hypernatremia, receiving free water Hypokalemia, replaced Recc: ASA, Brilinta, atorvastatin No PAKO or BB due to shock and hypotension No signs of meaningful neurologic recovery thus far Appreciate pulmonary and neurology input Poor prognosis given prolonged down time off pressors Decreased HCT but will continue brilinta for now due to recent PCI Exam/Review of Systems Vital Signs Vitals Vital Signs Date Temp Pulse Resp B/P (MAP) Pulse Ox O2 O2 Flow FiO2 Time Delivery Rate 12/28/18 105 22 97 35 09:20 12/28/18 100.1 09:16 12/28/18 109/58 Mechanica 06:00 (75) l Ventilato r Intake and Output 12/27/18 12/27/18 12/28/18 1515:00 23:00 07:00 IntakeIntake Total 982.3 ml 680 ml 1699 ml OutputOutput Total 525 ml 300 ml 965 ml BalanceBalance 457.3 ml 380 ml 734 ml Exam Constitutional: No alert, No oriented (unresponsive off sedation) Respiratory: clear to auscultation Labs Result Diagram: 12/28/18 0500 12/28/18 0500 Results 24hrs Laboratory Tests Test 12/27/18 12:24 12/27/18 12:52 12/27/18 17:17 12/27/18 18:39 Phenytoin 17.6 (Dilantin) Level Bedside Glucose 316 H 319 H 285 H Test 12/27/18 19:53 12/27/18 21:11 12/27/18 22:30 12/27/18 23:39 Bedside Glucose 256 H 227 H 188 106 Test 12/28/18 01:09 12/28/18 02:35 12/28/18 03:38 12/28/18 05:00 Bedside Glucose 102 91 122 White Blood Count 6.6 # Red Blood Count 2.84 L Hemoglobin 7.8 L Hematocrit 25.2 L Mean Corpuscular 88.7 Volume Mean Corpuscular 27.5 L Hemoglobin Mean Corpuscular 31.0 L Hemoglobin Concen t Red Cell 14.0 Distribution Width Platelet Count 174 Mean Platelet 11.4 H Volume Immature 0.800 H Granulocytes % Neutrophils % 67.7 Lymphocytes % 21.7 Monocytes % 9.4 Eosinophils % 0.2 Basophils % 0.2 Nucleated Red 0.3 H Blood Cells % Immature 0.050 H Granulocytes # Neutrophils # 4.5 Lymphocytes # 1.4 Monocytes # 0.6 Eosinophils # 0.0 Basophils # 0.0 Nucleated Red 0.0 Blood Cells # Blood Gas Blood arterial Specimen Source Arterial Blood 12/28/2018 5:05:1 Date Drawn 6 AM Arterial Blood pH 7.443 (Temp corrected) Arterial Blood 38.2 pCO2 (Temp correct) Arterial Blood 73.3 L pO2 (Temp corrected) Arterial Blood 25.5 HCO3 Arterial Blood 1.4 Base Excess Arterial Blood 94.4 L Oxygen Saturation Pablo Test N/A Arterial Blood A-Line Gas Puncture Site Arterial 0.5 Blood Carboxyhemo globin Arterial Blood 0 Methemoglobin Blood Gas A-a O2 131.8 H Differential Oxyhemoglobin 93.9 Percent Blood Gas 37.0 Temperature Blood Gas 22.0 Respiration Rate Blood Gas Actual 23 Respiration Rate Blood Gas VENT - AC Modality FiO2 35.0 Blood Gas Tidal 500.0 Volume Blood Gas Low 8.0 PEEP Setting Blood Gas Notified Whom Blood Gas 12/28/2018 5:31:2 Notified Time 1 AM Sodium Level 157 H Potassium Level 3.7 Chloride Level 124 H Carbon Dioxide 31 Level Anion Gap 2 L Blood Urea 26 H Nitrogen Creatinine 0.84 Est Glomerular > 60 Filtrat Rate mL/min Glucose Level 136 # Calcium Level 8.2 L Test 12/28/18 05:33 12/28/18 07:58 12/28/18 09:52 Bedside Glucose 119 115 139 Medications Medications Current Medications IV Flush (NS 3 ml) 3 ml PER PROTOCOL IV ; Start 12/22/18 at 02:00 Ondansetron HCl (Zofran Inj) 4 mg Q6H PRN IV NAUSEA/VOMITING; Start 12/22/18 at 02:00 Acetaminophen (Tylenol Tab) 650 mg Q6H PRN PO .PAIN 1-3 OR TEMP; Start 12/22/18 at 02:00 Acetaminophen/ Hydrocodone Bitart ([place] (5/325)) 1 tab Q6H PRN PO .MOD PAIN 4- 6; Start 12/22/18 at 02:00 Morphine Sulfate (morphine) 2 mg Q4H PRN IV .SEVERE PAIN 7-10; Start 12/22/18 at 02:00 Docusate Sodium (Colace) 100 mg Q12H PRN PO .CONSTIPATION; Start 12/22/18 at 02:00 Magnesium Hydroxide (Milk Of Mag) 30 ml DAILY PRN PO .CONSTIPATION; Start 12/22/18 at 02:00 Albuterol/ Ipratropium (Duoneb) 3 ml Q4H RESP THERAPY PRN HHN SHORTNESS OF BREATH; Start 12/22/18 at 02:00 Hydralazine HCl (Apresoline) 10 mg Q6H PRN IV ELEVATED BLOOD PRESSURE; Start 12/22/18 at 02:00 Nitroglycerin (Nitroglycerin (Sl Tab) 0.4 Mg) 1 tab Q5M PRN SL ANGINA; Start 12/22/18 at 02:00 Acetaminophen (Tylenol Supp) 650 mg Q4H PRN [place] TEMP > 37C; Start 12/22/18 at 02:00 Acetaminophen (Tylenol Liquid) 650 mg Q4H PRN PO TEMP > 37C Last administered on 12/28/18at 08:27; Admin Dose 650 MG; Start 12/22/18 at 02:00 Meperidine HCl (Demerol) 12.5 mg Q4H PRN IV POST OPERATIVE SHIVERING; Start 12/22/18 at 02:00 Meperidine HCl (Demerol) 25 mg Q4H PRN IV POST OPERATIVE SHIVERING; Start 12/22/18 at 02:00 Eye Lubricant (Akwa Oint) 1 applic Q6 BOTH EYES Last administered on 12/28/18at 05:26; Admin Dose 1 APPLIC; Start 12/22/18 at 06:00 Eye Lubricant (Artificial Tears Oph) 2 drop Q6 BOTH EYES Last administered on 12/28/18at 05:25; Admin Dose 2 DROP; Start 12/22/18 at 06:00 Piperacillin Sod/ Tazobactam Sod 100 ml @ 200 mls/hr Q6 IVPB Last administered on 12/28/18 05:26; Admin Dose 200 MLS/HR; Start 12/22/18 at 04:00 Levetiracetam 100 ml @ 400 mls/hr Q12 IVPB Last administered on 12/28/18 08:07; Admin Dose 400 MLS/HR; Start 12/22/18 at 05:30 Lorazepam (Ativan) 1 mg Q1H PRN IV SEIZURES Last administered on 12/27/18 09:02; Admin Dose 1 MG; Start 12/22/18 at 05:00 Norepinephrine 32 mg/Dextrose 250 ml @ 0.47 mls/hr TITRATE IV Last administered on 12/26/18 06:31; Admin Dose 0.94 MLS/HR; Start 12/22/18 at 09:30 Aspirin (Aspirin) 81 mg DAILY NGT Last administered on 12/28/18 08:07; Admin Dose 81 MG; Start 12/22/18 at 09:30 Ticagrelor (Brilinta) 90 mg BID PO Last administered on 12/28/18 08:26; Admin Dose 90 MG; Start 12/22/18 at 10:30 Propofol 100 ml @ 2.949 mls/ hr Q12H IV Last administered on 12/27/18 00:27; Admin Dose 8.847 MLS/HR; Start 12/23/18 at 14:30 Fentanyl 100 ml @ 2.5 mls/hr TITRATE IV Last administered on 12/25/18at 05:51; Admin Dose 5 MLS/HR; Start 12/23/18 at 20:30 Atorvastatin Calcium (Lipitor) 80 mg DAILY@21 NGT Last administered on 12/27/18at 21:12; Admin Dose 80 MG; Start 12/24/18 at 21:00 Miscellaneous Information 1 ea NOTE XX ; Start 12/25/18 at 04:00 Glucose (Glutose) 15 gm Q15M PRN PO DECREASED GLUCOSE; Start 12/25/18 at 04:00 Glucose (Glutose) 22.5 gm Q15M PRN PO DECREASED GLUCOSE; Start 12/25/18 at 04:00 Dextrose (D50w Syringe) 25 ml Q15M PRN IV DECREASED GLUCOSE; Start 12/25/18 at 04:00 Dextrose (D50w Syringe) 50 ml Q15M PRN IV DECREASED GLUCOSE; Start 12/25/18 at 04:00 Glucagon (Glucagen) 1 mg Q15M PRN IM DECREASED GLUCOSE; Start 12/25/18 at 04:00 Glucose (Glutose) 15 gm Q15M PRN BUCCAL DECREASED GLUCOSE; Start 12/25/18 at 04:00 Famotidine (Pepcid) 20 mg Q12 PO Last administered on 12/28/18at 08:07; Admin Dose 20 MG; Start 12/26/18 at 21:00 Phenytoin (Dilantin) 100 mg Q8 IV Last administered on 12/28/18at 05:25; Admin Dose 100 MG; Start 12/27/18 at 14:00 Diagnostic Test (Pha) (Accu-Chek) 1 ea Q1H XX Last administered on 12/28/18at 10:22; Admin Dose 1 EA; Start 12/27/18 at 19:00 Insulin Human Regular 100 unit/ Sodium Chloride 100 ml @ 0 mls/hr PER PROTOCOL IV Last administered on 12/27/18at 18:43; Admin Dose 3 MLS/HR; Start 12/27/18 at 19:00 CARLOZ MOROCHO MD Dec 28, 2018 11:44
--- NOTE | 2018-12-28 13:05 | CONS ---
Consult Date/Type/Reason Admit Date/Time Dec 22, 2018 at 01:25 Initial Consult Date 12/22/18 Type of Consultation: Pulm/CCM Requesting Provider: AMPARO LEONARD Date/Time of Note DATE: 12/28/18 TIME: 13:02 Subjective No events. Remains comatose on the vent. Objective Vitals Vital Signs Date Temp Pulse Resp B/P (MAP) Pulse Ox O2 O2 Flow FiO2 Time Delivery Rate 12/28/18 105 22 97 35 09:20 12/28/18 100.1 09:16 12/28/18 109/58 [employer] 06:00 (75) l Ventilato r Intake and Output 12/27/18 12/27/18 12/28/18 1515:00 23:00 07:00 IntakeIntake Total 982.3 ml 680 ml 1701 ml OutputOutput Total 525 ml 300 ml 965 ml BalanceBalance 457.3 ml 380 ml 736 ml Exam HEENT: Neck supple; no JVD; no LAD; + ET tube CVS: RRR, S1 and S2 CHEST: Coarse BS b/l ABD: Soft, NT, + BS EXT: No c/c; + edema NEURO: Comatose on the vent. Results/Medications Result Diagram: 12/28/18 0500 12/28/18 0500 Results 24 hrs Laboratory Tests Test 12/27/18 17:17 12/27/18 18:39 12/27/18 19:53 12/27/18 21:11 Bedside Glucose 319 H 285 H 256 H 227 H Test 12/27/18 22:30 12/27/18 23:39 12/28/18 01:09 12/28/18 02:35 Bedside Glucose 188 106 102 91 Test 12/28/18 03:38 12/28/18 05:00 12/28/18 05:33 12/28/18 07:58 Bedside Glucose 122 119 115 White Blood Count 6.6 # Red Blood Count 2.84 L Hemoglobin 7.8 L Hematocrit 25.2 L Mean Corpuscular 88.7 Volume Mean Corpuscular 27.5 L Hemoglobin Mean Corpuscular 31.0 L Hemoglobin Concen t Red Cell 14.0 Distribution Width Platelet Count 174 Mean Platelet 11.4 H Volume Immature 0.800 H Granulocytes % Neutrophils % 67.7 Lymphocytes % 21.7 Monocytes % 9.4 Eosinophils % 0.2 Basophils % 0.2 Nucleated Red 0.3 H Blood Cells % Immature 0.050 H Granulocytes # Neutrophils # 4.5 Lymphocytes # 1.4 Monocytes # 0.6 Eosinophils # 0.0 Basophils # 0.0 Nucleated Red 0.0 Blood Cells # Blood Gas Blood arterial Specimen Source Arterial Blood 12/28/2018 5:05:1 Date Drawn 6 AM Arterial Blood pH 7.443 (Temp corrected) Arterial Blood 38.2 pCO2 (Temp correct) Arterial Blood 73.3 L pO2 (Temp corrected) Arterial Blood 25.5 HCO3 Arterial Blood 1.4 Base Excess Arterial Blood 94.4 L Oxygen Saturation Pablo Test N/A Arterial Blood A-Line Gas Puncture Site Arterial 0.5 Blood Carboxyhemo globin Arterial Blood 0 Methemoglobin Blood Gas A-a O2 131.8 H Differential Oxyhemoglobin 93.9 Percent Blood Gas 37.0 Temperature Blood Gas 22.0 Respiration Rate Blood Gas Actual 23 Respiration Rate Blood Gas VENT - AC Modality FiO2 35.0 Blood Gas Tidal 500.0 Volume Blood Gas Low 8.0 PEEP Setting Blood Gas Notified Whom Blood Gas 12/28/2018 5:31:2 Notified Time 1 AM Sodium Level 157 H Potassium Level 3.7 Chloride Level 124 H Carbon Dioxide 31 Level Anion Gap 2 L Blood Urea 26 H Nitrogen Creatinine 0.84 Est Glomerular > 60 Filtrat Rate mL/min Glucose Level 136 # Calcium Level 8.2 L Test 12/28/18 09:52 12/28/18 12:02 Bedside Glucose 139 108 Home Meds Reported Medications Benazepril Hcl* (Benazepril Hcl*) Unknown Strength Tablet, PO DAILY, #60 TAB 08/21/17 Insulin Glargine* (Lantus*) 100 Unit/Ml Soln, 60 UNIT SC QHS, #1 VIAL 08/21/17 Insulin Glargine* (Lantus*) 100 Unit/Ml Soln, 40 UNIT SC QAM, #1 VIAL 08/21/17 Metformin Hcl* (Metformin Hcl*) 1,000 Mg Tablet, 1000 MG PO WITH BREAKFAST DINNE, #30 TAB 08/21/17 Medications Current Medications IV Flush (NS 3 ml) 3 ml PER PROTOCOL IV ; Start 12/22/18 at 02:00 Ondansetron HCl (Zofran Inj) 4 mg Q6H PRN IV NAUSEA/VOMITING; Start 12/22/18 at 02:00 Acetaminophen (Tylenol Tab) 650 mg Q6H PRN PO .PAIN 1-3 OR TEMP; Start 12/22/18 at 02:00 Acetaminophen/ Hydrocodone Bitart ([place] (5/325)) 1 tab Q6H PRN PO .MOD PAIN 4- 6; Start 12/22/18 at 02:00 Morphine Sulfate (morphine) 2 mg Q4H PRN IV .SEVERE PAIN 7-10; Start 12/22/18 at 02:00 Docusate Sodium (Colace) 100 mg Q12H PRN PO .CONSTIPATION; Start 12/22/18 at 02:00 Magnesium Hydroxide (Milk Of Mag) 30 ml DAILY PRN PO .CONSTIPATION; Start 12/22/18 at 02:00 Albuterol/ Ipratropium (Duoneb) 3 ml Q4H RESP THERAPY PRN HHN SHORTNESS OF BREATH; Start 12/22/18 at 02:00 Hydralazine HCl (Apresoline) 10 mg Q6H PRN IV ELEVATED BLOOD PRESSURE; Start 12/22/18 at 02:00 Nitroglycerin (Nitroglycerin (Sl Tab) 0.4 Mg) 1 tab Q5M PRN SL ANGINA; Start 12/22/18 at 02:00 Acetaminophen (Tylenol Supp) 650 mg Q4H PRN NC TEMP > 37C; Start 12/22/18 at 02:00 Acetaminophen (Tylenol Liquid) 650 mg Q4H PRN PO TEMP > 37C Last administered on 12/28/18at 08:27; Admin Dose 650 MG; Start 12/22/18 at 02:00 Meperidine HCl (Demerol) 12.5 mg Q4H PRN IV POST OPERATIVE SHIVERING; Start 12/22/18 at 02:00 Meperidine HCl (Demerol) 25 mg Q4H PRN IV POST OPERATIVE SHIVERING; Start 12/22/18 at 02:00 Eye Lubricant (Akwa Oint) 1 applic Q6 BOTH EYES Last administered on 12/28/18at 12:39; Admin Dose 1 APPLIC; Start 12/22/18 at 06:00 Eye Lubricant (Artificial Tears Oph) 2 drop Q6 BOTH EYES Last administered on 12/28/18at 12:39; Admin Dose 2 DROP; Start 12/22/18 at 06:00 Piperacillin Sod/ Tazobactam Sod 100 ml @ 200 mls/hr Q6 IVPB Last administered on 12/28/18at 12:48; Admin Dose 200 MLS/HR; Start 12/22/18 at 04:00 Levetiracetam 100 ml @ 400 mls/hr Q12 IVPB Last administered on 12/28/18 08:07; Admin Dose 400 MLS/HR; Start 12/22/18 at 05:30 Lorazepam (Ativan) 1 mg Q1H PRN IV SEIZURES Last administered on 12/27/18 09:02; Admin Dose 1 MG; Start 12/22/18 at 05:00 Norepinephrine 32 mg/Dextrose 250 ml @ 0.47 mls/hr TITRATE IV Last administered on 12/26/18 06:31; Admin Dose 0.94 MLS/HR; Start 12/22/18 at 09:30 Aspirin (Aspirin) 81 mg DAILY NGT Last administered on 12/28/18 08:07; Admin Dose 81 MG; Start 12/22/18 at 09:30 Ticagrelor (Brilinta) 90 mg BID PO Last administered on 12/28/18 08:26; Admin Dose 90 MG; Start 12/22/18 at 10:30 Propofol 100 ml @ 2.949 mls/ hr Q12H IV Last administered on 12/27/18 00:27; Admin Dose 8.847 MLS/HR; Start 12/23/18 at 14:30 Fentanyl 100 ml @ 2.5 mls/hr TITRATE IV Last administered on 12/25/18at 05:51; Admin Dose 5 MLS/HR; Start 12/23/18 at 20:30 Atorvastatin Calcium (Lipitor) 80 mg DAILY@21 NGT Last administered on 12/27/18at 21:12; Admin Dose 80 MG; Start 12/24/18 at 21:00 Miscellaneous Information 1 ea NOTE XX ; Start 12/25/18 at 04:00 Glucose (Glutose) 15 gm Q15M PRN PO DECREASED GLUCOSE; Start 12/25/18 at 04:00 Glucose (Glutose) 22.5 gm Q15M PRN PO DECREASED GLUCOSE; Start 12/25/18 at 04:00 Dextrose (D50w Syringe) 25 ml Q15M PRN IV DECREASED GLUCOSE; Start 12/25/18 at 04:00 Dextrose (D50w Syringe) 50 ml Q15M PRN IV DECREASED GLUCOSE; Start 12/25/18 at 04:00 Glucagon (Glucagen) 1 mg Q15M PRN IM DECREASED GLUCOSE; Start 12/25/18 at 04:00 Glucose (Glutose) 15 gm Q15M PRN BUCCAL DECREASED GLUCOSE; Start 12/25/18 at 04:00 Famotidine (Pepcid) 20 mg Q12 PO Last administered on 12/28/18at 08:07; Admin Dose 20 MG; Start 12/26/18 at 21:00 Phenytoin (Dilantin) 100 mg Q8 IV Last administered on 12/28/18at 05:25; Admin Dose 100 MG; Start 12/27/18 at 14:00 Diagnostic Test (Pha) (Accu-Chek) 1 ea Q1H XX Last administered on 12/28/18at 12:32; Admin Dose 1 EA; Start 12/27/18 at 19:00 Insulin Human Regular 100 unit/ Sodium Chloride 100 ml @ 0 mls/hr PER PROTOCOL IV Last administered on 12/27/18at 18:43; Admin Dose 3 MLS/HR; Start 12/27/18 at 19:00 Assessment/Plan Assessment/Plan (Daily) IMP: 1. s/p Cardiac arrest 2. STEMI--s/p PCI 3. Severe Anoxic Encephalopathy 4. Shock 5. VDRF 6. Ischemic CMY 7. Hypernatremia RECS: 1. Ventilatory support 2. Await repeat EEG results 3. Continue dilantin 4. Increase free H20 5. Follow H/H 6. Palliative Care consult 35 min cc time DENISHA ELMORE MD Dec 28, 2018 13:05
[2018-12-28] MEDS: INSULIN HUMAN REGULAR 100 UNIT in SOD CHLORIDE 0.9% 99 ML IV SCH (15:01)
[2018-12-28] MEDS: INSULIN ASPART [NOVOLOG] 3 ML PEN SC SCH ×2 (17:00→20:08)
[2018-12-28] MEDS: ATORVASTATIN 80 MG TAB NGT SCH (20:11)
[2018-12-28] MEDS: INSULIN GLARGINE [LANTus] (100 UNITS/ML) SYG SC SCH (20:12)
[2018-12-29] VITALS (68 sets, daily range): BP systolic 69–155; BP diastolic 44–76; PULSE 63–107; RESP 16–31
[2018-12-29] MEDS: ACETAMINOPHEN 650MG/20.3ML CUP PO PRN (00:54)
[2018-12-29] MEDS: INSULIN ASPART [NOVOLOG] 3 ML PEN SC SCH ×6 (01:00→20:19)
[2018-12-29] MEDS: PROPOFOL 100 ML IV SCH ×2 (02:30→13:18)
[2018-12-29] MEDS: OCULAR LUBRICANT 3.5 GM OPH OINT BOTH EYES SCH ×4 (05:30→23:47)
[2018-12-29] MEDS: ARTIFICIAL TEARS 15 ML OPH BOTH EYES SCH ×4 (05:30→23:48)
[2018-12-29] MEDS: PIPER-TAZO 3.375 GM IV (PMX) 100 ML IVPB SCH (05:30)
[2018-12-29] MEDS: PHENYTOIN 100 MG INJ IV SCH ×3 (05:30→21:04)
--- NOTE | 2018-12-29 06:17 | CONS ---
Assessment/Plan Assessment/Plan Hospital Course (Demo Recall) 58 yo with cardiac arrest due to lateral wall stemi, culprit lesion is OM1, which was stented, and mid LAD also stented. Remains intubated and unresponsive. Imp: Cardiac arrest due to STEMI STEMI, culprit OM1 stented, non-culprit severe LAD lesion also stented Ischemic cardiomyopathy Shock improved Diabetes Acute respiratory failure, on ventilator Hypernatremia, receiving free water Anemia, possibly due to blood loss Recc: ASA, Brilinta, atorvastatin. Continue dual antiplatelet therapy given recent stent placement, even with anemia. Will initiate beta blockade and ARB for AR/cardiomyopathy No signs of meaningful neurologic recovery thus far Appreciate pulmonary and neurology input Poor prognosis given lack of neurologic recovery Consultation Date/Type/Reason Admit Date/Time Dec 22, 2018 at 01:25 Initial Consult Date 12/22/18 Type of Consult Cardiology Requesting Provider: AMPARO LEONARD Date/Time of Note DATE: 12/29/18 TIME: 06:13 24 HR Interval Summary Free Text/Dictation No events overnight, patient remains on ventilator. Chart notes from weekend reviewed. Subjective hx not possible: pt non-verbal Exam/Review of Systems Vital Signs Vitals Vital Signs Date Temp Pulse Resp B/P (MAP) Pulse Ox O2 O2 Flow FiO2 Time Delivery Rate 12/29/18 100 24 113/57 94 Mechan[employer] 06:00 (75) l Ventilato r 12/29/18 35 05:18 12/29/18 101.4 04:00 Intake and Output 12/28/18 12/28/18 12/29/18 1515:00 23:00 07:00 IntakeIntake Total 1029 ml 1289 ml 880 ml OutputOutput Total 485 ml 820 ml 875 ml BalanceBalance 544 ml 469 ml 5 ml Exam Constitutional: non-verbal Head: normocephalic Eyes: nl lids ENMT: intubated Neck: No jvd, No bruits Respiratory: clear to auscultation Cardiovascular: regular rate and rhythm; No murmurs/extra sounds Gastrointestinal: soft, non-tender Extremities: edema Neurological: unresponsive Skin: nl turgor Labs Result Diagram: 12/29/18 0500 12/29/18 0500 Results 24hrs Laboratory Tests Test 12/28/18 07:58 12/28/18 09:52 12/28/18 12:02 12/28/18 13:30 Bedside Glucose 115 139 108 94 Test 12/28/18 13:42 12/28/18 14:48 12/28/18 16:53 12/28/18 17:56 Sodium Level 157 H Potassium Level 3.7 Chloride Level 123 H Carbon Dioxide Level 29 Anion Gap 5 Blood Urea Nitrogen 25 H Creatinine 0.94 Est Glomerular > 60 Filtrat Rate mL/min Glucose Level 122 Calcium Level 8.4 Bedside Glucose 113 141 135 Test 12/28/18 20:07 12/28/18 21:44 12/29/18 00:53 12/29/18 04:30 Bedside Glucose 122 106 138 140 Test 12/29/18 05:00 White Blood Count 8.9 # Red Blood Count 2.83 L Hemoglobin 7.9 L Hematocrit 26.3 L Mean Corpuscular 92.9 Volume Mean Corpuscular 27.9 L Hemoglobin Mean Corpuscular 30.0 L Hemoglobin Concent Red Cell 14.1 Distribution Width Platelet Count 200 Mean Platelet Volume 11.5 H Immature 0.700 H Granulocytes % Neutrophils % 61.6 Lymphocytes % 29.4 Monocytes % 7.8 Eosinophils % 0.3 Basophils % 0.2 Nucleated Red Blood 0.7 H Cells % Immature 0.060 H Granulocytes # Neutrophils # 5.5 Lymphocytes # 2.6 Monocytes # 0.7 Eosinophils # 0.0 Basophils # 0.0 Nucleated Red Blood 0.1 H Cells # Sodium Level 157 H Potassium Level 3.8 Chloride Level 124 H Carbon Dioxide Level 29 Anion Gap 4 L Blood Urea Nitrogen 26 H Creatinine 0.91 Est Glomerular > 60 Filtrat Rate mL/min Glucose Level 162 Calcium Level 8.0 L Medications Medications Current Medications IV Flush (NS 3 ml) 3 ml PER PROTOCOL IV ; Start 12/22/18 at 02:00 Ondansetron HCl (Zofran Inj) 4 mg Q6H PRN IV NAUSEA/VOMITING; Start 12/22/18 at 02:00 Acetaminophen (Tylenol Tab) 650 mg Q6H PRN PO .PAIN 1-3 OR TEMP; Start 12/22/18 at 02:00 Acetaminophen/ Hydrocodone Bitart ([place] (5/325)) 1 tab Q6H PRN PO .MOD PAIN 4-6; Start 12/22/18 at 02:00 Morphine Sulfate (morphine) 2 mg Q4H PRN IV .SEVERE PAIN 7-10; Start 12/22/18 at 02:00 Docusate Sodium (Colace) 100 mg Q12H PRN PO .CONSTIPATION; Start 12/22/18 at 02:00 Magnesium Hydroxide (Milk Of Mag) 30 ml DAILY PRN PO .CONSTIPATION; Start 12/22/18 at 02:00 Albuterol/ Ipratropium (Duoneb) 3 ml Q4H RESP THERAPY PRN HHN SHORTNESS OF BREATH; Start 12/22/18 at 02:00 Hydralazine HCl (Apresoline) 10 mg Q6H PRN IV ELEVATED BLOOD PRESSURE; Start 12/22/18 at 02:00 Nitroglycerin (Nitroglycerin (Sl Tab) 0.4 Mg) 1 tab Q5M PRN SL ANGINA; Start 12/22/18 at 02:00 Acetaminophen (Tylenol Supp) 650 mg Q4H PRN SC TEMP > 37C; Start 12/22/18 at 02:00 Acetaminophen (Tylenol Liquid) 650 mg Q4H PRN PO TEMP > 37C Last administered on 12/29/18at 00:54; Admin Dose 650 MG; Start 12/22/18 at 02:00 Meperidine HCl (Demerol) 12.5 mg Q4H PRN IV POST OPERATIVE SHIVERING; Start 12/22/18 at 02:00 Meperidine HCl (Demerol) 25 mg Q4H PRN IV POST OPERATIVE SHIVERING; Start 12/22/18 at 02:00 Eye Lubricant (Akwa Oint) 1 applic Q6 BOTH EYES Last administered on 12/29/18at 05:30; Admin Dose 1 APPLIC; Start 12/22/18 at 06:00 Eye Lubricant (Artificial Tears Oph) 2 drop Q6 BOTH EYES Last administered on 12/29/18at 05:30; Admin Dose 2 DROP; Start 12/22/18 at 06:00 Piperacillin Sod/ Tazobactam Sod 100 ml @ 200 mls/hr Q6 IVPB Last administered on 12/29/18at 05:30; Admin Dose 200 MLS/HR; Start 12/22/18 at 04:00 Levetiracetam 100 ml @ 400 mls/hr Q12 IVPB Last administered on 12/28/18at 2 0:11; Admin Dose 400 MLS/HR; Start 12/22/18 at 05:30 Lorazepam (Ativan) 1 mg Q1H PRN IV SEIZURES Last administered on 12/27/18at 09:02; Admin Dose 1 MG; Start 12/22/18 at 05:00 Norepinephrine 32 mg/Dextrose 250 ml @ 0.47 mls/hr TITRATE IV Last administered on 12/26/18at 06:31; Admin Dose 0.94 MLS/HR; Start 12/22/18 at 09:30 Aspirin (Aspirin) 81 mg DAILY NGT Last administered on 12/28/18at 08:07; Admin Dose 81 MG; Start 12/22/18 at 09:30 Ticagrelor (Brilinta) 90 mg BID PO Last administered on 12/28/18at 20:12; Admin Dose 90 MG; Start 12/22/18 at 10:30 Propofol 100 ml @ 2.949 mls/ hr Q12H IV Last administered on 12/27/18at 00:27; Admin Dose 8.847 MLS/HR; Start 12/23/18 at 14:30 Fentanyl 100 ml @ 2.5 mls/hr TITRATE IV Last administered on 12/25/18at 05:51; Admin Dose 5 MLS/HR; Start 12/23/18 at 20:30 Atorvastatin Calcium (Lipitor) 80 mg DAILY@21 NGT Last administered on 12/28/18at 20:11; Admin Dose 80 MG; Start 12/24/18 at 21:00 Miscellaneous Information 1 ea NOTE XX ; Start 12/25/18 at 04:00 Glucose (Glutose) 15 gm Q15M PRN PO DECREASED GLUCOSE; Start 12/25/18 at 04:00 Glucose (Glutose) 22.5 gm Q15M PRN PO DECREASED GLUCOSE; Start 12/25/18 at 04:00 Dextrose (D50w Syringe) 25 ml Q15M PRN IV DECREASED GLUCOSE; Start 12/25/18 at 04:00 Dextrose (D50w Syringe) 50 ml Q15M PRN IV DECREASED GLUCOSE; Start 12/25/18 at 04:00 Glucagon (Glucagen) 1 mg Q15M PRN IM DECREASED GLUCOSE; Start 12/25/18 at 04:00 Glucose (Glutose) 15 gm Q15M PRN BUCCAL DECREASED GLUCOSE; Start 12/25/18 at 04:00 Famotidine (Pepcid) 20 mg Q12 PO Last administered on 12/28/18at 20:11; Admin Dose 20 MG; Start 12/26/18 at 21:00 Phenytoin (Dilantin) 100 mg Q8 IV Last administered on 12/29/18at 05:30; Admin Dose 100 MG; Start 12/27/18 at 14:00 Insulin Glargine (Lantus) 20 units DAILY@2000 SC Last administered on 12/28/18at 20:12; Admin Dose 20 UNITS; Start 12/28/18 at 20:00 Insulin Aspart (Novolog Insulin Pen) NOVOLOG *MODERATE* ALGORI... Q4 SC ; Start 12/28/18 at 17:00 ROBIN JAMES Dec 29, 2018 06:17
--- NOTE | 2018-12-29 07:15 | EEG ---
EEG NOTE Report Details DATE OF TEST: 12/27/2018 HISTORY: The patient is a 58-year-old F who presents with altered mental status. This EEG is requested to evaluate for seizures. SEDATION: ? CONDITIONS OF RECORDING: This EEG was recorded digitally on the [employer] machine, using the International 10-20 System of electrodes plus anterior temporals and [place]. STATES SAMPLED: Comatose. FINDINGS: The background is at times discontinuous, predominated by low voltage delta act ivity. The normal [id number] frequency-amplitude gradient was absent. Photic stimulation does not elicit any definite driving responses or epileptiform discharges. Hyperventilation was not performed. No asymmetries, focal abnormalities or epileptiform discharges were seen. IMPRESSION: Abnormal electroencephalogram due to: severe diffuse slowing. COMMENT: The slowing of the background indicates severe, diffuse cortical dysfunction of nonspecific etiology. KARL REYES Dec 29, 2018 07:15
[2018-12-29] MEDS: LEVETIRACETAM 1000 MG (PMX) 100 ML IVPB SCH ×2 (08:52→22:32)
[2018-12-29] MEDS: FAMOTIDINE 20 MG TAB PO SCH ×2 (08:57→21:01)
[2018-12-29] MEDS: ASPIRIN 81 MG TAB NGT SCH (08:57)
[2018-12-29] MEDS: LOSARTAN 25 MG TAB NGT SCH (08:58)
[2018-12-29] MEDS: METOPROLOL 25 MG TAB NGT SCH ×2 (08:58→20:10)
[2018-12-29] MEDS: TICAGRELOR 90 MG TABLET PO SCH ×2 (08:59→21:02)
--- NOTE | 2018-12-29 09:06 | CONS ---
Assessment/Plan Assessment/Plan Assessment/Plan (Daily) Ventilator setting; AC of 22, tidal volume 500, PEEP of 8, 35% FiO2. Patient is off insulin drip. Assessment and recommendations; 1. Patient admitted with cardiac arrest status post hypothermia protocol with ensuing severe anoxic encephalopathy. 2. 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 3. Status post emergent stenting of LAD. 4. Hypernatremia, likely from central diabetes insipidus. 5. History of diabetes. Patient off insulin drip. Patient had severe hyperglycemia with some element of DKA on admission. 6. History of hypertension. 7. Marked improvement in extensive bilateral pulmonary edema. 8. Possibly some element of superimposed aspiration pneumonia, clinically improving. Continue current supportive care. Add desmopressin for control of h ypernatremia. Prognosis appears very poor. 35 minutes of critical care time was spent evaluating the patient. Consultation Date/Type/Reason Admit Date/Time Dec 22, 2018 at 01:25 Initial Consult Date 12/22/18 Type of Consult Pulmonary/critical care Patient is a 58-year-old lady who was brought into the hospital after having cardiac arrest at home. Prolonged CPR was done with revival of vital signs. Upon evaluation here patient was diagnosed with STEMI and was taken to cardiac [facility] where LAD lesion was dilated and a stent put in. Patient has remained profoundly hypotensive and is critically ill. Past medical history; 1. History of hypertension, hyperlipidemia. 2. Diabetes. Apparently poorly controlled. Medications; reviewed. Patient is on insulin drip, phenylephrine drip, Levophed, and propofol. All doses and other medications were reviewed in detail. Allergies; none. Social history; non-smoker. Family history; patient is and has supportive family. 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 Review of system; unable to be obtained. General exam; middle-aged female, orally intubated, sedated and paralyzed. Requesting Provider: AMPARO LEONARD Date/Time of Note DATE: 12/29/18 TIME: 09:03 24 HR Interval Summary Free Text/Dictation Patient's condition is critical. Remains profoundly unresponsive. However no overt seizure activity noted. Patient has remained hemodynamically stable. General exam; middle-aged woman, orally intubated, unresponsive, currently in no distress. Exam/Review of Systems Exam Vitals Vital Signs Date Temp Pulse Resp B/P (MAP) Pulse Ox O2 O2 Flow FiO2 Time Delivery Rate 12/29/18 101 08:00 12/29/18 24 113/57 94 Mechanica 06:00 (75) l Ventilato r 12/29/18 35 05:18 12/29/18 101.4 04:00 Intake and Output 12/28/18 12/28/18 12/29/18 1515:00 23:00 07:00 IntakeIntake Total 1029 ml 1289 ml 980 ml OutputOutput Total 485 ml 820 ml 1275 ml BalanceBalance 544 ml 469 ml -295 ml Exam H ENT exam; supple neck, no JVD. No lymphadenopathy. Midline trachea. No thyromegaly. Pupils are midsize and sluggishly reactive to light. Patient has good dentition. No neck masses. Chest exam; clear to auscultation. S1-S2 audible, no murmurs. Regular rhythm. Abdomen exam; soft, no organomegaly. Bowel sounds audible. Extremity exam; trace peripheral edema. Pulses 1+. EQUIPMENT MECH[employer]IC exam; patient remains unresponsive. Results Result Diagram: 12/29/18 0500 12/29/18 0500 Results 24hrs Laboratory Tests Test 12/28/18 09:52 12/28/18 12:02 12/28/18 13:30 12/28/18 13:42 Bedside Glucose 139 108 94 Sodium Level 157 H Potassium Level 3.7 Chloride Level 123 H Carbon Dioxide Level 29 Anion Gap 5 Blood Urea Nitrogen 25 H Creatinine 0.94 Est Glomerular > 60 Filtrat Rate mL/min Glucose Level 122 Calcium Level 8.4 Test 12/28/18 14:48 12/28/18 16:53 12/28/18 17:56 12/28/18 20:07 Bedside Glucose 113 141 135 122 Test 12/28/18 21:44 12/29/18 00:53 12/29/18 04:30 12/29/18 05:00 Bedside Glucose 106 138 140 White Blood Count 8.9 # Red Blood Count 2.83 L Hemoglobin 7.9 L Hematocrit 26.3 L Mean Corpuscular 92.9 Volume Mean Corpuscular 27.9 L Hemoglobin Mean Corpuscular 30.0 L Hemoglobin Concent Red Cell 14.1 Distribution Width Platelet Count 200 Mean Platelet Volume 11.5 H Immature 0.700 H Granulocytes % Neutrophils % 61.6 Lymphocytes % 29.4 Monocytes % 7.8 Eosinophils % 0.3 Basophils % 0.2 Nucleated Red Blood 0.7 H Cells % Immature 0.060 H Granulocytes # Neutrophils # 5.5 Lymphocytes # 2.6 Monocytes # 0.7 Eosinophils # 0.0 Basophils # 0.0 Nucleated Red Blood 0.1 H Cells # Sodium Level 157 H Potassium Level 3.8 Chloride Level 124 H Carbon Dioxide Level 29 Anion Gap 4 L Blood Urea Nitrogen 26 H Creatinine 0.91 Est Glomerular > 60 Filtrat Rate mL/min Glucose Level 162 Calcium Level 8.0 L Medications Medication Current Medications IV Flush (NS 3 ml) 3 ml PER PROTOCOL IV ; Start 12/22/18 at 02:00 Ondansetron HCl (Zofran Inj) 4 mg Q6H PRN IV NAUSEA/VOMITING; Start 12/22/18 at 02:00 Acetaminophen (Tylenol Tab) 650 mg Q6H PRN PO .PAIN 1-3 OR TEMP; Start 12/22/18 at 02:00 Acetaminophen/ Hydrocodone Bitart ([place] (5/325)) 1 tab Q6H PRN PO .MOD PAIN 4- 6; Start 12/22/18 at 02:00 Morphine Sulfate (morphine) 2 mg Q4H PRN IV .SEVERE PAIN 7-10; Start 12/22/18 at 02:00 Docusate Sodium (Colace) 100 mg Q12H PRN PO .CONSTIPATION; Start 12/22/18 at 02:00 Magnesium Hydroxide (Milk Of Mag) 30 ml DAILY PRN PO .CONSTIPATION; Start 12/22/18 at 02:00 Albuterol/ Ipratropium (Duoneb) 3 ml Q4H RESP THERAPY PRN HHN SHORTNESS OF BREATH; Start 12/22/18 at 02:00 Hydralazine HCl (Apresoline) 10 mg Q6H PRN IV ELEVATED BLOOD PRESSURE; Start 12/22/18 at 02:00 Nitroglycerin (Nitroglycerin (Sl Tab) 0.4 Mg) 1 tab Q5M PRN SL ANGINA; Start 12/22/18 at 02:00 Acetaminophen (Tylenol Supp) 650 mg Q4H PRN NV TEMP > 37C; Start 12/22/18 at 02:00 Acetaminophen (Tylenol Liquid) 650 mg Q4H PRN PO TEMP > 37C Last administered o n 12/29/18 00:54; Admin Dose 650 MG; Start 12/22/18 at 02:00 Meperidine HCl (Demerol) 12.5 mg Q4H PRN IV POST OPERATIVE SHIVERING; Start 12/22/18 at 02:00 Meperidine HCl (Demerol) 25 mg Q4H PRN IV POST OPERATIVE SHIVERING; Start 12/22/18 at 02:00 Eye Lubricant (Akwa Oint) 1 applic Q6 BOTH EYES Last administered on 12/29/18 05:30; Admin Dose 1 APPLIC; Start 12/22/18 at 06:00 Eye Lubricant (Artificial Tears Oph) 2 drop Q6 BOTH EYES Last administered on 12/29/18 05:30; Admin Dose 2 DROP; Start 12/22/18 at 06:00 Piperacillin Sod/ Tazobactam Sod 100 ml @ 200 mls/hr Q6 IVPB Last administered on 12/29/18 05:30; Admin Dose 200 MLS/HR; Start 12/22/18 at 04:00 Levetiracetam 100 ml @ 400 mls/hr Q12 IVPB Last administered on 12/28/18 20:11; Admin Dose 400 MLS/HR; Start 12/22/18 at 05:30 Lorazepam (Ativan) 1 mg Q1H PRN IV SEIZURES Last administered on 12/27/18 09:02; Admin Dose 1 MG; Start 12/22/18 at 05:00 Norepinephrine 32 mg/Dextrose 250 ml @ 0.47 mls/hr TITRATE IV Last administ ered on 12/26/18 06:31; Admin Dose 0.94 MLS/HR; Start 12/22/18 at 09:30 Aspirin (Aspirin) 81 mg DAILY NGT Last administered on 12/28/18 08:07; Admin Dose 81 MG; Start 12/22/18 at 09:30 Ticagrelor (Brilinta) 90 mg BID PO Last administered on 12/28/18 20:12; Admin Dose 90 MG; Start 12/22/18 at 10:30 Propofol 100 ml @ 2.949 mls/ hr Q12H IV Last administered on 12/27/18 00:27; Admin Dose 8.847 MLS/HR; Start 12/23/18 at 14:30 Fentanyl 100 ml @ 2.5 mls/hr TITRATE IV Last administered on 12/25/18at 05:51; Admin Dose 5 MLS/HR; Start 12/23/18 at 20:30 Atorvastatin Calcium (Lipitor) 80 mg DAILY@21 NGT Last administered on 12/28/18at 20:11; Admin Dose 80 MG; Start 12/24/18 at 21:00 Miscellaneous Information 1 ea NOTE XX ; Start 12/25/18 at 04:00 Glucose (Glutose) 15 gm Q15M PRN PO DECREASED GLUCOSE; Start 12/25/18 at 04:00 Glucose (Glutose) 22.5 gm Q15M PRN PO DECREASED GLUCOSE; Start 12/25/18 at 04:00 Dextrose (D50w Syringe) 25 ml Q15M PRN IV DECREASED GLUCOSE; Start 12/25/18 at 04:00 Dextrose (D50w Syringe) 50 ml Q15M PRN IV DECREASED GLUCOSE; Start 12/25/18 at 04:00 Glucagon (Glucagen) 1 mg Q15M PRN IM DECREASED GLUCOSE; Start 12/25/18 at 04:00 Glucose (Glutose) 15 gm Q15M PRN BUCCAL DECREASED GLUCOSE; Start 12/25/18 at 04:00 Famotidine (Pepcid) 20 mg Q12 PO Last administered on 12/28/18at 20:11; Admin Dose 20 MG; Start 12/26/18 at 21:00 Phenytoin (Dilantin) 100 mg Q8 IV Last administered on 12/29/18at 05:30; Admin Dose 100 MG; Start 12/27/18 at 14:00 Insulin Glargine (Lantus) 20 units DAILY@2000 SC Last administered on 12/28/18at 20:12; Admin Dose 20 UNITS; Start 12/28/18 at 20:00 Insulin Aspart (Novolog Insulin Pen) NOVOLOG *MODERATE* ALGORI... Q4 SC ; Start 12/28/18 at 17:00 Metoprolol Tartrate (Lopressor) 25 mg BID NGT ; Start 12/29/18 at 09:00 Losartan Potassium (Cozaar) 25 mg DAILY NGT ; Start 12/29/18 at 09:00 MACI SILVEIRA 17, 2019 09:06
[2018-12-29] MEDS: DESMOPRESSIN 4 MCG INJ SC SCH ×2 (10:24→21:01)
[2018-12-29] MEDS ORDERED: SOD CHLORIDE 0.9% 1,000 ML IV ONE (10:30)
[2018-12-29] MEDS: NORepinephrine 32 MG in DEXTROSE 5% 218 ML IV SCH (12:15)
--- NOTE | 2018-12-29 14:29 | CONS ---
Assessment/Plan Assessment/Plan Assessment/Plan (Recall) 58 F c/ multiple comorbidities, who is admitted to the [facility] ICU in coma s/p cardiac arrest. s/p cardiac catheterization and stent placement.. s/p targeted temperature therapy On neurologic examination she has some preservation of brainstem and cortical activity On 12/26, noted to have bilateral limb shaking c/f seizure. Now s/p Dilantin...with clinical improvement. Head CT is notable for diffuse loss of bond-white differentiation, which portends a grave prognosis for meaningful neurologic recovery.. P: Repeat EEG today Repeat Dilantin level today Continue to limit sedation, where possible Other medical management and supportive care per primary Consultation Date/Type/Reason Admit Date/Time Dec 22, 2018 at 01:25 Type of Consult Neurology Reason for Consultation coma s/p cardiac arrest Requesting Provider: AMPARO LEONARD Date/Time of Note DATE: 12/29/18 TIME: 14:26 24 HR Interval Summary Free Text/Dictation Continues acute care Exam/Review of Systems Exam Vitals Vital Signs Date Temp Pulse Resp B/P (MAP) Pulse Ox O2 O2 Flow FiO2 Time Delivery Rate 12/29/18 86 25 84/57 (66) 94 13:45 12/29/18 Mechanical 13:00 Ventilator 12/29/18 99.9 10:33 12/29/18 35 09:45 Intake and Output 12/28/18 12/28/18 12/29/18 1515:00 23:00 07:00 IntakeIntake Total 1029 ml 1289 ml 1020 ml OutputOutput Total 485 ml 820 ml 1435 ml BalanceBalance 544 ml 469 ml -415 ml Exam PE: Gen Appearance: No Apparent Distress HEENT: Intubated Cardiovascular: Regular rate Abdomen: Soft Extremities: Dry NE: The patient was comatose Cranial nerve examination was limited by mental status. Pupils were equal and nonreactive to light. There was no afferent pupillary defect. Funduscopic examination was limited. Face was grossly symmetric, w/ absent corneal and present cough reflexes. Tone was normal. Muscle bulk was normal. I did not see fasciculations. The patient was without motor response.. Coordination and gait testing was limited by mental status. Arm and leg reflexes were within normal limits and symmetric. [place]'s sign was absent. Plantar responses were mute. Results Result Diagram: 12/29/18 0500 12/29/18 0500 Results 24hrs Laboratory Tests Test 12/28/18 14:48 12/28/18 16:53 12/28/18 17:56 12/28/18 20:07 Bedside Glucose 113 141 135 122 Test 12/28/18 21:44 12/29/18 00:53 12/29/18 04:30 12/29/18 05:00 Bedside Glucose 106 138 140 White Blood Count 8.9 # Red Blood Count 2.83 L Hemoglobin 7.9 L Hematocrit 26.3 L Mean Corpuscular 92.9 Volume Mean Corpuscular 27.9 L Hemoglobin Mean Corpuscular 30.0 L Hemoglobin Concent Red Cell 14.1 Distribution Width Platelet Count 200 Mean Platelet Volume 11.5 H Immature 0.700 H Granulocytes % Neutrophils % 61.6 Lymphocytes % 29.4 Monocytes % 7.8 Eosinophils % 0.3 Basophils % 0.2 Nucleated Red Blood 0.7 H Cells % Immature 0.060 H Granulocytes # Neutrophils # 5.5 Lymphocytes # 2.6 Monocytes # 0.7 Eosinophils # 0.0 Basophils # 0.0 Nucleated Red Blood 0.1 H Cells # Sodium Level 157 H Potassium Level 3.8 Chloride Level 124 H Carbon Dioxide Level 29 Anion Gap 4 L Blood Urea Nitrogen 26 H Creatinine 0.91 Est Glomerular > 60 Filtrat Rate mL/min Glucose Level 162 Calcium Level 8.0 L Test 12/29/18 08:57 12/29/18 12:20 Bedside Glucose 149 131 Medications Medication Current Medications IV Flush (NS 3 ml) 3 ml PER PROTOCOL IV ; Start 12/22/18 at 02:00 Ondansetron HCl (Zofran Inj) 4 mg Q6H PRN IV NAUSEA/VOMITING; Start 12/22/18 at 02:00 Acetaminophen (Tylenol Tab) 650 mg Q6H PRN PO .PAIN 1-3 OR TEMP Last administered on 12/29/18at 08:58; Admin Dose 650 MG; Start 12/22/18 at 02:00 Acetaminophen/ Hydrocodone Bitart ([place] (5/325)) 1 tab Q6H PRN PO .MOD PAIN 4- 6; Start 12/22/18 at 02:00 Morphine Sulfate (morphine) 2 mg Q4H PRN IV .SEVERE PAIN 7-10; Start 12/22/18 at 02:00 Docusate Sodium (Colace) 100 mg Q12H PRN PO .CONSTIPATION; Start 12/22/18 at 02:00 Magnesium Hydroxide (Milk Of Mag) 30 ml DAILY PRN PO .CONSTIPATION; Start 12/22/18 at 02:00 Albuterol/ Ipratropium (Duoneb) 3 ml Q4H RESP THERAPY PRN HHN SHORTNESS OF BREATH; Start 12/22/18 at 02:00 Hydralazine HCl (Apresoline) 10 mg Q6H PRN IV ELEVATED BLOOD PRESSURE; Start 12/22/18 at 02:00 Nitroglycerin (Nitroglycerin (Sl Tab) 0.4 Mg) 1 tab Q5M PRN SL ANGINA; Start 12/22/18 at 02:00 Eye Lubricant (Akwa Oint) 1 applic Q6 BOTH EYES Last administered on 12/29/18 12:16; Admin Dose 1 APPLIC; Start 12/22/18 at 06:00 Eye Lubricant (Artificial Tears Oph) 2 drop Q6 BOTH EYES Last administered on 12/29/18 12:16; Admin Dose 2 DROP; Start 12/22/18 at 06:00 Lorazepam (Ativan) 1 mg Q1H PRN IV SEIZURES Last administered on 12/27/18 09:02; Admin Dose 1 MG; Start 12/22/18 at 05:00 Norepinephrine 32 mg/Dextrose 250 ml @ 0.47 mls/hr TITRATE IV Last administered on 12/29/18 12:15; Admin Dose 0.47 MLS/HR; Start 12/22/18 at 09:30 Aspirin (Aspirin) 81 mg DAILY NGT Last administered on 12/29/18 08:57; Admin Dose 81 MG; Start 12/22/18 at 09:30 Ticagrelor (Brilinta) 90 mg BID PO Last administered on 12/29/18 08:59; Admin Dose 90 MG; Start 12/22/18 at 10:30 Propofol 100 ml @ 2.949 mls/ hr Q12H IV Last administered on 12/27/18 00:27; Admin Dose 8.847 MLS/HR; Start 12/23/18 at 14:30 Fentanyl 100 ml @ 2.5 mls/hr TITRATE IV Last administered on 12/25/18 05:51; Admin Dose 5 MLS/HR; Start 12/23/18 at 20:30 Atorvastatin Calcium (Lipitor) 80 mg DAILY@21 NGT Last administered on 12/28/18at 20:11; Admin Dose 80 MG; Start 12/24/18 at 21:00 Miscellaneous Information 1 ea NOTE XX ; Start 12/25/18 at 04:00 Glucose (Glutose) 15 gm Q15M PRN PO DECREASED GLUCOSE; Start 12/25/18 at 04:00 Glucose (Glutose) 22.5 gm Q15M PRN PO DECREASED GLUCOSE; Start 12/25/18 at 04:00 Dextrose (D50w Syringe) 25 ml Q15M PRN IV DECREASED GLUCOSE; Start 12/25/18 at 04:00 Dextrose (D50w Syringe) 50 ml Q15M PRN IV DECREASED GLUCOSE; Start 12/25/18 at 04:00 Glucagon (Glucagen) 1 mg Q15M PRN IM DECREASED GLUCOSE; Start 12/25/18 at 04:00 Glucose (Glutose) 15 gm Q15M PRN BUCCAL DECREASED GLUCOSE; Start 12/25/18 at 04:00 Famotidine (Pepcid) 20 mg Q12 PO Last administered on 12/29/18at 08:57; Admin Dose 20 MG; Start 12/26/18 at 21:00 Phenytoin (Dilantin) 100 mg Q8 IV Last administered on 12/29/18at 13:28; Admin Dose 100 MG; Start 12/27/18 at 14:00 Insulin Glargine (Lantus) 20 units DAILY@2000 SC Last administered on 12/28/18at 20:12; Admin Dose 20 UNITS; Start 12/28/18 at 20:00 Insulin Aspart (Novolog Insulin Pen) NOVOLOG *MODERATE* ALGORI... Q4 SC Last administered on 12/29/18at 09:00; Admin Dose 2 UNIT; Start 12/28/18 at 17:00 Metoprolol Tartrate (Lopressor) 25 mg BID NGT Last administered on 12/29/18at 08:58; Admin Dose 25 MG; Start 12/29/18 at 09:00 Losartan Potassium (Cozaar) 25 mg DAILY NGT Last administered on 12/29/18at 08:58; Admin Dose 25 MG; Start 12/29/18 at 09:00 Desmopressin Acetate (Ddavp) 2 mcg BID SC Last administered on 12/29/18at 10:24; Admin Dose 2 MCG; Start 12/29/18 at 10:00 Levetiracetam 100 ml @ 400 mls/hr Q12 IVPB ; Start 12/29/18 at 21:00 KARL REYES Dec 29, 2018 14:29
--- NOTE | 2018-12-29 15:40 | PN ---
Date/Time of Note Date/Time of Note DATE: 12/29/18 TIME: 15:36 Assessment/Plan VTE Prophylaxis Risk score (from Ns)>0 risk: 10 SCD applied (from Ns): Yes Pharmacological prophylaxis: NA/contraindicated Pharm contraindication: other Lines/Catheters IV Catheter Type (from [facility]): A Line Assessment/Plan Hospital Course 58-year-old obese woman past medical of hypertension, high cholesterol, anxiety, diabetes, who was brought in by EMS after suffering cardiac arrest and had ROSC, with ST elevation [place] lactic acidosis, status post PCI of the OM1 (culprit lesion) is as well as stenting of the mid LAD, intubated and unresponsive, on insulin drip. #Neuro - More than 30 minutes down time before ROSC achieved, poor overall neuro prognosis - s/p hypothermia protocol - EEG 12/25 with mild diffuse slowing. - CT head 12/26 diffuse cerebral edema - On 12/27 AM patient developed tremors in hands concerning for seizure activity. Already on propofol and keppra, started dilantin. - Repeated EEG 12/27, finding show slowing - Dr Dorsey following #Cardiac - Cardiac arrest, prolonged downtime, s/p hypothermia - Low BP via arterial line, off pressors since about 12/26. - s/p PCI of the LAD - Continue ASA, brilinta - Also statin - Dr. Ham following #Pulmonary - Diffuse pulmonary infiltrates on CXR likely from cardiogenic shock with L sided heart failure - Earlier this week on 100% FiO2 and high PEEP, titrating down - Was on spot diuresis; stopped due to hypernatremia and hypotension - Empiric antibiotics as below. - Dr. 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 Increased to 250 q3h today. - Otherwise renal function good, good urine output. #GI - started tube feeds - Bloody NGt output on dual antiplatelet and heparin, now holding heparin. - H2 zoraida #Endocrine - Insulin gtt. #ID - Continue empiric zosyn - Cultures negative - Daily fevers may be due to brain injury. #DVT - red-tinged NGt output, holding heparin, SCDs only. Result Diagram: 12/29/18 0500 12/29/18 0500 Results 24hrs Laboratory Tests Test 12/28/18 16:53 12/28/18 17:56 12/28/18 20:07 12/28/18 21:44 Bedside Glucose 141 135 122 106 Test 12/29/18 00:53 12/29/18 04:30 12/29/18 05:00 12/29/18 08:57 Bedside Glucose 138 140 149 White Blood Count 8.9 # Red Blood Count 2.83 L Hemoglobin 7.9 L Hematocrit 26.3 L Mean Corpuscular 92.9 Volume Mean Corpuscular 27.9 L Hemoglobin Mean Corpuscular 30.0 L Hemoglobin Concent Red Cell 14.1 Distribution Width Platelet Count 200 Mean Platelet Volume 11.5 H Immature 0.700 H Granulocytes % Neutrophils % 61.6 Lymphocytes % 29.4 Monocytes % 7.8 Eosinophils % 0.3 Basophils % 0.2 Nucleated Red Blood 0.7 H Cells % Immature 0.060 H Granulocytes # Neutrophils # 5.5 Lymphocytes # 2.6 Monocytes # 0.7 Eosinophils # 0.0 Basophils # 0.0 Nucleated Red Blood 0.1 H Cells # Sodium Level 157 H Potassium Level 3.8 Chloride Level 124 H Carbon Dioxide Level 29 Anion Gap 4 L Blood Urea Nitrogen 26 H Creatinine 0.91 Est Glomerular > 60 Filtrat Rate mL/min Glucose Level 162 Calcium Level 8.0 L Test 12/29/18 12:20 Bedside Glucose 131 Subjective 24 Hr Interval Summary Subjective hx not possible: pt non-verbal Exam/Review of Systems Exam Vitals Vital Signs Date Temp Pulse Resp B/P (MAP) Pulse Ox O2 O2 Flow FiO2 Time Delivery Rate 12/29/18 86 25 84/57 (66) 94 13:45 12/29/18 35 13:35 12/29/18 Mechanical 13:00 Ventilator 12/29/18 99.9 10:33 Intake and Output 12/28/18 12/28/18 12/29/18 1515:00 23:00 07:00 IntakeIntake Total 1029 ml 1289 ml 1020 ml OutputOutput Total 485 ml 820 ml 1435 ml BalanceBalance 544 ml 469 ml -415 ml Constitutional: non-verbal ENMT: intubated Respiratory: clear to auscultation Cardiovascular: regular rate and rhythm Gastrointestinal: soft; No distended Musculoskeletal: nl extremities to inspection Results Results 24hrs Laboratory Tests Test 12/28/18 16:53 12/28/18 17:56 12/28/18 20:07 12/28/18 21:44 Bedside Glucose 141 135 122 106 Test 12/29/18 00:53 12/29/18 04:30 12/29/18 05:00 12/29/18 08:57 Bedside Glucose 138 140 149 White Blood Count 8.9 # Red Blood Count 2.83 L Hemoglobin 7.9 L Hematocrit 26.3 L Mean Corpuscular 92.9 Volume Mean Corpuscular 27.9 L Hemoglobin Mean Corpuscular 30.0 L Hemoglobin Concent Red Cell 14.1 Distribution Width Platelet Count 200 Mean Platelet Volume 11.5 H Immature 0.700 H Granulocytes % Neutrophils % 61.6 Lymphocytes % 29.4 Monocytes % 7.8 Eosinophils % 0.3 Basophils % 0.2 Nucleated Red Blood 0.7 H Cells % Immature 0.060 H Granulocytes # Neutrophils # 5.5 Lymphocytes # 2.6 Monocytes # 0.7 Eosinophils # 0.0 Basophils # 0.0 Nucleated Red Blood 0.1 H Cells # Sodium Level 157 H Potassium Level 3.8 Chloride Level 124 H Carbon Dioxide Level 29 Anion Gap 4 L Blood Urea Nitrogen 26 H Creatinine 0.91 Est Glomerular > 60 Filtrat Rate mL/min Glucose Level 162 Calcium Level 8.0 L Test 12/29/18 12:20 Bedside Glucose 131 Medications Medication Current Medications IV Flush (NS 3 ml) 3 ml PER PROTOCOL IV ; Start 12/22/18 at 02:00 Ondansetron HCl (Zofran Inj) 4 mg Q6H PRN IV NAUSEA/VOMITING; Start 12/22/18 at 02:00 Acetaminophen (Tylenol Tab) 650 mg Q6H PRN PO .PAIN 1-3 OR TEMP Last admi nistered on 12/29/18at 08:58; Admin Dose 650 MG; Start 12/22/18 at 02:00 Acetaminophen/ Hydrocodone Bitart ([place] (5/325)) 1 tab Q6H PRN PO .MOD PAIN 4- 6; Start 12/22/18 at 02:00 Morphine Sulfate (morphine) 2 mg Q4H PRN IV .SEVERE PAIN 7-10; Start 12/22/18 at 02:00 Docusate Sodium (Colace) 100 mg Q12H PRN PO .CONSTIPATION; Start 12/22/18 at 02:00 Magnesium Hydroxide (Milk Of Mag) 30 ml DAILY PRN PO .CONSTIPATION; Start 12/22/18 at 02:00 Albuterol/ Ipratropium (Duoneb) 3 ml Q4H RESP THERAPY PRN HHN SHORTNESS OF BREATH; Start 12/22/18 at 02:00 Hydralazine HCl (Apresoline) 10 mg Q6H PRN IV ELEVATED BLOOD PRESSURE; Start 12/22/18 at 02:00 Nitroglycerin (Nitroglycerin (Sl Tab) 0.4 Mg) 1 tab Q5M PRN SL ANGINA; Start 12/22/18 at 02:00 Eye Lubricant (Akwa Oint) 1 applic Q6 BOTH EYES Last administered on 12/29/18 12:16; Admin Dose 1 APPLIC; Start 12/22/18 at 06:00 Eye Lubricant (Artificial Tears Oph) 2 drop Q6 BOTH EYES Last administered on 12/29/18 12:16; Admin Dose 2 DROP; Start 12/22/18 at 06:00 Lorazepam (Ativan) 1 mg Q1H PRN IV SEIZURES Last administered on 12/27/18 09:02; Admin Dose 1 MG; Start 12/22/18 at 05:00 Norepinephrine 32 mg/Dextrose 250 ml @ 0.47 mls/hr TITRATE IV Last administered on 12/29/18 12:15; Admin Dose 0.47 MLS/HR; Start 12/22/18 at 09:30 Aspirin (Aspirin) 81 mg DAILY NGT Last administered on 12/29/18 08:57; Admin Dose 81 MG; Start 12/22/18 at 09:30 Ticagrelor (Brilinta) 90 mg BID PO Last administered on 12/29/18 08:59; Admin Dose 90 MG; Start 12/22/18 at 10:30 Propofol 100 ml @ 2.949 mls/ hr Q12H IV Last administered on 12/27/18 00:27; Admin Dose 8.847 MLS/HR; Start 12/23/18 at 14:30 Fentanyl 100 ml @ 2.5 mls/hr TITRATE IV Last administered on 12/25/18 05:51; Admin Dose 5 MLS/HR; Start 12/23/18 at 20:30 Atorvastatin Calcium (Lipitor) 80 mg DAILY@21 NGT Last administered on 12/28/18at 20:11; Admin Dose 80 MG; Start 12/24/18 at 21:00 Miscellaneous Information 1 ea NOTE XX ; Start 12/25/18 at 04:00 Glucose (Glutose) 15 gm Q15M PRN PO DECREASED GLUCOSE; Start 12/25/18 at 04:00 Glucose (Glutose) 22.5 gm Q15M PRN PO DECREASED GLUCOSE; Start 12/25/18 at 04:00 Dextrose (D50w Syringe) 25 ml Q15M PRN IV DECREASED GLUCOSE; Start 12/25/18 at 04:00 Dextrose (D50w Syringe) 50 ml Q15M PRN IV DECREASED GLUCOSE; Start 12/25/18 at 04:00 Glucagon (Glucagen) 1 mg Q15M PRN IM DECREASED GLUCOSE; Start 12/25/18 at 04:00 Glucose (Glutose) 15 gm Q15M PRN BUCCAL DECREASED GLUCOSE; Start 12/25/18 at 04:00 Famotidine (Pepcid) 20 mg Q12 PO Last administered on 12/29/18at 08:57; Admin Dose 20 MG; Start 12/26/18 at 21:00 Phenytoin (Dilantin) 100 mg Q8 IV Last administered on 12/29/18at 13:28; Admin Dose 100 MG; Start 12/27/18 at 14:00 Insulin Glargine (Lantus) 20 units DAILY@2000 SC Last administered on 12/28/18at 20:12; Admin Dose 20 UNITS; Start 12/28/18 at 20:00 Insulin Aspart (Novolog Insulin Pen) NOVOLOG *MODERATE* ALGORI... Q4 SC Last administered on 12/29/18at 09:00; Admin Dose 2 UNIT; Start 12/28/18 at 17:00 Metoprolol Tartrate (Lopressor) 25 mg BID NGT Last administered on 12/29/18at 08:58; Admin Dose 25 MG; Start 12/29/18 at 09:00 Losartan Potassium (Cozaar) 25 mg DAILY NGT Last administered on 12/29/18at 08:58; Admin Dose 25 MG; Start 12/29/18 at 09:00 Desmopressin Acetate (Ddavp) 2 mcg BID SC Last administered on 12/29/18at 10:24; Admin Dose 2 MCG; Start 12/29/18 at 10:00 Levetiracetam 100 ml @ 400 mls/hr Q12 IVPB ; Start 12/29/18 at 21:00 JAY GALAN Dec 29, 2018 15:40
[2018-12-29] MEDS: INSULIN GLARGINE [LANTus] (100 UNITS/ML) SYG SC SCH (20:09)
[2018-12-29] MEDS: ATORVASTATIN 80 MG TAB NGT SCH (21:01)
[2018-12-30] VITALS (90 sets, daily range): BP systolic 74–167; BP diastolic 43–72; PULSE 62–112; RESP 12–23
[2018-12-30] MEDS: INSULIN ASPART [NOVOLOG] 3 ML PEN SC SCH ×6 (01:04→20:28)
[2018-12-30] MEDS: PROPOFOL 100 ML IV SCH ×2 (01:26→14:30)
[2018-12-30] MEDS: OCULAR LUBRICANT 3.5 GM OPH OINT BOTH EYES SCH ×3 (05:00→17:21)
[2018-12-30] MEDS: ARTIFICIAL TEARS 15 ML OPH BOTH EYES SCH ×3 (05:00→17:21)
[2018-12-30] MEDS: PHENYTOIN 100 MG INJ IV SCH ×3 (05:24→21:53)
[2018-12-30] MEDS: LOSARTAN 25 MG TAB NGT SCH (09:00)
[2018-12-30] MEDS: METOPROLOL 25 MG TAB NGT SCH ×2 (09:00→20:30)
--- NOTE | 2018-12-30 09:06 | CONS ---
Assessment/Plan Assessment/Plan Assessment/Plan (Daily) Ventilator setting; assist control of 22, tidal volume 500, PEEP of 5, 40% FiO2. Patient is currently on Levophed 1 steven per minute. Assessment and recommendations; 1. Patient admitted with cardiac arrest status post multiple CPR with likely ensuing severe anoxic encephalopathy. 2. Status post emergent coronary angiography with stenting of LAD. 3. Severe pulmonary edema with marked interval improvement and improvement in hypoxemia. 4. Mild hypotension, with interval improvement. 5. Anemia. 6. Significant spike and leukocytosis. 7. History of diabetes with patient presenting with severe hyperglycemia and some element of DKA on admission with interval correction. Obtain chest x-ray. Start empiric cefepime and vancomycin. Obtain cultures. Consider removing arterial line. Patient is essentially apneic as evaluated at bedside. However she does have a cough reflex therefore is definitely not brain-. Prognosis appears extremely poor. Further recommendations once chest x-ray is obtained. 35 minutes of critical care time was spent evaluating the patient. Consultation Date/Type/Reason Admit Date/Time Dec 22, 2018 at 01:25 Initial Consult Date 12/22/18 Type of Consult Pulmonary/critical care Patient is a 58-year-old lady who was brought into the hospital after having cardiac arrest at home. Prolonged CPR was done with revival of vital signs. Upon evaluation here patient was diagnosed with STEMI and was taken to cardiac Psych Therapist where LAD lesion was dilated and a stent put in. Patient has remained profoundly hypotensive and is critically ill. Past medical history; 1. History of hypertension, hyperlipidemia. 2. Diabetes. Apparently poorly controlled. Medications; reviewed. Patient is on insulin drip, phenylephrine drip, Levophed, and propofol. All doses and other medications were reviewed in detail. Allergies; none. Social history; non-smoker. Family history; patient is and has supportive family. 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 Review of system; unable to be obtained. General exam; middle-aged female, orally intubated, sedated and paralyzed. Requesting Provider: AMPARO LEONARD Date/Time of Note DATE: 12/30/18 TIME: 09:02 24 HR Interval Summary Free Text/Dictation Patient's condition remains critical. Remains profoundly unresponsive. Patient remains mildly hypotensive on very low-dose Levophed drip. No overt seizure activity reported. General exam; middle-aged woman, orally intubated, unresponsive, currently in no distress. Exam/Review of Systems Exam Vitals Vital Signs Date Temp Pulse Resp B/P (MAP) Pulse Ox O2 O2 Flow FiO2 Time Delivery Rate 12/30/18 87 08:00 12/30/18 22 126/59 95 Mechanical 06:00 (81) Ventilator 12/30/18 40 05:20 12/30/18 99.0 04:00 Intake and Output 12/29/18 12/29/18 12/30/18 1515:00 23:00 07:00 IntakeIntake Total 1225.16 ml 605.80 ml 754.06 ml OutputOutput Total 895 ml 575 ml 451 ml BalanceBalance 330.16 ml 30.80 ml 303.06 ml Exam H ENT exam; supple neck, no lymphadenopathy. Positive JVD. No neck masses. Pupils are small bilaterally. And very sluggishly reactive to light if at all. Patient has good dentition. Orally intubated. no thyromegaly. Chest exam; diminished but clear breath sounds. S1-S2 audible, no murmurs. Regular rhythm. Abdomen exam; soft, nondistended. No organomegaly. Bowel sounds are audible. Extremity exam; trace edema. Pulses 1+. 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 Does have a cough reflex. Results Result Diagram: 12/30/18 0400 12/30/18 0400 Results 24hrs Laboratory Tests Test 12/29/18 12:20 12/29/18 16:39 12/29/18 16:51 12/29/18 19:49 Bedside Glucose 131 144 139 Phenytoin (Dilantin) 11.6 Level Test 12/30/18 01:02 12/30/18 04:00 12/30/18 04:57 12/30/18 08:41 Bedside Glucose 218 176 149 White Blood Count 18.0 #H Red Blood Count 3.14 L Hemoglobin 8.6 L Hematocrit 29.4 L Mean Corpuscular 93.6 Volume Mean Corpuscular 27.4 L Hemoglobin Mean Corpuscular 29.3 L Hemoglobin Concent Red Cell 14.4 Distribution Width Platelet Count 278 # Mean Platelet Volume 11.9 H Immature 1.000 H Granulocytes % Neutrophils % Segmented 60 Neutrophils % (Manual) Band Neutrophils % 21 H (Manual) Lymphocytes % Lymphocytes % 12 L (Manual) Reactive Lymphocytes 1 H % (Manual) Monocytes % Monocytes % (Manual) 4 Eosinophils % Eosinophils % 1 (Manual) Basophils % Myelocytes % 1 H (Manual) Nucleated Red Blood 1 H Cells % Immature 0.180 H Granulocytes # Neutrophils # Neutrophils # 11.5 H (Manual) Band Neutrophils # 3.7 H Lymphocytes (Manual) 2.1 Lymphocytes # Reactive Lymphocytes 0.1 H # Monocytes # Monocytes # (Manual) 0.7 Eosinophils # Basophils # Myelocytes # 0.1 H Nucleated Red Blood Cells # Platelet Estimate NORMAL Giant Platelets 2 H Polychromasia 3+ Anisocytosis 2+ Microcytosis 1+ Sodium Level 156 H Potassium Level 4.0 Chloride Level 123 H Carbon Dioxide Level 30 Anion Gap 3 L Blood Urea Nitrogen 24 H Creatinine 0.81 Est Glomerular > 60 Filtrat Rate mL/min Glucose Level 200 Calcium Level 8.1 L Medications Medication Current Medications IV Flush (NS 3 ml) 3 ml PER PROTOCOL IV ; Start 12/22/18 at 02:00 Ondansetron HCl (Zofran Inj) 4 mg Q6H PRN IV NAUSEA/VOMITING; Start 12/22/18 at 02:00 Acetaminophen (Tylenol Tab) 650 mg Q6H PRN PO .PAIN 1-3 OR TEMP Last administered on 12/29/18at 08:58; Admin Dose 650 MG; Start 12/22/18 at 02:00 Acetaminophen/ Hydrocodone Bitart ([place] (5/325)) 1 tab Q6H PRN PO .MOD PAIN 4- 6; Start 12/22/18 at 02:00 Morphine Sulfate (morphine) 2 mg Q4H PRN IV .SEVERE PAIN 7-10; Start 12/22/18 at 02:00 Docusate Sodium (Colace) 100 mg Q12H PRN PO .CONSTIPATION; Start 12/22/18 at 02:00 Magnesium Hydroxide (Milk Of Mag) 30 ml DAILY PRN PO .CONSTIPATION; Start 12/22/18 at 02:00 Albuterol/ Ipratropium (Duoneb) 3 ml Q4H RESP THERAPY PRN HHN SHORTNESS OF BREATH; Start 12/22/18 at 02:00 Hydralazine HCl (Apresoline) 10 mg Q6H PRN IV ELEVATED BLOOD PRESSURE; Start 12/22/18 at 02:00 Nitroglycerin (Nitroglycerin (Sl Tab) 0.4 Mg) 1 tab Q5M PRN SL ANGINA; Start 12/22/18 at 02:00 Eye Lubricant (Akwa Oint) 1 applic Q6 BOTH EYES Last administered on 12/30/18at 05:00; Admin Dose 1 APPLIC; Start 12/22/18 at 06:00 Eye Lubricant (Artificial Tears Oph) 2 drop Q6 BOTH EYES Last administered on 12/30/18 05:00; Admin Dose 2 DROP; Start 12/22/18 at 06:00 Lorazepam (Ativan) 1 mg Q1H PRN IV SEIZURES Last administered on 12/27/18 09:02; Admin Dose 1 MG; Start 12/22/18 at 05:00 Norepinephrine 32 mg/Dextrose 250 ml @ 0.47 mls/hr TITRATE IV Last administered on 12/29/18 12:15; Admin Dose 0.47 MLS/HR; Start 12/22/18 at 09:30 Aspirin (Aspirin) 81 mg DAILY NGT Last administered on 12/29/18 08:57; Admin Dose 81 MG; Start 12/22/18 at 09:30 Ticagrelor (Brilinta) 90 mg BID PO Last administered on 12/29/18 21:02; Admin Dose 90 MG; Start 12/22/18 at 10:30 Propofol 100 ml @ 2.949 mls/ hr Q12H IV Last administered on 12/27/18at 00:27; Admin Dose 8.847 MLS/HR; Start 12/23/18 at 14:30 Fentanyl 100 ml @ 2.5 mls/hr TITRATE IV Last administered on 12/25/18at 05:51; Admin Dose 5 MLS/HR; Start 12/23/18 at 20:30 Atorvastatin Calcium (Lipitor) 80 mg DAILY@21 NGT Last administered on 12/29/18at 21:01; Admin Dose 80 MG; Start 12/24/18 at 21:00 Miscellaneous Information 1 ea NOTE XX ; Start 12/25/18 at 04:00 Glucose (Glutose) 15 gm Q15M PRN PO DECREASED GLUCOSE; Start 12/25/18 at 04:00 Glucose (Glutose) 22.5 gm Q15M PRN PO DECREASED GLUCOSE; Start 12/25/18 at 04:00 Dextrose (D50w Syringe) 25 ml Q15M PRN IV DECREASED GLUCOSE; Start 12/25/18 at 04:00 Dextrose (D50w Syringe) 50 ml Q15M PRN IV DECREASED GLUCOSE; Start 12/25/18 at 04:00 Glucagon (Glucagen) 1 mg Q15M PRN IM DECREASED GLUCOSE; Start 12/25/18 at 04:00 Glucose (Glutose) 15 gm Q15M PRN BUCCAL DECREASED GLUCOSE; Start 12/25/18 at 04:00 Famotidine (Pepcid) 20 mg Q12 PO Last administered on 12/29/18 21:01; Admin Dose 20 MG; Start 12/26/18 at 21:00 Phenytoin (Dilantin) 100 mg Q8 IV Last administered on 12/30/18 05:24; Admin Dose 100 MG; Start 12/27/18 at 14:00 Insulin Glargine (Lantus) 20 units DAILY@2000 SC Last administered on 12/29/18 20:09; Admin Dose 20 UNITS; Start 12/28/18 at 20:00 Insulin Aspart (Novolog Insulin Pen) NOVOLOG *MODERATE* ALGORI... Q4 SC Last administered on 12/30/18 04:59; Admin Dose 2 UNIT; Start 12/28/18 at 17:00 Metoprolol Tartrate (Lopressor) 25 mg BID NGT Last administered on 12/29/18 08:58; Admin Dose 25 MG; Start 12/29/18 at 09:00 Losartan Potassium (Cozaar) 25 mg DAILY NGT Last administered on 12/29/18 08:58; Admin Dose 25 MG; Start 12/29/18 at 09:00 Desmopressin Acetate (Ddavp) 2 mcg BID SC Last administered on 12/29/18 21:01; Admin Dose 2 MCG; Start 12/29/18 at 10:00 Levetiracetam 100 ml @ 400 mls/hr Q12 IVPB Last administered on 12/29/18at 22:32; Admin Dose 400 MLS/HR; Start 12/29/18 at 21:00 MACI SILVEIRA 18, 2019 09:06
[2018-12-30] MEDS: ASPIRIN 81 MG TAB NGT SCH (09:12)
[2018-12-30] MEDS: FAMOTIDINE 20 MG TAB PO SCH ×2 (09:12→20:21)
[2018-12-30] MEDS: TICAGRELOR 90 MG TABLET PO SCH ×2 (09:13→20:28)
[2018-12-30] MEDS: DESMOPRESSIN 4 MCG INJ SC SCH ×2 (09:16→21:16)
[2018-12-30] MEDS ORDERED: VANCOMYCIN IV PER PHARMACY XX SCH (09:30)
[2018-12-30] MEDS: LEVETIRACETAM 1000 MG (PMX) 100 ML IVPB SCH ×2 (09:45→20:21)
[2018-12-30] MEDS: CEFEPIME 1GM/50 ML (PMX) 50 ML IVPB SCH ×2 (10:00→20:21)
[2018-12-30] MEDS ORDERED: VANCOMYCIN HCL 2 GM in SOD CHLORIDE 0.9% 500 ML IVPB ONE (11:00)
--- NOTE | 2018-12-30 12:37 | CONS ---
Assessment/Plan Assessment/Plan Assessment/Plan (Recall) 58 F c/ multiple comorbidities, who is admitted to the [facility] ICU in coma s/p cardiac arrest. s/p cardiac catheterization and stent placement.. s/p targeted temperature therapy On neurologic examination she has gradually lost signs of brainstem and cortical activity. On 12/26, noted to have bilateral limb shaking c/f seizure. Now s/p Dilantin...with cessation of abnl movements. Repeat EEG on 12/29 is without epileptiform activity, and also without definite cortical activity. Head CT is notable for diffuse loss of bond-white differentiation, which portends a grave prognosis for meaningful neurologic recovery.. P: Consider apnea test when medically able Continue Dilantin as ordered for now Continue to limit sedation, where possible Consultation Date/Type/Reason Admit Date/Time Dec 22, 2018 at 01:25 Type of Consult Neurology Reason for Consultation coma s/p cardiac arrest Requesting Provider: AMPARO LEONARD Date/Time of Note DATE: 12/30/18 TIME: 12:31 24 HR Interval Summary Free Text/Dictation Continues icu care Exam/Review of Systems Exam Vitals Vital Signs Date Temp Pulse Resp B/P (MAP) Pulse Ox O2 O2 Flow FiO2 Time Delivery Rate 12/30/18 83 12:00 12/30/18 22 126/59 95 Mechanical 06:00 (81) Ventilator 12/30/18 40 05:20 12/30/18 99.0 04:00 Intake and Output 12/29/18 12/29/18 12/30/18 1515:00 23:00 07:00 IntakeIntake Total 1225.16 ml 605.80 ml 754.06 ml OutputOutput Total 895 ml 575 ml 451 ml BalanceBalance 330.16 ml 30.80 ml 303.06 ml Exam PE: Gen Appearance: No Apparent Distress HEENT: Intubated Cardiovascular: Regular rate Abdomen: Soft Extremities: Dry NE: The patient was unresponsive. Cranial nerve examination was limited by mental status. Pupils were nonreactive to light. There was no afferent pupillary defect. Funduscopic examination was limited. Face was grossly symmetric, w/ absent corneal and cough reflexes. Tone was normal. Muscle bulk was normal. I did not see fasciculations. The patient was without motor response.. Coordination and gait testing was limited by mental status. Arm and leg reflexes were symmetric. [place]'s sign was absent. Plantar responses were mute. Results Result Diagram: 12/30/18 0400 12/30/18 0400 Results 24hrs Laboratory Tests Test 12/29/18 16:39 12/29/18 16:51 12/29/18 19:49 12/30/18 01:02 Bedside Glucose 144 139 218 Phenytoin (Dilantin) 11.6 Level Test 12/30/18 04:00 12/30/18 04:57 12/30/18 08:41 12/30/18 12:20 White Blood Count 18.0 #H Red Blood Count 3.14 L Hemoglobin 8.6 L Hematocrit 29.4 L Mean Corpuscular 93.6 Volume Mean Corpuscular 27.4 L Hemoglobin Mean Corpuscular 29.3 L Hemoglobin Concent Red Cell 14.4 Distribution Width Platelet Count 278 # Mean Platelet Volume 11.9 H Immature 1.000 H Granulocytes % Neutrophils % Segmented 60 Neutrophils % (Manual) Band Neutrophils % 21 H (Manual) Lymphocytes % Lymphocytes % 12 L (Manual) Reactive Lymphocytes 1 H % (Manual) Monocytes % Monocytes % (Manual) 4 Eosinophils % Eosinophils % 1 (Manual) Basophils % Myelocytes % 1 H (Manual) Nucleated Red Blood 1 H Cells % Immature 0.180 H Granulocytes # Neutrophils # Neutrophils # 11.5 H (Manual) Band Neutrophils # 3.7 H Lymphocytes (Manual) 2.1 Lymphocytes # Reactive Lymphocytes 0.1 H # Monocytes # Monocytes # (Manual) 0.7 Eosinophils # Basophils # Myelocytes # 0.1 H Nucleated Red Blood Cells # Platelet Estimate NORMAL Giant Platelets 2 H Polychromasia 3+ Anisocytosis 2+ Microcytosis 1+ Sodium Level 156 H Potassium Level 4.0 Chloride Level 123 H Carbon Dioxide Level 30 Anion Gap 3 L Blood Urea Nitrogen 24 H Creatinine 0.81 Est Glomerular > 60 Filtrat Rate mL/min Glucose Level 200 Calcium Level 8.1 L Bedside Glucose 176 149 174 Medications Medication Current Medications IV Flush (NS 3 ml) 3 ml PER PROTOCOL IV ; Start 12/22/18 at 02:00 Ondansetron HCl (Zofran Inj) 4 mg Q6H PRN IV NAUSEA/VOMITING; Start 12/22/18 at 02:00 Acetaminophen (Tylenol Tab) 650 mg Q6H PRN PO .PAIN 1-3 OR TEMP Last administered on 12/29/18 08:58; Admin Dose 650 MG; Start 12/22/18 at 02:00 Acetaminophen/ Hydrocodone Bitart ([place] (5/325)) 1 tab Q6H PRN PO .MOD PAIN 4- 6; Start 12/22/18 at 02:00 Morphine Sulfate (morphine) 2 mg Q4H PRN IV .SEVERE PAIN 7-10; Start 12/22/18 at 02:00 Docusate Sodium (Colace) 100 mg Q12H PRN PO .CONSTIPATION; Start 12/22/18 at 02:00 Magnesium Hydroxide (Milk Of Mag) 30 ml DAILY PRN PO .CONSTIPATION; Start 12/22/18 at 02:00 Albuterol/ Ipratropium (Duoneb) 3 ml Q4H RESP THERAPY PRN HHN SHORTNESS OF BREATH; Start 12/22/18 at 02:00 Hydralazine HCl (Apresoline) 10 mg Q6H PRN IV ELEVATED BLOOD PRESSURE; Start 12/22/18 at 02:00 Nitroglycerin (Nitroglycerin (Sl Tab) 0.4 Mg) 1 tab Q5M PRN SL ANGINA; Start 12/22/18 at 02:00 Eye Lubricant (Akwa Oint) 1 applic Q6 BOTH EYES Last administered on 12/30/18 11:41; Admin Dose 1 APPLIC; Start 12/22/18 at 06:00 Eye Lubricant (Artificial Tears Oph) 2 drop Q6 BOTH EYES Last administered on 12/30/18 11:41; Admin Dose 2 DROP; Start 12/22/18 at 06:00 Lorazepam (Ativan) 1 mg Q1H PRN IV SEIZURES Last administered on 12/27/18 09:02; Admin Dose 1 MG; Start 12/22/18 at 05:00 Norepinephrine 32 mg/Dextrose 250 ml @ 0.47 mls/hr TITRATE IV Last administered on 12/29/18 12:15; Admin Dose 0.47 MLS/HR; Start 12/22/18 at 09:30 Aspirin (Aspirin) 81 mg DAILY NGT Last administered on 12/30/18 09:12; Admin Dose 81 MG; Start 12/22/18 at 09:30 Ticagrelor (Brilinta) 90 mg BID PO Last administered on 12/30/18 09:13; Admin Dose 90 MG; Start 12/22/18 at 10:30 Propofol 100 ml @ 2.949 mls/ hr Q12H IV Last administered on 12/27/18at 00:27; Admin Dose 8.847 MLS/HR; Start 12/23/18 at 14:30 Fentanyl 100 ml @ 2.5 mls/hr TITRATE IV Last administered on 12/25/18at 05:51; Admin Dose 5 MLS/HR; Start 12/23/18 at 20:30 Atorvastatin Calcium (Lipitor) 80 mg DAILY@21 NGT Last administered on 12/29/18at 21:01; Admin Dose 80 MG; Start 12/24/18 at 21:00 Miscellaneous Information 1 ea NOTE XX ; Start 12/25/18 at 04:00 Glucose (Glutose) 15 gm Q15M PRN PO DECREASED GLUCOSE; Start 12/25/18 at 04:00 Glucose (Glutose) 22.5 gm Q15M PRN PO DECREASED GLUCOSE; Start 12/25/18 at 04:00 Dextrose (D50w Syringe) 25 ml Q15M PRN IV DECREASED GLUCOSE; Start 12/25/18 at 04:00 Dextrose (D50w Syringe) 50 ml Q15M PRN IV DECREASED GLUCOSE; Start 12/25/18 at 04:00 Glucagon (Glucagen) 1 mg Q15M PRN IM DECREASED GLUCOSE; Start 12/25/18 at 04:00 Glucose (Glutose) 15 gm Q15M PRN BUCCAL DECREASED GLUCOSE; Start 12/25/18 at 04:00 Famotidine (Pepcid) 20 mg Q12 PO Last administered on 12/30/18at 09:12; Admin Dose 20 MG; Start 12/26/18 at 21:00 Phenytoin (Dilantin) 100 mg Q8 IV Last administered on 12/30/18at 05:24; Admin Dose 100 MG; Start 12/27/18 at 14:00 Insulin Glargine (Lantus) 20 units DAILY@2000 SC Last administered on 12/29/18at 20:09; Admin Dose 20 UNITS; Start 12/28/18 at 20:00 Insulin Aspart (Novolog Insulin Pen) NOVOLOG *MODERATE* ALGORI... Q4 SC Last administered on 12/30/18at 09:15; Admin Dose 2 UNIT; Start 12/28/18 at 17:00 Metoprolol Tartrate (Lopressor) 25 mg BID NGT Last administered on 12/29/18 08:58; Admin Dose 25 MG; Start 12/29/18 at 09:00 Losartan Potassium (Cozaar) 25 mg DAILY NGT Last administered on 12/29/18 08:58; Admin Dose 25 MG; Start 12/29/18 at 09:00 Desmopressin Acetate (Ddavp) 2 mcg BID SC Last administered on 12/30/18at 09:16; Admin Dose 2 MCG; Start 12/29/18 at 10:00 Levetiracetam 100 ml @ 400 mls/hr Q12 IVPB Last administered on 12/30/18at 09:45; Admin Dose 400 MLS/HR; Start 12/29/18 at 21:00 Cefepime HCl 50 ml @ 100 mls/hr Q12 IVPB Last administered on 12/30/18at 10:00; Admin Dose 100 MLS/HR; Start 12/30/18 at 09:00 Vancomycin HCl (Vanco Iv Per Pharmacy) VANCOMYCIN PER PHARMACY PER PROTOCOL XX ; Start 12/30/18 at 09:30 Vancomycin HCl 2 gm/Sodium Chloride 500 ml @ 125 mls/hr ONCE ONCE IVPB Last administered on 12/30/18at 11:41; Admin Dose 125 MLS/HR; Start 12/30/18 at 11:00; Stop 12/30/18 at 14:59 KARL REYES Dec 30, 2018 12:37
--- NOTE | 2018-12-30 13:19 | EEG ---
EEG NOTE Report Details DATE OF TEST: 12/29/18 HISTORY: The patient is a 58-year-old F who presents with altered mental status. This EEG is requested to rule out nonconvulsive status epilepticus. SEDATION: None. CONDITIONS OF RECORDING: This EEG was recorded digitally on the [employer] machine, using the International 10-20 System of electrodes plus anterior temporals and [place]. STATES SAMPLED: Comatose. FINDINGS: The background is symmetric. There is low amplitude, high frequency activity noted at highest sensitivities that is not definitively cortical.. Photic stimulation does not elicit any definite driving responses or epileptiform discharges. Hyperventilation was not performed. IMPRESSION: No definitively cortical activity appreciated. KARL REYES Dec 30, 2018 13:19
--- NOTE | 2018-12-30 15:35 | CONS ---
Assessment/Plan Assessment/Plan Hospital Course (Demo Recall) 58 yo with cardiac arrest due to lateral wall stemi, culprit lesion is OM1, which was stented, and mid LAD also stented. Remains intubated and unresponsive. Imp: Cardiac arrest due to STEMI STEMI, culprit OM1 stented, non-culprit severe LAD lesion also stented Ischemic cardiomyopathy Shock, with rise in WBC today Diabetes Acute respiratory failure, on ventilator Anemia, possibly due to blood loss Recc: ASA, Brilinta, atorvastatin. Continue dual antiplatelet therapy given recent stent placement, even with anemia. Beta zoraida and ARB on hold due to shock, hypotension No signs of meaningful neurologic recovery Appreciate pulmonary and neurology input Poor prognosis given lack of neurologic recovery Consultation Date/Type/Reason Admit Date/Time Dec 22, 2018 at 01:25 Initial Consult Date 12/22/18 Type of Consult Cardiology Requesting Provider: AMPARO LEONARD Date/Time of Note DATE: 12/30/18 TIME: 15:33 24 HR Interval Summary Free Text/Dictation Patient intubated and unresponsive. Chart notes reviewed. Subjective hx not possible: pt non-verbal Exam/Review of Systems Vital Signs Vitals Vital Signs Date Temp Pulse Resp B/P (MAP) Pulse Ox O2 O2 Flow FiO2 Time Delivery Rate 12/30/18 91 18 108/58 90 13:30 (75) 12/30/18 99.2 12:00 12/30/18 35 08:00 12/30/18 Mechanical 06:00 Ventilator Intake and Output 12/29/18 12/29/18 12/30/18 1515:00 23:00 07:00 IntakeIntake Total 1225.16 ml 605.80 ml 1044.06 ml OutputOutput Total 895 ml 575 ml 501 ml BalanceBalance 330.16 ml 30.80 ml 543.06 ml Exam Constitutional: non-verbal Head: normocephalic, atraumatic Eyes: nl lids ENMT: intubated Neck: No jvd, No bruits Respiratory: clear to auscultation, normal air movement Cardiovascular: regular rate and rhythm; No murmurs/extra sounds Gastrointestinal: soft, non-tender Extremities: edema Neurological: unresponsive Skin: nl turgor Labs Result Diagram: 12/30/18 0400 12/30/18 0400 Results 24hrs Laboratory Tests Test 12/29/18 16:39 12/29/18 16:51 12/29/18 19:49 12/30/18 01:02 Bedside Glucose 144 139 218 Phenytoin (Dilantin) 11.6 Level Test 12/30/18 04:00 12/30/18 04:57 12/30/18 08:41 12/30/18 11:59 White Blood Count 18.0 #H Red Blood Count 3.14 L Hemoglobin 8.6 L Hematocrit 29.4 L Mean Corpuscular 93.6 Volume Mean Corpuscular 27.4 L Hemoglobin Mean Corpuscular 29.3 L Hemoglobin Concent Red Cell 14.4 Distribution Width Platelet Count 278 # Mean Platelet Volume 11.9 H Immature 1.000 H Granulocytes % Neutrophils % Segmented 60 Neutrophils % (Manual) Band Neutrophils % 21 H (Manual) Lymphocytes % Lymphocytes % 12 L (Manual) Reactive Lymphocytes 1 H % (Manual) Monocytes % Monocytes % (Manual) 4 Eosinophils % Eosinophils % 1 (Manual) Basophils % Myelocytes % 1 H (Manual) Nucleated Red Blood 1 H Cells % Immature 0.180 H Granulocytes # Neutrophils # Neutrophils # 11.5 H (Manual) Band Neutrophils # 3.7 H Lymphocytes (Manual) 2.1 Lymphocytes # Reactive Lymphocytes 0.1 H # Monocytes # Monocytes # (Manual) 0.7 Eosinophils # Basophils # Myelocytes # 0.1 H Nucleated Red Blood Cells # Platelet Estimate NORMAL Giant Platelets 2 H Polychromasia 3+ Anisocytosis 2+ Microcytosis 1+ Sodium Level 156 H Potassium Level 4.0 Chloride Level 123 H Carbon Dioxide Level 30 Anion Gap 3 L Blood Urea Nitrogen 24 H Creatinine 0.81 Est Glomerular > 60 Filtrat Rate mL/min Glucose Level 200 Calcium Level 8.1 L Bedside Glucose 176 149 Prothrombin Time 15.3 H Prothrombin Time 1.2 Ratio INR International 1.20 Normalized Ratio Activated 28.5 Partial Thromboplast Time Test 12/30/18 12:20 Bedside Glucose 174 Medications Medications Current Medications IV Flush (NS 3 ml) 3 ml PER PROTOCOL IV ; Start 12/22/18 at 02:00 Ondansetron HCl (Zofran Inj) 4 mg Q6H PRN IV NAUSEA/VOMITING; Start 12/22/18 at 02:00 Acetaminophen (Tylenol Tab) 650 mg Q6H PRN PO .PAIN 1-3 OR TEMP Last administered on 12/29/18at 08:58; Admin Dose 650 MG; Start 12/22/18 at 02:00 Acetaminophen/ Hydrocodone Bitart ([place] (5/325)) 1 tab Q6H PRN PO .MOD PAIN 4- 6; Start 12/22/18 at 02:00 Morphine Sulfate (morphine) 2 mg Q4H PRN IV .SEVERE PAIN 7-10; Start 12/22/18 at 02:00 Docusate Sodium (Colace) 100 mg Q12H PRN PO .CONSTIPATION; Start 12/22/18 at 02:00 Magnesium Hydroxide (Milk Of Mag) 30 ml DAILY PRN PO .CONSTIPATION; Start 12/22/18 at 02:00 Albuterol/ Ipratropium (Duoneb) 3 ml Q4H RESP THERAPY PRN HHN SHORTNESS OF BREATH; Start 12/22/18 at 02:00 Hydralazine HCl (Apresoline) 10 mg Q6H PRN IV ELEVATED BLOOD PRESSURE; Start 12/22/18 at 02:00 Nitroglycerin (Nitroglycerin (Sl Tab) 0.4 Mg) 1 tab Q5M PRN SL ANGINA; Start 12/22/18 at 02:00 Eye Lubricant (Akwa Oint) 1 applic Q6 BOTH EYES Last administered on 12/30/18 11:41; Admin Dose 1 APPLIC; Start 12/22/18 at 06:00 Eye Lubricant (Artificial Tears Oph) 2 drop Q6 BOTH EYES Last administered on 12/30/18 11:41; Admin Dose 2 DROP; Start 12/22/18 at 06:00 Lorazepam (Ativan) 1 mg Q1H PRN IV SEIZURES Last administered on 12/27/18 09:02; Admin Dose 1 MG; Start 12/22/18 at 05:00 Norepinephrine 32 mg/Dextrose 250 ml @ 0.47 mls/hr TITRATE IV Last administered on 12/29/18 12:15; Admin Dose 0.47 MLS/HR; Start 12/22/18 at 09:30 Aspirin (Aspirin) 81 mg DAILY NGT Last administered on 12/30/18 09:12; Admin Dose 81 MG; Start 12/22/18 at 09:30 Ticagrelor (Brilinta) 90 mg BID PO Last administered on 12/30/18 09:13; Admin Dose 90 MG; Start 12/22/18 at 10:30 Propofol 100 ml @ 2.949 mls/ hr Q12H IV Last administered on 12/27/18at 00:27; Admin Dose 8.847 MLS/HR; Start 12/23/18 at 14:30 Fentanyl 100 ml @ 2.5 mls/hr TITRATE IV Last administered on 12/25/18at 05:51; Admin Dose 5 MLS/HR; Start 12/23/18 at 20:30 Atorvastatin Calcium (Lipitor) 80 mg DAILY@21 NGT Last administered on 12/29/18at 21:01; Admin Dose 80 MG; Start 12/24/18 at 21:00 Miscellaneous Information 1 ea NOTE XX ; Start 12/25/18 at 04:00 Glucose (Glutose) 15 gm Q15M PRN PO DECREASED GLUCOSE; Start 12/25/18 at 04:00 Glucose (Glutose) 22.5 gm Q15M PRN PO DECREASED GLUCOSE; Start 12/25/18 at 04:00 Dextrose (D50w Syringe) 25 ml Q15M PRN IV DECREASED GLUCOSE; Start 12/25/18 at 04:00 Dextrose (D50w Syringe) 50 ml Q15M PRN IV DECREASED GLUCOSE; Start 12/25/18 at 04:00 Glucagon (Glucagen) 1 mg Q15M PRN IM DECREASED GLUCOSE; Start 12/25/18 at 04:00 Glucose (Glutose) 15 gm Q15M PRN BUCCAL DECREASED GLUCOSE; Start 12/25/18 at 04:00 Famotidine (Pepcid) 20 mg Q12 PO Last administered on 12/30/18at 09:12; Admin Dose 20 MG; Start 12/26/18 at 21:00 Phenytoin (Dilantin) 100 mg Q8 IV Last administered on 12/30/18at 14:54; Admin Dose 100 MG; Start 12/27/18 at 14:00 Insulin Glargine (Lantus) 20 units DAILY@2000 SC Last administered on 12/29/18at 20:09; Admin Dose 20 UNITS; Start 12/28/18 at 20:00 Insulin Aspart (Novolog Insulin Pen) NOVOLOG *MODERATE* ALGORI... Q4 SC Last administered on 12/30/18at 12:32; Admin Dose 2 UNIT; Start 12/28/18 at 17:00 Metoprolol Tartrate (Lopressor) 25 mg BID NGT Last administered on 12/29/18at 08:58; Admin Dose 25 MG; Start 12/29/18 at 09:00 Losartan Potassium (Cozaar) 25 mg DAILY NGT Last administered on 12/29/18at 08:58; Admin Dose 25 MG; Start 12/29/18 at 09:00 Desmopressin Acetate (Ddavp) 2 mcg BID SC Last administered on 12/30/18at 09:16; Admin Dose 2 MCG; Start 12/29/18 at 10:00 Levetiracetam 100 ml @ 400 mls/hr Q12 IVPB Last administered on 12/30/18at 09:45; Admin Dose 400 MLS/HR; Start 12/29/18 at 21:00 Cefepime HCl 50 ml @ 100 mls/hr Q12 IVPB Last administered on 12/30/18at 10:00; Admin Dose 100 MLS/HR; Start 12/30/18 at 09:00 Vancomycin HCl (Vanco Iv Per Pharmacy) VANCOMYCIN PER PHARMACY PER PROTOCOL XX ; Start 12/30/18 at 09:30 Vancomycin HCl 1.25 gm/Sodium Chloride 250 ml @ 83.333 mls/ hr Q12H IVPB ; Start 12/31/18 at 00:00 Miscellaneous Information (*Rx Drug Level Order Reminder*) VANCO TROUGH @ 300, 12/31 2300 ONCE XX ; Start 12/31/18 at 23:00; Stop 12/31/18 at 23:01 ROBIN JAMES Dec 30, 2018 15:35
--- NOTE | 2018-12-30 16:58 | PN ---
Date/Time of Note Date/Time of Note DATE: 12/30/18 TIME: 16:55 Assessment/Plan VTE Prophylaxis Risk score (from Nsg)>0 risk: 12 SCD applied (from Ns): Yes Pharmacological prophylaxis: NA/contraindicated Pharm contraindication: bleeding Assessment/Plan Hospital Course 58-year-old obese woman past medical of hypertension, high cholesterol, anxiety, diabetes, who was brought in by EMS after suffering cardiac arrest and had ROSC, with ST elevation TN lactic acidosis, status post PCI of the OM1 (culprit lesion) is as well as stenting of the mid LAD, intubated and unresponsive, on insulin drip. #Neuro - More than 30 minutes down time before ROSC achieved, poor overall neuro prognosis - s/p hypothermia protocol - EEG 12/25 with mild diffuse slowing. - CT head 12/26 diffuse cerebral edema - On 12/27 AM patient developed tremors in hands concerning for seizure activity. Already on propofol and keppra, started dilantin. - Repeated EEG 12/27, finding show slowing - Dr Dorsey following #Cardiac - Cardiac arrest, prolonged downtime, s/p hypothermia - Low BP via arterial line, off pressors since about 12/26. - s/p PCI of the LAD - Continue ASA, brilinta - Also statin - Dr. Ham following #Pulmonary - Diffuse pulmonary infiltrates on CXR likely from cardiogenic shock with L sided heart failure - Earlier this week on 100% FiO2 and high PEEP, titrating down - Was on spot diuresis; stopped due to hypernatremia and hypotension - Empiric antibiotics as below. - Dr. 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 #GI - started tube feeds - Bloody NGT output on dual antiplatelet and heparin, now holding heparin. - H2 zoraida #Endocrine - Insulin gtt. #ID SIRS with fevers and leukocytosis-likely secondary to brain injury -Follow-up on repeat cultures - Continue empiric zosyn - Cultures negative so far #DVT - red-tinged NGT output, holding heparin, SCDs only. Result Diagram: 12/30/18 0400 12/30/18 0400 Results 24hrs Laboratory Tests Test 12/29/18 19:49 12/30/18 01:02 12/30/18 04:00 12/30/18 04:57 Bedside Glucose 139 218 176 White Blood Count 18.0 #H Red Blood Count 3.14 L Hemoglobin 8.6 L Hematocrit 29.4 L Mean Corpuscular 93.6 Volume Mean Corpuscular 27.4 L Hemoglobin Mean Corpuscular 29.3 L Hemoglobin Concent Red Cell 14.4 Distribution Width Platelet Count 278 # Mean Platelet Volume 11.9 H Immature 1.000 H Granulocytes % Neutrophils % Segmented 60 Neutrophils % (Manual) Band Neutrophils % 21 H (Manual) Lymphocytes % Lymphocytes % 12 L (Manual) Reactive Lymphocytes 1 H % (Manual) Monocytes % Monocytes % (Manual) 4 Eosinophils % Eosinophils % 1 (Manual) Basophils % Myelocytes % 1 H (Manual) Nucleated Red Blood 1 H Cells % Immature 0.180 H Granulocytes # Neutrophils # Neutrophils # 11.5 H (Manual) Band Neutrophils # 3.7 H Lymphocytes (Manual) 2.1 Lymphocytes # Reactive Lymphocytes 0.1 H # Monocytes # Monocytes # (Manual) 0.7 Eosinophils # Basophils # Myelocytes # 0.1 H Nucleated Red Blood Cells # Platelet Estimate NORMAL Giant Platelets 2 H Polychromasia 3+ Anisocytosis 2+ Microcytosis 1+ Sodium Level 156 H Potassium Level 4.0 Chloride Level 123 H Carbon Dioxide Level 30 Anion Gap 3 L Blood Urea Nitrogen 24 H Creatinine 0.81 Est Glomerular > 60 Filtrat Rate mL/min Glucose Level 200 Calcium Level 8.1 L Test 12/30/18 08:41 12/30/18 11:59 12/30/18 12:20 Bedside Glucose 149 174 Prothrombin Time 15.3 H Prothrombin Time 1.2 Ratio INR International 1.20 Normalized Ratio Activated 28.5 Partial Thromboplast Time Subjective 24 Hr Interval Summary Subjective hx not possible: pt non-verbal Exam/Review of Systems Exam Vitals Vital Signs Date Temp Pulse Resp B/P (MAP) Pulse Ox O2 O2 Flow FiO2 Time Delivery Rate 12/30/18 79 16:00 12/30/18 98.5 22 103/56 97 16:00 (72) 12/30/18 35 08:00 12/30/18 Mechanical 06:00 Ventilator Intake and Output 12/29/18 12/29/18 12/30/18 1515:00 23:00 07:00 IntakeIntake Total 1225.16 ml 605.80 ml 1044.06 ml OutputOutput Total 895 ml 575 ml 501 ml BalanceBalance 330.16 ml 30.80 ml 543.06 ml Constitutional: non-verbal Respiratory: clear to auscultation Cardiovascular: regular rate and rhythm Gastrointestinal: soft; No distended Musculoskeletal: nl extremities to inspection Results Results 24hrs Laboratory Tests Test 12/29/18 19:49 12/30/18 01:02 12/30/18 04:00 12/30/18 04:57 Bedside Glucose 139 218 176 White Blood Count 18.0 #H Red Blood Count 3.14 L Hemoglobin 8.6 L Hematocrit 29.4 L Mean Corpuscular 93.6 Volume Mean Corpuscular 27.4 L Hemoglobin Mean Corpuscular 29.3 L Hemoglobin Concent Red Cell 14.4 Distribution Width Platelet Count 278 # Mean Platelet Volume 11.9 H Immature 1.000 H Granulocytes % Neutrophils % Segmented 60 Neutrophils % (Manual) Band Neutrophils % 21 H (Manual) Lymphocytes % Lymphocytes % 12 L (Manual) Reactive Lymphocytes 1 H % (Manual) Monocytes % Monocytes % (Manual) 4 Eosinophils % Eosinophils % 1 (Manual) Basophils % Myelocytes % 1 H (Manual) Nucleated Red Blood 1 H Cells % Immature 0.180 H Granulocytes # Neutrophils # Neutrophils # 11.5 H (Manual) Band Neutrophils # 3.7 H Lymphocytes (Manual) 2.1 Lymphocytes # Reactive Lymphocytes 0.1 H # Monocytes # Monocytes # (Manual) 0.7 Eosinophils # Basophils # Myelocytes # 0.1 H Nucleated Red Blood Cells # Platelet Estimate NORMAL Giant Platelets 2 H Polychromasia 3+ Anisocytosis 2+ Microcytosis 1+ Sodium Level 156 H Potassium Level 4.0 Chloride Level 123 H Carbon Dioxide Level 30 Anion Gap 3 L Blood Urea Nitrogen 24 H Creatinine 0.81 Est Glomerular > 60 Filtrat Rate mL/min Glucose Level 200 Calcium Level 8.1 L Test 12/30/18 08:41 12/30/18 11:59 12/30/18 12:20 Bedside Glucose 149 174 Prothrombin Time 15.3 H Prothrombin Time 1.2 Ratio INR International 1.20 Normalized Ratio Activated 28.5 Partial Thromboplast Time Medications Medication Current Medications IV Flush (NS 3 ml) 3 ml PER PROTOCOL IV ; Start 12/22/18 at 02:00 Ondansetron HCl (Zofran Inj) 4 mg Q6H PRN IV NAUSEA/VOMITING; Start 12/22/18 at 02:00 Acetaminophen (Tylenol Tab) 650 mg Q6H PRN PO .PAIN 1-3 OR TEMP Last administered on 12/29/18 08:58; Admin Dose 650 MG; Start 12/22/18 at 02:00 Acetaminophen/ Hydrocodone Bitart ([place] (5/325)) 1 tab Q6H PRN PO .MOD PAIN 4-6; Start 12/22/18 at 02:00 Morphine Sulfate (morphine) 2 mg Q4H PRN IV .SEVERE PAIN 7-10; Start 12/22/18 at 02:00 Docusate Sodium (Colace) 100 mg Q12H PRN PO .CONSTIPATION; Start 12/22/18 at 02:00 Magnesium Hydroxide (Milk Of Mag) 30 ml DAILY PRN PO .CONSTIPATION; Start 12/22/18 at 02:00 Albuterol/ Ipratropium (Duoneb) 3 ml Q4H RESP THERAPY PRN HHN SHORTNESS OF BREATH; Start 12/22/18 at 02:00 Hydralazine HCl (Apresoline) 10 mg Q6H PRN IV ELEVATED BLOOD PRESSURE; Start 12/22/18 at 02:00 Nitroglycerin (Nitroglycerin (Sl Tab) 0.4 Mg) 1 tab Q5M PRN SL ANGINA; Start 12/22/18 at 02:00 Eye Lubricant (Akwa Oint) 1 applic Q6 BOTH EYES Last administered on 12/30/18 11:41; Admin Dose 1 APPLIC; Start 12/22/18 at 06:00 Eye Lubricant (Artificial Tears Oph) 2 drop Q6 BOTH EYES Last administered on 12/30/18 11:41; Admin Dose 2 DROP; Start 12/22/18 at 06:00 Lorazepam (Ativan) 1 mg Q1H PRN IV SEIZURES Last administered on 12/27/18 09:02; Admin Dose 1 MG; Start 12/22/18 at 05:00 Norepinephrine 32 mg/Dextrose 250 ml @ 0.47 mls/hr TITRATE IV Last administered on 12/29/18 12:15; Admin Dose 0.47 MLS/HR; Start 12/22/18 at 09:30 Aspirin (Aspirin) 81 mg DAILY NGT Last administered on 12/30/18 09:12; Admin Dose 81 MG; Start 12/22/18 at 09:30 Ticagrelor (Brilinta) 90 mg BID PO Last administered on 12/30/18at 09:13; Admin Dose 90 MG; Start 12/22/18 at 10:30 Propofol 100 ml @ 2.949 mls/ hr Q12H IV Last administered on 12/27/18at 00:27; Admin Dose 8.847 MLS/HR; Start 12/23/18 at 14:30 Fentanyl 100 ml @ 2.5 mls/hr TITRATE IV Last administered on 12/25/18at 05:51; Admin Dose 5 MLS/HR; Start 12/23/18 at 20:30 Atorvastatin Calcium (Lipitor) 80 mg DAILY@21 NGT Last administered on 12/29/18 at 21:01; Admin Dose 80 MG; Start 12/24/18 at 21:00 Miscellaneous Information 1 ea NOTE XX ; Start 12/25/18 at 04:00 Glucose (Glutose) 15 gm Q15M PRN PO DECREASED GLUCOSE; Start 12/25/18 at 04:00 Glucose (Glutose) 22.5 gm Q15M PRN PO DECREASED GLUCOSE; Start 12/25/18 at 04:00 Dextrose (D50w Syringe) 25 ml Q15M PRN IV DECREASED GLUCOSE; Start 12/25/18 at 04:00 Dextrose (D50w Syringe) 50 ml Q15M PRN IV DECREASED GLUCOSE; Start 12/25/18 at 04:00 Glucagon (Glucagen) 1 mg Q15M PRN IM DECREASED GLUCOSE; Start 12/25/18 at 04:00 Glucose (Glutose) 15 gm Q15M PRN BUCCAL DECREASED GLUCOSE; Start 12/25/18 at 04:00 Famotidine (Pepcid) 20 mg Q12 PO Last administered on 12/30/18at 09:12; Admin Dose 20 MG; Start 12/26/18 at 21:00 Phenytoin (Dilantin) 100 mg Q8 IV Last administered on 12/30/18at 14:54; Admin Dose 100 MG; Start 12/27/18 at 14:00 Insulin Glargine (Lantus) 20 units DAILY@2000 SC Last administered on 12/29/18at 20:09; Admin Dose 20 UNITS; Start 12/28/18 at 20:00 Insulin Aspart (Novolog Insulin Pen) NOVOLOG *MODERATE* ALGORI... Q4 SC Last administered on 12/30/18at 12:32; Admin Dose 2 UNIT; Start 12/28/18 at 17:00 Metoprolol Tartrate (Lopressor) 25 mg BID NGT Last administered on 12/29/18at 08:58; Admin Dose 25 MG; Start 12/29/18 at 09:00 Losartan Potassium (Cozaar) 25 mg DAILY NGT Last administered on 12/29/18at 08:58; Admin Dose 25 MG; Start 12/29/18 at 09:00 Desmopressin Acetate (Ddavp) 2 mcg BID SC Last administered on 12/30/18at 09:16; Admin Dose 2 MCG; Start 12/29/18 at 10:00 Levetiracetam 100 ml @ 400 mls/hr Q12 IVPB Last administered on 12/30/18at 09:45; Admin Dose 400 MLS/HR; Start 12/29/18 at 21:00 Cefepime HCl 50 ml @ 100 mls/hr Q12 IVPB Last administered on 12/30/18at 10:00; Admin Dose 100 MLS/HR; Start 12/30/18 at 09:00 Vancomycin HCl (Vanco Iv Per Pharmacy) VANCOMYCIN PER PHARMACY PER PROTOCOL XX ; Start 12/30/18 at 09:30 Vancomycin HCl 1.25 gm/Sodium Chloride 250 ml @ 83.333 mls/ hr Q12H IVPB ; Start 12/31/18 at 00:00 Miscellaneous Information (*Rx Drug Level Order Reminder*) VANCO TROUGH @ 300, 12/31 2300 ONCE XX ; Start 12/31/18 at 23:00; Stop 12/31/18 at 23:01 JAY GALAN Dec 30, 2018 16:58
[2018-12-30] MEDS: ATORVASTATIN 80 MG TAB NGT SCH (20:21)
[2018-12-30] MEDS: INSULIN GLARGINE [LANTus] (100 UNITS/ML) SYG SC SCH (20:28)
[2018-12-31] VITALS (57 sets, daily range): BP systolic 61–121; BP diastolic 35–56; PULSE 0–79; RESP 18–22
[2018-12-31] MEDS ORDERED: VANCOMYCIN HCL 1.25 GM in SOD CHLORIDE 0.9% 250 ML IVPB SCH ×2
[2018-12-31] MEDS: OCULAR LUBRICANT 3.5 GM OPH OINT BOTH EYES SCH ×2 (00:39→05:46)
[2018-12-31] MEDS: ARTIFICIAL TEARS 15 ML OPH BOTH EYES SCH ×2 (00:39→05:46)
[2018-12-31] MEDS: INSULIN ASPART [NOVOLOG] 3 ML PEN SC SCH ×3 (00:44→08:34)
[2018-12-31] MEDS: PROPOFOL 100 ML IV SCH (02:16)
[2018-12-31] MEDS: PHENYTOIN 100 MG INJ IV SCH (05:46)
[2018-12-31] MEDS: NORepinephrine 32 MG in DEXTROSE 5% 218 ML IV SCH (05:59)
--- NOTE | 2018-12-31 08:21 | CONS ---
Assessment/Plan Assessment/Plan Hospital Course (Demo Recall) 58 yo with cardiac arrest due to lateral wall stemi, culprit lesion is OM1, which was stented, and mid LAD also stented. Remains intubated and unresponsive, in shock on pressors. Imp: Cardiac arrest due to STEMI STEMI, culprit OM1 stented, non-culprit severe LAD lesion also stented Ischemic cardiomyopathy Shock, probably septic, with leukocytosis Diabetes Acute respiratory failure, on ventilator Anemia, possibly due to blood loss Recc: ASA, Brilinta, atorvastatin. Continue dual antiplatelet therapy given recent stent placement, even with anemia. No beta zoraida and ARB due to shock, hypotension No signs of meaningful neurologic recovery Appreciate pulmonary and neurology input Poor prognosis given lack of neurologic recovery Consultation Date/Type/Reason Admit Date/Time Dec 22, 2018 at 01:25 Initial Consult Date 12/22/18 Type of Consult Cardiology Requesting Provider: AMPARO LEONARD Date/Time of Note DATE: 12/31/18 TIME: 08:19 24 HR Interval Summary Free Text/Dictation Low grade temperature overnight, patient now on levophed for pressure support. Remains unresponsive. Subjective hx not possible: pt non-verbal Exam/Review of Systems Vital Signs Vitals Vital Signs Date Temp Pulse Resp B/P (MAP) Pulse Ox O2 O2 Flow FiO2 Time Delivery Rate 12/31/18 74 20 88/47 (61) 95 06:15 12/31/18 Mechanical 06:00 Ventilator 12/31/18 40 05:10 12/31/18 99.4 04:00 Intake and Output 12/30/18 12/30/18 12/31/18 1515:00 23:00 07:00 IntakeIntake Total 1001.89 ml 1810.03 ml 1089.53 ml OutputOutput Total 385 ml 480 ml 420 ml BalanceBalance 616.89 ml 1330.03 ml 669.53 ml Exam Constitutional: non-verbal Head: normocephalic, atraumatic Eyes: nl lids ENMT: nl external ears & nose Neck: No jvd, No bruits Respiratory: clear to auscultation Cardiovascular: regular rate and rhythm; No murmurs/extra sounds Gastrointestinal: soft, non-tender Musculoskeletal: nl extremities to inspection, swelling Extremities: edema (mild diffuse in all 4 extremities) Neurological: unresponsive Skin: nl turgor Labs Result Diagram: 12/31/18 0500 12/31/18 0500 Results 24hrs Laboratory Tests Test 12/30/18 08:41 12/30/18 11:59 12/30/18 12:20 12/30/18 17:19 Bedside Glucose 149 174 188 Prothrombin Time 15.3 H Prothrombin Time 1.2 Ratio INR International 1.20 Normalized Ratio Activated 28.5 Partial Thromboplast Time Test 12/30/18 20:20 12/31/18 00:38 12/31/18 04:47 12/31/18 05:00 Bedside Glucose 214 216 206 White Blood Count 17.9 H Red Blood Count 2.63 L Hemoglobin 7.2 L Hematocrit 24.5 L Mean Corpuscular 93.2 Volume Mean Corpuscular 27.4 L Hemoglobin Mean Corpuscular 29.4 L Hemoglobin Concent Red Cell 14.3 Distribution Width Platelet Count 313 Mean Platelet Volume 12.0 H Immature 1.100 H Granulocytes % Neutrophils % Eosinophils % Nucleated Red Blood 0.1 H Cells % Immature 0.200 H Granulocytes # Neutrophils # Eosinophils # Sodium Level 151 H Potassium Level 3.6 Chloride Level 121 H Carbon Dioxide Level 26 Anion Gap 4 L Blood Urea Nitrogen 18 Creatinine 0.83 Est Glomerular > 60 Filtrat Rate mL/min Glucose Level 203 Calcium Level 7.7 L Medications Medications Current Medications IV Flush (NS 3 ml) 3 ml PER PROTOCOL IV ; Start 12/22/18 at 02:00 Ondansetron HCl (Zofran Inj) 4 mg Q6H PRN IV NAUSEA/VOMITING; Start 12/22/18 at 02:00 Acetaminophen (Tylenol Tab) 650 mg Q6H PRN PO .PAIN 1-3 OR TEMP Last administered on 12/29/18at 08:58; Admin Dose 650 MG; Start 12/22/18 at 02:00 Acetaminophen/ Hydrocodone Bitart ([place] (5/325)) 1 tab Q6H PRN PO .MOD PAIN 4- 6; Start 12/22/18 at 02:00 Morphine Sulfate (morphine) 2 mg Q4H PRN IV .SEVERE PAIN 7-10; Start 12/22/18 at 02:00 Docusate Sodium (Colace) 100 mg Q12H PRN PO .CONSTIPATION; Start 12/22/18 at 02:00 Magnesium Hydroxide (Milk Of Mag) 30 ml DAILY PRN PO .CONSTIPATION; Start 12/22/18 at 02:00 Albuterol/ Ipratropium (Duoneb) 3 ml Q4H RESP THERAPY PRN HHN SHORTNESS OF BREATH; Start 12/22/18 at 02:00 Hydralazine HCl (Apresoline) 10 mg Q6H PRN IV ELEVATED BLOOD PRESSURE; Start 12/22/18 at 02:00 Nitroglycerin (Nitroglycerin (Sl Tab) 0.4 Mg) 1 tab Q5M PRN SL ANGINA; Start 12/22/18 at 02:00 Eye Lubricant (Akwa Oint) 1 applic Q6 BOTH EYES Last administered on 12/31/18 05:46; Admin Dose 1 APPLIC; Start 12/22/18 at 06:00 Eye Lubricant (Artificial Tears Oph) 2 drop Q6 BOTH EYES Last administered on 05:46; Admin Dose 2 DROP; Start 12/22/18 at 06:00 Lorazepam (Ativan) 1 mg Q1H PRN IV SEIZURES Last administered on 12/27/18 09:02; Admin Dose 1 MG; Start 12/22/18 at 05:00 Norepinephrine 32 mg/Dextrose 250 ml @ 0.47 mls/hr TITRATE IV Last administered on 12/31/18 05:59; Admin Dose 7.5 MLS/HR; Start 12/22/18 at 09:30 Aspirin (Aspirin) 81 mg DAILY NGT Last administered on 12/30/18 09:12; Admin Dose 81 MG; Start 12/22/18 at 09:30 Ticagrelor (Brilinta) 90 mg BID PO Last administered on 12/30/18 20:28; Admin Dose 90 MG; Start 12/22/18 at 10:30 Propofol 100 ml @ 2.949 mls/ hr Q12H IV Last administered on 12/27/18 00:27; Admin Dose 8.847 MLS/HR; Start 12/23/18 at 14:30 Fentanyl 100 ml @ 2.5 mls/hr TITRATE IV Last administered on 12/25/18 05:51; Admin Dose 5 MLS/HR; Start 12/23/18 at 20:30 Atorvastatin Calcium (Lipitor) 80 mg DAILY@21 NGT Last administered on 12/30/18 20:21; Admin Dose 80 MG; Start 12/24/18 at 21:00 Miscellaneous Information 1 ea NOTE XX ; Start 12/25/18 at 04:00 Glucose (Glutose) 15 gm Q15M PRN PO DECREASED GLUCOSE; Start 12/25/18 at 04:00 Glucose (Glutose) 22.5 gm Q15M PRN PO DECREASED GLUCOSE; Start 12/25/18 at 04:00 Dextrose (D50w Syringe) 25 ml Q15M PRN IV DECREASED GLUCOSE; Start 12/25/18 at 04:00 Dextrose (D50w Syringe) 50 ml Q15M PRN IV DECREASED GLUCOSE; Start 12/25/18 at 04:00 Glucagon (Glucagen) 1 mg Q15M PRN IM DECREASED GLUCOSE; Start 12/25/18 at 04:00 Glucose (Glutose) 15 gm Q15M PRN BUCCAL DECREASED GLUCOSE; Start 12/25/18 at 04:00 Famotidine (Pepcid) 20 mg Q12 PO Last administered on 12/30/18 20:21; Admin Dose 20 MG; Start 12/26/18 at 21:00 Phenytoin (Dilantin) 100 mg Q8 IV Last administered on 12/31/18at 05:46; Admin Dose 100 MG; Start 12/27/18 at 14:00 Insulin Glargine (Lantus) 20 units DAILY@2000 SC Last administered on 12/30/18at 20:28; Admin Dose 20 UNITS; Start 12/28/18 at 20:00 Insulin Aspart (Novolog Insulin Pen) NOVOLOG *MODERATE* ALGORI... Q4 SC Last administered on 12/31/18at 05:52; Admin Dose 4 UNIT; Start 12/28/18 at 17:00 Metoprolol Tartrate (Lopressor) 25 mg BID NGT Last administered on 12/29/18at 08:58; Admin Dose 25 MG; Start 12/29/18 at 09:00 Losartan Potassium (Cozaar) 25 mg DAILY NGT Last administered on 12/29/18at 08:58; Admin Dose 25 MG; Start 12/29/18 at 09:00 Desmopressin Acetate (Ddavp) 2 mcg BID SC Last administered on 12/30/18at 21:16; Admin Dose 2 MCG; Start 12/29/18 at 10:00 Levetiracetam 100 ml @ 400 mls/hr Q12 IVPB Last administered on 12/30/18at 20:21; Admin Dose 400 MLS/HR; Start 12/29/18 at 21:00 Cefepime HCl 50 ml @ 100 mls/hr Q12 IVPB Last administered on 12/30/18at 20:21; Admin Dose 100 MLS/HR; Start 12/30/18 at 09:00 Vancomycin HCl (Vanco Iv Per Pharmacy) VANCOMYCIN PER PHARMACY PER PROTOCOL XX ; Start 12/30/18 at 09:30 Vancomycin HCl 1.25 gm/Sodium Chloride 250 ml @ 83.333 mls/ hr Q12H IVPB Last administered on 12/31/18at 00:39; Admin Dose 83.333 MLS/HR; Start 12/31/18 at 00:00 Miscellaneous Information (*Rx Drug Level Order Reminder*) VANCO TROUGH @ 300, 12/31 2300 ONCE XX ; Start 12/31/18 at 23:00; Stop 12/31/18 at 23:01 ROBIN JAMES Dec 31, 2018 08:21
[2018-12-31] MEDS: DESMOPRESSIN 4 MCG INJ SC SCH (08:31)
[2018-12-31] MEDS: ASPIRIN 81 MG TAB NGT SCH (08:31)
[2018-12-31] MEDS: CEFEPIME 1GM/50 ML (PMX) 50 ML IVPB SCH (08:31)
[2018-12-31] MEDS: FAMOTIDINE 20 MG TAB PO SCH (08:31)
[2018-12-31] MEDS: TICAGRELOR 90 MG TABLET PO SCH (08:33)
[2018-12-31] MEDS: METOPROLOL 25 MG TAB NGT SCH (08:34)
[2018-12-31] MEDS: LOSARTAN 25 MG TAB NGT SCH (08:34)
[2018-12-31] MEDS: LEVETIRACETAM 1000 MG (PMX) 100 ML IVPB SCH (08:43)
--- NOTE | 2018-12-31 08:53 | CONS ---
Assessment/Plan Assessment/Plan Assessment/Plan (Daily) Ventilator setting; AC of 22, tidal volume 500, PEEP of 8, 40% FiO2. Patient is currently on Levophed at 16 mics per minute. Assessment and recommendations; 1. Patient admitted with cardiac arrest status post multiple CPR's with ensuing severe anoxic encephalopathy. 2. History of diabetes with patient presenting with mild DKA on admission. 3. Interval resolution of metabolic acidosis. 4. Persistent hypotension, requiring Levophed. Currently on appropriate empiric antimicrobial regimen. Most recent blood cultures are negative. 5. Bilateral pleural effusions from pulmonary vascular congestion. 6. Post anoxic seizures, well controlled with current antiepileptic regimen. 7. Hyponatremia, likely some element of diabetes insipidus. Patient on DDAVP. Continue current supportive care. Prognosis appears extremely poor. Family meeting today at 11 AM regarding further plan of care. 35 minutes of critical care time was spent evaluating patient. Consultation Date/Type/Reason Admit Date/Time Dec 22, 2018 at 01:25 Initial Consult Date 12/22/18 Type of Consult Pulmonary/critical care Patient is a 58-year-old lady who was brought into the hospital after having cardiac arrest at home. Prolonged CPR was done with revival of vital signs. Upon evaluation here patient was diagnosed with STEMI and was taken to cardiac [facility] where LAD lesion was dilated and a stent put in. Patient has remained profoundly hypotensive and is critically ill. Past medical history; 1. History of hypertension, hyperlipidemia. 2. Diabetes. Apparently poorly controlled. Medications; reviewed. Patient is on insulin drip, phenylephrine drip, Levophed, and propofol. All doses and other medications were reviewed in det ail. Allergies; none. Social history; non-smoker. Family history; patient is and has supportive family. 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 Review of system; unable to be obtained. General exam; middle-aged female, orally intubated, sedated and paralyzed. Requesting Provider: AMPARO LEONARD Date/Time of Note DATE: 12/31/18 TIME: 08:48 24 HR Interval Summary Free Text/Dictation Patient's condition is critical. Remains profoundly unresponsive. However patient has remained seizure-free but remains hypotensive requiring Levophed. General exam; middle-aged female, orally intubated, unresponsive. Currently in no distress. Exam/Review of Systems Exam Vitals Vital Signs Date Temp Pulse Resp B/P (MAP) Pulse Ox O2 O2 Flow FiO2 Time Delivery Rate 12/31/18 74 20 88/47 (61) 95 06:15 12/31/18 Mechanical 06:00 Ventilator 12/31/18 40 05:10 12/31/18 99.4 04:00 Intake and Output 12/30/18 12/30/18 12/31/18 1515:00 23:00 07:00 IntakeIntake Total 1001.89 ml 1810.03 ml 1089.53 ml OutputOutput Total 385 ml 480 ml 420 ml BalanceBalance 616.89 ml 1330.03 ml 669.53 ml Exam H EENT exam; supple neck, no JVD. No lymphadenopathy. Midline trachea. No thyromegaly. Orally intubated. Patient has fair dentition. Pupils are midsize and very sluggishly reactive to light. Chest exam diminished breath sound lung bases. Upper lobes are fairly clear. S1-S2 audible, no murmurs. Regular rhythm. Abdomen exam; soft, no organomegaly. Bowel sounds audible. Extremity exam; trace edema. REIMBURSEMENT LIAISON exam; patient remains unresponsive. Results Result Diagram: 12/31/18 0500 12/31/18 0500 Results 24hrs Laboratory Tests Test 12/30/18 11:59 12/30/18 12:20 12/30/18 17:19 12/30/18 20:20 Prothrombin Time 15.3 H Prothrombin Time 1.2 Ratio INR International 1.20 Normalized Ratio Activated 28.5 Partial Thromboplast Time Bedside Glucose 174 188 214 Test 12/31/18 00:38 12/31/18 04:47 12/31/18 05:00 12/31/18 08:25 Bedside Glucose 216 206 168 White Blood Count 17.9 H Red Blood Count 2.63 L Hemoglobin 7.2 L Hematocrit 24.5 L Mean Corpuscular 93.2 Volume Mean Corpuscular 27.4 L Hemoglobin Mean Corpuscular 29.4 L Hemoglobin Concent Red Cell 14.3 Distribution Width Platelet Count 313 Mean Platelet Volume 12.0 H Immature 1.100 H Granulocytes % Neutrophils % Segmented 77 Neutrophils % (Manual) Band Neutrophils % 6 H (Manual) Lymphocytes % 12 L (Manual) Monocytes % (Manual) 3 Eosinophils % Eosinophils % 2 (Manual) Nucleated Red Blood 0.1 H Cells % Immature 0.200 H Granulocytes # Neutrophils # Neutrophils # 14.0 H (Manual) Band Neutrophils # 1.0 H Lymphocytes (Manual) 2.1 Monocytes # (Manual) 0.5 Eosinophils # Platelet Estimate NORMAL Giant Platelets 1 H Polychromasia 2+ Anisocytosis 1+ Microcytosis 1+ Sodium Level 151 H Potassium Level 3.6 Chloride Level 121 H Carbon Dioxide Level 26 Anion Gap 4 L Blood Urea Nitrogen 18 Creatinine 0.83 Est Glomerular > 60 Filtrat Rate mL/min Glucose Level 203 Calcium Level 7.7 L Medications Medication Current Medications IV Flush (NS 3 ml) 3 ml PER PROTOCOL IV ; Start 12/22/18 at 02:00 Ondansetron HCl (Zofran Inj) 4 mg Q6H PRN IV NAUSEA/VOMITING; Start 12/22/18 at 02:00 Acetaminophen (Tylenol Tab) 650 mg Q6H PRN PO .PAIN 1-3 OR TEMP Last administered on 12/29/18at 08:58; Admin Dose 650 MG; Start 12/22/18 at 02:00 Acetaminophen/ Hydrocodone Bitart ([place] (5/325)) 1 tab Q6H PRN PO .MOD PAIN 4- 6; Start 12/22/18 at 02:00 Morphine Sulfate (morphine) 2 mg Q4H PRN IV .SEVERE PAIN 7-10; Start 12/22/18 at 02:00 Docusate Sodium (Colace) 100 mg Q12H PRN PO .CONSTIPATION; Start 12/22/18 at 02:00 Magnesium Hydroxide (Milk Of Mag) 30 ml DAILY PRN PO .CONSTIPATION; Start 12/22/18 at 02:00 Albuterol/ Ipratropium (Duoneb) 3 ml Q4H RESP THERAPY PRN HHN SHORTNESS OF BREATH; Start 12/22/18 at 02:00 Hydralazine HCl (Apresoline) 10 mg Q6H PRN IV ELEVATED BLOOD PRESSURE; Start 12/22/18 at 02:00 Nitroglycerin (Nitroglycerin (Sl Tab) 0.4 Mg) 1 tab Q5M PRN SL ANGINA; Start 12/22/18 at 02:00 Eye Lubricant (Akwa Oint) 1 applic Q6 BOTH EYES Last administered on 12/31/18at 05:46; Admin Dose 1 APPLIC; Start 12/22/18 at 06:00 Eye Lubricant (Artificial Tears Oph) 2 drop Q6 BOTH EYES Last administered on 12/31/18 05:46; Admin Dose 2 DROP; Start 12/22/18 at 06:00 Lorazepam (Ativan) 1 mg Q1H PRN IV SEIZURES Last administered on 12/27/18 09:02; Admin Dose 1 MG; Start 12/22/18 at 05:00 Norepinephrine 32 mg/Dextrose 250 ml @ 0.47 mls/hr TITRATE IV Last administered on 12/31/18at 05:59; Admin Dose 7.5 MLS/HR; Start 12/22/18 at 09:30 Aspirin (Aspirin) 81 mg DAILY NGT Last administered on 12/31/18 08:31; Admin Dose 81 MG; Start 12/22/18 at 09:30 Ticagrelor (Brilinta) 90 mg BID PO Last administered on 12/31/18 08:33; Admin Dose 90 MG; Start 12/22/18 at 10:30 Propofol 100 ml @ 2.949 mls/ hr Q12H IV Last administered on 12/27/18 00:27; Admin Dose 8.847 MLS/HR; Start 12/23/18 at 14:30 Fentanyl 100 ml @ 2.5 mls/hr TITRATE IV Last administered on 12/25/18at 05:51; Admin Dose 5 MLS/HR; Start 12/23/18 at 20:30 Atorvastatin Calcium (Lipitor) 80 mg DAILY@21 NGT Last administered on 12/30/18at 20:21; Admin Dose 80 MG; Start 12/24/18 at 21:00 Miscellaneous Information 1 ea NOTE XX ; Start 12/25/18 at 04:00 Glucose (Glutose) 15 gm Q15M PRN PO DECREASED GLUCOSE; Start 12/25/18 at 04:00 Glucose (Glutose) 22.5 gm Q15M PRN PO DECREASED GLUCOSE; Start 12/25/18 at 04:00 Dextrose (D50w Syringe) 25 ml Q15M PRN IV DECREASED GLUCOSE; Start 12/25/18 at 04:00 Dextrose (D50w Syringe) 50 ml Q15M PRN IV DECREASED GLUCOSE; Start 12/25/18 at 04:00 Glucagon (Glucagen) 1 mg Q15M PRN IM DECREASED GLUCOSE; Start 12/25/18 at 04:00 Glucose (Glutose) 15 gm Q15M PRN BUCCAL DECREASED GLUCOSE; Start 12/25/18 at 04:00 Famotidine (Pepcid) 20 mg Q12 PO Last administered on 12/31/18 08:31; Admin Dose 20 MG; Start 12/26/18 at 21:00 Phenytoin (Dilantin) 100 mg Q8 IV Last administered on 12/31/18 05:46; Admin Dose 100 MG; Start 12/27/18 at 14:00 Insulin Glargine (Lantus) 20 units DAILY@2000 SC Last administered on 12/30/18 20:28; Admin Dose 20 UNITS; Start 12/28/18 at 20:00 Insulin Aspart (Novolog Insulin Pen) NOVOLOG *MODERATE* ALGORI... Q4 SC Last administered on 12/31/18 08:34; Admin Dose 3 UNIT; Start 12/28/18 at 17:00 Metoprolol Tartrate (Lopressor) 25 mg BID NGT Last administered on 12/29/18 08:58; Admin Dose 25 MG; Start 12/29/18 at 09:00 Losartan Potassium (Cozaar) 25 mg DAILY NGT Last administered on 12/29/18 08:58; Admin Dose 25 MG; Start 12/29/18 at 09:00 Desmopressin Acetate (Ddavp) 2 mcg BID SC Last administered on 12/31/18 08:31; Admin Dose 2 MCG; Start 12/29/18 at 10:00 Levetiracetam 100 ml @ 400 mls/hr Q12 IVPB Last administered on 12/31/18 08:43; Admin Dose 400 MLS/HR; Start 12/29/18 at 21:00 Cefepime HCl 50 ml @ 100 mls/hr Q12 IVPB Last administered on 12/31/18 08:31; Admin Dose 100 MLS/HR; Start 12/30/18 at 09:00 Vancomycin HCl (Vanco Iv Per Pharmacy) VANCOMYCIN PER PHARMACY PER PROTOCOL XX ; Start 12/30/18 at 09:30 Vancomycin HCl 1.25 gm/Sodium Chloride 250 ml @ 83.333 mls/ hr Q12H IVPB Last administered on 12/31/18 00:39; Admin Dose 83.333 MLS/HR; Start 12/31/18 at 00:00 Miscellaneous Information (*Rx Drug Level Order Reminder*) VANCO TROUGH @ 300, 12/31 2300 ONCE XX ; Start 12/31/18 at 23:00; Stop 12/31/18 at 23:01 MACI SILVEIRA 19, 2019 08:53
--- NOTE | 2018-12-31 10:53 | CONS ---
Assessment/Plan Assessment/Plan Assessment/Plan (Recall) 58 F c/ multiple comorbidities, who is admitted to the [facility] ICU in coma s/p cardiac arrest. s/p cardiac catheterization and stent placement.. s/p targeted temperature therapy On neurologic examination she has gradually lost signs of brainstem and cortical activity. On 12/26, noted to have bilateral limb shaking c/f seizure. Now s/p Dilantin...with cessation of abnl movements. Repeat EEG on 12/29 is without epileptiform activity, and also without definite cortical activity. Head CT is notable for diffuse loss of bond-white differentiation, which portends a grave prognosis for meaningful neurologic recovery.. P: Continue Dilantin as ordered for now Continue to limit sedation, where possible Other management per primary Consultation Date/Type/Reason Admit Date/Time Dec 22, 2018 at 01:25 Type of Consult Neurology Reason for Consultation coma s/p cardiac arrest Requesting Provider: AMPARO LEONARD Date/Time of Note DATE: 12/31/18 TIME: 10:52 24 HR Interval Summary Free Text/Dictation Continues icu care Exam/Review of Systems Exam Vitals Vital Signs Date Temp Pulse Resp B/P (MAP) Pulse Ox O2 O2 Flow FiO2 Time Delivery Rate 12/31/18 72 22 104/56 96 Mechanical 10:00 (72) Ventilator 12/31/18 40 08:00 12/31/18 98.6 08:00 Intake and Output 12/30/18 12/30/18 12/31/18 1515:00 23:00 07:00 IntakeIntake Total 1001.89 ml 1810.03 ml 1089.53 ml OutputOutput Total 385 ml 480 ml 420 ml BalanceBalance 616.89 ml 1330.03 ml 669.53 ml Results Result Diagram: 12/31/18 0500 12/31/18 0500 Results 24hrs Laboratory Tests Test 12/30/18 11:59 12/30/18 12:20 12/30/18 17:19 12/30/18 20:20 Prothrombin Time 15.3 H Prothrombin Time 1.2 Ratio INR International 1.20 Normalized Ratio Activated 28.5 Partial Thromboplast Time Bedside Glucose 174 188 214 Test 12/31/18 00:38 12/31/18 04:47 12/31/18 05:00 12/31/18 08:25 Bedside Glucose 216 206 168 White Blood Count 17.9 H Red Blood Count 2.63 L Hemoglobin 7.2 L Hematocrit 24.5 L Mean Corpuscular 93.2 Volume Mean Corpuscular 27.4 L Hemoglobin Mean Corpuscular 29.4 L Hemoglobin Concent Red Cell 14.3 Distribution Width Platelet Count 313 Mean Platelet Volume 12.0 H Immature 1.100 H Granulocytes % Neutrophils % Segmented 77 Neutrophils % (Manual) Band Neutrophils % 6 H (Manual) Lymphocytes % 12 L (Manual) Monocytes % (Manual) 3 Eosinophils % Eosinophils % 2 (Manual) Nucleated Red Blood 0.1 H Cells % Immature 0.200 H Granulocytes # Neutrophils # Neutrophils # 14.0 H (Manual) Band Neutrophils # 1.0 H Lymphocytes (Manual) 2.1 Monocytes # (Manual) 0.5 Eosinophils # Platelet Estimate NORMAL Giant Platelets 1 H Polychromasia 2+ Anisocytosis 1+ Microcytosis 1+ Sodium Level 151 H Potassium Level 3.6 Chloride Level 121 H Carbon Dioxide Level 26 Anion Gap 4 L Blood Urea Nitrogen 18 Creatinine 0.83 Est Glomerular > 60 Filtrat Rate mL/min Glucose Level 203 Calcium Level 7.7 L Medications Medication Current Medications IV Flush (NS 3 ml) 3 ml PER PROTOCOL IV ; Start 12/22/18 at 02:00 Ondansetron HCl (Zofran Inj) 4 mg Q6H PRN IV NAUSEA/VOMITING; Start 12/22/18 at 02:00 Acetaminophen (Tylenol Tab) 650 mg Q6H PRN PO .PAIN 1-3 OR TEMP Last administered on 12/29/18at 08:58; Admin Dose 650 MG; Start 12/22/18 at 02:00 Acetaminophen/ Hydrocodone Bitart ([place] (5/325)) 1 tab Q6H PRN PO .MOD PAIN 4- 6; Start 12/22/18 at 02:00 Morphine Sulfate (morphine) 2 mg Q4H PRN IV .SEVERE PAIN 7-10; Start 12/22/18 at 02:00 Docusate Sodium (Colace) 100 mg Q12H PRN PO .CONSTIPATION; Start 12/22/18 at 02:00 Magnesium Hydroxide (Milk Of Mag) 30 ml DAILY PRN PO .CONSTIPATION; Start 12/22/18 at 02:00 Albuterol/ Ipratropium (Duoneb) 3 ml Q4H RESP THERAPY PRN HHN SHORTNESS OF BREATH; Start 12/22/18 at 02:00 Hydralazine HCl (Apresoline) 10 mg Q6H PRN IV ELEVATED BLOOD PRESSURE; Start 12/22/18 at 02:00 Nitroglycerin (Nitroglycerin (Sl Tab) 0.4 Mg) 1 tab Q5M PRN SL ANGINA; Start 12/22/18 at 02:00 Eye Lubricant (Akwa Oint) 1 applic Q6 BOTH EYES Last administered on 12/31/18 05:46; Admin Dose 1 APPLIC; Start 12/22/18 at 06:00 Eye Lubricant (Artificial Tears Oph) 2 drop Q6 BOTH EYES Last administered on 12/31/18 05:46; Admin Dose 2 DROP; Start 12/22/18 at 06:00 Lorazepam (Ativan) 1 mg Q1H PRN IV SEIZURES Last administered on 12/27/18 09:02; Admin Dose 1 MG; Start 12/22/18 at 05:00 Norepinephrine 32 mg/Dextrose 250 ml @ 0.47 mls/hr TITRATE IV Last administered on 12/31/18 05:59; Admin Dose 7.5 MLS/HR; Start 12/22/18 at 09:30 Aspirin (Aspirin) 81 mg DAILY NGT Last administered on 12/31/18 08:31; Admin Dose 81 MG; Start 12/22/18 at 09:30 Ticagrelor (Brilinta) 90 mg BID PO Last administered on 12/31/18 08:33; Admin Dose 90 MG; Start 12/22/18 at 10:30 Propofol 100 ml @ 2.949 mls/ hr Q12H IV Last administered on 12/27/18 00:27; Admin Dose 8.847 MLS/HR; Start 12/23/18 at 14:30 Fentanyl 100 ml @ 2.5 mls/hr TITRATE IV Last administered on 12/25/18 05:51; Admin Dose 5 MLS/HR; Start 12/23/18 at 20:30 Atorvastatin Calcium (Lipitor) 80 mg DAILY@21 NGT Last administered on 12/30/18 20:21; Admin Dose 80 MG; Start 12/24/18 at 21:00 Miscellaneous Information 1 ea NOTE XX ; Start 12/25/18 at 04:00 Glucose (Glutose) 15 gm Q15M PRN PO DECREASED GLUCOSE; Start 12/25/18 at 04:00 Glucose (Glutose) 22.5 gm Q15M PRN PO DECREASED GLUCOSE; Start 12/25/18 at 04:00 Dextrose (D50w Syringe) 25 ml Q15M PRN IV DECREASED GLUCOSE; Start 12/25/18 at 04:00 Dextrose (D50w Syringe) 50 ml Q15M PRN IV DECREASED GLUCOSE; Start 12/25/18 at 04:00 Glucagon (Glucagen) 1 mg Q15M PRN IM DECREASED GLUCOSE; Start 12/25/18 at 04:00 Glucose (Glutose) 15 gm Q15M PRN BUCCAL DECREASED GLUCOSE; Start 12/25/18 at 04:00 Famotidine (Pepcid) 20 mg Q12 PO Last administered on 12/31/18 08:31; Admin Dose 20 MG; Start 12/26/18 at 21:00 Phenytoin (Dilantin) 100 mg Q8 IV Last administered on 12/31/18 05:46; Admin Dose 100 MG; Start 12/27/18 at 14:00 Insulin Glargine (Lantus) 20 units DAILY@2000 SC Last administered on 12/30/18at 20:28; Admin Dose 20 UNITS; Start 12/28/18 at 20:00 Insulin Aspart (Novolog Insulin Pen) NOVOLOG *MODERATE* ALGORI... Q4 SC Last administered on 12/31/18 08:34; Admin Dose 3 UNIT; Start 12/28/18 at 17:00 Metoprolol Tartrate (Lopressor) 25 mg BID NGT Last administered on 12/29/18 08:58; Admin Dose 25 MG; Start 12/29/18 at 09:00 Losartan Potassium (Cozaar) 25 mg DAILY NGT Last administered on 12/29/18 08:58; Admin Dose 25 MG; Start 12/29/18 at 09:00 Desmopressin Acetate (Ddavp) 2 mcg BID SC Last administered on 12/31/18 08:31; Admin Dose 2 MCG; Start 12/29/18 at 10:00 Levetiracetam 100 ml @ 400 mls/hr Q12 IVPB Last administered on 12/31/18 08:43; Admin Dose 400 MLS/HR; Start 12/29/18 at 21:00 Cefepime HCl 50 ml @ 100 mls/hr Q12 IVPB Last administered on 12/31/18at 08:31; Admin Dose 100 MLS/HR; Start 12/30/18 at 09:00 Vancomycin HCl (Vanco Iv Per Pharmacy) VANCOMYCIN PER PHARMACY PER PROTOCOL XX ; Start 12/30/18 at 09:30 Vancomycin HCl 1.25 gm/Sodium Chloride 250 ml @ 83.333 mls/ hr Q12H IVPB Last administered on 12/31/18at 00:39; Admin Dose 83.333 MLS/HR; Start 12/31/18 at 00:00 Miscellaneous Information (*Rx Drug Level Order Reminder*) VANCO TROUGH @ 300, 12/31 2300 ONCE XX ; Start 12/31/18 at 23:00; Stop 12/31/18 at 23:01 KARL REYES 19, 2019 10:53
[2018-12-31] MEDS ORDERED: DIMETHICONE STICK TOP PRN (12:00)
[2018-12-31] MEDS ORDERED: ARTIFICIAL TEARS 15 ML OPH BOTH EYES PRN (12:00)
--- NOTE | 2018-12-31 14:44 | DES ---
Date/Time of Note Date/Time of Note DATE: 12/31/18 TIME: 14:41 Discharge/ Summary Admission/Discharge Info Admit Date/Time Dec 22, 2018 at 01:25 Date/Time December 31, 2018 Final Diagnosis Brain with cardiopulmonary failure secondary to cardiac arrest and anoxic brain injury with underlying coronary disease status post PCI Preliminary Cause of Brain with cardiopulmonary failure secondary to cardiac arrest and anoxic brain injury with underlying coronary disease status post PCI Hospital Course Patient is a 58-year-old female with history of obesity, hypertension, dyslipidemia, anxiety, diabetes who was brought in after suffering cardiac arrest with return of circulation, patient had evidence of ST elevation DE and was taken to the [facility] where she had a PCI of the OM1 as well as stenting of the mid LAD. Patient remained unresponsive and ultimately had evidence of brain based on EEG, physical exam and CT head which showed cerebral edema. Aft er discussion with family patient was terminally extubated and was pronounced shortly after. JAY GALAN Dec 31, 2018 14:44
== END 2018-12-31 12:48 | disposition expired | DRG 246 ==
LOC: E/R 00:39 → ICU 01:25
PROVIDERS: ADMIT Hospitalist; ATTEND Internal Medicine
PROC: 02HV33Z Insertion of Infusion Device into Superior Vena Cava, Percutaneous Approach (ICD-10-PCS; 2018-12-22)
PROC: 4A023N7 Measurement of Cardiac Sampling and Pressure, Left Heart, Percutaneous Approach (ICD-10-PCS; 2018-12-22)
PROC: B211YZZ Fluoroscopy of Multiple Coronary Arteries using Other Contrast (ICD-10-PCS; 2018-12-22)
PROC: B215YZZ Fluoroscopy of Left Heart using Other Contrast (ICD-10-PCS; 2018-12-22)
PROC: 027135Z Dilation of Coronary Artery, Two Arteries with Two Drug-eluting Intraluminal Devices, Percutaneous Approach (ICD-10-PCS; principal; 2018-12-22 01:15)
PROC: 0BH17EZ Insertion of Endotracheal Airway into Trachea, Via Natural or Artificial Opening (ICD-10-PCS; 2018-12-22 01:15)
PROC: 5A1955Z Respiratory Ventilation, Greater than 96 Consecutive Hours (ICD-10-PCS; 2018-12-22 01:15)
DX: I21.29 ST elevation (STEMI) myocardial infarction involving other sites (principal); E11.10 Type 2 diabetes mellitus with ketoacidosis without coma; I50.21 Acute systolic (congestive) heart failure; J69.0 Pneumonitis due to inhalation of food and vomit; J96.01 Acute respiratory failure with hypoxia; J96.02 Acute respiratory failure with hypercapnia; R65.11 Systemic inflammatory response syndrome (SIRS) of non-infectious origin with acute organ dysfunction; G93.1 Anoxic brain damage, not elsewhere classified; E23.2 Diabetes insipidus; I46.2 Cardiac arrest due to underlying cardiac condition; E78.5 Hyperlipidemia, unspecified; E11.65 Type 2 diabetes mellitus with hyperglycemia; E66.9 Obesity, unspecified; F32.9 Major depressive disorder, single episode, unspecified; F41.9 Anxiety disorder, unspecified; G40.909 Epilepsy, unspecified, not intractable, without status epilepticus; I11.0 Hypertensive heart disease with heart failure; I25.5 Ischemic cardiomyopathy; Z79.4 Long term (current) use of insulin; Z68.33 Body mass index [BMI] 33.0-33.9, adult
CPT/HCPCS: 31500; 36415; 36600; 70450; 71045; 80048; 80053; 80061; 80185; 80307; 81001; 81003; 82150; 82550; 82553; 82803; 82962; 83036; 83605; 83690; 83735; 84100; 84132; 84439; 84443; 84484; 85025; 85378; 85384; 85610; 85730; 86850; 86900; 86901; 87081; 87086; 92928; 93005; 93306; 93458; 94002; 94003; 94770; 95819; C1725; C1874; C1887; C1894; C9606; J0282; J0692; J1165; J1265; J1644; J1815; J1940; J1953; J2060; J2175; J2250; J2370; J2543; J3010; J3370; J3475; J3480; J7030; J7040; J7042; J7050; J7060; J7070; P9047; Q9967